=== PATIENT | male | born 1960 | race Caucasian/White ===

== ENCOUNTER → 2017-03-11 | Outpatient (REF) | payer MEDICARE, MEDICAID ==
[2017-03-11 12:35] LABS: ALBUMIN 3.9 GM/DL (3.2-5.2); ALBUMIN/GLOBULIN RATIO 1.11 (1.00-1.93); ALKALINE PHOSPHATASE 54 U/L (45-117); ALT/SGPT 24 U/L (12-78); ANION GAP 6 MEQ/L (8-16); AST/SGOT 24 U/L (15-37); BILIRUBIN,TOTAL 0.8 MG/DL (0.2-1.0); BLOOD UREA NITROGEN 8 MG/DL (7-18); CALCIUM LEVEL 8.4 MG/DL (8.5-10.1); CARBON DIOXIDE LEVEL 32 MEQ/L (21-32); CHLORIDE LEVEL 103 MEQ/L (98-107); CHOLESTEROL LEVEL 182 MG/DL (<200); CREATININE FOR GFR 1.08 MG/DL (0.70-1.30); FREE T4 1.15 NG/DL (0.76-1.46); GLOMERULAR FILTRATION RATE > 60.0 (>56); GLUCOSE, FASTING 84 MG/DL (70-105); POTASSIUM SERUM 3.7 MEQ/L (3.5-5.1); SODIUM LEVEL 141 MEQ/L (136-145); TOTAL PROTEIN 7.4 GM/DL (6.4-8.2); TRIGLYCERIDES LEVEL 58 MG/DL (<150)
== END ==
LOC: M SFHCCLAY 07:38
PROVIDERS: ATTEND Family Medicine
DX: E78.2 Mixed hyperlipidemia (principal); I10 Essential (primary) hypertension

== ENCOUNTER → 2017-09-15 | Outpatient (REF) | payer MEDICARE, MEDICAID ==
[2017-09-15 12:23] LABS: ALBUMIN 3.9 GM/DL (3.2-5.2); ALBUMIN/GLOBULIN RATIO 1.08 (1.00-1.93); ALKALINE PHOSPHATASE 56 U/L (45-117); ALT/SGPT 22 U/L (12-78); ANION GAP 6 MEQ/L (8-16); AST/SGOT 19 U/L (7-37); BILIRUBIN,TOTAL 0.8 MG/DL (0.2-1.0); BLOOD UREA NITROGEN 5 MG/DL (7-18); CALCIUM LEVEL 8.6 MG/DL (8.5-10.1); CARBON DIOXIDE LEVEL 31 MEQ/L (21-32); CHLORIDE LEVEL 105 MEQ/L (98-107); CHOLESTEROL LEVEL 158 MG/DL (<200); FREE T4 1.17 NG/DL (0.76-1.46); GLOMERULAR FILTRATION RATE > 60.0 (>56); GLUCOSE, FASTING 106 MG/DL (70-105); POTASSIUM SERUM 3.9 MEQ/L (3.5-5.1); SODIUM LEVEL 142 MEQ/L (136-145); TOTAL PROTEIN 7.5 GM/DL (6.4-8.2); TRIGLYCERIDES LEVEL 110 MG/DL (<150)
== END ==
LOC: M SFHCCLAY 08:11
PROVIDERS: ATTEND Family Medicine
DX: E78.2 Mixed hyperlipidemia (principal); E07.9 Disorder of thyroid, unspecified; Z12.5 Encounter for screening for malignant neoplasm of prostate
CPT/HCPCS: 80053; 80061; 84439; 84443; G0103

== ENCOUNTER → 2017-12-14 | Outpatient (REF) | payer MEDICARE, MEDICAID | LOC: M SMT 17:01 | DX: R97.20 Elevated prostate specific antigen [PSA] (principal); Z79.82 Long term (current) use of aspirin; Z79.899 Other long term (current) drug therapy | CPT/HCPCS: 87086 ==

== ENCOUNTER → 2017-12-18 | Outpatient (REF) | payer MEDICARE, MEDICAID ==
[2017-12-18 16:53] LABS: ALBUMIN 4.2 GM/DL (3.2-5.2); ALBUMIN/GLOBULIN RATIO 1.17 (1.00-1.93); ALKALINE PHOSPHATASE 56 U/L (45-117); ALT/SGPT 19 U/L (12-78); ANION GAP 4 MEQ/L (8-16); AST/SGOT 20 U/L (7-37); BILIRUBIN,TOTAL 1.2 MG/DL (0.2-1.0); BLOOD UREA NITROGEN 12 MG/DL (7-18); CARBON DIOXIDE LEVEL 33 MEQ/L (21-32); CHLORIDE LEVEL 103 MEQ/L (98-107); CHOLESTEROL LEVEL 190 MG/DL (<200); CHOLESTEROL RISK RATIO 2.794 (<5); CREATININE FOR GFR 1.05 MG/DL (0.70-1.30); GLOMERULAR FILTRATION RATE > 60.0 (>56); GLUCOSE, FASTING 81 MG/DL (70-100); HDL CHOLESTEROL 68 MG/DL (>40); NON-HDL-C 122 MG/DL; POTASSIUM SERUM 4.3 MEQ/L (3.5-5.1); PROSTATIC SPECIFIC AG MONITOR 0.82 NG/ML (< 4.0); SODIUM LEVEL 140 MEQ/L (136-145); TOTAL PROTEIN 7.8 GM/DL (6.4-8.2); TRIGLYCERIDES LEVEL 70 MG/DL (<150)
[2017-12-22 00:06] LABS: PSA TOTAL 0.8 ng/mL (0.0-4.0)
== END ==
LOC: M LABSMT 09:09
DX: R97.20 Elevated prostate specific antigen [PSA] (principal); E78.2 Mixed hyperlipidemia
CPT/HCPCS: 80053

== ENCOUNTER → 2018-12-21 | Outpatient (REF) | payer MEDICARE, MEDICAID ==
[2018-12-21 11:40] LABS: ALT/SGPT 25 U/L (12-78); BILIRUBIN,TOTAL 1.1 MG/DL (0.2-1.0); BLOOD UREA NITROGEN 13 MG/DL (7-18); CALCIUM LEVEL 8.7 MG/DL (8.5-10.1); CARBON DIOXIDE LEVEL 32 MEQ/L (21-32); CHLORIDE LEVEL 102 MEQ/L (98-107); CHOLESTEROL LEVEL 188 MG/DL (<200); CHOLESTEROL RISK RATIO 3.081 (<5); CREATININE FOR GFR 1.12 MG/DL (0.70-1.30); GLOMERULAR FILTRATION RATE > 60.0 (>56); GLUCOSE, FASTING 85 MG/DL (70-100); HDL CHOLESTEROL 61 MG/DL (>40); LDL CHOLESTEROL 114 MG/DL (<100); NON-HDL-C 127 MG/DL; POTASSIUM SERUM 3.7 MEQ/L (3.5-5.1); SODIUM LEVEL 139 MEQ/L (136-145); TOTAL PROTEIN 7.6 GM/DL (6.4-8.2); TRIGLYCERIDES LEVEL 66 MG/DL (<150)
== END ==
LOC: M SFHCCLAY 11:11
PROVIDERS: ATTEND Family Medicine
DX: R97.20 Elevated prostate specific antigen [PSA] (principal); E78.2 Mixed hyperlipidemia
CPT/HCPCS: 80053; 80061; G0463

== ENCOUNTER → 2019-07-26 | Outpatient (REF) | payer MEDICARE, MEDICAID ==
[2019-07-26 12:24] LABS: ALBUMIN 3.8 GM/DL (3.2-5.2); BILIRUBIN,TOTAL 0.8 MG/DL (0.2-1.0); CALCIUM LEVEL 9.3 MG/DL (8.8-10.2); CHOLESTEROL RISK RATIO 2.862 (<5); CREATININE FOR GFR 1.44 MG/DL (0.70-1.30); GLOMERULAR FILTRATION RATE 53.3 (>49); POTASSIUM SERUM 3.6 MEQ/L (3.5-5.1); TOTAL PROTEIN 7.6 GM/DL (6.4-8.2)
== END ==
LOC: M SFHCCLAY 08:03
PROVIDERS: ATTEND Family Medicine
DX: R97.20 Elevated prostate specific antigen [PSA] (principal); E78.2 Mixed hyperlipidemia; Z23 Encounter for immunization
CPT/HCPCS: 80053; 80061; 90682; G0008; G0463

== ENCOUNTER → 2019-09-07 | Outpatient (REF) | payer MEDICARE, MEDICAID ==
[2019-09-07 12:03] LABS: HEMATOCRIT 36.4 % (42.0-52.0); HEMOGLOBIN 12.5 g/dl (13.5-17.5); MEAN CORPUSCULAR HEMOGLOBIN 33.6 pg (27.0-33.0); MEAN CORPUSCULAR HGB CONC 34.3 g/dl (32.0-36.5); MEAN CORPUSCULAR VOLUME 97.8 fl (80.0-96.0); PLATELET COUNT, AUTOMATED 318 10^3/uL (150-450); RED BLOOD COUNT 3.72 10^6/uL (4.30-6.10)
[2019-09-07 12:11] LABS: CALCIUM LEVEL 8.7 MG/DL (8.8-10.2); CREATININE FOR GFR 1.59 MG/DL (0.70-1.30); GLOMERULAR FILTRATION RATE 47.5 (>49); POTASSIUM SERUM 3.9 MEQ/L (3.5-5.1)
== END ==
LOC: M SFHCCLAY 07:26
PROVIDERS: ATTEND Family Medicine
DX: M79.89 Other specified soft tissue disorders (principal)
CPT/HCPCS: 80048; 85027; 85379; G0463

== ENCOUNTER → 2020-01-31 | Outpatient (REF) | payer MEDICARE, MEDICAID ==
[2020-01-31 16:35] LABS: HEMATOCRIT 38.3 % (42.0-52.0); HEMOGLOBIN 13.6 g/dl (13.5-17.5); MEAN CORPUSCULAR HEMOGLOBIN 32.5 pg (27.0-33.0); MEAN CORPUSCULAR HGB CONC 35.5 g/dl (32.0-36.5); MEAN CORPUSCULAR VOLUME 91.6 fl (80.0-96.0); PLATELET COUNT, AUTOMATED 289 10^3/uL (150-450); RED BLOOD COUNT 4.18 10^6/uL (4.30-6.10); WHITE BLOOD COUNT 3.9 10^3/uL (4.0-10.0)
[2020-01-31 16:43] LABS: BLOOD UREA NITROGEN 17 MG/DL (7-18); CALCIUM LEVEL 9.7 MG/DL (8.8-10.2); CARBON DIOXIDE LEVEL 32 MEQ/L (21-32); CHLORIDE LEVEL 86 MEQ/L (98-107); CREATININE FOR GFR 1.27 MG/DL (0.70-1.30); GLOMERULAR FILTRATION RATE > 60.0 (>49); GLUCOSE, FASTING 88 MG/DL (70-100); IRON (FE) 75 UG/DL (65-175); PERCENT SATURATION 21.5 % (19.7-50.0); POTASSIUM SERUM 3.7 MEQ/L (3.5-5.1); SODIUM LEVEL 124 MEQ/L (136-145); TOTAL IRON BINDING CAPACITY 349 UG/DL (250-450)
[2020-01-31 17:12] LABS: FOLATE 7.8 NG/ML (>5.4); VITAMIN B12 LEVEL 217 PG/ML (247-911)
== END ==
LOC: M SFHCCLAY 09:38
PROVIDERS: ATTEND Family Medicine
DX: I12.9 Hypertensive chronic kidney disease with stage 1 through stage 4 chronic kidney disease, or unspecified chronic kidney disease (principal); E78.2 Mixed hyperlipidemia; N18.3 Chronic kidney disease, stage 3 (moderate); D64.9 Anemia, unspecified; Z79.899 Other long term (current) drug therapy
CPT/HCPCS: 80048; 82607; 82746; 83036; 83550; 85027; G0463

== ENCOUNTER → 2020-02-06 | Outpatient (CLI) | payer MEDICARE, MEDICAID ==
--- NOTE | 2020-02-06 12:31 | REP ---
ULTRASOUND URINARY BLADDER: Real-time sonographic evaluation of urinary bladder performed. Bladder measures 12.8 x 9.1 x 8.8 cm for a total volume of 669 mL. No wall thickening, mass, or calculus is seen. Right ureteral jet is visualized with Doppler color evaluation. Left ureteral jet is not seen. Postvoid residual is 318 mL, which is 48% of the original volume. Prostate measures 3.1 x 2.7 x 3.6 cm for a total volume of 16 mL. Electronically Signed by John Winslow MD 02/07/2020 10:02 A
== END ==
LOC: M RAD 10:21
PROVIDERS: ATTEND Family Medicine
DX: N18.3 Chronic kidney disease, stage 3 (moderate) (principal); N39.44 Nocturnal enuresis
CPT/HCPCS: 76857; 96372; J3420

== ENCOUNTER → 2020-02-16 | Outpatient (REF) | payer MEDICARE, MEDICAID ==
[2020-02-16 11:36] LABS: C REACTIVE PROTEIN QUANTITATIV < 0.30 MG/DL (0.00-0.30); TOTAL PROTEIN 7.6 GM/DL (6.4-8.2)
[2020-02-21 09:44] LABS: ALBUMIN 4.26 GM/DL (3.29-5.55); ALPHA-2-GLOBULINS 0.59 GM/DL (0.42-0.99); ALPHA-2-GLOBULINS % 7.8 % (7.1-11.8); BETA-1-GLOBULINS 0.49 GM/DL (0.28-0.60); BETA-1-GLOBULINS % 6.5 % (4.7-7.2); BETA-2-GLOBULINS 0.44 GM/DL (0.19-0.55); BETA-2-GLOBULINS % 5.8 % (3.2-6.5); GAMMA GLOBULIN % 19.9 % (11.1-18.8); GAMMA GLOBULINS 1.51 GM/DL (0.65-1.58)
== END ==
LOC: M SFHCCLAY 08:03
PROVIDERS: ATTEND Family Medicine
DX: N18.3 Chronic kidney disease, stage 3 (moderate) (principal); D64.9 Anemia, unspecified; E87.1 Hypo-osmolality and hyponatremia

== ENCOUNTER → 2020-02-17 | Outpatient (CLI) | payer MEDICARE, MEDICAID ==
--- NOTE | 2020-02-17 15:51 | REP ---
RENAL ULTRASOUND: Real-time sonographic evaluation of the kidneys is performed. The kidneys are normal in size and echotexture, right kidney measuring 10.4 x 5.6 x 4.6 cm and left kidney 11.1 x 5.1 x 5.4 cm. There is very mild left hydronephrosis. There is no right hydronephrosis. Possible calculus is seen in the mid left kidney 6 mm in diameter as well as in the lower pole 6 mm in diameter. Ureteral jets are seen in the urinary bladder bilaterally with Doppler color evaluation. IMPRESSION: Very mild left hydronephrosis. Two possible intrarenal calculi mid and lower pole left kidney measuring 6 mm in diameter. Bilateral ureteral jets visualized in the urinary bladder. Electronically Signed by John Winslow MD 02/17/2020 04:04 P
== END ==
LOC: M RAD 13:07
PROVIDERS: ATTEND Family Medicine
DX: N18.3 Chronic kidney disease, stage 3 (moderate) (principal); N20.0 Calculus of kidney; N13.30 Unspecified hydronephrosis

== ENCOUNTER → 2020-02-20 | Outpatient (REF) | payer MEDICARE, MEDICAID ==
[~2020-02-20] MED LIST: ARIP1TAB4 PO; ASPI81TA26 PO; ATEN50TA2; ATIV1TAB10 PO; CARV6.25 PO; CIPR-249 PO; CYAN100049 PO; HYDR-3363; HYDR-3490 PO; LORA-674 PO; TAMS1CAP17 PO
[2020-02-20 18:04] LABS: APPEARANCE, URINE CLEAR (CLEAR); BACTERIA, URINE AUTO NEGATIVE (NEGATIVE); BILIRUBIN, URINE AUTO NEGATIVE (NEGATIVE); BLOOD, URINE BLOOD 1+ (NEGATIVE); COLOR, URINE YELLOW (YELLOW); GLUCOSE, URINE (UA) AUTO NEGATIVE (NEGATIVE); KETONE, URINE AUTO NEGATIVE (NEGATIVE); LEUKOCYTE ESTERASE, URINE AUTO NEGATIVE (NEGATIVE); NITRITE, URINE AUTO NEGATIVE (NEGATIVE); PROTEIN, URINE AUTO NEGATIVE (NEGATIVE); RBC, URINE AUTO 2 /HPF (0-3); SPECIFIC GRAVITY URINE AUTO 1.009 (1.002-1.035); SQUAMOUS EPITHELIAL CELL UR AU 0 /HPF (0-6); UROBILINOGEN, URINE AUTO 0.2 mg/dL (0.0-2.0); WBC, URINE AUTO 0 /HPF (0-3)
== END ==
LOC: M SMT 17:21
PROVIDERS: ATTEND Nurse Practitioner Family
DX: N39.44 Nocturnal enuresis (principal)
CPT/HCPCS: 51798; 81001; 87086; G0463

== ENCOUNTER → 2020-03-02 | Outpatient (REF) | payer MEDICARE, MEDICAID ==
[2020-03-02 12:17] LABS: BLOOD UREA NITROGEN 9 MG/DL (7-18); CALCIUM LEVEL 8.8 MG/DL (8.8-10.2); CARBON DIOXIDE LEVEL 31 MEQ/L (21-32); CHLORIDE LEVEL 101 MEQ/L (98-107); CREATININE FOR GFR 1.22 MG/DL (0.70-1.30); GLOMERULAR FILTRATION RATE > 60.0 (>49); GLUCOSE, FASTING 85 MG/DL (70-100); POTASSIUM SERUM 3.6 MEQ/L (3.5-5.1); SODIUM LEVEL 138 MEQ/L (136-145)
== END ==
LOC: M SFHCCLAY 08:09
PROVIDERS: ATTEND Nurse Practitioner Family
DX: N18.3 Chronic kidney disease, stage 3 (moderate) (principal)

== ENCOUNTER → 2020-03-09 | Outpatient (CLI) | payer MEDICARE, MEDICAID ==
[~2020-03-09] MED LIST changes: -ATIV1TAB10 PO; -CIPR-249 PO; -HYDR-3490 PO; +HYDR25TAB PO
== END ==
LOC: M LABSMTC 13:59
PROVIDERS: ATTEND Family Medicine
DX: Z11.59 Encounter for screening for other viral diseases (principal); Z20.828 Contact with and (suspected) exposure to other viral communicable diseases
CPT/HCPCS: 86580; C9803; U0003

== ENCOUNTER 2020-03-15 13:32 | Emergency (ER) | payer MEDICARE, MEDICAID ==
[~2020-03-15] VITALS: Ht 180.3 cm; Wt 100.0 kg
[2020-03-15 13:50] VITALS: BP 162/82
[2020-03-15] MEDS ORDERED: CARV6.25 PO (14:29)
[2020-03-15] MEDS ORDERED: CYAN100049 PO (14:29)
[2020-03-15] MEDS ORDERED: ATEN50TA2 (14:29)
[2020-03-15] MEDS ORDERED: HYDR-3490 PO (14:29)
[2020-03-15] MEDS ORDERED: TAMS1CAP17 PO (14:29)
[2020-03-15] MEDS ORDERED: HYDR-3363 (14:29)
[2020-03-15] MEDS ORDERED: ASPI81TA26 PO (14:29)
[2020-03-15] MEDS ORDERED: ARIP1TAB4 PO (14:29)
[2020-03-15] MEDS ORDERED: LORA-674 PO (14:29)
[2020-03-15 14:56] LABS: HEMATOCRIT 35.3 % (42.0-52.0); HEMOGLOBIN 12.2 g/dl (13.5-17.5); MEAN CORPUSCULAR HEMOGLOBIN 32.8 pg (27.0-33.0); MEAN CORPUSCULAR HGB CONC 34.6 g/dl (32.0-36.5); MEAN CORPUSCULAR VOLUME 94.9 fl (80.0-96.0); PLATELET COUNT, AUTOMATED 303 10^3/uL (150-450); RED BLOOD COUNT 3.72 10^6/uL (4.30-6.10); WHITE BLOOD COUNT 4.8 10^3/uL (4.0-10.0)
[2020-03-15 15:34] LABS: AMPHETAMINES LEVEL URINE NEGATIVE (NEGATIVE); BARBITURATES URINE NEGATIVE (NEGATIVE); BENZODIAZEPINES URINE NEGATIVE (NEGATIVE); CANNABINOIDS URINE NEGATIVE (NEGATIVE); COCAINE METABOLITE URINE NEGATIVE (NEGATIVE); METHADONE URINE NEGATIVE (NEGATIVE); OPIATES URINE NEGATIVE (NEGATIVE); PHENCYCLIDINE URINE NEGATIVE (NEGATIVE)
[2020-03-15 15:46] LABS: ACETAMINOPHEN LEVEL < 2.0 UG/ML (10.0-30.0); ALBUMIN 3.9 GM/DL (3.2-5.2); ALT/SGPT 27 U/L (12-78); BILIRUBIN,DIRECT 0.2 MG/DL (0.0-0.2); BILIRUBIN,TOTAL 0.9 MG/DL (0.2-1.0); BLOOD UREA NITROGEN 20 MG/DL (7-18); CALCIUM LEVEL 8.4 MG/DL (8.8-10.2); CARBON DIOXIDE LEVEL 28 MEQ/L (21-32); CHLORIDE LEVEL 105 MEQ/L (98-107); CREATININE FOR GFR 1.35 MG/DL (0.70-1.30); ETHYL ALCOHOL (ETHANOL) < 0.003 % (0.000-0.010); GLOMERULAR FILTRATION RATE 57.4 (>49); GLUCOSE, FASTING 125 MG/DL (70-100); POTASSIUM SERUM 3.7 MEQ/L (3.5-5.1); SALICYLATE LEVEL < 1.7 MG/DL (5.0-30.0); SODIUM LEVEL 139 MEQ/L (136-145); TOTAL PROTEIN 7.5 GM/DL (6.4-8.2)
== END 2020-03-15 20:50 | disposition home or self-care (01) ==
LOC: M ED 13:32
DX: F20.9 Schizophrenia, unspecified (principal); E78.5 Hyperlipidemia, unspecified; J30.9 Allergic rhinitis, unspecified; I10 Essential (primary) hypertension; Z79.899 Other long term (current) drug therapy; Z79.82 Long term (current) use of aspirin; Z88.0 Allergy status to penicillin
CPT/HCPCS: 36415; 80048; 80076; 80307; 84443; 85027; 99284; G0480

== ENCOUNTER 2020-07-06 08:05 | Emergency (ER) | payer MEDICARE, MEDICAID ==
[2020-07-06 08:28] VITALS: BP 163/87
--- NOTE | 2020-07-06 09:09 | REPVR ---
PROCEDURE INFORMATION: Exam: XR Right Tibia and Fibula Exam date and time: 07/06/2020 8:43 AM Age: 60 years old Clinical indication: Edema; Location not specified; Additional info: Swelling TECHNIQUE: Imaging protocol: XR Right tibia and fibula. Views: 2 views. COMPARISON: No relevant prior studies available. FINDINGS: Bones/joints: Bone mineralization is normal. Mild degenerative change involving the knee. Preservation of the ankle mortise. No acute fracture or dislocation. Soft tissues: Generalized soft tissue edema. Thickening of the distal Achilles tendon with associated calcifications and posterior calcaneal spurring, consistent with Achilles tendinopathy. IMPRESSION: 1. Generalized soft tissue edema. 2. Achilles tendinopathy. 3. Mild degenerative change involving the right knee. 4. No acute bony abnormality is identified. Electronically signed by: Douglas Tristan On 07/06/2020 09:09:26 AM
--- NOTE | 2020-07-06 09:14 | REPVR ---
PROCEDURE INFORMATION: Exam: XR Right Ankle Exam date and time: 07/06/2020 8:43 AM Age: 60 years old Clinical indication: Edema; Location not specified; Additional info: Swelling TECHNIQUE: Imaging protocol: XR Right ankle. Views: 3 or more views. COMPARISON: No relevant prior studies available. FINDINGS: Bones/joints: Bone mineralization is normal. Bones are intact with preservation of the ankle mortise. No acute fracture or dislocation. Moderate posterior and small plantar calcaneal spur formation. Soft tissues: Generalized soft tissue edema. Thickening of the distal Achilles tendon with associated calcifications and posterior calcaneal spurring, consistent with Achilles tendinopathy. IMPRESSION: 1. Generalized soft tissue edema. 2. Achilles tendinopathy. 3. No acute bony abnormality is identified. Electronically signed by: Douglas Tristan On 07/06/2020 09:14:08 AM
--- NOTE | 2020-07-06 09:19 | REPVR ---
PROCEDURE INFORMATION: Exam: US Duplex Right Lower Extremity Veins, Limited Exam date and time: 07/06/2020 9:09 AM Age: 60 years old Clinical indication: Swelling (edema) of limb; Lower extremity, right; Additional info: Selling right leg - bedside please - u PT TECHNIQUE: Imaging protocol: Real-time Duplex ultrasound of the Right Lower Extremity with 2-D ackerman scale, color Doppler flow and spectral waveform analysis with image documentation. Limited exam was focused on the right lower extremity veins. COMPARISON: No relevant prior studies available. FINDINGS: Right deep veins: Unremarkable. The common femoral, femoral, proximal profunda femoral and popliteal veins are patent without thrombus. Normal Doppler waveforms. Normal compressibility and/or augmentation response. Right superficial veins: Unremarkable. Saphenofemoral junction is patent without thrombus. Soft tissues: Unremarkable. IMPRESSION: No evidence of deep vein thrombosis. Electronically signed by: Douglas Tristan On 07/06/2020 09:18:45 AM
[2020-07-06 09:35] LABS: AMPHETAMINES LEVEL URINE NEGATIVE (NEGATIVE); BARBITURATES URINE NEGATIVE (NEGATIVE); BENZODIAZEPINES URINE NEGATIVE (NEGATIVE); CANNABINOIDS URINE NEGATIVE (NEGATIVE); COCAINE METABOLITE URINE NEGATIVE (NEGATIVE); METHADONE URINE NEGATIVE (NEGATIVE); OPIATES URINE NEGATIVE (NEGATIVE); PHENCYCLIDINE URINE NEGATIVE (NEGATIVE)
[2020-07-06 09:37] LABS: HEMATOCRIT 35.8 % (42.0-52.0); HEMOGLOBIN 12.7 g/dl (13.5-17.5); MEAN CORPUSCULAR HEMOGLOBIN 33.6 pg (27.0-33.0); MEAN CORPUSCULAR HGB CONC 35.5 g/dl (32.0-36.5); MEAN CORPUSCULAR VOLUME 94.7 fl (80.0-96.0); PLATELET COUNT, AUTOMATED 302 10^3/uL (150-450); RED BLOOD COUNT 3.78 10^6/uL (4.30-6.10); WHITE BLOOD COUNT 3.7 10^3/uL (4.0-10.0)
[2020-07-06 10:14] LABS: ACETAMINOPHEN LEVEL < 2.0 UG/ML (10.0-30.0); ALBUMIN 3.8 GM/DL (3.2-5.2); ALT/SGPT 24 U/L (12-78); BILIRUBIN,DIRECT 0.2 MG/DL (0.0-0.2); BILIRUBIN,TOTAL 0.6 MG/DL (0.2-1.0); BLOOD UREA NITROGEN 18 MG/DL (7-18); CALCIUM LEVEL 9.2 MG/DL (8.8-10.2); CARBON DIOXIDE LEVEL 30 MEQ/L (21-32); CHLORIDE LEVEL 92 MEQ/L (98-107); CREATININE FOR GFR 1.42 MG/DL (0.70-1.30); ETHYL ALCOHOL (ETHANOL) < 0.003 % (0.000-0.010); GLUCOSE, FASTING 74 MG/DL (70-100); POTASSIUM SERUM 3.8 MEQ/L (3.5-5.1); SALICYLATE LEVEL < 1.7 MG/DL (5.0-30.0); SODIUM LEVEL 128 MEQ/L (136-145); TOTAL PROTEIN 7.5 GM/DL (6.4-8.2)
[2020-07-06] MEDS ORDERED: ATIV1TAB10 PO (11:25)
[2020-07-06] MEDS ORDERED: LORazepam 0.5 MG TAB PO STA (11:27)
--- NOTE | 2020-07-13 09:34 | ER ---
DATE OF CONSULTATION: 07/06/2020 REASON FOR CONSULTATION: Right lower leg raised lesion with right lower extremity swelling. HISTORY OF PRESENT ILLNESS: The patient is a 60-year-old man who is a resident of the [facility]. He was brought to the emergency department because of some increase in aggressive behavior. He was brought to the [facility] for evaluation. While being evaluated he was found to have some edema of the right lower leg relative to the left and was found to have a raised subcutaneous nodule or mass on the anterior aspect of the right lower leg. It was unclear if this represented an infection but it was reported by his caregivers that he had been on antibiotics for 2 weeks and that it was 80% better than it had been. I was asked to evaluate this raised area as to the need for drainage or further treatment. MEDICAL HISTORY AND SURGICAL HISTORY: As noted in the medical record. ALLERGIES: PATIENT HAS REPORTED ALLERGY TO [facility]EN[facility]. MEDICATIONS: As listed include: * Carvedilol. * Tamsulosin. * Aripiprazole. * Cyanocobalamin. * Hydrochlorothiazide. * Aspirin. * Loratadine. PHYSICAL EXAMINATION: Reveals middle aged or slightly older man lying quietly on a stretcher in the emergency department. He is responsive and appropriate. His examination is limited to his lower extremities. On the anterior aspect of the right lower leg slightly below the level of the tibial tuberosity there is a raised area approximately 4 cm across. This is approximately on the anterior surface of the tibia. This is fairly firm to touch but does not appear significantly tender. There is a small healing abrasion on the anterior central aspect of this. There is no fluctuance. He has some mild edema of the right lower leg particularly distally in the area above the ankle. On the medial aspect of the plantar surface of the foot there appears to be a small bruise in this area. There is some mild erythema, very faint, in roughly the distal half of the lower leg on the right. He has palpable pedal pulses bilaterally. There is no significant edema on the left. The patient had a duplex scan in the emergency department which showed no evidence of deep venous thrombosis. He also had an x-ray of the right ankle which revealed some edema but no evidence of acute bony abnormality. He also had an x-ray of the right tibia and fibula which confirmed some soft tissue edema and some mild degenerative changes of the knee but no acute bony abnormalities. IMPRESSION: The patient has a small raised subcutaneous mass-like area on the right tibia slightly below the level of the knee. He has some edema in the right lower leg which is not present on the left but an ultrasound shows no evidence of DVT. The appearance of this raised area of the lower leg I think is consistent with hematoma. This is in the typical position to bang ones medina on something. There is a healing abrasion over the center of this region. It is reported by the [facility] staff that the area looks much improved. Whether there was some infection in this area previously I cannot say but currently this does not appear infected. The appearance and feel of this I think are consistent with hematoma. This could readily account for the lower extremity edema as well. RECOMMENDATIONS: I advised Dr. Winslow that I did not feel there was any need for drainage of this area. I would expect that this will continue to resolve without further treatment and likely once the hematoma and any other bleeding that may have taken place into the soft tissues of the lower leg has resolved that the edema will resolve as well. He can follow up with his primary provider and if it is felt to be appropriate he can be seen in my office in a few weeks to reassess this area. ABDULLAHI
== END 2020-07-06 12:20 | disposition home or self-care (01) ==
LOC: M ED 08:05
DX: E87.1 Hypo-osmolality and hyponatremia (principal); R60.0 Localized edema; I10 Essential (primary) hypertension; F20.9 Schizophrenia, unspecified; E78.9 Disorder of lipoprotein metabolism, unspecified; Z79.899 Other long term (current) drug therapy; Z79.82 Long term (current) use of aspirin; Z88.0 Allergy status to penicillin
CPT/HCPCS: 36415; 73590; 73610; 80048; 80076; 80307; 84443; 85027; 93971; 99284; G0480

== ENCOUNTER → 2020-09-04 | Outpatient (CLI) | payer MEDICARE, MEDICAID ==
[~2020-09-04] MED LIST changes: +ATIV1TAB10 PO
--- NOTE | 2020-09-04 12:20 | REP ---
INDICATION: URINARY INCONTINENCE COMPARISON: 02/06/2020 TECHNIQUE: Real time B-mode ultrasound examination using curved array transducer. FINDINGS: Bladder demonstrates chronic wall trabeculations without mass lesion or further abnormality. Bilateral ureteral jets are identified. Prevoid bladder measures 16.0 x 13.1 x 11.4 cm (1560 cc) Postvoid bladder measures 14.1 x 11.5 x 7.6 cm (105 cc) Postvoid residual: 51% IMPRESSION: 1. Bladder wall trabeculations consistent with chronic changes. No bladder mass. 2. Abnormal increased postvoid residual volume <Electronically signed by Douglas Keenan > 09/04/20 2144
== END ==
LOC: M RAD 11:22
PROVIDERS: ATTEND Family Medicine
DX: R35.0 Frequency of micturition (principal); R39.81 Functional urinary incontinence

== ENCOUNTER 2020-11-20 18:54 | Emergency (ER) | payer MEDICARE, MEDICAID ==
[~2020-11-20] VITALS: Ht 167.6 cm; Wt 86.4 kg
[~2020-11-20 18:54] MED LIST changes: +HYDR-3490 PO; -HYDR25TAB PO
--- OUTSIDE RECORDS SUMMARY | 2020-11-20 21:05 | CCD ---
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 Active 56809420 Problem Hypercholesterolemia E78.00 Active 61846409 Problem Elevated PSA R97.20 Active 527210708 Problem Screening declined by patient Z53.20 Active 31 798943841693 Problem Hematoma of skin T14.8XXA Active 332928649 Problem Mixed hyperlipidemia E78.2 Active 260777278 Problem Functional urinary incontinence R39.81 Active 540796274 Problem Essential (primary) hypertension I10 Active 85019417 Problem Urinary incontinence, nocturnal enuresis N39.44 Active 8347246 Problem Stage 3 chronic kidney disease N18.3 Active 4 32444470 Problem CKD (chronic kidney disease) stage 3, GFR 30-59 ml/min N18.3 Active 650488872 Problem Urinary retention R33.9 Active 445060097 ALLERGIES Allergen (clinical drug ingredient) Drug/Non Drug Allergy do cumented on EMR Reaction Allergy Type Onset Date Status Penicillin G Benzathine UNKNOWN Drug Allergy Active ENCOUNTERS from 1959 to 2020-09-01 Encounter Location Date Provider Diagnosis [facility] [address] [place] [address] Aug, Vlad Frias Frequency of urination R35.0 ; Functional urinary incontinence R39.81 ; Urinary retention R33.9 and Essential (primary) hypertension I10 IMMUNIZATIONS Vaccine Route Administration Date Status Influenza (18 yrs & older) Flublok IM Intramuscular Jul 26, 2019 Administered Influenza (18 yrs & older) Flublok Unknown Aug 14, 2018 Administered Vitamin B-12 1000mcg/1mL (Cyanocobalamin) IM Intramuscular February 06, 2020 Administered TDAP Unknown April 11, 2009 Administered Influenza (6mo & up) Fluzone IM Intramuscular Sep 16, 2017 Ad ministered Influenza (6mo & up) Fluzone IM Intramuscular Sep 10, 2016 Ad ministered Influenza (6mo & up) Fluzone IM Intramuscular Jul 19, 2015 Ad ministered Influenza (6mo & up) Fluzone IM Jun 27, 2014 Adm inistered Influenza (6mo & up) Fluzone IM Jun 30, 2013 Adm inistered SOCIAL HISTORY Tobacco Use: Social History Observation Description Date Details (start date - stop date) Never Smoker Sex Assigned At : Social History Observation Description Sex Assigned At Unknown Education: Question Answer Notes Level of Education: dropped out of [employer] Audit Question Answer Notes Total Score: 0 Interpretation: Alcohol Education Language: Question Answer Notes Languages spoken: Ukrainian Jewish: Question Answer Notes Jewish 08 Tenriism Sexual Hx: Question Answer Notes Had sex in the last 12 months (vaginal, oral, or anal)? No Have you ever had an STD? No Drug and Alcohol Question Answer Notes Total Score: 0 Interpretation: No problems reported Alcohol Screening: Question Answer Notes Did you have a drink containing alcohol in the past year? No Points 0 Interpretation Negative BMI Care Goal Follow-Up Question Answer Notes Above Normal BMI Follow-Up Dietary management educatio n, guidance, and counseling Tobacco Use: Question Answer Notes Are you a: never smoker never smoker Additional Findings: Tobacco Non-User Current non-smoker REASON FOR REFERRAL No Information VITAL SIGNS Weight 205 lbs Aug, Height 5'11" in Aug, BMI 28.59 kg/m2 Aug, Heart Rate 76 /min Aug, Respiratory Rate 18 /min Aug, Temperature 98 degrees Fahrenheit Aug, Oximetry 100RA Aug, Blood pressure systolic 150 mm Hg Aug, Blood pressure diastolic 82 mm Hg Aug, MEDICATIONS Medication SIG (Take, Route, Frequency, Duration) Notes Start Da te End Date Status SEROquel 25 mg 1 tab Orally every AM Active Depend Pant Large - as directed topically, R39.8 1, R35.0, F20.89 tid for 30 Days Aug, Active Aspir-81 81 MG 1 tablet Orally Once a day Active Ativan 1 MG 1 tab Orally every 4 hours as needed for aggression Active Hydrochlorothiazide 25 MG 1 tablet in the morning Orally Once a day Jul, Active Vitamin B-12 1000 MCG 1 tablet Orally Once a day 24 Jan, 2 020 Active HydrOXYzine HCl 25 mg 1 tab Orally bid prn itching Active Vitamin B12 1000 MCG 1 tablet Orally Once a day Not-Taking Hydrocortisone 1 % 1 application Externally bid as needed to irr itated skin Aug, Active Tamsulosin HCl 0.4 MG 1 capsule Orally Once a day February, Active SEROquel 100 MG 1 tablet at bedtime Orally Once a day Active Carvedilol 6.25 MG 1 tablet with food Orally Twice a day 2 Jan, Active Loratadine 10 mg 1 tablet Orally Once a day Active PROCEDURES No Information RESULTS Component Value Reference Range Urinalysis, no micro Reviewed date:08/28/2020 16:04:39 Interpretation: Performing Lab:[facility], [place] [address] Spec gravity 1.010 1.002 - 1.035 pH 5 5.0 - 9.0 Leukocyte neg Negative - Nitrate neg Negative - Protein neg Negative - mg/dl Glucose neg Negative - mg/dl Ketones neg Negative - mg/dl Urobili norm Normal - mg/dl Bilirubin neg Negative - Blood trace Negative - Internal QC Acceptable (Y/N) yes REASON FOR VISIT urinary frequency/ incontinence MEDICAL (GENERAL) HISTORY Type Description Date Medical History Schizophrenia Medical History Hypertension Medical History Elevated lipids Medical History allergic rhinitis Surgical History No Surgical history information Goals Section No Information Health Concerns No Information MEDICAL EQUIPMENT No Information MENTAL STATUS No Information FUNCTIONAL STATUS No Information ASSESSMENTS Encounter Date Diagnosis Assessment Notes Treatment Notes Treatm ent Clinical Notes Aug, Frequency of urination (ICD-10 - R35.0) Aug, Functional urinary incontinence (ICD-10 - R39.81 ) Aug, Urinary retention (ICD-10 - R33.9) Will likely request follow-up urology clinic visit, depending on result of ultrasound Aug, Essential (primary) hypertension (ICD-10 - I10) PLAN OF TREATMENT Medication Medication Name Sig Start Date Stop Date Hydrochlorothiazide 25 MG 1 tablet in the morning Orally Onc e a day 15 Jul, 2019 Carvedilol 6.25 MG 1 tablet with food Orally Twice a day Jan, Ativan 1 MG 1 tab Orally every 4 hours as needed for aggress ion SEROquel 100 MG 1 tablet at bedtime Orally Once a day Aspir-81 81 MG 1 tablet Orally Once a day Vitamin B-12 1000 MCG 1 tablet Orally Once a day Jan, HydrOXYzine HCl 25 mg 1 tab Orally bid prn itching Loratadine 10 mg 1 tablet Orally Once a day Depend Pant Large - as directed topically, R39.8 1, R35.0, F20.89 tid for 30 Days Aug, SEROquel 25 mg 1 tab Orally every AM Tamsulosin HCl 0.4 MG 1 capsule Orally Once a day February, Treatment Notes Assessment Notes Clinical Notes Urinary retention Will likely request follow-u p urology clinic visit, depending on result of ultrasound Future Test Test Name Order Date BLADDER U/S [id number] Next Appt Details 6 Months Reason: Provider Name:Vlad Frias, 2021-01-15 01 :00:00 PM, [address] [place], [address], Insurance Providers Payer Name Payer Address Payer Phone Insured Name Patient Relati onship to Insured Coverage Start Date Coverage End Date MEDICARE Part A and B [address] [facility] [id number] MARGARET LOZA MEDICAID [id number] [address] [facility] [address] MARGARET LOZA self
--- OUTSIDE RECORDS SUMMARY | 2020-11-20 21:05 | CCD ---
Author Author [facility] Organization [facility] Address Unknown Phone Unavailable Care Team Providers Care Cyber Security Analyst Name Role Phone Kaitlin Andrade Unavailable PROBLEMS Type Condition ICD9-CM Code [id number] Code Onset Dates Condition S tatus SNOMED Code Notes Problem Other specified types of schizophrenia, chronic condition F20.89 Active 20042800 Problem Essential (primary) hypertension I10 Active 06751437 Problem Allergic rhinitis due to pollen J30.1 Active 35304419 Problem Elevated PSA R97.20 Active 868953497 Problem Screening declined by patient Z53.20 Active 31 091523448069 Problem Urinary incontinence, nocturnal enuresis N39.44 Active 0678872 Problem Functional urinary incontinence R39.81 Active 034698313 Problem Hypercholesterolemia E78.00 Active 99464019 Problem BPH loc w urin obs/LUTS N40.1 Active 63026053 7 Problem Mixed hyperlipidemia E78.2 Active 289773299 Problem Stage 3 chronic kidney disease N18.3 Active 4 39478322 Problem CKD (chronic kidney disease) stage 3, GFR 30-59 ml/min N18.3 Active 366336563 Problem Urinary retention R33.9 Active 318616576 Problem Hematoma of skin T14.8XXA Active 910547397 ALLERGIES Allergen (clinical drug ingredient) Drug/Non Drug Allergy do cumented on EMR Reaction Allergy Type Onset Date Status Penicillin G Benzathine UNKNOWN Drug Allergy Active ENCOUNTERS from 1959 to 2020-11-07 Encounter Location Date Provider Diagnosis [facility] [address] [address] Oct Andrade Madrigal BPH loc w urin obs/LUTS N40.1 and Other retention of urine R33.8 IMMUNIZATIONS Vaccine Route Administration Date Status Influenza (18 yrs & older) Flublok Unknown Aug 14, 2018 Administered Vitamin B-12 1000mcg/1mL (Cyanocobalamin) IM Intramuscular February 06, 2020 Administered TDAP 0.5mL (Boostrix) IM Intramuscular Sep 12, 2020 Administe red TDAP Unknown April 11, 2009 Administered Influenza (6mo & up) Fluzone IM Intramuscular Sep 16, 2017 Ad ministered Influenza (6mo & up) Fluzone IM Intramuscular Sep 10, 2016 Ad ministered Influenza (18 yrs & older) Flublok IM Intramuscular Jul 26, 2019 Administered Influenza (6mo & up) Fluzone IM [...] Notes Level of Education: dropped out of [employer] Audit Question Answer Notes Total Score: 0 Interpretation: Alcohol Education Language: Question Answer Notes Languages spoken: Lithuanian Baptism: Question Answer Notes Baptism 08 Quaker Sexual Hx: Question Answer Notes Had sex [...] FOR REFERRAL No Information VITAL SIGNS Weight 194 lbs Oct, Height 5'11" in Oct, BMI 27.05 kg/m2 Oct, Heart Rate 77 /min Oct, Respiratory Rate 18 /min Oct, Oximetry 98 Oct, Blood pressure systolic 128 mm Hg Oct, Blood pressure diastolic 68 mm Hg Oct, MEDICATIONS Medication SIG (Take, Route, Frequency, Duration) Notes Start Da te End Date Status SEROquel 25 mg 1 tab Orally every AM Not-Taking Hydrocortisone 1 % 1 application Externally bid as needed to irr itated skin Aug, Active Vitamin B-12 1000 MCG 1 tablet Orally Once a day 24 Jan, 2 020 Active Hydrochlorothiazide 25 MG 1 tablet in the morning Orally Onc e a day for 30 Days Jul, Active Abilify 2 MG 1 tablet Orally Once a day for 30 day(s) Active Tamsulosin HCl 0.4 MG 1 capsule Orally Once a day for 30 Days February, Active Hydrochlorothiazide 25 MG 1 tablet in the morning Oral ly Once a day for 30 day(s) Active Loratadine 10 mg 1 tablet Orally Once a day for 30 Days Active Bactrim DS 800-160 MG 1 tablet 1 elaina prior to your cystoscopy Orally Once for 1 days Sep, Active Vitamin B12 1000 MCG 1 tablet Orally Once a day Not-Taking Ativan 1 MG 1 tab Orally every 4 hours as needed for aggression Not-Taking Carvedilol 6.25 MG 1 tablet with food Orally Twice a day for 90 days Jan, Active Depend Pant Large - as directed topically, R39.8 1, R35.0, F20.89 tid for 30 Days Aug, Active HydrOXYzine HCl 25 MG 1 tab Orally bid for 30 Days Active Finasteride 5 MG 1 tablet Orally Once a day for 30 day(s) Oct, Active SEROquel 100 MG 1 tablet at bedtime Orally Once a day Not-Taking Aspir-81 81 MG 1 tablet Orally Once a day Active PROCEDURES No Information RESULTS No Results REASON FOR VISIT urinary retention MEDICAL (GENERAL) HISTORY Type Description Date Medical History Schizophrenia Medical History Hypertension Medical History Elevated lipids Medical History allergic rhinitis Surgical History cystoscopy 10/17/2020 Goals Section No Information Health Concerns No Information MEDICAL EQUIPMENT No Information MENTAL STATUS No Information FUNCTIONAL STATUS No Information ASSESSMENTS Encounter Date Diagnosis Assessment Notes Treatment Notes Treatm ent Clinical Notes Oct, BPH loc w urin obs/LUTS (ICD-10 - N40.1) He has evidence of BPH by cystoscopy but I do not believe he is a great surgical candidate at present. I will add Finasteride 5 mg to his regimen and have him follow up in 6 weeks for PVR check. Oct, Other retention of urine (ICD-10 - R33.8) PLAN OF TREATMENT Medication Medication Name Sig Start Date Stop Date Hydrochlorothiazide 25 MG 1 tablet in the morning Orally Onc e a day for 30 Days Jul, Finasteride 5 MG 1 tablet Orally Once a day for 30 day(s) Oct Treatment Notes Assessment Notes Clinical Notes BPH loc w urin obs/LUTS He has evidence of BPH by cystoscopy but I do not believe he is a great surgical candidate at present. I will add Finasteride 5 mg to his regimen and have him follow up in 6 weeks for PVR check. Future Test Test Name Order Date uro CYSTOSCOPY [id number] Medication: Lidocaine HCl 2% Jelly 5mL Intravesically [id number] Next Appt Details 6 Weeks Reason:PVR and symptom check Provider Name:Charlie Johnson, 2020-11-28 10:15:00 AM, [address], [place], [address], Provider Name:Vlad Frias, 2021-01-15 01 :00:00 PM, [address] [place], [address], Follow Up:6 WeeksPVR and symptom check Insurance Providers Payer Name Payer Address Payer Phone Insured Name Patient Relati onship to Insured Coverage Start Date Coverage End Date MEDICAID [employer] [address] [facility] [id number] MARGARET LOZA self MEDICARE Part A and B [address] [facility] [id number] MARGARET LOZA self
--- OUTSIDE RECORDS SUMMARY | 2020-11-20 21:05 | CCD ---
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 Active 37207061 Problem Essential (primary) hypertension I10 Active 56260191 Problem Allergic rhinitis due to pollen J30.1 Active 40196563 Problem Elevated PSA R97.20 Active 219598958 Problem Screening declined by patient Z53.20 Active 31 155160332292 Problem Urinary incontinence, nocturnal enuresis N39.44 Active 6770552 Problem Functional urinary incontinence R39.81 Active 517574372 Problem Hypercholesterolemia E78.00 Active 56942976 Problem BPH loc w urin obs/LUTS N40.1 Active 52943948 7 Problem Mixed hyperlipidemia E78.2 Active 699195114 Problem Stage 3 chronic kidney disease N18.3 Active 4 06667824 Problem CKD (chronic kidney disease) stage 3, GFR 30-59 ml/min N18.3 Active 607542182 Problem Urinary retention R33.9 Active 893177876 Problem Hematoma of skin T14.8XXA Active 075963425 ALLERGIES Allergen (clinical drug ingredient) Drug/Non Drug Allergy do cumented on EMR Reaction Allergy Type Onset Date Status Penicillin G Benzathine UNKNOWN Drug Allergy Active ENCOUNTERS from 1959 to 2020-09-26 Encounter Location Date Provider Diagnosis [facility] [address] [place] [address] Sep, Vlad Frias Essential (primary) hypertension I10 IMMUNIZATIONS Vaccine Route [...] Notes Level of Education: dropped out of [employer] Audit Question Answer Notes Total Score: 0 Interpretation: Alcohol Education Language: Question Answer Notes Languages spoken: Cymraes Amish: Question Answer Notes Amish 08 Faith Sexual Hx: Question Answer Notes Had sex [...] REASON FOR REFERRAL No Information VITAL SIGNS No information MEDICATIONS Medication SIG (Take, Route, Frequency, Duration) Notes Start Da te End Date Status SEROquel 100 MG 1 tablet at bedtime Orally Once a day Not-Taking Bactrim DS 800-160 MG 1 tablet 1 elaina prior to your cystoscopy Orally Once for 1 days Sep, Active Depend Pant Large - as directed topically, R39.8 1, R35.0, F20.89 tid for 30 Days Aug, Active SEROquel 25 mg 1 tab Orally every AM Not-Taking Aspir-81 81 MG 1 tablet Orally Once a day Active Loratadine 10 mg 1 tablet Orally Once a day for 30 Days Active Abilify 2 MG 1 tablet Orally Once a day for 30 day(s) Active Carvedilol 6.25 MG 1 tablet with food Orally Twice a day for 90 days Jan, Active Hydrocortisone 1 % 1 application Externally bid as needed to irr itated skin Aug, Active Vitamin B12 1000 MCG 1 tablet Orally Once a day Not-Taking Ativan 1 MG 1 tab Orally every 4 hours as needed for aggression Not-Taking HydrOXYzine HCl 25 MG 1 tab Orally bid prn itching for 30 Days Active Tamsulosin HCl 0.4 MG 1 capsule Orally Once a day for 30 Days February, Active Hydrochlorothiazide 25 MG 1 tablet in the morning Orally Once a day Jul, Active Hydrochlorothiazide 25 MG 1 tablet in the morning Oral ly Once a day for 30 day(s) Active Vitamin B-12 1000 MCG 1 tablet Orally Once a day Jan, 2 020 Active PROCEDURES No Information RESULTS No Results REASON FOR VISIT Refill - Carvedilol MEDICAL (GENERAL) HISTORY Type Description Date Medical History Schizophrenia Medical History Hypertension Medical History Elevated lipids Medical History allergic rhinitis Surgical History No know Surgical history Goals Section No Information Health Concerns No Information MEDICAL EQUIPMENT No Information MENTAL STATUS No Information FUNCTIONAL STATUS No Information ASSESSMENTS Encounter Date Diagnosis Assessment Notes Treatment Notes Treatm ent Clinical Notes Sep, Essential (primary) hypertension (ICD-10 - I10) PLAN OF TREATMENT Medication Medication Name Sig Start Date Stop Date Bactrim DS 800-160 MG 1 tablet 1 elaina prior to your cystoscopy Orally Once for 1 days Sep, Carvedilol 6.25 MG 1 tablet with food Orally Twice a day fo r 90 days Jan, Next Appt Details Provider Name:Andrade Madrigal, 2020-10 10:00:00 AM, [address], [place], [address], Provider Name:Vlad Frias, 2021-01-15 01 :00:00 PM, [address], [place], [address], Insurance Providers Payer Name Payer Address Payer Phone Insured Name Patient Relati onship to Insured Coverage Start Date Coverage End Date MEDICAID [place] [address] [facility] [id number] MARGARET LOZA MEDICARE Part A and B [address] [facility] [address] [phone] MARGARET LOZA self
--- OUTSIDE RECORDS SUMMARY | 2020-11-20 21:05 | CCD ---
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 Active 59792727 Problem Essential (primary) hypertension I10 Active 03964366 Problem Allergic rhinitis due to pollen J30.1 Active 91102265 Problem Elevated PSA R97.20 Active 821697494 Problem Screening declined by patient Z53.20 Active 31 841259380263 Problem Urinary incontinence, nocturnal enuresis N39.44 Active 2277728 Problem Functional urinary incontinence R39.81 Active 823175848 Problem Hypercholesterolemia E78.00 Active 13415692 Problem BPH loc w urin obs/LUTS N40.1 Active 47335392 7 Problem Mixed hyperlipidemia E78.2 Active 682241703 Problem Stage 3 chronic kidney disease N18.3 Active 4 38829979 Problem CKD (chronic kidney disease) stage 3, GFR 30-59 ml/min N18.3 Active 447336643 Problem Urinary retention R33.9 Active 580219109 Problem Hematoma of skin T14.8XXA Active 219742547 ALLERGIES Allergen (clinical drug ingredient) Drug/Non Drug Allergy do cumented on EMR Reaction Allergy Type Onset Date Status Penicillin G Benzathine UNKNOWN Drug Allergy Active ENCOUNTERS from 1959 to 2020-11-04 Encounter Location Date Provider Diagnosis [facility] [address] [place] [address] Oct, Vlad Frias Essential (primary) hypertension I10 IMMUNIZATIONS [...] Notes Level of Education: dropped out of [employer] Audit Question Answer Notes Total Score: 0 Interpretation: Alcohol Education Language: Question Answer Notes Languages spoken: Eritrean Quaker: Question Answer Notes Quaker 08 Yarsani Sexual Hx: Question Answer Notes Had sex [...] Information RESULTS No Results REASON FOR VISIT renewal MEDICAL (GENERAL) HISTORY Type Description Date Medical History Schizophrenia Medical History Hypertension Medical History Elevated lipids Medical History allergic rhinitis Surgical History cystoscopy 10/17/2020 Goals Section No Information Health Concerns No Information MEDICAL EQUIPMENT No Information MENTAL STATUS No Information FUNCTIONAL STATUS No Information ASSESSMENTS Encounter Date Diagnosis Assessment Notes Treatment Notes Treatm ent Clinical Notes Oct, Essential (primary) hypertension (ICD-10 - I10) PLAN OF TREATMENT Medication Medication Name Sig Start Date Stop Date Hydrochlorothiazide 25 MG 1 tablet in the morning Orally Onc e a day for 30 Days Jul, Finasteride 5 MG 1 tablet Orally Once a day for 30 day(s) Oct Next Appt Details Provider Name:Charlie Johnson, 2020-11-28 10:15:00 AM, [address], [place], [address], Provider Name:Vlad Frias, 2021-01-15 01 :00:00 PM, [address], [address], Insurance Providers Payer Name Payer Address Payer Phone Insured Name Patient Relati onship to Insured Coverage Start Date Coverage End Date MEDICARE Part A and B [address] [facility] [address] MARGARET LOZA MEDICAID [employer] [address] [facility] [address] MARGARET LOZA self
--- OUTSIDE RECORDS SUMMARY | 2020-11-20 21:05 | CCD ---
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 Active 29263925 Problem Urinary retention R33.9 Active 933971054 Problem Essential (primary) hypertension I10 Active 41703602 Problem Hematoma of skin T14.8XXA Active 742911129 Problem Allergic rhinitis due to pollen J30.1 Active 72249993 Problem Screening declined by patient Z53.20 Active 31 480338359385 Problem Urinary incontinence, nocturnal enuresis N39.44 Active 7029858 Problem Stage 3 chronic kidney disease N18.3 Active 4 15731231 Problem CKD (chronic kidney disease) stage 3, GFR 30-59 ml/min N18.3 Active 914351524 ALLERGIES Allergen (clinical drug ingredient) Drug/Non Drug Allergy do cumented on EMR Reaction Allergy Type Onset Date Status Penicillin G Benzathine UNKNOWN Drug Allergy Active ENCOUNTERS from 1959 to 2020-08-23 Encounter Location Date Provider Diagnosis [facility] [address] [place] [address] Aug, Vlad Frias Irritant contact dermatitis due to other agents L24.89 IMMUNIZATIONS Vaccine Route Administration Date Status Influenza [...] Notes Level of Education: dropped out of [employer] Audit Question Answer Notes Total Score: 0 Interpretation: Alcohol Education Language: Question Answer Notes Languages spoken: Ukrainian Synagogue: Question Answer Notes Synagogue 08 Amish Sexual Hx: Question Answer Notes Had sex [...] FOR REFERRAL No Information VITAL SIGNS Weight 203 lbs Aug, Height 5'11" in Aug, BMI 28.31 kg/m2 Aug, Heart Rate 86 /min Aug, Respiratory Rate 18 /min Aug, Temperature 98 degrees Fahrenheit Aug, Oximetry 98RA Aug, Blood pressure systolic 145 mm Hg Aug, Blood pressure diastolic 89 mm Hg Aug, MEDICATIONS Medication SIG (Take, Route, Frequency, Duration) Start Date En d Date Status SEROquel 25 mg 1 tab Orally every AM Act yvon Loratadine 10 mg 1 tablet Orally Once a day Active Tamsulosin HCl 0.4 MG 1 capsule Orally Once a day February, Active Vitamin B12 1000 MCG 1 tablet Orally Once a day Not-Taking Hydrocortisone 1 % 1 application Externally bid as needed t o irritated skin Aug, Active Aspir-81 81 MG 1 tablet Orally Once a day Active SEROquel 100 MG 1 tablet at bedtime Orally Once a day Active HydrOXYzine HCl 25 mg 1 tab Orally bid prn itching Active Ativan 1 MG 1 tab Orally every 4 hours as needed for aggression Active Carvedilol 6.25 MG 1 tablet with food Orally Twice a day Jan, Active Hydrochlorothiazide 25 MG 1 tablet in the morning Orally Onc e a day Jul, Active Vitamin B-12 1000 MCG 1 tablet Orally Once a day Jan, Active PROCEDURES No Information RESULTS No Results REASON FOR VISIT rash on ankle MEDICAL (GENERAL) HISTORY Type Description Date Medical History Schizophrenia Medical History Hypertension Medical History Elevated lipids Medical History allergic rhinitis Surgical History No Surgical history information Goals Section No Information Health Concerns No Information MEDICAL EQUIPMENT No Information MENTAL STATUS No Information FUNCTIONAL STATUS No Information ASSESSMENTS Encounter Date Diagnosis Notes Aug, Irritant contact dermatitis due to other agents (ICD-10 - L24.89) PLAN OF TREATMENT Medication Medication Name Sig Start Date Stop Date Hydrocortisone 1 % 1 application Externally bid as needed t o irritated skin Aug, Treatment Notes Assessment Notes Clinical Notes Irritant contact dermatitis due to other agents apply to red areas on legs/ankles as needed for itching or irritation Next Appt Details prn Reason: Provider Name:Vlad Frias, 2021-01-15 01 :00:00 PM, [address] [place], [address], Insurance Providers Payer Name Payer Address Payer Phone Insured Name Patient Relati onship to Insured Coverage Start Date Coverage End Date MEDICARE Part A and B [address] [facility] [phone] [place],MARGARET A self MEDICAID [employer] [address] [facility] [address] [place]ES[place],MARGARET A self
--- OUTSIDE RECORDS SUMMARY | 2020-11-20 21:05 | CCD ---
Author Author [facility] Organization [facility] Address Unknown Phone Unavailable Care Team Providers Care Medical Administrative Assistant Name Role Phone Vlad Frias Unavailable PROBLEMS Type Condition ICD9-CM Code QUM37-BT Code Onset Dates Condition S tatus SNOMED Code Notes Problem Other specified types of schizophrenia, chronic condition F20.89 Active 35795157 Problem Essential (primary) hypertension I10 Active 84068715 Problem Allergic rhinitis due to pollen J30.1 Active 55225188 Problem Elevated PSA R97.20 Active 521140584 Problem Screening declined by patient Z53.20 Active 31 604541905334 Problem Urinary incontinence, nocturnal enuresis N39.44 Active 0481699 Problem Functional urinary incontinence R39.81 Active 082276962 Problem Hypercholesterolemia E78.00 Active 19970597 Problem BPH loc w urin obs/LUTS N40.1 Active 09963475 7 Problem Mixed hyperlipidemia E78.2 Active 578263979 Problem Stage 3 chronic kidney disease N18.3 Active 4 51047870 Problem CKD (chronic kidney disease) stage 3, GFR 30-59 ml/min N18.3 Active 136013182 Problem Urinary retention R33.9 Active 673191570 Problem Hematoma of skin T14.8XXA Active 345031736 ALLERGIES Allergen (clinical drug ingredient) Drug/Non Drug Allergy do cumented on EMR Reaction Allergy Type Onset Date Status Penicillin G Benzathine UNKNOWN Drug Allergy Active ENCOUNTERS from 1959 to 2020-09-04 Encounter Location Date Provider Diagnosis [facility] [address] [place] [address] Aug, Vlad Frias Functional urinary incontinence R39.81 and BPH loc w urin obs/LUTS N40.1 IMMUNIZATIONS Vaccine Route Administration Date Status Influenza [...] Notes Level of Education: dropped out of [facility] [facility] Audit Question Answer Notes Total Score: 0 Interpretation: Alcohol Education Language: Question Answer Notes Languages spoken: Serbian Roman Catholic: Question Answer Notes Roman Catholic 08 Rastafarian Sexual Hx: Question Answer Notes Had sex [...] with food Orally Twice a day 2 1 Jan, 2020 Active Loratadine 10 mg 1 tablet Orally Once a day Active PROCEDURES No Information RESULTS No Results REASON FOR VISIT No Information MEDICAL (GENERAL) HISTORY Type Description Date Medical History Schizophrenia Medical History Hypertension Medical History Elevated lipids Medical History allergic rhinitis Surgical History No Surgical history information Goals Section No Information Health Concerns No Information MEDICAL EQUIPMENT No Information MENTAL STATUS No Information FUNCTIONAL STATUS No Information ASSESSMENTS Encounter Date Diagnosis Assessment Notes Treatment Notes Treatm ent Clinical Notes Aug, Functional urinary incontinence (ICD-10 - R39.81 ) Aug, BPH loc w urin obs/LUTS (ICD-10 - N40.1) PLAN OF TREATMENT Medication Medication Name Sig Start Date Stop Date Hydrochlorothiazide 25 MG 1 tablet in the morning Orally Onc e a day Jul, Carvedilol 6.25 MG 1 tablet with food [...] 1 capsule Orally Once a day February, Next Appt Details Provider Name:Vlad Frias, 2021-01-15 01 :00:00 PM, [address] , [place], [address], Insurance Providers Payer Name Payer Address Payer Phone Insured Name Patient Relati onship to Insured Coverage Start Date Coverage End Date MEDICAID [employer] [address] [facility] [address] MARGARET LOZA MEDICARE Part A and B [address] [facility] [address] [phone] MARGARET LOZA self
--- OUTSIDE RECORDS SUMMARY | 2020-11-20 21:05 | CCD ---
Author Author [facility] Organization [facility] Address Unknown Phone Unavailable Care Team Providers Care Shipping And Receiving Name Role Phone Vlad Frias Unavailable PROBLEMS Type Condition ICD9-CM Code CEK01-AG Code Onset Dates Condition S tatus SNOMED Code Notes Problem Other specified types of schizophrenia, chronic condition F20.89 Active 19261052 Problem Essential (primary) hypertension I10 Active 17781474 Problem Allergic rhinitis due to pollen J30.1 Active 00087534 Problem Elevated PSA R97.20 Active 288238098 Problem Screening declined by patient Z53.20 Active 31 108532673841 Problem Urinary incontinence, nocturnal enuresis N39.44 Active 6667775 Problem Functional urinary incontinence R39.81 Active 134601688 Problem Hypercholesterolemia E78.00 Active 94625101 Problem BPH loc w urin obs/LUTS N40.1 Active 62932648 7 Problem Mixed hyperlipidemia E78.2 Active 318312183 Problem Stage 3 chronic kidney disease N18.3 Active 4 36109487 Problem CKD (chronic kidney disease) stage 3, GFR 30-59 ml/min N18.3 Active 393776231 Problem Urinary retention R33.9 Active 000833256 Problem Hematoma of skin T14.8XXA Active 195656421 ALLERGIES Allergen (clinical drug ingredient) Drug/Non Drug Allergy do cumented on EMR Reaction Allergy Type Onset Date Status Penicillin G Benzathine UNKNOWN Drug Allergy Active ENCOUNTERS from 1959 to 2020-09-14 Encounter Location Date Provider Diagnosis [facility] [address] [place] [address] Sep, Vlad Frias Urinary retention R33.9 IMMUNIZATIONS Vaccine Route Administration Date Status Influenza [...] Notes Level of Education: dropped out of [employer] Audit Question Answer Notes Total Score: 0 Interpretation: Alcohol Education Language: Question Answer Notes Languages spoken: Thai Restoration: Question Answer Notes Restoration 08 Religion Sexual Hx: Question Answer Notes Had sex [...] Notes Start Da te End Date Status Vitamin B-12 1000 MCG 1 tablet Orally Once a day 24 Jan, 2 020 Active Depend Pant Large - as directed topically, R39.8 1, R35.0, F20.89 tid for 30 Days Aug, Active Aspir-81 81 MG 1 tablet Orally Once a day Active Ativan 1 MG 1 tab Orally every 4 hours as needed for aggression Active Hydrochlorothiazide 25 MG 1 tablet in the morning Orally Once a day Jul, Active SEROquel 100 MG 1 tablet at bedtime Orally Once a day Active Tamsulosin HCl 0.4 MG 1 capsule Orally Once a day for 30 Days February, Active Vitamin B12 1000 MCG 1 tablet Orally Once a day Not-Taking Hydrocortisone 1 % 1 application Externally bid as needed to irr itated skin Aug, Active Loratadine 10 mg 1 tablet Orally Once a day for 30 Days Active HydrOXYzine HCl 25 MG 1 tab Orally bid prn itching for 30 Days Active Carvedilol 6.25 MG 1 tablet with food Orally Twice a day 2 1 Jan, 2020 Active SEROquel 25 mg 1 tab Orally every AM Active PROCEDURES No Information RESULTS No Results REASON FOR VISIT refill MEDICAL (GENERAL) HISTORY Type Description Date Medical History Schizophrenia Medical History Hypertension Medical History Elevated lipids Medical History allergic rhinitis Surgical History No Surgical history information Goals Section No Information Health Concerns No Information MEDICAL EQUIPMENT No Information MENTAL STATUS No Information FUNCTIONAL STATUS No Information ASSESSMENTS Encounter Date Diagnosis Assessment Notes Treatment Notes Treatm ent Clinical Notes Sep, Urinary retention (ICD-10 - R33.9) PLAN OF TREATMENT Medication Medication Name Sig Start Date Stop Date Hydrochlorothiazide 25 MG 1 tablet in the morning Orally Onc e a day Jul, Carvedilol 6.25 MG 1 tablet with food Orally Twice a day Jan, Ativan 1 MG 1 tab Orally every 4 hours as needed for aggress ion HydrOXYzine HCl 25 MG 1 tab Orally bid prn itching for 30 Days Aspir-81 81 MG 1 tablet Orally Once a day SEROquel 100 MG 1 tablet at bedtime Orally Once a day Tamsulosin HCl 0.4 MG 1 capsule Orally Once a day for 30 Days February, SEROquel 25 mg 1 tab Orally every AM Depend Pant Large - as directed topically, R39.8 1, R35.0, F20.89 tid for 30 Days Aug, Vitamin B-12 1000 MCG 1 tablet Orally Once a day Jan, Loratadine 10 mg 1 tablet Orally Once a day for 30 Days Next Appt Details Provider Name:Charlie Johnson, 2020-09-17 02:00:00 PM, [address], [place], [address], Provider Name:Vlad Frias, 2021-01-15 01 :00:00 PM, [address], [place], [address], Insurance Providers Payer Name Payer Address Payer Phone Insured Name Patient Relati onship to Insured Coverage Start Date Coverage End Date MEDICARE Part A and B [address] [facility] [phone] MARGARET LOZA MEDICAID [employer] [address] [facility] [address] MARGARET LOZA self
--- OUTSIDE RECORDS SUMMARY | 2020-11-20 21:05 | CCD ---
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 Active 52659355 Problem Essential (primary) hypertension I10 Active 50505874 Problem Allergic rhinitis due to pollen J30.1 Active 55008741 Problem Elevated PSA R97.20 Active 590354206 Problem Screening declined by patient Z53.20 Active 31 514176557949 Problem Urinary incontinence, nocturnal enuresis N39.44 Active 7948563 Problem Functional urinary incontinence R39.81 Active 230761046 Problem Hypercholesterolemia E78.00 Active 52663031 Problem BPH loc w urin obs/LUTS N40.1 Active 60941085 7 Problem Mixed hyperlipidemia E78.2 Active 153821740 Problem Stage 3 chronic kidney disease N18.3 Active 4 91065584 Problem CKD (chronic kidney disease) stage 3, GFR 30-59 ml/min N18.3 Active 284455547 Problem Urinary retention R33.9 Active 165592953 Problem Hematoma of skin T14.8XXA Active 619150585 ALLERGIES Allergen (clinical drug ingredient) Drug/Non Drug Allergy do cumented on EMR Reaction Allergy Type Onset Date Status Penicillin G Benzathine UNKNOWN Drug Allergy Active ENCOUNTERS from 1959 to 2020-09-19 Encounter Location Date Provider Diagnosis [facility] [address] [place] [address] Sep Charlie Johnson Urinary incontinence, nocturnal enuresis N39.44 and Urinary retention R33.9 IMMUNIZATIONS Vaccine Route Administration [...] Education Language: Question Answer Notes Languages spoken: Persian Jew: Question Answer Notes Jew 08 Religious Sexual Hx: Question Answer Notes Had sex [...] FOR REFERRAL No Information VITAL SIGNS Weight 199 lbs Sep, Height 5'11" in Sep, BMI 27.75 kg/m2 Sep, Heart Rate 63 /min Sep, Respiratory Rate 18 /min Sep, Temperature 98.0 degrees Fahrenheit Sep, Oximetry 100% Sep, Blood pressure systolic 134 mm Hg Sep, Blood pressure diastolic 76 mm Hg Sep, MEDICATIONS Medication SIG (Take, Route, Frequency, Duration) Notes Start Da te End Date Status SEROquel 100 MG 1 tablet at bedtime Orally Once a day Not-Taking Bactrim DS 800-160 MG 1 tablet 1 elaina prior to your cystoscopy Orally Once for 1 days Sep, Active HydrOXYzine HCl 25 MG 1 tab Orally bid prn itching for 30 Days Active SEROquel 25 mg 1 tab Orally every AM Not-Taking Aspir-81 81 MG 1 tablet Orally Once a day Active Loratadine 10 mg 1 tablet Orally Once a day for 30 Days Active Abilify 2 MG 1 tablet Orally Once a day for 30 day(s) Active Hydrocortisone 1 % 1 application Externally bid as needed to irr itated skin Aug, Active Depend Pant Large - as directed topically, R39.8 1, R35.0, F20.89 tid for 30 Days Aug, Active Vitamin B12 1000 MCG 1 tablet Orally Once a day Not-Taking Ativan 1 MG 1 tab Orally every 4 hours as needed for aggression Not-Taking Hydrochlorothiazide 25 MG 1 tablet in the morning Oral ly Once a day for 30 day(s) Active Tamsulosin HCl 0.4 MG 1 capsule Orally Once a day for 30 Days February, Active Hydrochlorothiazide 25 MG 1 tablet in the morning Orally Once a day Jul, Active Carvedilol 6.25 MG 1 tablet with food Orally Twice a day 2 Jan, Active Vitamin B-12 1000 MCG 1 tablet Orally Once a day Jan, 2 020 Active PROCEDURES from 1959 to 2020-09-19 Procedure Date Ordered Result Body Site uro PVR (Post Voiding Residual) Bladder Scan 2020-09-17 N/A RESULTS No Results REASON FOR VISIT patient with incontinence and incomplete bladder emptying on u/s with trabeculat ions on u/s. is he a candidate for additional treatment MEDICAL (GENERAL) HISTORY Type Description Date Medical History Schizophrenia Medical History Hypertension Medical History Elevated lipids Medical History allergic rhinitis Surgical History No know Surgical history Goals Section No Information Health Concerns No Information MEDICAL EQUIPMENT No Information MENTAL STATUS No Information FUNCTIONAL STATUS No Information ASSESSMENTS Encounter Date Diagnosis Assessment Notes Treatment Notes Treatm ent Clinical Notes Sep, Urinary incontinence, nocturnal enuresis (ICD-10 - N39.44) PVR today was 553 cc, then he was able to urinate another 150 cc. Sep, Urinary retention (ICD-10 - R33.9) Discussed with pt he is in retention depsite being on Flomax. He refuses to have a catheter placed despite risks of UTI's, sepsis, and kidney damange. The [employer] worker does not think he would be able to do [facility] with mental/anger issues. Pt is agreeable to having a cystoscopy done to better evaluate. Consent needs to be signed by [facility], risks/benefits reviewed at appointment, if they have any questions they can call our office. Abx x 1 dose sent to pharmacy, which he should take 1 hour prior to his cystoscopy. PLAN OF TREATMENT Medication Medication Name Sig Start Date Stop Date Bactrim DS 800-160 MG 1 tablet 1 elaina prior to your cystoscopy Orally Once for 1 days Sep, Treatment Notes Assessment Notes Clinical Notes Urinary incontinence, nocturnal enuresis PVR today was 553 cc, then he was able to urinate another 150 cc. Urinary retention Discussed with pt he is in retention depsite being on Flomax.He refuses to have a catheter placed despite risks of UTI's, sepsis, and kidney damange. The [employer] worker does not think he would be able to do [facility]IC with mental/anger issues.Pt is agreeable to having a cystoscopy done to better evaluate. Consent needs to be signed by [facility], risks/benefits reviewed at appointment, if they have any questions they can call our office. Abx x 1 dose sent to pharmacy, which he should take 1 hour prior to his cystoscopy. Next Appt Details cystoscopy Reason:urinary retention Provider Name:Deborah Jones, 01:00:00 PM, [address], [place], [address], Provider Name:Vlad Frias, 2021-01-15 01 :00:00 PM, [address], [place], [address], Follow Up:cystoscopyurinary retention Insurance Providers Payer Name Payer Address Payer Phone Insured Name Patient Relati onship to Insured Coverage Start Date Coverage End Date MEDICARE Part A and B [address] [facility] [id number] [place],MARGARET A self MEDICAID [employer] [address] [facility] [address] [place],MARGARET A self
--- OUTSIDE RECORDS SUMMARY | 2020-11-20 21:05 | CCD ---
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 Name Role Phone Frias, Vlad Unavailable PROBLEMS Type Condition ICD9-CM Code [id number] Code Onset Dates Condition S tatus SNOMED Code Notes Problem Other specified types of schizophrenia, chronic condition F20.89 Active 58003385 Problem Essential (primary) hypertension I10 Active 26225673 Problem Allergic rhinitis due to pollen J30.1 Active 31471649 Problem Elevated PSA R97.20 Active 279711030 Problem Screening declined by patient Z53.20 Active 31 163471722501 Problem Urinary incontinence, nocturnal enuresis N39.44 Active 0963251 Problem Functional urinary incontinence R39.81 Active 990710637 Problem Hypercholesterolemia E78.00 Active 64430759 Problem BPH loc w urin obs/LUTS N40.1 Active 24150442 7 Problem Mixed hyperlipidemia E78.2 Active 340090983 Problem Stage 3 chronic kidney disease N18.3 Active 4 96334364 Problem CKD (chronic kidney disease) stage 3, GFR 30-59 ml/min N18.3 Active 440676307 Problem Urinary retention R33.9 Active 668251622 Problem Hematoma of skin T14.8XXA Active 456367041 ALLERGIES Allergen (clinical drug ingredient) Drug/Non Drug Allergy do cumented on EMR Reaction Allergy Type Onset Date Status Penicillin G Benzathine UNKNOWN Drug Allergy Active ENCOUNTERS from 1959 to 2020-10-16 Encounter Location Date Provider Diagnosis [facility] [address] [place] [address] Oct, Vlad Frias IMMUNIZATIONS Vaccine Route Administration Date Status Influenza [...] Notes Level of Education: dropped out of [employer] Audit Question Answer Notes Total Score: 0 Interpretation: Alcohol Education Language: Question Answer Notes Languages spoken: Singaporean Hoahaoism: Question Answer Notes Hoahaoism 08 Catholic Sexual Hx: Question Answer Notes Had sex [...] at bedtime Orally Once a day Not-Taking HydrOXYzine HCl 25 MG 1 tab Orally bid for 30 Days Active Hydrocortisone 1 % 1 application Externally bid as needed to irr itated skin Aug, Active SEROquel 25 mg 1 tab Orally every AM Not-Taking Aspir-81 81 MG 1 tablet Orally Once a day Active Loratadine 10 mg 1 tablet Orally Once a day for 30 Days Active Abilify 2 MG 1 tablet Orally Once a day for 30 day(s) Active Tamsulosin HCl 0.4 MG 1 capsule Orally Once a day for 30 Days February, Active Carvedilol 6.25 MG 1 tablet with food Orally Twice a day for 90 days Jan, Active Vitamin B12 1000 MCG 1 tablet Orally Once a day Not-Taking Vitamin B-12 1000 MCG 1 tablet Orally Once a day 24 Jan, 2 020 Active Depend Pant Large - as directed topically, R39.8 1, R35.0, F20.89 tid for 30 Days Aug, Active Ativan 1 MG 1 tab Orally every 4 hours as needed for aggression Not-Taking Hydrochlorothiazide 25 MG 1 tablet in the morning Orally Once a day Jul, Active Hydrochlorothiazide 25 MG 1 tablet in the morning Oral ly Once a day for 30 day(s) Active Bactrim DS 800-160 MG 1 tablet 1 elaina prior to your cystoscopy Orally Once for 1 days Sep, Active PROCEDURES No Information RESULTS No Results REASON FOR VISIT CHANGE RX MEDICAL (GENERAL) HISTORY Type Description Date Medical History Schizophrenia Medical History Hypertension Medical History Elevated lipids Medical History allergic rhinitis Surgical History No know Surgical history Goals Section No Information Health Concerns No Information MEDICAL EQUIPMENT No Information MENTAL STATUS No Information FUNCTIONAL STATUS No Information ASSESSMENTS No Information PLAN OF TREATMENT Medication Medication Name Sig Start Date Stop Date Bactrim DS 800-160 MG 1 tablet 1 elaina prior to your cystoscopy Orally Once for 1 days Sep, Carvedilol 6.25 MG 1 tablet with food Orally Twice a day fo r 90 days Jan, HydrOXYzine HCl 25 MG 1 tab Orally bid for 30 Days Next Appt Details Provider Name:Andrade Madrigal, 2020-10 10:00:00 AM, [address], [place], [address], Provider Name:Vlad Frias, 2021-01-15 01 :00:00 PM, [address] [place], [address], Insurance Providers Payer Name Payer Address Payer Phone Insured Name Patient Relati onship to Insured Coverage Start Date Coverage End Date MEDICARE Part A and B [address] [facility] [phone] MARGARET LOZA self MEDICAID [employer] [address] [facility] [id number] MARGARET LOZA self
--- OUTSIDE RECORDS SUMMARY | 2020-11-20 21:05 | CCD ---
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 Name Role Phone Vlad Frias Unavailable PROBLEMS Type Condition ICD9-CM Code AWI12-OE Code Onset Dates Condition S tatus SNOMED Code Notes Problem Allergic rhinitis due to pollen J30.1 Active 25522640 Problem Other specified types of schizophrenia, chronic condition F20.89 Active 86033803 Problem Hypercholesterolemia E78.00 Active 71717324 Problem Elevated PSA R97.20 Active 561156528 Problem Screening declined by patient Z53.20 Active 31 766049904459 Problem Hematoma of skin T14.8XXA Active 231828508 Problem Mixed hyperlipidemia E78.2 Active 999122411 Problem Functional urinary incontinence R39.81 Active 070358828 Problem Essential (primary) hypertension I10 Active 17038226 Problem Urinary incontinence, nocturnal enuresis N39.44 Active 6866380 Problem Stage 3 chronic kidney disease N18.3 Active 4 46233699 Problem CKD (chronic kidney disease) stage 3, GFR 30-59 ml/min N18.3 Active 615378709 Problem Urinary retention R33.9 Active 194689468 ALLERGIES Allergen (clinical drug ingredient) Drug/Non Drug Allergy do cumented on EMR Reaction Allergy Type Onset Date Status Penicillin G Benzathine UNKNOWN Drug Allergy Active ENCOUNTERS from 1960 to 2020-08-28 Encounter Location Date Provider Diagnosis [facility] [address] [place] [address] Aug, Vlad Frias IMMUNIZATIONS Vaccine Route Administration Date [...] Notes Level of Education: dropped out of [employer] Audit Question Answer Notes Total Score: 0 Interpretation: Alcohol Education Language: Question Answer Notes Languages spoken: Greek Mandaeism: Question Answer Notes Mandaeism 08 Anglican Sexual Hx: Question Answer Notes Had sex [...] 1 tablet Orally Once a day 24 Apr, 2 020 Active HydrOXYzine HCl 25 mg 1 tab Orally bid prn itching Active Vitamin B12 1000 MCG 1 tablet Orally Once a day Not-Taking Hydrocortisone 1 % 1 application Externally bid as needed to irr itated skin 05 Aug, 2020 Active Tamsulosin HCl 0.4 MG 1 capsule Orally Once a day February, Active SEROquel 100 MG 1 tablet at bedtime Orally Once a day Active Carvedilol 6.25 MG 1 tablet with food Orally Twice a day 2 Jan, Active Loratadine 10 mg 1 tablet Orally Once a day Active PROCEDURES No Information RESULTS No Results REASON FOR VISIT urinary frequency/ incontinence/ confusion MEDICAL (GENERAL) HISTORY Type Description Date Medical [...] Frias, 2021-01-15 01 :00:00 PM, [address] , [place], [address], Insurance Providers Payer Name Payer Address Payer Phone Insured Name Patient Relati onship to Insured Coverage Start Date Coverage End Date MEDICAID [employer] [address] [facility] [id number] [place],MARGARET A self MEDICARE Part A and B [address] [facility] [id number] [place],MARGARET A self
--- OUTSIDE RECORDS SUMMARY | 2020-11-20 21:15 | CCD ---
Author Author [facility] Organization [facility] Address Unknown Phone Unavailable Care Team Providers Care Associate Artistic Director Name Role Phone [facility] Unavailable Unavailable Lakesha Frias MD Unavailable Unavailable Lakesha Frias MD Unavailable Unavailable Lakesha Frias MD Unavailable Unavailable Lakesha Frias MD Unavailable Unavailable Lakesha Frias MD Unavailable Unavailable Lakesha Frias MD Unavailable Unavailable Lakesha Frias MD Unavailable Unavailable Lakesha Frias MD Unavailable Unavailable Lakesha Frias MD Unavailable Unavailable Lakesha Frias MD Unavailable Unavailable Lakesha Frias MD Unavailable Unavailable Lakesha Frias MD Unavailable Unavailable Lakesha Frias MD Unavailable Unavailable Lakesha Frias MD Unavailable Unavailable Lakesha Frias MD Unavailable Unavailable Lakesha Frias MD Unavailable Unavailable Lakesha Frias MD Unavailable Unavailable Lakesha Frias MD Unavailable Unavailable Lakesha Frias MD Unavailable Unavailable Lakesha Frias MD Unavailable Unavailable Lakesha Frias MD Unavailable Unavailable Lakesha Frias MD Unavailable Unavailable Lakesha Frias MD Unavailable Unavailable Lakesha Frias MD Unavailable Unavailable Lakesha Frias MD Unavailable Unavailable Lakesha Frias MD Unavailable Unavailable Lakesha Frias MD Unavailable Unavailable Lakesha Frias MD Unavailable Unavailable Lakesha Frias MD Unavailable Unavailable Lakesha Frias MD Unavailable Unavailable Lakesha Frias MD Unavailable Unavailable Lakesha Frias MD Unavailable Unavailable Lakesha Frias MD Unavailable Unavailable Lakesha Frias MD Unavailable Unavailable Lakesha Frias MD Unavailable Unavailable Lakesha Frias MD Unavailable Unavailable Lakesha Frias MD Unavailable Unavailable Lakesha Frias MD Unavailable Unavailable Lakesha Frias MD Unavailable Unavailable Lakesha Frias MD Unavailable Unavailable Lakesha Frias MD Unavailable Unavailable Lakesha Frias MD Unavailable Unavailable Lakesha Frias MD Unavailable Unavailable Lakesha Frias MD Unavailable Unavailable Lakesha Frias MD Unavailable Unavailable Lakesha Frias MD Unavailable Unavailable Lakesha Frias MD Unavailable Unavailable Lakesha Frias MD Unavailable Unavailable Lakesha Frias MD Unavailable Unavailable Lakesha Frias MD Unavailable Unavailable Lakesha Frias MD Unavailable Unavailable Lakesha Frias MD Unavailable Unavailable Lakesha Frias MD Unavailable Unavailable Lakesha Frias MD Unavailable Unavailable Lakesha Frias MD Unavailable Unavailable Lakesha Frias MD Unavailable Unavailable Lakesha Frias MD Unavailable Unavailable Lakesha Frias MD Unavailable Unavailable Lakesha Frias MD Unavailable Unavailable Lakesha Frias MD Unavailable Unavailable Lakesha Frias MD Unavailable Unavailable Lakesha Frias MD Unavailable Unavailable Lakesha Frias MD Unavailable Unavailable Lakesha Frias MD Unavailable Unavailable Lakesha Frias MD Unavailable Unavailable Lakesha Frias MD Unavailable Unavailable Lakesha Frias MD Unavailable Unavailable Lakesha Frias MD Unavailable Unavailable Lakesha Frias MD Unavailable Unavailable Lakesha Frias MD Unavailable Unavailable Lakesha Frias MD Unavailable Unavailable Lakesha Frias MD Unavailable Unavailable VANE, YOSELIN PA Unavailable Unavailable VANE, YOSELIN PA Unavailable Unavailable VANE, YOSELIN PA Unavailable Unavailable VANE, YOSELIN PA Unavailable Unavailable VANE, YOSELIN PA Unavailable Unavailable VANE, YOSELIN PA Unavailable Unavailable VANE, YOSELIN PA Unavailable Unavailable VANE, YOSELIN PA Unavailable Unavailable VANE, YOSELIN PA Unavailable Unavailable VANE, YOSELIN PA Unavailable Unavailable VANE, YOSELIN PA Unavailable Unavailable VANE, YOSELIN PA Unavailable Unavailable VANE, YOSELIN PA Unavailable Unavailable VANE, YOSELIN PA Unavailable Unavailable VANE, YOSELIN PA Unavailable Unavailable VANE, YOSELIN PA Unavailable Unavailable VANE, YOSELIN PA Unavailable Unavailable VANE, YOSELIN PA Unavailable Unavailable VANE, YOSELIN PA Unavailable Unavailable VANE, YOSELIN PA Unavailable Unavailable VANE, YOSELIN PA Unavailable Unavailable VANE, YOSELIN PA Unavailable Unavailable VANE, YOSELIN PA Unavailable Unavailable VANE, YOSELIN PA Unavailable Unavailable VANE, YOSELIN PA Unavailable Unavailable VANE, YOSELIN PA Unavailable Unavailable VANE, YOSELIN PA Unavailable Unavailable VANE, YOSELIN PA Unavailable Unavailable VANE, YOSELIN PA Unavailable Unavailable VANE, YOSELIN PA Unavailable Unavailable VANE, YOSELIN PA Unavailable Unavailable VANE, YOSELIN PA Unavailable Unavailable VANE, YOSELIN PA Unavailable Unavailable VANE, YOSELIN PA Unavailable Unavailable VANE, YOSELIN PA Unavailable Unavailable VANE, YOSELIN PA Unavailable Unavailable VANE, YOSELIN PA Unavailable Unavailable VANE, YOSELIN PA Unavailable Unavailable ADRIANO, IGNACIA MALCOLM PA Unavailable Unavailable ADRIANO, IGNACIA MALCOLM PA Unavailable Unavailable ADRIANO, IGNACIA MALCOLM PA Unavailable Unavailable ADRIANO, IGNACIA MALCOLM PA Unavailable Unavailable ADRIANO, IGNACIA MALCOLM PA Unavailable Unavailable ADRIANO, IGNACIA MALCOLM PA Unavailable Unavailable ADRIANO, IGNACIA MALCOLM PA Unavailable Unavailable ADRIANO, IGNACIA MALCOLM PA Unavailable Unavailable ADRIANO, IGNACIA MALCOLM PA Unavailable Unavailable ADRIANO, IGNACIA MALCOLM PA Unavailable Unavailable ADRIANO, IGNACIA MALCOLM PA Unavailable Unavailable ADRIANO, IGNACIA MALCOLM PA Unavailable Unavailable ADRIANO, IGNACIA MALCOLM PA Unavailable Unavailable ADRIANO, IGNACIA MALCOLM PA Unavailable Unavailable ADRIANO, IGNACIA MALCOLM PA Unavailable Unavailable ADRIANO, IGNACIA MALCOLM PA Unavailable Unavailable ADRIANO, IGNACIA MALCOLM PA Unavailable Unavailable ADRIANO, IGNACIA MALCOLM PA Unavailable Unavailable ADRIANO, IGNACIA MALCOLM PA Unavailable Unavailable ADRIANO, IGNACIA MALCOLM PA Unavailable Unavailable ADRIANO, IGNACIA MALCOLM PA Unavailable Unavailable Amezcua, Alayna Nicole PA Unavailable Unavailable Amezcua, Alayna Nicole PA Unavailable Unavailable AmezcuaAlayna PA Unavailable Unavailable AmezcuaAlayna PA Unavailable Unavailable AmezcuaAlayna PA Unavailable Unavailable AmezcuaAlayna PA Unavailable Unavailable Amezcua, Alayna Rivera PA Unavailable Unavailable Amezcua, Alayna Rivera PA Unavailable Unavailable Amezcua, Alayna Nicole PA Unavailable Unavailable Amezcua, Alayna Gutierrezn PA Unavailable Unavailable Re-disclosure Warning The records that you are about to access may contain information from federally-assisted alcohol or drug abuse programs. If such information is present, then the following federally mandated warning applies: This information has been disclosed to you from records protected by federal confidentiality rules (42 CFR part 2). The federal rules prohibit you from making any further disclosure of this information unless further disclosure is expressly permitted by the written consent of the person to whom it pertains or as otherwise permitted by 42 CFR part 2. A general authorization for the release of medical or other information is NOT sufficient for this purpose. The Federal rules restrict any use of the information to criminally investigate or prosecute any alcohol or drug abuse patient.The records that you are about to access may contain highly sensitive health information, the redisclosure of which is protected by Article 27-F of the [facility] Public Health law. If you continue you may have access to information: Regarding HIV / AIDS; Provided by facilities licensed or operated by the [facility] Office of Mental Health; or Provided by the [facility] Office for People With Developmental Disabilities. If such information is present, then the following [facility] mandated warning applies: This information has been disclosed to you from confidential records which are protected by state law. State law prohibits you from making any further disclosure of this information without the specific written consent of the person to whom it pertains, or as otherwise permitted by law. Any unauthorized further disclosure in violation of state law may result in a fine or long-term sentence or both. A general authorization for the release of medical or other information is NOT sufficient authorization for further disc losure. Allergies and Adverse Reactions Type Description Substance Reaction Status Data Source(s ) Food allergy SEASONAL SEASONAL [facility] Food allergy PENICILLIN PENICILLIN [facility] Penicillin G Benzathine Penicillin G Benzathine Penicillin G [place] zathine UNKNOWN Active eCW1 ([facility]) Penicillin G Benzathine Penicillin G Benzathine Penicillin G [place] zathine UNKNOWN Active eCW1 ([facility]) Encounters Encounter Providers Location Date Indications Data Source(s ) [place] [address] [facility] [address] 11/02/2020 12:00:00 AM EST eCW1 ([facility]) (Cysto1) Urology [address] [place] [address] 10/17/2020 12:00:00 AM EST eCW1 ([facility]) [place] [address] [facility] [address] 10/15/2020 12:00:00 AM EST eCW1 ([facility]) Unknown [address] [facility] [place] [address] 09/26/2020 12:00:00 AM EST eCW1 ([facility]) Outpatient [address] [facility] [place] [address] 09/17/2020 12:00:00 AM EST eCW1 ([facility]) Unknown [address] [facility] [address] 09/12/2020 12:00:00 AM EST eCW1 ([facility]) Unknown [address] [facility] [place] [address] 09/04/2020 12:00:00 AM EST eCW1 ([facility]) Outpatient [address] [facility] Y [address] 08/28/2020 12:00:00 AM EST eCW1 ([facility]) Unknown [address] [facility] [place] [address] 08/28/2020 12:00:00 AM EST eCW1 ([facility]) Outpatient [address] [facility] [place] [address] 08/16/2020 12:00:00 AM EST eCW1 ([facility]) Unknown [address] [facility] [place] [address] 08/13/2020 12:00:00 AM EST eCW1 ([facility]) Outpatient [address] [facility] [place] [address] 07/17/2020 12:00:00 AM EDT eCW1 ([facility]) Outpatient Attender: Nicole wang 06/29/2020 10:45:00 AM EDT [facility] ([facility]) Outpatient Attender: YOSELIN pearl 06/14/2020 04:50:00 PM EDT MEDENT ([facility]) Outpatient Attender: KARELY [facility] 05/22/2020 06:29:07 AM EDT [facility] Outpatient Attender: [facility] 05/21/2020 03:54:01 PM EDT [facility] Outpatient Attender: [facility] 05/21/2020 12:51:00 PM EDT [facility] Outpatient Attender: [facility] 05/21/2020 12:50:00 PM EDT [facility] Outpatient Attender: KARELY [facility] 05/21/2020 12:44:01 PM EDT [facility] Outpatient Attender: KARELY [facility] 05/21/2020 12:03:00 PM EDT [facility] Unknown [address] [facility] [address] 03/29/2020 12:00:00 AM EDT eCW1 ([facility]) [place] [address] [facility] [place] [address] 03/19/2020 12:00:00 AM EDT eCW1 ([facility]) Unknown [address] [facility] [place] [address] 03/16/2020 12:00:00 AM EDT eCW1 ([facility]) [place] [address] [facility] [address] 03/15/2020 12:00:00 AM EDT eCW1 ([facility]) [facility] [address] [facility] [place] [address] 03/09/2020 12:00:00 AM EDT eCW1 ([facility]) Unknown [address] [facility] [place] [address] 03/08/2020 12:00:00 AM EDT eCW1 ([facility]) [facility] [address] [facility] [address] 03/08/2020 12:00:00 AM EDT eCW1 ([facility]) [facility] Urology [address] [facility] [address] 03/06/2020 12:00:00 AM EDT eCW1 ([facility]) [facility] [address] [facility] [address] 03/06/2020 12:00:00 AM EDT eCW1 ([facility]) [facility] Urology [address] [facility] [address] 03/06/2020 12:00:00 AM EDT eCW1 ([facility]) [facility] [address] [facility] [address] 03/01/2020 12:00:00 AM EDT eCW1 ([facility]) [facility] Urology [address] [facility] [address] 02/20/2020 12:00:00 AM EDT eCW1 ([facility]) [address] [address] 02/07/2020 12:00:00 AM EDT eCW1 ([facility]) [facility] [address] [place] [address], [place] [address] 02/06/2020 12:00:00 AM EDT eCW1 ([facility]) [facility] [address] [place] [address], [place] [address] 02/03/2020 12:00:00 AM EDT eCW1 ([facility]) [facility] [address] [place] [address], [place] [address] 02/02/2020 12:00:00 AM EDT eCW1 ([facility]) [address] [address] 01/31/2020 12:00:00 AM EDT eCW1 ([facility]) [address] [address] 01/25/2020 12:00:00 AM EDT eCW1 ([facility]) [facility] Kamlesh Adriana [facility] [address] 12/20/2019 12:00:00 AM EDT eCW1 ([facility]) Outpatient Attender: Vlad Frias MDReferrer: Vlad Frias MD [facility] 09/14/2019 09:43:00 AM EST - 09/14/2019 09:43:[address] [facility] Outpatient Attender: Vlad Frias MD 09/07/2019 01:00:00 PM [facility] Emergency Attender: MALCOLM DEJESUS [facility]-ER 08/31/2019 11:58:00 AM EST - 08/31/2019 01:20:[address] [facility] Patient discharged. Immunizations Vaccine Date Status Description Data Source(s) Tdap 09/12/2020 07:42:00 AM EST completed e CW1 ([facility]) Tdap 09/12/2020 07:42:00 AM EST completed e CW1 ([facility]) Tdap 09/12/2020 07:42:00 AM EST completed e CW1 ([facility]) Tdap 09/12/2020 07:42:00 AM EST completed e CW1 ([facility]) Tdap 09/12/2020 07:42:00 AM EST completed e CW1 ([facility]) Tdap 09/12/2020 07:42:00 AM EST completed e CW1 ([facility]) Vitamin B-12 1000mcg/1mL (Cyanocobalamin) 02/06/2020 01:00:00 PM EDT completed eCW1 ([facility]) Vitamin B-12 1000mcg/1mL (Cyanocobalamin) 02/06/2020 01:00:00 PM EDT completed eCW1 ([facility]) Vitamin B-12 1000mcg/1mL (Cyanocobalamin) 02/06/2020 01:00:00 PM EDT completed eCW1 ([facility]) Vitamin B-12 1000mcg/1mL (Cyanocobalamin) 02/06/2020 01:00:00 PM EDT completed eCW1 ([facility]) Vitamin B-12 1000mcg/1mL (Cyanocobalamin) 02/06/2020 01:00:00 PM EDT completed eCW1 ([facility]) Vitamin B-12 1000mcg/1mL (Cyanocobalamin) 02/06/2020 01:00:00 PM EDT completed eCW1 ([facility]) Vitamin B-12 1000mcg/1mL (Cyanocobalamin) 02/06/2020 01:00:00 PM EDT completed eCW1 ([facility]) Vitamin B-12 1000mcg/1mL (Cyanocobalamin) 02/06/2020 01:00:00 PM EDT completed eCW1 ([facility]) Vitamin B-12 1000mcg/1mL (Cyanocobalamin) 02/06/2020 01:00:00 PM EDT completed eCW1 ([facility]) Vitamin B-12 1000mcg/1mL (Cyanocobalamin) 02/06/2020 01:00:00 PM EDT completed eCW1 ([facility]) Vitamin B-12 1000mcg/1mL (Cyanocobalamin) 02/06/2020 01:00:00 PM EDT completed eCW1 ([facility]) Vitamin B-12 1000mcg/1mL (Cyanocobalamin) 02/06/2020 01:00:00 PM EDT completed eCW1 ([facility]) Vitamin B-12 1000mcg/1mL (Cyanocobalamin) 02/06/2020 01:00:00 PM EDT completed eCW1 ([facility]) Vitamin B-12 1000mcg/1mL (Cyanocobalamin) 02/06/2020 01:00:00 PM EDT completed eCW1 ([facility]) Vitamin B-12 1000mcg/1mL (Cyanocobalamin) 02/06/2020 01:00:00 PM EDT completed eCW1 ([facility]) Vitamin B-12 1000mcg/1mL (Cyanocobalamin) 02/06/2020 01:00:00 PM EDT completed eCW1 ([facility]) Vitamin B-12 1000mcg/1mL (Cyanocobalamin) 02/06/2020 01:00:00 PM EDT completed eCW1 ([facility]) Vitamin B-12 1000mcg/1mL (Cyanocobalamin) 02/06/2020 01:00:00 PM EDT completed eCW1 ([facility]) Medications Medication Brand Name Start Date Product Form Dose Route Admi nistrative Instructions Pharmacy Instructions Status Indications Reaction Description Data Source(s) Finasteride 5 MG Oral Tablet Finasteride 5 MG 10/17/2020 12:00:00 A M EST 1.0 {tablet} active Finasteride 5 MG eCW1 ( [facility]) Finasteride 5 MG Oral Tablet Finasteride 5 MG 10/17/2020 12:00:00 A M EST 1.0 {tablet} active Finasteride 5 MG eCW1 ( [facility]) Sulfamethoxazole 800 MG / Trimethoprim 1 60 MG Oral Tablet [Bactrim] Bactrim DS 800-160 MG Bactrim DS 800-160 MG 09/17/2020 12:00:00 AM EST active Bactrim DS 800-160 MG eCW1 ([facility]) Sulfamethoxazole 800 MG / Trimethoprim 1 60 MG Oral Tablet [Bactrim] Bactrim DS 800-160 MG Bactrim DS 800-160 MG 09/17/2020 12:00:00 AM EST active Bactrim DS 800-160 MG eCW1 ([facility]) Sulfamethoxazole 800 MG / Trimethoprim 1 60 MG Oral Tablet [Bactrim] Bactrim DS 800-160 MG Bactrim DS 800-160 MG 09/17/2020 12:00:00 AM EST active Bactrim DS 800-160 MG eCW1 ([facility]) Sulfamethoxazole 800 MG / Trimethoprim 1 60 MG Oral Tablet [Bactrim] Bactrim DS 800-160 MG Bactrim DS 800-160 MG 09/17/2020 12:00:00 AM EST active Bactrim DS 800-160 MG eCW1 ([facility]) Sulfamethoxazole 800 MG / Trimethoprim 1 60 MG Oral Tablet [Bactrim] Bactrim DS 800-160 MG Bactrim DS 800-160 MG 09/17/2020 12:00:00 AM EST active Bactrim DS 800-160 MG eCW1 ([facility]) Depend Pant Large - Depend Pant Large - 08/28/2020 12:00:00 AM EST active Depend Pant Large - eCW1 ([facility]) Depend Pant Large - Depend Pant Large - 08/28/2020 12:00:00 AM EST active Depend Pant Large - eCW1 ([facility]) Depend Pant Large - Depend Pant Large - 08/28/2020 12:00:00 AM EST active Depend Pant Large - eCW1 ([facility]) Depend Pant Large - Depend Pant Large - 08/28/2020 12:00:00 AM EST active Depend Pant Large - eCW1 ([facility]) Depend Pant Large - Depend Pant Large - 08/28/2020 12:00:00 AM EST active Depend Pant Large - eCW1 ([facility]) Depend Pant Large - Depend Pant Large - 08/28/2020 12:00:00 AM EST active Depend Pant Large - eCW1 ([facility]) Depend Pant Large - Depend Pant Large - 08/28/2020 12:00:00 AM EST active Depend Pant Large - eCW1 ([facility]) Depend Pant Large - Depend Pant Large - 08/28/2020 12:00:00 AM EST active Depend Pant Large - eCW1 ([facility]) Depend Pant Large - Depend Pant Large - 08/28/2020 12:00:00 AM EST active Depend Pant Large - eCW1 ([facility]) Hydrocortisone 10 MG/ML Topical Cream Hydrocortisone 1 % Hyd rocortisone 1 % 08/16/2020 12:00:00 AM EST 1.0 {application} act yvon Hydrocortisone 1 % eCW1 ([facility]) Hydrocortisone 10 MG/ML Topical Cream Hydrocortisone 1 % Hyd rocortisone 1 % 08/16/2020 12:00:00 AM EST 1.0 {application} act yvon Hydrocortisone 1 % eCW1 ([facility]) Hydrocortisone 10 MG/ML Topical Cream Hydrocortisone 1 % Hyd rocortisone 1 % 08/16/2020 12:00:00 AM EST 1.0 {application} act yvon Hydrocortisone 1 % eCW1 ([facility]) Hydrocortisone 10 MG/ML Topical Cream Hydrocortisone 1 % Hyd rocortisone 1 % 08/16/2020 12:00:00 AM EST 1.0 {application} act yvon Hydrocortisone 1 % eCW1 ([facility]) Hydrocortisone 10 MG/ML Topical Cream Hydrocortisone 1 % Hyd rocortisone 1 % 08/16/2020 12:00:00 AM EST 1.0 {application} act yvon Hydrocortisone 1 % eCW1 ([facility]) Hydrocortisone 10 MG/ML Topical Cream Hydrocortisone 1 % Hyd rocortisone 1 % 08/16/2020 12:00:00 AM EST 1.0 {application} act yvon Hydrocortisone 1 % eCW1 ([facility]) Hydrocortisone 10 MG/ML Topical Cream Hydrocortisone 1 % Hyd rocortisone 1 % 08/16/2020 12:00:00 AM EST 1.0 {application} act yvon Hydrocortisone 1 % eCW1 ([facility]) Hydrocortisone 10 MG/ML Topical Cream Hydrocortisone 1 % Hyd rocortisone 1 % 08/16/2020 12:00:00 AM EST 1.0 {application} act yvon Hydrocortisone 1 % eCW1 ([facility]) Hydrocortisone 10 MG/ML Topical Cream Hydrocortisone 1 % Hyd rocortisone 1 % 08/16/2020 12:00:00 AM EST 1.0 {application} act yvon Hydrocortisone 1 % eCW1 ([facility]) Hydrocortisone 10 MG/ML Topical Cream Hydrocortisone 1 % Hyd rocortisone 1 % 08/16/2020 12:00:00 AM EST 1.0 {application} act yvon Hydrocortisone 1 % eCW1 ([facility]) Sulfamethoxazole 800 MG / Trimethoprim 160 MG Oral Tab let Sulfamethoxazole/Trimethoprim DS 06/29/2020 12:00:00 AM EDT ORAL active MEDENT ([facility]) Doxycycline Monohydrate 100 MG Oral Capsule Doxycycline [place] hydrate 06/14/2020 12:00:00 AM EDT ORAL completed MEDENT ([facility]) Hydroxyzine Hydrochloride 25 MG Oral Tablet HydrOXYzin e HCl 25 MG HydrOXYzine HCl 25 MG 03/01/2020 12:00:00 AM EDT 1.0 {tablet_as_needed} active HydrOXYzine HCl 25 MG eCW1 ([facility]) 25 mg 03/01/2020 12:00:00 AM EDT tablet 60 TAKE ONE TABLET BY MOUTH TWICE A DAY NEEDED TAKE ONE TABLET BY MOUTH TWICE A DAY NEEDED SOLD: 03/02/2020 [facility] Hydroxyzine Hydrochloride 25 MG Oral Tablet HydrOXYzin e HCl 25 MG HydrOXYzine HCl 25 MG 03/01/2020 12:00:00 AM EDT 1.0 {tablet_as_needed} active HydrOXYzine HCl 25 MG eCW1 ([facility]) Hydroxyzine Hydrochloride 25 MG Oral Tablet HydrOXYzin e HCl 25 MG HydrOXYzine HCl 25 MG 03/01/2020 12:00:00 AM EDT active 1 tablet as needed eCW1 ([facility]) Tamsulosin hydrochloride 0.4 MG Oral Capsule Tamsulosi n HCl 0.4 MG Tamsulosin HCl 0.4 MG 02/20/2020 12:00:00 AM EDT 1.0 {capsule} active Tamsulosin HCl 0.4 MG eCW1 ([facility]) Tamsulosin hydrochloride 0.4 MG Oral Capsule Tamsulosi n HCl 0.4 MG Tamsulosin HCl 0.4 MG 02/20/2020 12:00:00 AM EDT 1.0 {capsule} active Tamsulosin HCl 0.4 MG eCW1 ([facility]) Tamsulosin hydrochloride 0.4 MG Oral Capsule Tamsulosi n HCl 0.4 MG Tamsulosin HCl 0.4 MG 02/20/2020 12:00:00 AM EDT 1.0 {capsule} active Tamsulosin HCl 0.4 MG eCW1 ([facility]) Tamsulosin hydrochloride 0.4 MG Oral Capsule Tamsulosi n HCl 0.4 MG Tamsulosin HCl 0.4 MG 02/20/2020 12:00:00 AM EDT 1.0 {capsule} active Tamsulosin HCl 0.4 MG eCW1 ([facility]) Tamsulosin hydrochloride 0.4 MG Oral Capsule Tamsulosi n HCl 0.4 MG Tamsulosin HCl 0.4 MG 02/20/2020 12:00:00 AM EDT 1.0 {capsule} active Tamsulosin HCl 0.4 MG eCW1 ([facility]) Tamsulosin hydrochloride 0.4 MG Oral Capsule Tamsulosi n HCl 0.4 MG Tamsulosin HCl 0.4 MG 02/20/2020 12:00:00 AM EDT 1.0 {capsule} active Tamsulosin HCl 0.4 MG eCW1 ([facility]) Tamsulosin hydrochloride 0.4 MG Oral Capsule Tamsulosi n HCl 0.4 MG Tamsulosin HCl 0.4 MG 02/20/2020 12:00:00 AM EDT 1.0 {capsule} active Tamsulosin HCl 0.4 MG eCW1 ([facility]) Tamsulosin hydrochloride 0.4 MG Oral Capsule Tamsulosi n HCl 0.4 MG Tamsulosin HCl 0.4 MG 02/20/2020 12:00:00 AM EDT 1.0 {capsule} active Tamsulosin HCl 0.4 MG eCW1 ([facility]) Tamsulosin hydrochloride 0.4 MG Oral Capsule Tamsulosi n HCl 0.4 MG Tamsulosin HCl 0.4 MG 02/20/2020 12:00:00 AM EDT 1.0 {capsule} active Tamsulosin HCl 0.4 MG eCW1 ([facility]) Tamsulosin hydrochloride 0.4 MG Oral Capsule Tamsulosi n HCl 0.4 MG Tamsulosin HCl 0.4 MG 02/20/2020 12:00:00 AM EDT 1.0 {capsule} active Tamsulosin HCl 0.4 MG eCW1 ([facility]) 0.4 mg 02/20/2020 12:00:00 AM EDT capsule 30 TAKE ONE CAPSULE BY MOUTH EVERY DAY TAKE ONE CAPSULE BY MOUTH EVERY DAY SOLD: 02/20/2020 [facility] Tamsulosin hydrochloride 0.4 MG Oral Capsule Tamsulosi n HCl 0.4 MG Tamsulosin HCl 0.4 MG 02/20/2020 12:00:00 AM EDT 1.0 {capsule} active Tamsulosin HCl 0.4 MG eCW1 ([facility]) Tamsulosin hydrochloride 0.4 MG Oral Capsule Tamsulosi n HCl 0.4 MG Tamsulosin HCl 0.4 MG 02/20/2020 12:00:00 AM EDT 1.0 {capsule} active Tamsulosin HCl 0.4 MG eCW1 ([facility]) Tamsulosin hydrochloride 0.4 MG Oral Capsule Tamsulosi n HCl 0.4 MG Tamsulosin HCl 0.4 MG 02/20/2020 12:00:00 AM EDT active 1 capsule eCW1 ([facility]) Tamsulosin hydrochloride 0.4 MG Oral Capsule Tamsulosi n HCl 0.4 MG Tamsulosin HCl 0.4 MG 02/20/2020 12:00:00 AM EDT 1.0 {capsule} active Tamsulosin HCl 0.4 MG eCW1 ([facility]) Tamsulosin hydrochloride 0.4 MG Oral Capsule Tamsulosi n HCl 0.4 MG Tamsulosin HCl 0.4 MG 02/20/2020 12:00:00 AM EDT 1.0 {capsule} active Tamsulosin HCl 0.4 MG eCW1 ([facility]) Tamsulosin hydrochloride 0.4 MG Oral Capsule Tamsulosi n HCl 0.4 MG Tamsulosin HCl 0.4 MG 02/20/2020 12:00:00 AM EDT 1.0 {capsule} active Tamsulosin HCl 0.4 MG eCW1 ([facility]) Tamsulosin hydrochloride 0.4 MG Oral Capsule Tamsulosi n HCl 0.4 MG Tamsulosin HCl 0.4 MG 02/20/2020 12:00:00 AM EDT 1.0 {capsule} active Tamsulosin HCl 0.4 MG eCW1 ([facility]) Tamsulosin hydrochloride 0.4 MG Oral Capsule Tamsulosi n HCl 0.4 MG Tamsulosin HCl 0.4 MG 02/20/2020 12:00:00 AM EDT 1.0 {capsule} active Tamsulosin HCl 0.4 MG eCW1 ([facility]) Vitamin B 12 1 MG Oral Tablet Vitamin B-12 1000 MCG Vitamin B-12 1000 MCG 02/03/2020 12:00:00 AM EDT 1.0 {tablet} active Vitamin B-12 1000 MCG eCW1 ([facility]) Vitamin B 12 1 MG Oral Tablet Vitamin B-12 1000 MCG Vitamin B-12 1000 MCG 02/03/2020 12:00:00 AM EDT 1.0 {tablet} active Vitamin B-12 1000 MCG eCW1 ([facility]) Vitamin B 12 1 MG Oral Tablet Vitamin B-12 1000 MCG Vitamin B-12 1000 MCG 02/03/2020 12:00:00 AM EDT 1.0 {tablet} active Vitamin B-12 1000 MCG eCW1 ([facility]) Vitamin B 12 1 MG Oral Tablet Vitamin B-12 1000 MCG Vitamin B-12 1000 MCG 02/03/2020 12:00:00 AM EDT active 1 tablet eCW1 ([facility]) Vitamin B 12 1 MG Oral Tablet Vitamin B-12 1000 MCG Vitamin B-12 1000 MCG 02/03/2020 12:00:00 AM EDT 1.0 {tablet} active Vitamin B-12 1000 MCG eCW1 ([facility]) 1,000 mcg 02/03/2020 12:00:00 AM EDT tablet 30 TAKE ONE TABLET BY MOUTH EVERY DAY TAKE ONE TABLET BY MOUTH EVERY DAY SOLD: 02/03/2020 [facility] Vitamin B 12 1 MG Oral Tablet Vitamin B-12 1000 MCG Vitamin B-12 1000 MCG 02/03/2020 12:00:00 AM EDT 1.0 {tablet} active Vitamin B-12 1000 MCG eCW1 ([facility]) Vitamin B 12 1 MG Oral Tablet Vitamin B-12 1000 MCG Vitamin B-12 1000 MCG 02/03/2020 12:00:00 AM EDT 1.0 {tablet} active Vitamin B-12 1000 MCG eCW1 ([facility]) Vitamin B 12 1 MG Oral Tablet Vitamin B-12 1000 MCG Vitamin B-12 1000 MCG 02/03/2020 12:00:00 AM EDT 1.0 {tablet} active Vitamin B-12 1000 MCG eCW1 ([facility]) Vitamin B 12 1 MG Oral Tablet Vitamin B-12 1000 MCG Vitamin B-12 1000 MCG 02/03/2020 12:00:00 AM EDT 1.0 {tablet} active Vitamin B-12 1000 MCG eCW1 ([facility]) Vitamin B 12 1 MG Oral Tablet Vitamin B-12 1000 MCG Vitamin B-12 1000 MCG 02/03/2020 12:00:00 AM EDT 1.0 {tablet} active Vitamin B-12 1000 MCG eCW1 ([facility]) Vitamin B 12 1 MG Oral Tablet Vitamin B-12 1000 MCG Vitamin B-12 1000 MCG 02/03/2020 12:00:00 AM EDT 1.0 {tablet} active Vitamin B-12 1000 MCG eCW1 ([facility]) Vitamin B 12 1 MG Oral Tablet Vitamin B-12 1000 MCG Vitamin B-12 1000 MCG 02/03/2020 12:00:00 AM EDT 1.0 {tablet} active Vitamin B-12 1000 MCG eCW1 ([facility]) 1,000 mcg 02/03/2020 12:00:00 AM EDT tablet 30 TAKE ONE TABLET BY MOUTH EVERY DAY TAKE ONE TABLET BY MOUTH EVERY DAY SOLD: 03/02/2020 [facility] Vitamin B 12 1 MG Oral Tablet Vitamin B-12 1000 MCG Vitamin B-12 1000 MCG 02/03/2020 12:00:00 AM EDT 1.0 {tablet} active Vitamin B-12 1000 MCG eCW1 ([facility]) Vitamin B 12 1 MG Oral Tablet Vitamin B-12 1000 MCG Vitamin B-12 1000 MCG 02/03/2020 12:00:00 AM EDT 1.0 {tablet} active Vitamin B-12 1000 MCG eCW1 ([facility]) Vitamin B 12 1 MG Oral Tablet Vitamin B-12 1000 MCG Vitamin B-12 1000 MCG 02/03/2020 12:00:00 AM EDT 1.0 {tablet} active Vitamin B-12 1000 MCG eCW1 ([facility]) Vitamin B 12 1 MG Oral Tablet Vitamin B-12 1000 MCG Vitamin B-12 1000 MCG 02/03/2020 12:00:00 AM EDT 1.0 {tablet} active Vitamin B-12 1000 MCG eCW1 ([facility]) Vitamin B 12 1 MG Oral Tablet Vitamin B-12 1000 MCG Vitamin B-12 1000 MCG 02/03/2020 12:00:00 AM EDT 1.0 {tablet} active Vitamin B-12 1000 MCG eCW1 ([facility]) Vitamin B 12 1 MG Oral Tablet Vitamin B-12 1000 MCG Vitamin B-12 1000 MCG 02/03/2020 12:00:00 AM EDT 1.0 {tablet} active Vitamin B-12 1000 MCG eCW1 ([facility]) Vitamin B12 1000 MCG Vitamin B12 1000 MCG 02/02/2020 12:00:00 AM EDT active 1 tablet eCW1 ([facility]) carvedilol 6.25 MG Oral Tablet Carvedilol 6.25 MG Carvedilol 6.25 MG 01/31/2020 12:00:00 AM EDT 1.0 {tablet_with_food} active Carvedilol 6.25 MG eCW1 ([facility]) carvedilol 6.25 MG Oral Tablet Carvedilol 6.25 MG Carvedilol 6.25 MG 01/31/2020 12:00:00 AM EDT 1.0 {tablet_with_food} active Carvedilol 6.25 MG eCW1 ([facility]) carvedilol 6.25 MG Oral Tablet Carvedilol 6.25 MG Carvedilol 6.25 MG 01/31/2020 12:00:00 AM EDT 1.0 {tablet_with_food} active Carvedilol 6.25 MG eCW1 ([facility]) carvedilol 6.25 MG Oral Tablet CARVEDILOL 01/31/2020 12:00:00 AM EDT tablet 60 TAKE ONE TABLET BY MOUTH TWICE A DAY WITH FOOD TAKE ON E TABLET BY MOUTH TWICE A DAY WITH FOOD SOLD: 01/31/2020 [facility] carvedilol 6.25 MG Oral Tablet Carvedilol 6.25 MG Carvedilol 6.25 MG 01/31/2020 12:00:00 AM EDT active 1 tablet with food eCW1 ([facility]) carvedilol 6.25 MG Oral Tablet Carvedilol 6.25 MG Carvedilol 6.25 MG 01/31/2020 12:00:00 AM EDT 1.0 {tablet_with_food} active Carvedilol 6.25 MG eCW1 ([facility]) carvedilol 6.25 MG Oral Tablet Carvedilol 6.25 MG Carvedilol 6.25 MG 01/31/2020 12:00:00 AM EDT 1.0 {tablet_with_food} active Carvedilol 6.25 MG eCW1 ([facility]) carvedilol 6.25 MG Oral Tablet Carvedilol 6.25 MG Carvedilol 6.25 MG 01/31/2020 12:00:00 AM EDT 1.0 {tablet_with_food} active Carvedilol 6.25 MG eCW1 ([facility]) carvedilol 6.25 MG Oral Tablet Carvedilol 6.25 MG Carvedilol 6.25 MG 01/31/2020 12:00:00 AM EDT 1.0 {tablet_with_food} active Carvedilol 6.25 MG eCW1 ([facility]) carvedilol 6.25 MG Oral Tablet Carvedilol 6.25 MG Carvedilol 6.25 MG 01/31/2020 12:00:00 AM EDT 1.0 {tablet_with_food} active Carvedilol 6.25 MG eCW1 ([facility]) carvedilol 6.25 MG Oral Tablet Carvedilol 6.25 MG Carvedilol 6.25 MG 01/31/2020 12:00:00 AM EDT 1.0 {tablet_with_food} active Carvedilol 6.25 MG eCW1 ([facility]) carvedilol 6.25 MG Oral Tablet Carvedilol 6.25 MG Carvedilol 6.25 MG 01/31/2020 12:00:00 AM EDT 1.0 {tablet_with_food} active Carvedilol 6.25 MG eCW1 ([facility]) carvedilol 6.25 MG Oral Tablet Carvedilol 6.25 MG Carvedilol 6.25 MG 01/31/2020 12:00:00 AM EDT 1.0 {tablet_with_food} active Carvedilol 6.25 MG eCW1 ([facility]) carvedilol 6.25 MG Oral Tablet Carvedilol 6.25 MG Carvedilol 6.25 MG 01/31/2020 12:00:00 AM EDT 1.0 {tablet_with_food} active Carvedilol 6.25 MG eCW1 ([facility]) carvedilol 6.25 MG Oral Tablet Carvedilol 6.25 MG Carvedilol 6.25 MG 01/31/2020 12:00:00 AM EDT 1.0 {tablet_with_food} active Carvedilol 6.25 MG eCW1 ([facility]) carvedilol 6.25 MG Oral Tablet Carvedilol 6.25 MG Carvedilol 6.25 MG 01/31/2020 12:00:00 AM EDT active 1 tablet with food eCW1 ([facility]) carvedilol 6.25 MG Oral Tablet Carvedilol 6.25 MG Carvedilol 6.25 MG 01/31/2020 12:00:00 AM EDT 1.0 {tablet_with_food} active Carvedilol 6.25 MG eCW1 ([facility]) carvedilol 6.25 MG Oral Tablet Carvedilol 6.25 MG Carvedilol 6.25 MG 01/31/2020 12:00:00 AM EDT 1.0 {tablet_with_food} active Carvedilol 6.25 MG eCW1 ([facility]) carvedilol 6.25 MG Oral Tablet Carvedilol 6.25 MG Carvedilol 6.25 MG 01/31/2020 12:00:00 AM EDT 1.0 {tablet_with_food} active Carvedilol 6.25 MG eCW1 ([facility]) carvedilol 6.25 MG Oral Tablet Carvedilol 6.25 MG Carvedilol 6.25 MG 01/31/2020 12:00:00 AM EDT 1.0 {tablet_with_food} active Carvedilol 6.25 MG eCW1 ([facility]) carvedilol 6.25 MG Oral Tablet CARVEDILOL 01/31/2020 12:00:00 AM EDT tablet 60 TAKE ONE TABLET BY MOUTH TWICE A DAY WITH FOOD TAKE ON E TABLET BY MOUTH TWICE A DAY WITH FOOD SOLD: 03/11/2020 [facility] 10 mg 12/21/2019 12:00:00 AM EDT tablet 90 TAKE ONE TABLET BY MOUTH EVERY DAY TAKE ONE TABLET BY MOUTH EVERY DAY SOLD: 12/22/2019 [facility] 2 mg 12/20/2019 12:00:00 AM EDT tablet 30 TAKE ONE TABLET BY MOUTH EVERY DAY TAKE ONE TABLET BY MOUTH EVERY DAY SOLD: 01/14/2020 [facility] 2 mg 12/20/2019 12:00:00 AM EDT tablet 30 TAKE ONE TABLET BY MOUTH EVERY DAY TAKE ONE TABLET BY MOUTH EVERY DAY SOLD: 02/19/2020 [facility] 2 mg 12/20/2019 12:00:00 AM EDT tablet 30 TAKE ONE TABLET BY MOUTH EVERY DAY TAKE ONE TABLET BY MOUTH EVERY DAY SOLD: 12/21/2019 [facility] 2 mg 09/21/2019 12:00:00 AM EST tablet 30 TAKE ONE TABLET BY MOUTH EVERY DAY TAKE ONE TABLET BY MOUTH EVERY DAY SOLD: 10/20/2019 [facility] 2 mg 09/21/2019 12:00:00 AM EST tablet 30 TAKE ONE TABLET BY MOUTH EVERY DAY TAKE ONE TABLET BY MOUTH EVERY DAY SOLD: 11/12/2019 [facility] 2 mg 09/21/2019 12:00:00 AM EST tablet 30 TAKE ONE TABLET BY MOUTH EVERY DAY TAKE ONE TABLET BY MOUTH EVERY DAY SOLD: 09/22/2019 [facility] 50 mg 07/26/2019 12:00:00 AM EDT tablet 90 TAKE ONE TABLET BY MOUTH EVERY DAY TAKE ONE TABLET BY MOUTH EVERY DAY SOLD: 10/20/2019 [facility] 81 mg 07/26/2019 12:00:00 AM EDT tablet,delayed release (DR/EC) 90 TAKE ONE TABLET BY MOUTH EVERY DAY TAKE ONE TABLET BY MOUTH EVERY DAY SOLD: 10/20/2019 [facility] 81 mg 07/26/2019 12:00:00 AM EDT tablet,delayed release (DR/EC) 90 TAKE ONE TABLET BY MOUTH EVERY DAY TAKE ONE TABLET BY MOUTH EVERY DAY SOLD: 01/14/2020 [facility] 25 mg 07/26/2019 12:00:00 AM EDT tablet 90 TAKE ONE TABLET BY MOUTH EVERY DAY IN THE MORNING TAKE ONE TABLET BY MOUTH EVERY DAY IN THE MORNING SOLD : 01/14/2020 [facility] 10 mg 06/17/2019 12:00:00 AM EDT tablet 90 TAKE ONE TABLET BY MOUTH EVERY DAY TAKE ONE TABLET BY MOUTH EVERY DAY SOLD: 09/21/2019 [facility] Insurance Providers Payer name Policy type / Coverage type Policy ID Covered constitution party ID Covered constitution party's relationship to quintanilla Policy [place] Plan Information EDVT [id number] SP [id number] MEDICARE [id number] SP [id number] V22 MEDICAID M [id number] S [id number] MEDICARE C [id number] S [id number] V22 Medicare P UNAVAILABLE S [place] BLE Medicaid S UNAVAILABLE S [place] BLE MEDICAID [id number] SP [id number] [place] MED[employer]ARE DIVISION [id number] S [id number] [place]IC[place] [id number] S [id number] [place] MED[employer]ISION [id number] S [id number] [place] [id number] S [id number] ANSI-Medicaid [id number] ANSI-Medicare Part B [id number] ANSI-Medicaid [id number] ANSI-Medicare Part B [id number] ANSI-Medicaid [id number] ANSI-Medicare Part B [id number] ANSI-Medicaid [id number] ANSI-Medicare Part B [id number] [facility]-Medicare Part B [id number] ANSI-Medicaid [id number] MEDICARE [id number] SP [id number] Problems, Conditions, and Diagnoses Code Display Name Description Problem Type Effective Dates Data Source(s) N40.1 [id number] BPH loc w urin obs/LUTS Problem 09/04/2020 1 2:00:00 AM EST eCW1 ([facility]) R39.81 [id number] Functional urinary incontinence Problem 08/28/2020 12:00:00 AM EST eCW1 ([facility]) T14.8XXA 885343024 Hematoma of skin Problem 07/17/2020 12:00:00 AM EDT eCW1 ([facility]) R33.9 Urinary retention Urinary retention Problem 02/20/2020 12:00:00 AM EDT eCW1 ([facility]) R33.9 Urinary retention Urinary retention Problem 02/20/2020 12:00:00 AM EDT eCW1 ([facility]) N18.3 958050621 CKD (chronic kidney disease) stage 3, GFR 30-59 ml/min Problem 02/07/2020 12:00:00 AM EDT eCW1 ([facility]) N18.3 905026014 CKD (chronic kidney disease) stage 3, GFR 30-59 ml/min Problem 02/07/2020 12:00:00 AM EDT eCW1 ([facility]) N39.44 4413531 Urinary incontinence, nocturnal enuresis Problem 01/31/2020 12:00:00 AM EDT eCW1 ([facility]) N39.44 5714054 Urinary incontinence, nocturnal enuresis Problem 01/31/2020 12:00:00 AM EDT eCW1 ([facility]) Surgeries/Procedures Procedure Description Date Indications Data Source(s) uro PVR (Post Voiding Residual) Bladder Scan 0 12:00:00 AM EST eCW1 ([facility]) Injection: Tuberculin Purified Protein 0.1mL Intradermal (PP D) 03/09/2020 12:00:00 AM EDT eCW1 ([facility]) TB Intradermal Test 03/09/2020 12:00:00 AM EDT eCW1 ([facility]) Office Visit, Est Pt., Level 2 FC 02/20/2020 12:00:00 AM EDT eCW1 ([facility]) Office Visit, Est Pt., Level 3 PC 02/20/2020 12:00:00 AM EDT eCW1 ([facility]) US URINE CAPACITY MEASURE 02/20/2020 12:00:00 AM EDT eCW1 ([facility]) Injection, vitamin b-12 cyanocobalamin, up to 1000 mcg 02/06/2020 12:00:00 AM EDT eCW1 ([facility]) THER/PROPH/DIAG INJ, SC/IM 02/06/2020 12:00:00 AM EDT eCW1 ([facility]) Office Visit, Est Pt., Level 3 FC 01/31/2020 12:00:00 AM EDT eCW1 ([facility]) Results ID Date Data Source Urinalysis, no micro 08/28/2020 12:00:00 AM EST eCW1 ([facility]) Name Value Range Interpretation Code Description Data Daria rce(s) Supporting Document(s) 1.010 1.002 - 1.035 Spec gravity eCW1 ([facility]) 5 5.0 - 9.0 pH eCW1 ([facility]) neg Negative - Nitrate eCW1 ([facility] includes the [facility]) neg Negative - mg/dl Protein eCW1 ([facility]) neg Negative - mg/dl Glucose eCW1 ([facility]) neg Negative - mg/dl Ketones eCW1 ([facility]) neg Negative - Leukocyte eCW1 ([facility] includes the [facility]) yes Internal QC Acceptable (Y/N) e CW1 ([facility]) trace Negative - Blood eCW1 ([facility] includes the [facility]) norm Normal - mg/dl Urobili eCW1 ([facility]) neg Negative - Bilirubin eCW1 ([facility] includes the [facility]) ID Date Data Source [id number] 05/21/2020 12:34:11 PM EDT [facility] Vital SignsTemperature: 96.9FB lood Pressure: 130/78 Patient History [facility] medical [facility] and just know medications/allergies. They will bring it in next time he comesSurgical History:No surgeriesFamily History:Social/Personal History: Smoking Status: former smokerProblem list reviewed during this update.No known problems.Current Medications: * VITAMIN B12 * CARVEDILOL * HYDROCHLOROTHIAZIDE * HYDROXYZINE * TAMSULOSIN * LORATADINE * ABILIFY * ASPIRIN Medication list reviewed during this update.Current Allergies: * PENICILLIN (Critical)* SEASONAL (Mild)Allergy list reviewed during this update.Past Medical History:(reviewed - no changes required) [facility] of medical history and just know medications/allergies. They will bring it in next time he comes Dental Chart: Procedures:Type - CDT Code - Description B - (D0272) Bitewings, 2 radiographic images (Performed by Juany Salas RDH) B - (D1110) Prophylaxis, adult (Performed by Juany Salas RDH) B - (D0150) Comprehensive oral evaluation - new or established patient (Performed by Medhat Gray DDS) B - (D0220) Intraoral, periapical, first radiographic image on Tooth # 24 (Performed by Juany Salas RDH) B - (D0230) Intraoral, periapical, each additional radiographic image on Tooth # 3 (Performed by Juany Salas RDH) B - (D0230) Intraoral, periapical, each additional radiographic image on Tooth # 30 (Performed by Juany Salas RDH) Treatments:Type - CDT Code - Description T - (D2332) Resin, 3 surfaces, anterior on Tooth # 22 on Tooth Surface MLF (Performed by Juany Salas RDH) T - (D2332) Resin, 3 surfaces, anterior on Tooth # 24 on Tooth Surface IMD (Performed by Juany Salas RDH) Existing:Type - CDT Code - Description[E] Decay On #22 Surface MFL, #24 Surface MDI[E] Resin-Based Composite - Direct On #23 Surface DL[E] Missing - [place] and Root On #1 Surface O Region XR, #10 Surface I Region XR, #11 Surface I Region XR, #12 Surface O Region XR, #13 Surface O Region XR, #14 Surface O Region XR, #15 Surface O Region XR, #16 Surface O Region XR, #17 Surface O Region XR, #18 Surface O Region XR, #19 Surface O Region XR, #2 Surface O Region XR, #20 Surface O Region XR, #21 Surface O Region XR, #26 Surface I Region XR, #27 Surface I Region XR, #29 Surface O Region XR, #31 Surface O Region XR, #32 Surface O Region XR, #4 Surface O Region XR, #7 Surface I Region XR, #8 Surface I Region XR, #9 Surface I Region XR Chart Notes:albertina (May 21 2020 3:39PM): Additional PPE requirements due to COVID-19 in the dental setting, N95, surgi giovani mask, hair covering, gown. [facility] with patient. No problems or concerns today. [facility] stated that [facility]. is [facility] and they know his medications and allergies but not medical conditions. They will bring list of medical conditions at his next apt. Pt. has large cavities and recommended a full maxillary/mandibular dentures. Pt. doesn't want dentures because he states his teeth are fine. [facility] member said he can make his own decision but they are going to discuss dentures with pts. sister so they can discuss the option. Discussed that dentures will help him eat and we can do fillings but they will most likely fail. They will call to give us a decisonOral cancer screening-no significant findings. Tempature:96.9Adult prophy- handscaled, greenlandic- mint prophy paste, floss, 2 BW's, 3 PA's OH-Patient brushes twice/day and is not flossing regularlyLT gen marginal biofilm and light marginal/introproximal calculus on LA. Tissues are pink and healthyOHI- Advise to brush 2x a day and fl oss everyday. 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 NV- 6 month recall/fillings/denture impression-whatever pt. Juany Darden RDH by albertina (05/21/2020 3:32 PM): ; sweta (May 21 2020 3:53PM): [facility](-). CC: none. Reviewed Xrays. Exam: caries detected. Retained root tips. OCS: WNL, IO/ EO completed, No significant hard findings upon clinical exam.Additional PPE requirements due to COVID-19 in the dental setting, N95, surgical mask, hair covering, gown and shieldPt was cooperative. OHI given Referral: N/A NV:restorationNOTE: Pt. has been advised to get remaining teeth extracted and go with Complete Denture upper and lower. Pt. does not want this. There however are some teeth that have prounced bone loss and/or root caries and therefore would be difficult/ not worth to restore.Juany Salas RDH by sweta (05/21/2020 3:53 PM): Tooth Notes and Watches: Assessment & Plan Medications:VITAMIN [id number] OSINLORATADINEABILIFYASPIRINMedication Changes:Added: * ASPIRIN* ABILIFY* LORATADINE* TAMSULOSIN* HYDROXYZINE* HYDROCHLOROTHIAZIDE* CARVEDILOL* VITAMIN [id number]:* PENICILLIN (Critical)* SEASONAL (Mild) Name Value Range Interpretation Code Description Data Daria rce(s) Supporting Document(s) ID Date Data Source [id number] 03/09/2020 12:00:00 AM EDT [facility] Name Value Range Interpretation Code Description Data Daria rce(s) Supporting Document(s) SARS CORONAVIRUS 2 RNA [facility] This lab was ordered by [facility] and reported by [facility]. Procedure Social History Code Duration Value Status Description Data Source(s ) Smoking 10/17/2020 12:00:00 AM EST Never Smoker completed Never S moker eCW1 ([facility]) Smoking 10/17/2020 12:00:00 AM EST Never Smoker completed Never S moker eCW1 ([facility]) Smoking 09/17/2020 12:00:00 AM EST Never Smoker completed Never S moker eCW1 ([facility]) Smoking 09/17/2020 12:00:00 AM EST Never Smoker completed Never S moker eCW1 ([facility]) Smoking 09/17/2020 12:00:00 AM EST Never Smoker completed Never S moker eCW1 ([facility]) Smoking 08/28/2020 12:00:00 AM EST Never Smoker completed Never S moker eCW1 ([facility]) Smoking 08/28/2020 12:00:00 AM EST Never Smoker completed Never S moker eCW1 ([facility]) Smoking 08/28/2020 12:00:00 AM EST Never Smoker completed Never S moker eCW1 ([facility]) Smoking 08/28/2020 12:00:00 AM EST Never Smoker completed Never S moker eCW1 ([facility]) Smoking 08/16/2020 12:00:00 AM EST Never Smoker completed Never S moker eCW1 ([facility]) Smoking 07/17/2020 12:00:00 AM EDT Never Smoker completed Never S moker eCW1 ([facility]) Smoking 07/17/2020 12:00:00 AM EDT Never Smoker completed Never S moker eCW1 ([facility]) Smoking 06/29/2020 12:00:00 AM EDT Patient has never smoked co mpleted Patient has never smoked [facility] ([facility]) Smoking 02/20/2020 12:00:00 AM EDT Never Smoker completed Never S moker eCW1 ([facility]) Smoking 02/20/2020 12:00:00 AM EDT Never Smoker completed Never S moker eCW1 ([facility]) Smoking 02/20/2020 12:00:00 AM EDT Never Smoker completed Never S moker eCW1 ([facility]) Smoking 02/20/2020 12:00:00 AM EDT Never Smoker completed Never S moker eCW1 ([facility]) Smoking 02/20/2020 12:00:00 AM EDT Never Smoker completed Never S moker eCW1 ([facility]) Vital Signs ID Date Data Source UNK Name Value Range Interpretation Code Description Data Source(s) Diastolic blood pressure 68 mm[Hg] 68 mm[Hg] eCW1 ([facility]) Systolic blood pressure 128 mm[Hg] 128 mm[Hg] e CW1 ([facility]) Respiratory rate 18 /min 18 /min eCW1 ([facility]) Heart rate 77 /min 77 /min eCW1 ([facility]) Body mass index (BMI) [Ratio] 27.05 kg/m2 27.05 kg/m2 W1 ([facility]) Body height [in_i] eCW1 ([facility] [facility]) Body weight 194 [lb_av] 194 [lb_av] eCW1 (Formerly [facility], [facility]) Diastolic blood pressure 76 mm[Hg] 76 mm[Hg] eCW1 (Formerly [facility]) Systolic blood pressure 134 mm[Hg] 134 mm[Hg] e CW1 (Formerly [facility]) Body temperature 98.0 [degF] 98.0 [degF] eCW1 ( Formerly [facility]) Respiratory rate 18 /min 18 /min eCW1 ([facility]) Heart rate 63 /min 63 /min eCW1 ([facility]) Body mass index (BMI) [Ratio] 27.75 kg/m2 27.75 kg/m2 eCW1 (Formerly [facility]) Body height [in_i] eCW1 ([facility]) Body weight 199 [lb_av] 199 [lb_av] eCW1 (Formerly [facility], [facility]) Diastolic blood pressure 82 mm[Hg] 82 mm[Hg] eCW1 (Formerly [facility]) Systolic blood pressure 150 mm[Hg] 150 mm[Hg] e CW1 (Formerly [facility]) Body temperature 98 [degF] 98 [degF] eCW1 ([facility]) Respiratory rate 18 /min 18 /min eCW1 ([facility]) Heart rate 76 /min 76 /min eCW1 ([facility]) Body mass index (BMI) [Ratio] 28.59 kg/m2 28.59 kg/m2 eCW1 (Formerly [facility]) Body height [in_i] eCW1 ([facility]) Body weight 205 [lb_av] 205 [lb_av] eCW1 (Formerly [facility], [facility]) Diastolic blood pressure 89 mm[Hg] 89 mm[Hg] eCW1 (Formerly [facility]) Systolic blood pressure 145 mm[Hg] 145 mm[Hg] e CW1 (Formerly [facility]) Body temperature 98 [degF] 98 [degF] eCW1 ([facility]) Respiratory rate 18 /min 18 /min eCW1 ([facility]) Heart rate 86 /min 86 /min eCW1 ([facility]) Body mass index (BMI) [Ratio] 28.31 kg/m2 28.31 kg/m2 eCW1 (Formerly [facility]) Body height [in_i] eCW1 ([facility]) Body weight 203 [lb_av] 203 [lb_av] eCW1 (Formerly [facility], [facility]) Diastolic blood pressure 80 mm[Hg] 80 mm[Hg] eCW1 (Formerly [facility]) Systolic blood pressure 137 mm[Hg] 137 mm[Hg] e CW1 (Formerly [facility]) Body temperature 98.7 [degF] 98.7 [degF] eCW1 ( Formerly [facility]) Respiratory rate 18 /min 18 /min eCW1 ([facility]) Heart rate 72 /min 72 /min eCW1 ([facility]) Body mass index (BMI) [Ratio] 28.45 kg/m2 28.45 kg/m2 eCW1 (Formerly [facility]) Body height [in_i] eCW1 ([facility]) Body weight 204 [lb_av] 204 [lb_av] eCW1 (Formerly [facility], [facility]) Body mass index (BMI) [Ratio] 29.7 kg/m2 29.7 k g/m2 MEDENT ([facility], [facility]) Body height 72 [in_i] 72 [in_i] MEDENT ([facility], [facility]) 6'0" Body weight 219.00 [lb_av] 219.00 [lb_av] MEDEN T ([facility], [facility]) Body temperature 97.8 [degF] 97.8 [degF] MEDENT ([facility], [facility]) Oxygen saturation in Arterial blood by Pulse oximetry 96 % 96 % MEDENT ([facility], [facility]) Respiratory rate 18 /min 18 /min MEDENT ( [facility], [facility]) Heart rate 72 /min 72 /min MEDENT ([facility], [facility]) Diastolic blood pressure 92 mm[Hg] 92 mm[Hg] MEDENT ([facility], [facility]) Systolic blood pressure 148 mm[Hg] 148 mm[Hg] M EDENT ([facility], [facility]) Body mass index (BMI) [Ratio] 29.7 kg/m2 29.7 k g/m2 MEDENT ([facility], [facility]) Body height 72 [in_i] 72 [in_i] MEDENT ([facility], [facility]) 6'0" Body weight 219.00 [lb_av] 219.00 [lb_av] MEDEN T ([facility], [facility]) Body temperature 97.6 [degF] 97.6 [degF] MEDENT ([facility], [facility]) Oxygen saturation in Arterial blood by Pulse oximetry 99 % 99 % MEDENT ([facility], [facility]) Heart rate 82 /min 82 /min MEDENT ([facility], [facility]) Diastolic blood pressure 80 mm[Hg] 80 mm[Hg] MEDENT ([facility], [facility]) Systolic blood pressure 136 mm[Hg] 136 mm[Hg] M EDENT ([facility], [facility]) Diastolic blood pressure 82 mm[Hg] 82 mm[Hg] eCW1 (Formerly [facility]) Systolic blood pressure 136 mm[Hg] 136 mm[Hg] e CW1 (Formerly [facility]) Body temperature 97.8 [degF] 97.8 [degF] eCW1 ( Former[facility]) Respiratory rate 18 /min 18 /min eCW1 ([facility]) Heart rate 92 /min 92 /min eCW1 ([facility]) Body mass index (BMI) [Ratio] 30.62 kg/m2 30.62 kg/m2 W1 (Formerly [facility]) Body height [in_us] eCW1 ([facility]) Body weight Measured 219.6 [lb_av] 219.6 [lb_av ] eCW1 (Formerly [facility]) Diastolic blood pressure 80 mm[Hg] 80 mm[Hg] eCW1 (Formerly [facility]) Systolic blood pressure 144 mm[Hg] 144 mm[Hg] e CW1 (Formerly [facility]) Body temperature 97.8 [degF] 97.8 [degF] eCW1 ( [facility]) Respiratory rate 18 /min 18 /min eCW1 ([facility]) Heart rate 74 /min 74 /min eCW1 ([facility]) Body mass index (BMI) [Ratio] 32.35 kg/m2 32.35 kg/m2 eCW1 (Formerly [facility]) Body height [in_us] eCW1 ([facility]) Body weight Measured 232 [lb_av] 232 [lb_av] eC W1 (Formerly [facility]) Patient Treatment Plan of Care Planned Activity Planned Date Details Description Data Source (s) Finasteride 5 MG Oral Tablet 10/17/2020 12:00:00 AM EST eCW1 (Formerly [facility]) Finasteride 5 MG Oral Tablet 10/17/2020 12:00:00 AM EST eCW1 (Formerly [facility]) Sulfamethoxazole 800 MG / Trimethoprim 160 MG Oral Tab let [Bactrim] 09/17/2020 12:00:00 AM EST eCW1 ([facility]) Sulfamethoxazole 800 MG / Trimethoprim 160 MG Oral Tab let [Bactrim] 09/17/2020 12:00:00 AM EST eCW1 ([facility]) Sulfamethoxazole 800 MG / Trimethoprim 160 MG Oral Tab let [Bactrim] 09/17/2020 12:00:00 AM EST eCW1 ([facility]) Depend [facility] - 08/28/2020 12:00:00 AM EST eCW1 (Formerly [facility]) Depend [facility] - 08/28/2020 12:00:00 AM EST eCW1 (Formerly [facility]) Depend [facility] - 08/28/2020 12:00:00 AM EST eCW1 (Formerly [facility]) Depend [facility] - 08/28/2020 12:00:00 AM EST eCW1 (Formerly [facility]) Hydrocortisone 10 MG/ML Topical Cream 08/16/2020 12:00:00 AM EST eCW1 (Formerly [facility]) Hydroxyzine Hydrochloride 25 MG Oral Tablet 03/01/2020 12:00:00 AM EDT eCW1 (Formerly [facility]) Hydroxyzine Hydrochloride 25 MG Oral Tablet 03/01/2020 12:00:00 AM EDT eCW1 (Formerly [facility]) Hydroxyzine Hydrochloride 25 MG Oral Tablet 03/01/2020 12:00:00 AM EDT eCW1 (Formerly [facility]) Tamsulosin hydrochloride 0.4 MG Oral Capsule 02/20/2020 12:00:00 AM EDT eCW1 (Formerly [facility]) Tamsulosin hydrochloride 0.4 MG Oral Capsule 02/20/2020 12:00:00 AM EDT eCW1 (Formerly [facility]) Tamsulosin hydrochloride 0.4 MG Oral Capsule 02/20/2020 12:00:00 AM EDT eCW1 (Formerly [facility]) Tamsulosin hydrochloride 0.4 MG Oral Capsule 02/20/2020 12:00:00 AM EDT eCW1 (Formerly [facility]) Tamsulosin hydrochloride 0.4 MG Oral Capsule 02/20/2020 12:00:00 AM EDT eCW1 (Formerly [facility]) Tamsulosin hydrochloride 0.4 MG Oral Capsule 02/20/2020 12:00:00 AM EDT eCW1 (Formerly [facility]) Tamsulosin hydrochloride 0.4 MG Oral Capsule 02/20/2020 12:00:00 AM EDT eCW1 (Formerly [facility]) Tamsulosin hydrochloride 0.4 MG Oral Capsule 02/20/2020 12:00:00 AM EDT eCW1 (Formerly [facility]) Tamsulosin hydrochloride 0.4 MG Oral Capsule 02/20/2020 12:00:00 AM EDT eCW1 (Formerly [facility]) Tamsulosin hydrochloride 0.4 MG Oral Capsule 02/20/2020 12:00:00 AM EDT eCW1 (Formerly [facility]) Tamsulosin hydrochloride 0.4 MG Oral Capsule 02/20/2020 12:00:00 AM EDT eCW1 (Formerly [facility]) Tamsulosin hydrochloride 0.4 MG Oral Capsule 02/20/2020 12:00:00 AM EDT eCW1 (Formerly [facility]) Vitamin B 12 1 MG Oral Tablet 02/03/2020 12:00:00 AM EDT eCW1 (Formerly [facility]) Vitamin B 12 1 MG Oral Tablet 02/03/2020 12:00:00 AM EDT eCW1 (Former[facility]) Vitamin B 12 1 MG Oral Tablet 02/03/2020 12:00:00 AM EDT eCW1 (Former[facility]) Vitamin B 12 1 MG Oral Tablet 02/03/2020 12:00:00 AM EDT eCW1 (Former[facility]) Vitamin B 12 1 MG Oral Tablet 02/03/2020 12:00:00 AM EDT eCW1 ([facility]) Vitamin B 12 1 MG Oral Tablet 02/03/2020 12:00:00 AM EDT eCW1 ([facility]) Vitamin B 12 1 MG Oral Tablet 02/03/2020 12:00:00 AM EDT eCW1 ([facility]) Vitamin B 12 1 MG Oral Tablet 02/03/2020 12:00:00 AM EDT eCW1 ([facility]) Vitamin B 12 1 MG Oral Tablet 02/03/2020 12:00:00 AM EDT eCW1 ([facility]) Vitamin B12 1000 MCG 02/02/2020 12:00:00 AM EDT eCW1 (Formerly [facility]) carvedilol 6.25 MG Oral Tablet 01/31/2020 12:00:00 AM EDT eCW1 (Formerly [facility]) carvedilol 6.25 MG Oral Tablet 01/31/2020 12:00:00 AM EDT eCW1 (Former[facility]) carvedilol 6.25 MG Oral Tablet 01/31/2020 12:00:00 AM EDT eCW1 ([facility]) carvedilol 6.25 MG Oral Tablet 01/31/2020 12:00:00 AM EDT eCW1 ([facility]) carvedilol 6.25 MG Oral Tablet 01/31/2020 12:00:00 AM EDT eCW1 ([facility]) carvedilol 6.25 MG Oral Tablet 01/31/2020 12:00:00 AM EDT eCW1 ([facility]) carvedilol 6.25 MG Oral Tablet 01/31/2020 12:00:00 AM EDT eCW1 ([facility]) carvedilol 6.25 MG Oral Tablet 01/31/2020 12:00:00 AM EDT eCW1 ([facility]) carvedilol 6.25 MG Oral Tablet 01/31/2020 12:00:00 AM EDT eCW1 ([facility]) carvedilol 6.25 MG Oral Tablet 01/31/2020 12:00:00 AM EDT eCW1 ([facility]) carvedilol 6.25 MG Oral Tablet 01/31/2020 12:00:00 AM EDT eCW1 ([facility]) carvedilol 6.25 MG Oral Tablet 01/31/2020 12:00:00 AM EDT eCW1 (Formerly [facility])
[2020-11-20 21:51] LABS: HEMATOCRIT 35.1 % (42.0-52.0); MEAN CORPUSCULAR HGB CONC 34.2 g/dl (32.0-36.5); MEAN CORPUSCULAR VOLUME 93.6 fl (80.0-96.0); PLATELET COUNT, AUTOMATED 332 10^3/uL (150-450); RED BLOOD COUNT 3.75 10^6/uL (4.30-6.10); WHITE BLOOD COUNT 4.5 10^3/uL (4.0-10.0)
[2020-11-20 22:17] LABS: AMPHETAMINES LEVEL URINE NEGATIVE (NEGATIVE); BARBITURATES URINE NEGATIVE (NEGATIVE); BENZODIAZEPINES URINE NEGATIVE (NEGATIVE); CANNABINOIDS URINE NEGATIVE (NEGATIVE); COCAINE METABOLITE URINE NEGATIVE (NEGATIVE); METHADONE URINE NEGATIVE (NEGATIVE); OPIATES URINE NEGATIVE (NEGATIVE); PHENCYCLIDINE URINE NEGATIVE (NEGATIVE)
[2020-11-20 22:27] LABS: ALBUMIN 3.7 GM/DL (3.2-5.2); ALT/SGPT 30 U/L (12-78); BILIRUBIN,DIRECT 0.2 MG/DL (0.0-0.2); BILIRUBIN,TOTAL 0.4 MG/DL (0.2-1.0); BLOOD UREA NITROGEN 26 MG/DL (7-18); CALCIUM LEVEL 8.6 MG/DL (8.8-10.2); CARBON DIOXIDE LEVEL 30 MEQ/L (21-32); CHLORIDE LEVEL 96 MEQ/L (98-107); CREATININE FOR GFR 1.58 MG/DL (0.70-1.30); GLOMERULAR FILTRATION RATE 47.7 (>49); GLUCOSE, FASTING 94 MG/DL (70-100); POTASSIUM SERUM 3.8 MEQ/L (3.5-5.1); SALICYLATE LEVEL < 1.7 MG/DL (5.0-30.0); SODIUM LEVEL 135 MEQ/L (136-145); TOTAL PROTEIN 7.7 GM/DL (6.4-8.2)
[2020-11-20 22:28] LABS: ACETAMINOPHEN LEVEL < 2.0 UG/ML (10.0-30.0); ETHYL ALCOHOL (ETHANOL) < 0.003 % (0.000-0.010)
[2020-11-20] MEDS ORDERED: CIPROFLOXACIN 500MG TABLET PO ONE (22:45)
[2020-11-20] MEDS ORDERED: CIPR-249 PO (23:04)
[2020-11-20 23:25] VITALS: BP 160/94
== END 2020-11-20 23:36 | disposition home or self-care (01) ==
LOC: M ED 18:54
DX: Z04.6 Encounter for general psychiatric examination, requested by authority (principal); N39.0 Urinary tract infection, site not specified; I10 Essential (primary) hypertension; F20.9 Schizophrenia, unspecified; E78.9 Disorder of lipoprotein metabolism, unspecified; Z79.899 Other long term (current) drug therapy; Z79.82 Long term (current) use of aspirin; Z88.0 Allergy status to penicillin

== ENCOUNTER 2021-02-06 02:22 | Emergency (ER) | payer MEDICARE, MEDICAID ==
[~2021-02-06] VITALS: Ht 185.4 cm; Wt 86.1 kg
[~2021-02-06 02:22] MED LIST changes: +CIPR-249 PO
[2021-02-06 05:12] VITALS: BP 141/72
== END 2021-02-06 05:24 | disposition home or self-care (01) ==
LOC: M ED 02:22
DX: T83.028A Displacement of other urinary catheter, initial encounter (principal); X58.XXXA Exposure to other specified factors, initial encounter; Y92.89 Other specified places as the place of occurrence of the external cause; I10 Essential (primary) hypertension; F20.9 Schizophrenia, unspecified; Z79.899 Other long term (current) drug therapy; Z79.82 Long term (current) use of aspirin; Z88.0 Allergy status to penicillin

== ENCOUNTER → 2021-02-08 | Outpatient (CLI) | payer MEDICARE, MEDICAID ==
[2021-02-08 16:30] LABS: APPEARANCE, URINE CLEAR (CLEAR); BACTERIA, URINE AUTO 2+ (NEGATIVE); BILIRUBIN, URINE AUTO NEGATIVE (NEGATIVE); BLOOD, URINE BLOOD 1+ (NEGATIVE); COLOR, URINE STRAW (YELLOW); GLUCOSE, URINE (UA) AUTO NEGATIVE (NEGATIVE); KETONE, URINE AUTO NEGATIVE (NEGATIVE); LEUKOCYTE ESTERASE, URINE AUTO 3+ (NEGATIVE); NITRITE, URINE AUTO NEGATIVE (NEGATIVE); PROTEIN, URINE AUTO NEGATIVE (NEGATIVE); RBC, URINE AUTO 5 /HPF (0-3); SPECIFIC GRAVITY URINE AUTO 1.006 (1.002-1.035); SQUAMOUS EPITHELIAL CELL UR AU 0 /HPF (0-6); UROBILINOGEN, URINE AUTO 0.2 mg/dL (0.0-2.0); WBC, URINE AUTO 55 /HPF (0-3)
== END ==
LOC: M LAB 16:01
PROVIDERS: ATTEND Nurse Practitioner Family
DX: R30.0 Dysuria (principal)

== ENCOUNTER 2021-03-15 14:50 | Emergency (ER) | payer MEDICARE, MEDICAID ==
[~2021-03-15] VITALS: Ht 180.3 cm; Wt 83.1 kg
[2021-03-15] MEDS ORDERED: SERO1TAB2 PO (15:04)
[2021-03-15] MEDS ORDERED: SERO1TAB PO (15:04)
[2021-03-15 17:18] LABS: BASO % 0.2 % (0.0-1.0); EOS # 0.1 10^3/uL (0.0-0.5); EOS % 0.6 % (0.0-3.0); HEMATOCRIT 36.9 % (42.0-52.0); HEMOGLOBIN 12.4 g/dl (13.5-17.5); LYMPH # 1.4 10^3/uL (1.5-5.0); LYMPH % 15.5 % (24.0-44.0); MEAN CORPUSCULAR HEMOGLOBIN 32.5 pg (27.0-33.0); MEAN CORPUSCULAR HGB CONC 33.6 g/dl (32.0-36.5); MEAN CORPUSCULAR VOLUME 96.9 fl (80.0-96.0); MONO # 0.9 10^3/uL (0.0-0.8); MONO % 9.9 % (2.0-8.0); NEUTROPHILS # 6.4 10^3/uL (1.5-8.5); NEUTROPHILS % 73.2 % (36.0-66.0); PLATELET COUNT, AUTOMATED 372 10^3/uL (150-450); RED BLOOD COUNT 3.81 10^6/uL (4.30-6.10); WHITE BLOOD COUNT 8.8 10^3/uL (4.0-10.0)
[2021-03-15 17:44] LABS: ALBUMIN 3.6 GM/DL (3.2-5.2); BILIRUBIN,DIRECT 0.2 MG/DL (0.0-0.2); BILIRUBIN,TOTAL 0.6 MG/DL (0.2-1.0); TOTAL PROTEIN 7.9 GM/DL (6.4-8.2)
[2021-03-15] MEDS ORDERED: BACTRIM 160MG/800MG DS TAB PO ONE (18:05)
--- NOTE | 2021-03-15 18:19 | REP ---
INDICATION: constipation COMPARISON: None. TECHNIQUE: Supine view of the abdomen and pelvis. FINDINGS: Bowel gas pattern is nonspecific although significant amount of gas is identified within the colon raising the possibility of ileus. No obvious free air. No significant foreign body. Skeletal structures age-appropriate.. IMPRESSION: Possible ileus pattern. <Electronically signed by Douglas Keenan > 03/15/21 [id number]
[2021-03-15] MEDS ORDERED: LORazepam 2 MG/ML VIAL IV STA (18:37)
[2021-03-15] MEDS ORDERED: NS 1,000 ML IV ONE (18:40)
[2021-03-15] MEDS ORDERED: ISOVUE-370 76% 100ML VIAL As Ordered ONE (18:41)
[2021-03-15] MEDS ORDERED: LORazepam 2 MG TAB PO ONE (18:55)
[2021-03-15] MEDS ORDERED: LORazepam 2 MG TAB PO STA (19:50)
--- NOTE | 2021-03-15 21:02 | REPVR ---
PROCEDURE INFORMATION: Exam: CT Abdomen And Pelvis Without Contrast Exam date and time: 03/15/2021 7:59 PM Age: 60 years old Clinical indication: Other: Possible ileus TECHNIQUE: Imaging protocol: Computed tomography of the abdomen and pelvis without contrast. Radiation optimization: All CT scans at this facility use at least one of these dose optimization techniques: automated exposure control; mA and/or kV adjustment per patient size (includes targeted exams where dose is matched to clinical indication); or iterative reconstruction. COMPARISON: CR Abdomen,Flat Plate KUB 03/15/2021 5:18 PM FINDINGS: Liver: Normal. No mass. Gallbladder and bile ducts: There are large calculi in the gallbladder measuring up to 2.6 cm. No gallbladder wall thickening or pericholecystic fluid. No biliary duct dilation. Pancreas: Normal. No ductal dilation. Spleen: Normal. No splenomegaly. Adrenal glands: Normal. No mass. Kidneys and ureters: Normal. No hydronephrosis. Stomach and bowel: Unremarkable. No obstruction or inflammatory changes. No mucosal thickening. Appendix: No evidence of appendicitis. Intraperitoneal space: Unremarkable. No free air. No significant fluid collection. Vasculature: Unremarkable. No abdominal aortic aneurysm. Lymph nodes: Unremarkable. No enlarged lymph nodes. Urinary bladder: A Ramos catheter is present. Urinary bladder is mildly distended but otherwise unremarkable. Reproductive: The balloon of the catheter is inflated in the posterior penile urethra with the tip of the catheter extending to the prostatic urethra. Bones/joints: There are degenerative changes in the spine and pelvis. Bilateral pars defects and minor grade 1 anterolisthesis at L5-S1. Soft tissues: Unremarkable. IMPRESSION: 1. The Ramos catheter balloon is inflated in the posterior penile urethra. Urinary bladder is mildly distended. 2. Cholelithiasis. No secondary signs of acute cholecystitis or biliary duct dilation. 3. Bilateral L5-S1 pars defects with mild degenerative spondylosis. 4. No bowel obstruction. Electronically signed by: Aaron Jett On 03/15/2021 21:02:26 PM
[2021-03-15] MEDS ORDERED: MIRA3350 PO (21:24)
[2021-03-15] MEDS ORDERED: BACT800T5 PO (21:24)
[2021-03-15 21:50] VITALS: BP 149/79
--- NOTE | 2021-03-16 05:07 | ED PDOC ---
Post-Departure Follow-Up Additional note: Patient had a stevens without a bag. When consulted about patient's urine results and UTI, Dr. Alexandra wanted the patient placed on Bactrim DS and the stevens changed. [facility] did not have the type of setvens the patient currently had. The patient was adamant that he did not want a bag. He was screaming and started to get aggressive. Called Dr. Reyes back and asked if the stevens could be changed at [facility] with the type they use and he said that wo uld be ok. Spoke to the Aide with patient that this would need to be done at [facility]. Patient instructed to follow up with Dr. Alexandra in [address] Frias. Patient refused IV for CT abdomen/pelvis with contrast. Consulted Dr. Holman and told to get noncontrast CT if patient noncompliant with IV. That is what was done. ANI Hall PA-C, PA-C Mar 16, 2021 05:07
== END 2021-03-15 21:54 | disposition home or self-care (01) ==
LOC: M ED 14:50
DX: N39.0 Urinary tract infection, site not specified (principal); K59.00 Constipation, unspecified; I12.9 Hypertensive chronic kidney disease with stage 1 through stage 4 chronic kidney disease, or unspecified chronic kidney disease; N18.30 Chronic kidney disease, stage 3 unspecified; E78.5 Hyperlipidemia, unspecified; F20.9 Schizophrenia, unspecified; N40.0 Benign prostatic hyperplasia without lower urinary tract symptoms; Z79.899 Other long term (current) drug therapy; Z79.82 Long term (current) use of aspirin; Z88.0 Allergy status to penicillin

== ENCOUNTER 2021-03-25 09:13 | Inpatient (IN) | payer MEDICARE, MEDICAID ==
[~2021-03-25] VITALS: Ht 190.5 cm; Wt 88.5 kg
[~2021-03-25 09:13] MED LIST changes: +BACT800T5 PO; +MIRA3350 PO; +SERO1TAB PO; +SERO1TAB2 PO
[2021-03-25 10:01] LABS: BASO % 0.4 % (0.0-1.0); EOS % 0.9 % (0.0-3.0); HEMATOCRIT 27.1 % (42.0-52.0); HEMOGLOBIN 9.8 g/dl (13.5-17.5); LYMPH # 0.6 10^3/uL (1.5-5.0); LYMPH % 13.2 % (24.0-44.0); MEAN CORPUSCULAR HGB CONC 36.2 g/dl (32.0-36.5); MEAN CORPUSCULAR VOLUME 91.2 fl (80.0-96.0); MONO # 0.6 10^3/uL (0.0-0.8); NEUTROPHILS # 3.2 10^3/uL (1.5-8.5); NEUTROPHILS % 70.8 % (36.0-66.0); PLATELET COUNT, AUTOMATED 456 10^3/uL (150-450); RED BLOOD COUNT 2.97 10^6/uL (4.30-6.10); WHITE BLOOD COUNT 4.6 10^3/uL (4.0-10.0)
[2021-03-25 10:26] LABS: ERYTHROCYTE SEDIMENTATION RATE 56 mm/hr (0-20)
--- NOTE | 2021-03-25 10:27 | REP ---
INDICATION: R/O DVT COMPARISON: None. TECHNIQUE: Real time compression and duplex Doppler interrogation of the bilateral lower extremity deep venous system is performed. Compression ultrasound is performed of the bilateral peroneal and posterior tibial veins. FINDINGS: Bilaterally, the common femoral, superficial femoral and popliteal veins are fully compressible with transducer pressure and demonstrate normal spontaneous and phasic flow, without evidence of deep venous thrombosis. No thrombus is seen in the bilateral visualized portions of the peroneal and posterior tibial veins. Evaluation of the calf veins is limited due to significant soft tissue edema. Incidental note is made of bilateral inguinal adenopathy. Two right inguinal lymph nodes are identified measuring 3.4 x 1.5 x 1.7 cm and 3.8 x 1.4 x 1.9 cm. A left inguinal lymph node measures 2.7 x 1.2 x 1.6 cm. IMPRESSION: No evidence of deep venous thrombosis of the bilateral lower extremity femoral popliteal venous system. Bilateral inguinal adenopathy. <Electronically signed by John Winslow > 03/25/21 [id number]
[2021-03-25 10:56] LABS: ALBUMIN 3.3 GM/DL (3.2-5.2); ALT/SGPT 33 U/L (12-78); BILIRUBIN,DIRECT 0.2 MG/DL (0.0-0.2); BILIRUBIN,TOTAL 0.5 MG/DL (0.2-1.0); BLOOD UREA NITROGEN 60 MG/DL (7-18); CALCIUM LEVEL 7.9 MG/DL (8.8-10.2); CARBON DIOXIDE LEVEL 25 MEQ/L (21-32); CHLORIDE LEVEL 88 MEQ/L (98-107); CK-MB VALUE MASS 6.9 NG/ML (<3.6); CPK CREATINE PHOSPHOKINASE 214 U/L (39-308); CREATININE FOR GFR 4.61 MG/DL (0.70-1.30); GLOMERULAR FILTRATION RATE 13.9 (>49); GLUCOSE, FASTING 100 MG/DL (70-100); LIPASE 146 U/L (73-393); MB/CK RELATIVE INDEX 3.22 (< OR =4); NT-PRO BNP 164 PG/ML (<125); POTASSIUM SERUM 3.6 MEQ/L (3.5-5.1); SODIUM LEVEL 123 MEQ/L (136-145); TOTAL PROTEIN 7.3 GM/DL (6.4-8.2); TROPONIN I < 0.02 NG/ML (< 0.10)
[2021-03-25] MEDS ORDERED: NS 2,000 ML IV ONE (12:05)
[2021-03-25] MEDS ORDERED: FURO20TA2 PO (13:22)
[2021-03-25] MEDS ORDERED: CYAN100050 PO (13:22)
[2021-03-25] MEDS ORDERED: ATIV1TAB7 PO (13:22)
[2021-03-25] MEDS ORDERED: BACT800T5 PO (13:22)
[2021-03-25] MEDS ORDERED: POLY510P14 PO (13:23)
[2021-03-25 13:31] LABS: FERRITIN 421 NG/ML (26-388); IRON (FE) 47 UG/DL (65-175); PERCENT SATURATION 18.4 % (19.7-50.0); TOTAL IRON BINDING CAPACITY 256 UG/DL (250-450)
--- NOTE | 2021-03-25 13:35 | HPE ---
HISTORY AND PHYSICAL DATE OF ADMISSION: 03/25/2021 CHIEF COMPLAINT: Dysuria, lower extremity edema. HISTORY OF PRESENT ILLNESS: This is a 61-year-old [facility] resident with a history of schizophrenia, intermittent explosive disorder, mild intellectual disability, hypertension, dyslipidemia, chronic urine retention with chronic indwelling catheter, recurrent urinary tract infections, had issues with his chronic indwelling catheter in early March, recently treated for urinary tract infection with 10 days of Bactrim started on 03/16/2021 to complete on 03/26/2021. Patient has also had increasing lower extremity edema and was placed on Lasix 20 mg daily one week ago, presents to the Emergency Room today with persistent complaints of dysuria, was found to have worsening renal failure, creatinine of 4.5 from a baseline of 1.5. The patient otherwise denies any fevers or chills, shortness of breath, chest pain, pressure, or tightness. He has not noted any decrease in urine output. No nausea or vomiting, epigastric pain or flank pain. He has had no fevers or chills at home. He was also found to be anemic with hemoglobin of 9.8, hematocrit of 27 but denied any bright-red blood per rectum, melena, black or tarry stools, coffee-ground emesis or prior history of GI bleed. Prior hemoglobin was 12.4 from 03/15/2021 and hematocrit of 36.9, currently 27.1. The Hospitalist was called to admit the patient for acute on chronic renal failure, creatinine of 4.6 today from a baseline of 1.58 with chronic kidney disease Stage III and severe hyponatremia with a sodium level of 123. Previous urine culture on 03/15/2021 showed Klebsiella and prior history of enterococcus faecalis in November. PAST MEDICAL HISTORY: 1. Recurrent urinary tract infection with Klebsiella and enterococcus faecalis. 2. Chronic kidney disease Stage III. 3. Chronic indwelling Ramos catheter. 4. Recurrent urinary tract infections. 5. Schizophrenia. 6. Hypertension. 7. Dyslipidemia. 8. Allergic rhinitis. 9. Intermittent explosive disorder. 10.Mild intellectual disability. 11.Chronic lower extremity edema. PAST SURGICAL HISTORY: 1. Cystoscopy October 17, 2020. ALLERGIES: Penicillin. HOME MEDICATIONS: 1. Patient is completing Bactrim one tablet double-strength b.i.d. 2. Lasix 20 mg daily. 3. Coreg one tablet 6.25 mg b.i.d. 4. Hydrochlorothiazide one tablet daily. 5. Loratadine one tablet daily. 6. Miralax 17 grams as needed. 7. Seroquel 100 mg q. p.m., 300 mg q. p.m. SOCIAL HISTORY: Currently lives at [facility]. Patient is on disability. Patient had 100 cigarette lifetime use of tobacco. No current recreational drug use, alcohol or active tobacco abuse. FAMILY HISTORY: Father and mother , one brother and one sister are both healthy and alive. REVIEW OF SYSTEMS: Per HPI, 12 point system otherwise negative. PHYSICAL EXAMINATION: VITAL SIGNS: Temperature 96.8, pulse 75, respiratory rate 16, blood pressure 126/72, 99% on room air. GENERAL: Patient is cooperative, awake, alert and oriented to person, place and time. He is in no respiratory distress. He has slight pallor. No icterus or jaundice. HEAD/NECK: No JVD or thyromegaly. Moist mucous membranes. LUNGS: Clear to auscultation. No wheezes, rales or rhonchi. Air entry is equal. HEART: S1 and S2, sinus rhythm. No murmurs, rubs or gallops. ABDOMEN: Soft, slightly distended and doughy. No rebound or guarding. Positive bowel sounds. No CVA tenderness. Chronic indwelling Ramos catheter is noted. No suprapubic tenderness. EXTREMITIES: 3+ pitting edema to the sacrum with some erythema of bilateral feet and dorsum. LABORATORY DATA: White count 4.6, hemoglobin 9.8, hematocrit 27, previous hemoglobin of 12.4, hematocrit of 36.9, platelet count of 456,000. Sodium 123, previous sodium on 11/09/2020 was 135, potassium 3.6, chloride 88, bicarbonate 25, BUN 60, creatinine 4.61, glucose of 100. Troponin less than 0.02, C-reactive protein 2.5. BNP 164. T-bili 0.5, direct bilirubin 0.2. AST 24, ALT 33, alkaline phosphatase 68. Two sets of blood cultures pending; 03/15/2021 showed Klebsiella, sensitive to ampicillin, sulbactam, aztreonam, cefazolin, cefepime, ceftazidime, Ceftriaxone, Levaquin, Meropenem, Nitrofurantoin, Zosyn, Tigecycline, Tobramycin and Bactrim. Urinalysis: Cloudy appearance, 2+ protein, 3+ blood, negative nitrate, 3+ leukocyte esterase, too numerous to count, WBC 180, RBC 2+ bacteria. ASSESSMENT AND PLAN: This is a 60-year-old with a history of schizophrenia, intermittent explosive disorder, mild intellectual disability, hypertension, dyslipidemia, allergic rhinitis, chronic urinary retention with chronic indwelling catheter, recurrent urinary tract infection with enterococcus faecalis. The patient will be admitted as an inpatient with the following active issues: 1. Acute on chronic kidney disease, baseline creatinine is Stage III, currently at Stage V renal failure without metabolic acidosis or hyperkalemia or signs of fluid overload. Patient currently has hyponatremia but maintaining his cognitive function at baseline. He will be admitted to Medical/Surgical floor, given IV fluids with BMP monitoring every 6 hours. This is most likely secondary to acute kidney injury due to recent Bactrim and Lasix use. He denies any nonsteroidal or anti-inflammatory use. Check renal ultrasound to rule out obstructive uropathy. He currently has an indwelling catheter. Strict I and O's, daily weights, no fluid restriction for now, encourage oral intake. Avoid nephrotoxins and renally dose all medications. 2. Hyponatremia secondary to dehydration from Lasix and decrease in circulating volume. There are no mental status changes. Will need to monitor basic metabolic panel q. 6 hourly to prevent more than 12 mEq change in his sodium from 9:30 this morning to 9:30 tomorrow morning. Patient is at risk for seizure activity and central pontine myelinolysis, therefore will need to monitor closely for behavioral changes and complaints of headaches, blurred vision, changes in cognition or seizure activity. 3. Urinary tract infection in the setting of chronic indwelling Ramos catheter treated with Bactrim, received nine days of Bactrim with resultant acute kidney injury and chronic kidney disease Stage III. Patient should be treated with intravenous Ceftriaxone for now until the urine culture is negative. Bacid to prevent C. Difficile. Monitor for any diarrhea. Avoid nephrotoxins, renally dose all medications. 4. Bilateral lower extremity edema. Check UA for proteinuria. Patient is at risk of worsening renal failure if patient is given diuretics, he had recently taken Bactrim and Lasix together as the cause for acute kidney injury. He is very far from his baseline of chronic kidney disease Stage III, currently at Stage V. Will need to monitor patient for urine output, metabolic acidosis, hyperkalemia and fluid overload. If patient worsens or develops any of those symptoms, it is best to get the eligibility clerk involved earlier. 5. Dyslipidemia, chronic. 6. Schizophrenia, may resume home medications but defer to pharmacy for any adjustments. 7. Hypertension, controlled. 8. DVT prophylaxis with compression stockings. 9. Disposition: Patient will need at least three days of inpatient stay while we monitor his renal function and await urine culture sensitivity results. MTDD
--- NOTE | 2021-03-25 13:44 | REP ---
INDICATION: RENAL FAILURE. COMPARISON: 02/28/2020 TECHNIQUE: Bilateral renal ultrasound FINDINGS: Multiple ultrasonographic images of the right kidney show the right kidney to measure 10.8 x 5.6 x 5.3 cm. The renal cortical echotexture is slightly increased. There are no masses. There is preservation of corticomedullary differentiation. There is mild hydronephrosis. There are no perinephric fluid collections. Multiple ultrasonographic images of the left kidney show the left kidney to measure 10.8 x 5.1 x 5.7 cm. The renal cortical echotexture is slightly increased. There are no masses. There is preservation of corticomedullary differentiation. There is mild hydronephrosis. There are no perinephric fluid collections. The urinary bladder was seen to be distended. When imaging the right kidney the technologist noted cholelithiasis. IMPRESSION: There is mild bilateral hydronephrosis. The renal cortical echoes are increased bilaterally as described above. There is evidence of urinary bladder distension. Cholelithiasis was seen on scanning the right kidney. Consider complete right upper quadrant ultrasound if clinically relevant. <Electronically signed by Jesus Ayoub > 03/25/21 [id number]
[2021-03-25] MEDS ORDERED: cefTRIAXone SOD 1 GM in D5W MINI-BAG PLUS 50 ML IV SCH (14:00)
[2021-03-25 15:45] VITALS: BP 149/86
[2021-03-25] MEDS: LACTOBACILLUS ACIDOPHILUS CAP (BACID) PO SCH ×2 (18:10→21:25)
[2021-03-25] MEDS: MEROPENEM INJ 500 MG in IV 1 EA IV SCH (18:10)
[2021-03-25 18:29] LABS: CALCIUM LEVEL 8.1 MG/DL (8.8-10.2); CREATININE FOR GFR 4.9 MG/DL (0.70-1.30); GLOMERULAR FILTRATION RATE 12.9 (>49); POTASSIUM SERUM 3.1 MEQ/L (3.5-5.1)
[2021-03-25] MEDS ORDERED: POTASSIUM CHLORIDE 10 MEQ SR TABLET PO ONE (18:55)
[2021-03-25 21:21] VITALS: BP 139/85
[2021-03-25] MEDS: CARVedilol 6.25 MG TAB PO SCH (21:26)
[2021-03-25] MEDS: NS 1,000 ML IV SCH (21:28)
[2021-03-25] MEDS: QUEtiapine FUMARATE 100 MG TAB PO SCH (23:41)
[2021-03-26] MEDS ORDERED: UNRESOLVED CLARIFICATION ENTRY XX SCH (00:01)
[2021-03-26] MEDS: MEROPENEM INJ 500 MG in IV 1 EA IV SCH ×3 (01:56→20:35)
[2021-03-26] MEDS: traMADol 50 MG TAB PO PRN (03:33)
[2021-03-26 05:09] VITALS: BP 138/84
[2021-03-26 08:34] LABS: HEMATOCRIT 28.4 % (42.0-52.0); HEMOGLOBIN 10.1 g/dl (13.5-17.5); MEAN CORPUSCULAR HEMOGLOBIN 33.1 pg (27.0-33.0); MEAN CORPUSCULAR HGB CONC 35.6 g/dl (32.0-36.5); MEAN CORPUSCULAR VOLUME 93.1 fl (80.0-96.0); PLATELET COUNT, AUTOMATED 443 10^3/uL (150-450); RED BLOOD COUNT 3.05 10^6/uL (4.30-6.10); WHITE BLOOD COUNT 5.3 10^3/uL (4.0-10.0)
[2021-03-26 08:59] LABS: CALCIUM LEVEL 8.1 MG/DL (8.8-10.2); CREATININE FOR GFR 5.2 MG/DL (0.70-1.30); GLOMERULAR FILTRATION RATE 12.1 (>49); POTASSIUM SERUM 3.6 MEQ/L (3.5-5.1)
[2021-03-26] MEDS: NS 1,000 ML IV SCH ×2 (09:30→17:52)
[2021-03-26] MEDS: QUEtiapine FUMARATE 100 MG TAB PO SCH ×2 (10:18→20:34)
[2021-03-26] MEDS: LORATADINE 10 MG TAB PO SCH (10:18)
[2021-03-26] MEDS: ASPIRIN 81MG ENTERIC TABLET PO SCH (10:18)
[2021-03-26] MEDS: LACTOBACILLUS ACIDOPHILUS CAP (BACID) PO SCH ×4 (10:18→20:34)
[2021-03-26] MEDS: CARVedilol 6.25 MG TAB PO SCH ×2 (10:19→20:36)
--- NOTE | 2021-03-26 12:19 | REP ---
INDICATION: right hip pain, bruising, recent fall. COMPARISON: None TECHNIQUE: AP pelvis and two views of each hip FINDINGS: AP pelvis shows mild bilateral rather symmetric appearing hip joint space narrowing. There is no acute fracture, dislocation, or subluxation. The femoral heads are symmetric in appearance and without evidence of buttressing. Two views of the right hip show no acute fracture, dislocation, or subluxation. Two views of the left hip show no acute fracture, dislocation, or subluxation. IMPRESSION: Chronic changes as described above. <Electronically signed by Jesus Ayoub > 03/26/21 [id number]
[2021-03-26 14:00] VITALS: BP 133/82
--- NOTE | 2021-03-26 20:44 | IPNPDOC ---
Subjective Date Seen The patient was seen on 03/26/21. Subjective Chief Complaint/HPI Mr. Crow is a 60 year old male resident of [facility] who is here with increasing edema and weight gain and found to have BRITTANI on CKD. This morning, renal function was worsening, and I discussed the case with nephrology. Patient has a ballcock type Ramos which has been having poor output. Imaging demonstrates bilateral hydronephrosis and an enlarged bladder. Bladder scan demonstrated more than 1L. Nephrology recommended I reach out to urology. Urology reports that despite having a different type of Ramos catheter, we can removed and insert a regular Ramos catheter. Patient's catheter was changed and 3.9L of urine was removed. Objective Physical Examination General Exam: Positive: Alert Eye Exam: Negative: Sclera icteric Neck Exam: Positive: Supple Chest Exam: Positive: Clear to auscultation Heart Exam: Positive: Rate Normal, Regular Rhythm Abdomen Exam: Positive: Normal bowel sounds, Soft; Negative: Tenderness Extremity Exam: Positive: Edema (bilaterla pitting) Assessment /Plan Assessment Mr. Crow is a 60 year old male resident of [facility] who is here with increasing edema and weight gain and found to have BRITTANI on CKD. Initially thought to be secondary to Bactrim and Lasix, but patient found to have acute urinary retention with 3.9L of fluid. Discussed case with nephrology. Patient should follow up with urology outpatient. Otherwise, continue treatment of UTI with meropenem. Monitor renal function. Plan/VTE VTE Prophylaxis Ordered?: Yes Plan 1. BRITTANI on CKD stage 3 -Baseline creatinine around 1.5 -Creatinine elevated at 5 -2/2 to post obstructive nephropathy -Changed Ramos, diuresed 3.9L -Monitor creatinine for improvement -Monitor blood pressure -Continue IVF 2. Hyponatremia -Secondary to BRITTANI -Monitor 3. UTI -Urine culture on 03/15/21 demonstrates Klebsiella -Patient has been on Bactrim since 03/16/21 -Due to BRITTANI, Bactrim discontinued and Meropenem started -After 3 days, will discontinue meropenem. Today day 1/3 4. Hypertension -Continue carvedilol -Hold HCTZ due to renal dysfunction 5. DVT ppx -Compression stockings Disposition: Pending improvement in renal function VS, I&O, 24H, Fishbone Vital Signs/I&O Vital Signs Date Time Temp Pulse Resp B/P (MAP) Pulse Ox O2 Delivery O2 Flow Rate FiO2 03/26/21 14:00 97.4 81 18 133/82 (99) 98 Room Air I&O- Last 24 Hours up to 6 AM 03/26/21 06:00 Intake Total 1955 ml Output Total 475 ml Balance 1480 ml Laboratory Data 24H LABS Laboratory Tests 2 03/26/21 08:25: Nucleated Red Blood Cells % (auto) 0.0, Anion Gap 10, Glomerular Filtration Rate 12.1L, Calcium Level 8.1L CBC/BMP Laboratory Tests 03/26/21 08:25 Microbiology Microbiology 03/25/21 Blood Culture - Preliminary, Resulted No growth after 24 hours . All specim... 03/25/21 Blood Culture - Preliminary, Resulted No growth after 24 hours . All specim... LAZ THACKER DO Mar 26, 2021 20:44
[2021-03-26] MEDS ORDERED: NS 0.45% 1,000 ML IV SCH (21:20)
[2021-03-26 22:00] VITALS: BP 109/56
[2021-03-26 22:11] LABS: CALCIUM LEVEL 8.1 MG/DL (8.8-10.2); CREATININE FOR GFR 3.86 MG/DL (0.70-1.30); POTASSIUM SERUM 3.8 MEQ/L (3.5-5.1)
[2021-03-27] MEDS ORDERED: D5W 500 ML IV ONE (00:05)
[2021-03-27 06:00] VITALS: BP 106/55
[2021-03-27 07:03] LABS: HEMATOCRIT 25.9 % (42.0-52.0); MEAN CORPUSCULAR HEMOGLOBIN 32.6 pg (27.0-33.0); MEAN CORPUSCULAR HGB CONC 34.7 g/dl (32.0-36.5); MEAN CORPUSCULAR VOLUME 93.8 fl (80.0-96.0); PLATELET COUNT, AUTOMATED 415 10^3/uL (150-450); RED BLOOD COUNT 2.76 10^6/uL (4.30-6.10); WHITE BLOOD COUNT 4.1 10^3/uL (4.0-10.0)
[2021-03-27 07:40] LABS: CREATININE FOR GFR 2.69 MG/DL (0.70-1.30); GLOMERULAR FILTRATION RATE 25.8 (>49)
[2021-03-27 07:41] LABS: CALCIUM LEVEL 7.9 MG/DL (8.8-10.2)
[2021-03-27] MEDS: CARVedilol 6.25 MG TAB PO SCH ×2 (09:00→21:15)
[2021-03-27] MEDS: ASPIRIN 81MG ENTERIC TABLET PO SCH (09:16)
[2021-03-27] MEDS: QUEtiapine FUMARATE 100 MG TAB PO SCH ×2 (09:16→21:15)
[2021-03-27] MEDS: LORATADINE 10 MG TAB PO SCH (09:17)
[2021-03-27] MEDS: LACTOBACILLUS ACIDOPHILUS CAP (BACID) PO SCH ×4 (09:17→21:15)
[2021-03-27] MEDS: MEROPENEM INJ 500 MG in IV 1 EA IV SCH (09:19)
[2021-03-27] MEDS ORDERED: NS 0.45% 1,000 ML IV SCH (11:05)
--- NOTE | 2021-03-27 11:19 | ECHO ---
ECHOCARDIOGRAM DATE OF PROCEDURE: 03/26/2021 Age: Gender: Height: 191 cm Weight: 92 kg REFERRING PHYSICIAN: Dr. Valadez. INDICATION: Edema. MEASUREMENTS: IVS 1.2 cm LV 4.4 cm LVPW 1.0 cm LA 2.7 cm Aorta 4.0 cm Left atrium volume index 22 ml/m2 Mitral E wave velocity 63 A wave 88 E prime septal 7.4 E prime lateral 9.9 FINDINGS: Study is of acceptable technical quality, but it was performed in sitting patient who was uncooperative with the exam. Left ventricle is normal size with overall preserved LV systolic function, I estimate EF around 60 to 65%. Right ventricle is also normal size and systolic function. Both atria appear grossly normal. Aortic, mitral, and tricuspid valves appear normal. Pulmonic valve was not well seen. No pericardial effusion is noted. Inferior vena cava was not visualized. Aortic root is dilated at 4.0 cm. Aortic arch and abdominal aorta were not well seen. Doppler interrogation reveals trace aortic insufficiency. There is also trace mitral and trace tricuspid insufficiency. Calculated pulmonary artery pressure is within normal limits. Mitral inflow pattern and tissue Doppler imaging of mitral annulus revealed grade 1 diastolic dysfunction. CONCLUSIONS: 1. Study is of acceptable technical quality, underlying sinus rhythm. Patient was not cooperative with the exam, and the exam was obtained in sitting position. 2. Normal LV size with mild LVH and preserved LV systolic function. Grade 1 diastolic dysfunction. 3. No significant valvular disease. 4. Unable to estimate central venous pressure but likely normal pulmonary artery pressure. 5. Mildly dilated aortic root (4.0 cm).
--- NOTE | 2021-03-27 12:41 | CR ---
INPATIENT CONSULTATION DATE: 03/26/2021 REQUESTING PHYSICIAN: Surinder Wilson DO. CONSULTING PHYSICIAN: Patrick Breaux DO. REASON FOR CONSULTATION: Acute kidney injury superimposed on CKD stage 3. HISTORY OF PRESENT ILLNESS: Mr. Arturo Crow is previously unknown to me. He is a 60-year-old male with a past medical history of CKD stage 3A with a baseline creatinine of about 1.5 who is a resident of [facility] with a history of schizophrenia, intermittent explosive disorder, hypertension, dyslipidemia, chronic urinary retention with chronic indwelling catheter and recurrent urinary tract infections. The patient has the full responsibility of emptying out his urine via his catheter himself as it has a stop valve on it and the catheter only empties if the patient opens the stop valve. Apparently patient was treated for 10 days with Bactrim with a start date of March 16 to complete on March 26 and during that time period he also had increasing leg edema. He was started on Lasix 20 mg daily, but he had no improvement in the edema also had poor urine output and presented to the Emergency Room with complaints of trouble with urination. Laboratory studies in the Emergency Room showed his creatinine had increased to 4.5. The patient was started on I.V. fluids. He had a renal ultrasound that showed bilateral hydronephrosis and a distended bladder. His renal function today worsened with his creatinine up to 5.2 and a nephrology evaluation was requested. Concomitantly he also has hyponatremia with serum sodium of 123 on admission and current serum sodium of 126. I saw and examined the patient this morning at the bedside and I asked him to demonstrate how he releases the stop valve on his catheter and how he empties his bladder as I was concerned regarding the marked bladder distention and hydronephrosis on imaging. The patient attempted to show me how he uses his catheter, but he was unable to have any urine output. Bladder scan was subsequently requested and it showed more than 1000 mL of urine and urology advised to change his catheter. A simple Ramos catheter was placed instead and the patient had immediate output of 3.9 liters of urine which is a whopping amount. PAST MEDICAL HISTORY: 1. CKD stage 3A, baseline creatinine 1.5. 2. History of chronic urinary retention with indwelling catheter which is reliant on patient's ability to release the stop valve. 3. History of recurrent urinary tract infections. 4. Schizophrenia. 5. Hypertension. 6. Dyslipidemia. 7. Allergic rhinitis. 8. Intermittent explosive disorder. 9. Intellectual disability. PAST SURGICAL HISTORY: Cystoscopy. ALLERGIES: PENICILLIN. HOME MEDICATIONS: 1. Bactrim 1 tablet twice a day times 10 days. 2. Lasix 20 mg daily recently started. 3. Coreg 1 tablet, 6.25 twice a day. 4. Hydrochlorothiazide 1 tablet daily. 5. Loratadine 1 tablet daily. 6. MiraLax p.r.n. 7. Seroquel 300 mg in the evening. 8. Seroquel 200 mg in the morning. SOCIAL HISTORY: He lives at [facility]. He is disabled. No recreational drugs, alcohol use and no active tobacco use. FAMILY HISTORY: As per chart review his parents are both . He has 2 siblings and he is not aware of their health history. REVIEW OF SYSTEMS: Limited secondary to patient's baseline cognitive ability; however: Constitutional: Denies fever or chills. Eyes: Denies visual changes or tearing. ENT: Denies rhinorrhea, epistaxis. Cardiac: Reports worsening leg swelling. Denies chest pain. Respiratory: Denies shortness of breath or cough. Gastrointestinal: Denies nausea, vomiting or diarrhea. Genitourinary: Reports chronic catheter, reports decreased urine. Musculoskeletal: Reports worsening leg swelling. Denies acute myalgias or arthralgias. Endocrine: Denies history of diabetes or thyroid issues. Neurologic: Has intellectual disability and cognitive impairment. Psychiatric: Schizophrenia, intermittent explosive disorder. Hematologic: Denies anemia or anticoagulant use. The remainder of the review of systems is negative or as per HPI. PHYSICAL EXAMINATION: Vital signs: Temperature 97.4, pulse 81, respiratory rate 18, blood pressure 133/82, saturating 98% on room air. Weight on the bed scale today is 91.5 kg. General: Patient is seen awake, alert, coloring in no distress. HEENT: Makes poor eye contact. Tongue is moist. Neck: Supple. Jugular veins look mildly elevated. Heart: Sounds are regular S1 and S2. There is 2+ leg edema. Abdomen: Soft. His bladder was difficult to assess as patient did not cooperate with that part of the physical exam. His catheter was noted. Lungs: Symmetric air entry. No crackle or rale Extremities: 2+ leg edema. Neurologic: He is oriented to person and to place. He is occasionally belligerent. LABORATORY DATA: Sodium 126, potassium 3.6, bicarbonate 24, BUN 57, creatinine 5.2. Hemoglobin 10.1, white count 5.3. Blood cultures no growth for 24 hours times 2 sets. RADIOLOGY STUDIES: Renal ultrasound done yesterday shows mild bilateral hydronephrosis, urinary bladder distention. Echocardiogram done March 26 shows grade 1 diastolic dysfunction. INPATIENT MEDICATIONS: Reviewed by myself. He is on: 1. Normal saline at 100 mL an hour. 2. Meropenem 500 mg I.V. twice a day. 3. Aspirin 81 mg by mouth daily. 4. Carvedilol 6.25 mg by mouth twice a day. 5. Bacid with meal and at bedtime. 6. Loratadine 10 mg daily. 7. Seroquel 200 mg in the morning. 8. Seroquel 300 mg at bedtime. 9. Tramadol 50 mg by mouth q6h p.r.n. pain. PROBLEMS: 1. Acute kidney injury superimposed on CKD stage 3A: His acute kidney injury is secondary to obstruction and severe urinary retention and bilateral hydronephrosis. He has a special type of catheter wherein the patient himself controls the release of urine via a stop valve mechanism. It is malfunctioning. He has severe retention. A Ramos catheter was placed instead with immediate output of 3.9 liters of urine. He is likely going to have a post-obstructive diuresis now hence although he is hypervolemic on exam I am going to continue him on I.V. fluid, but we will switch over to half normal saline at a lower rate of 50 mL an hour. 2. Decompensated diastolic congestive heart failure: Echocardiogram noted with grade 1 diastolic dysfunction. His decompensation is because of urinary obstruction which had probably been going on for at least several days. Patient is now expected to have a post-obstructive diuresis now that the obstruction has been relieved and I expect that he is going to be polyuric. He is not suitable for normal saline as he may rapidly correct his sodium level given polyuria. I am switching him over to half normal at 50 an hour and I expect that he is going to diurese rapidly with quick correction of his volume status. 3. Hypervolemic hyponatremia: It is again due to urinary retention and renal failure. His obstruction has been relieved. He is expected to become swiftly polyuric. Normal saline is being stopped. I switched him over to half normal saline. Repeat laboratory was ordered for this evening which showed sodium level came up from 126 to 132 once the obstruction was relieved. He was subsequently bolused 500 mL of D5W overnight to slow the rate of sodium correction. He continues on half normal saline at 50 mL an hour and I expect that his sodium is going to auto-correct with his polyuria. 4. Hypertension: Okay to continue carvedilol at the present time, but his hydrochlorothiazide should remain on-hold. Thank you for involving in the care of Mr. Crow. I will be happy to follow him along with you.
[2021-03-27] MEDS: MEROPENEM INJ 1 GM in IV 1 EA IV SCH (15:00)
--- NOTE | 2021-03-27 16:38 | IPNPDOC ---
Subjective Date Seen The patient was seen on 03/27/21. Subjective Chief Complaint/HPI Mr. Crow is a 60 year old male resident of [facility] who is here with increasing edema and weight gain and found to have BRITTANI on CKD secondary to urinary obstruction/retention. This morning, he was feeling better and abdomen was less tense. Denies chest pain or dyspnea. Objective Physical Examination General Exam: Positive: Alert Eye Exam: Negative: Sclera icteric Neck Exam: Positive: Supple Chest Exam: Positive: Clear to auscultation Heart Exam: Positive: Rate Normal, Regular Rhythm Abdomen Exam: Positive: Normal bowel sounds, Soft; Negative: Tenderness Extremity Exam: Positive: Edema (bilaterla pitting) Assessment /Plan Assessment Mr. Corw is a 60 year old male resident of [facility] who is here with increasing edema and weight gain and found to have BRITTANI on CKD. Initially thought to be secondary to Bactrim and Lasix, but patient found to have acute urinary retention with 3.9L of fluid. Discussed case with nephrology. Patient should follow up with urology outpatient. Otherwise, continue treatment of UTI with meropenem. Monitor renal function. Plan/VTE VTE Prophylaxis Ordered?: Yes Plan 1. BRITTANI on CKD stage 3 -Baseline creatinine around 1.5 -Creatinine elevated at 5 -2/2 to post obstructive nephropathy -Changed Ramos, crescencioed 3.9L -Monitor creatinine for improvement -Monitor blood pressure -Continue IVF 2. Hyponatremia -Secondary to BRITTANI and HCTZ -Monitor 3. UTI -Urine culture on 03/15/21 demonstrates Klebsiella -Patient has been on Bactrim since 03/16/21 -Due to BRITTANI, Bactrim discontinued and Meropenem started -After 3 days, will discontinue meropenem. Today day 2/3 4. Hypertension -Continue carvedilol -Hold HCTZ due to renal dysfunction 5. DVT ppx -Compression stockings Disposition: Pending improvement in renal function VS, I&O, 24H, Fishbone Vital Signs/I&O Vital Signs Date Time Temp Pulse Resp B/P (MAP) Pulse Ox O2 Delivery O2 Flow Rate FiO2 03/27/21 09:00 70 106/58 03/27/21 06:00 98.6 18 97 Room Air I&O- Last 24 Hours up to 6 AM 03/27/21 06:00 Intake Total 1740 ml Output Total 75770 ml Balance -8560 ml Laboratory Data 24H LABS Laboratory Tests 2 03/26/21 20:58: Anion Gap 9, Glomerular Filtration Rate 17.0L, Calcium Level 8.1L 03/27/21 06:19: Anion Gap 7L, Glomerular Filtration Rate 25.8L, Calcium Level 7.9L, Nucleated Red Blood Cells % (auto) 0.0 CBC/BMP Laboratory Tests 03/26/21 20:58 03/27/21 06:19 Microbiology Microbiology 03/25/21 Blood Culture - Preliminary, Resulted No Growth after 48 hours. All Specime... 03/25/21 Blood Culture - Preliminary, Resulted No Growth after 48 hours. All Specime... LAZ THACKER DO Mar 27, 2021 16:38
--- NOTE | 2021-03-27 17:47 | IPN ---
NEPHROLOGY PROGRESS NOTE DATE: 03/27/2021 SUBJECTIVE: Mr. Crow is seen and examined this morning at the bedside. Since he had his Ramos catheter placed yesterday he has made more than 8 liters of urine. He is in postobstructive diuresis. He has been on half normal saline. His sodium levels have been correcting appropriately. He offers no complaints. His leg edema is improving and he is reassured that his kidney function is also improving. OBJECTIVE: VITAL SIGNS: Temperature 98.6, pulse 72, respiratory rate 18, blood pressure 106/55, saturating 97% on room air. INTAKE AND OUTPUT: Intake yesterday was 1.5 liters. Urine output was 8.3 liters. Weight in the bed scale today is not recorded. GENERAL APPEARANCE: The patient is seen awake, alert, oriented to person and place, comfortable, in no distress. Poor eye contact. HEENT: Tongue is moist. NECK: Supple. Jugular veins are not elevated. HEART: Regular. S1, S2. There is 1+ leg edema. It has appreciably improved over the past 24 hours. ABDOMEN: Soft. GENITOURINARY: Indwelling Ramos catheter with brisk urine output. LUNGS: Symmetric air entry. No crackles or rales. EXTREMITIES: Negative for cyanosis. There is 1+ leg edema. It is improved from prior. NEUROLOGICAL: He is oriented to person and place. He is in a good mood today. LABORATORY STUDIES: Sodium 132, potassium 4.0, bicarbonate 25, BUN 44, creatinine 2.6, hemoglobin 9.0, platelet count 415. Transferrin saturation 18% with iron of 47. CURRENT INPATIENT MEDICATIONS: He received d5w 500 mL overnight. He has been on half normal saline at 50 mL an hour. He continues on IV Meropenem. His remainder medications are unchanged as compared to yesterday. PROBLEMS: 1. Acute kidney injury superimposed on chronic kidney disease stage 3a in the setting of severe obstruction and urinary retention he had a Ramos catheter placed yesterday. He made more than 8 liters of urine. He is having postobstructive diuresis. In order to slow down the correction of sodium. I did put him on half normal saline yesterday, and he responded well and IV fluids are being stopped this afternoon. His renal function is in recovery as expected. 2. Decompensated diastolic congestive heart failure echocardiogram noted as grade 1 diastolic dysfunction. His decompensation was because of severe urinary retention and obstruction. He is now having a postobstructive diuresis and volume status is rapidly recovering. I actually had to give him half normal saline and d5w overnight to prevent the rapid correction of his sodium level, given polyuria. He has come up nicely now and I am stopping all IV fluids. I expect that he will continue to auto diurese and to correct his volume status. 3. Hypervolemic hyponatremia it was due to urinary retention and renal failure. His obstruction has been relieved. He became quickly polyuric. His sodium levels have been auto-correcting. He actually required half normal saline and d5w overnight to prevent over correction. Now he has come up to a sodium level of 132. I am stopping all fluids this afternoon, and I expect that he is going to auto-correct his sodium level with ongoing polyuria. 4. Hypertension - continue Carvedilol. Continue to hold home Hydrochlorothiazide. 5. Anemia with iron deficiency iron level is less than 50. Transferrin saturation is 18%. I will give a dose of Venofer prior to his hospital discharge once his other issues are resolved.
[2021-03-27 22:00] VITALS: BP 139/59
[2021-03-28] MEDS: MEROPENEM INJ 1 GM in IV 1 EA IV SCH ×3 (02:33→17:47)
[2021-03-28 06:00] VITALS: BP 98/61
[2021-03-28 06:16] LABS: HEMATOCRIT 27.2 % (42.0-52.0); HEMOGLOBIN 9.6 g/dl (13.5-17.5); MEAN CORPUSCULAR HEMOGLOBIN 33.7 pg (27.0-33.0); MEAN CORPUSCULAR HGB CONC 35.3 g/dl (32.0-36.5); MEAN CORPUSCULAR VOLUME 95.4 fl (80.0-96.0); PLATELET COUNT, AUTOMATED 426 10^3/uL (150-450); RED BLOOD COUNT 2.85 10^6/uL (4.30-6.10); WHITE BLOOD COUNT 4.7 10^3/uL (4.0-10.0)
[2021-03-28 06:44] LABS: CALCIUM LEVEL 7.8 MG/DL (8.8-10.2); CREATININE FOR GFR 1.34 MG/DL (0.70-1.30); GLOMERULAR FILTRATION RATE 57.7 (>49)
[2021-03-28] MEDS: ASPIRIN 81MG ENTERIC TABLET PO SCH (08:57)
[2021-03-28] MEDS: QUEtiapine FUMARATE 100 MG TAB PO SCH ×2 (08:58→22:51)
[2021-03-28] MEDS: LORATADINE 10 MG TAB PO SCH (08:58)
[2021-03-28] MEDS: CARVedilol 6.25 MG TAB PO SCH ×2 (08:58→21:00)
[2021-03-28] MEDS: LACTOBACILLUS ACIDOPHILUS CAP (BACID) PO SCH ×4 (08:59→22:51)
--- NOTE | 2021-03-28 13:41 | IPNPDOC ---
Subjective Date Seen The patient was seen on 03/28/21. Subjective Chief Complaint/HPI Mr. Crow is a 60 year old male resident of [facility] who is here with increasing edema and weight gain and found to have BRITTANI on CKD secondary to urinary obstruction/retention. This morning, he denies any chest pain or dyspnea. Renal function is about baseline. Today would be his last day of antibiotics. Anticipate return to [facility] tomorrow. Objective Physical Examination General Exam: Positive: Alert Eye Exam: Negative: Sclera icteric Neck Exam: Positive: Supple Chest Exam: Positive: Clear to auscultation Heart Exam: Positive: Rate Normal, Regular Rhythm Abdomen Exam: Positive: Normal bowel sounds, Soft; Negative: Tenderness Extremity Exam: Positive: Edema (bilaterla pitting) Assessment /Plan Assessment Mr. Crow is a 60 year old male resident of [facility] who is here with increasing edema and weight gain and found to have BRITTANI on CKD. Initially thought to be secondary to Bactrim and Lasix, but patient found to have acute urinary retention with 3.9L of fluid. Discussed case with nephrology. Patient should follow up with urology outpatient. Otherwise, continue treatment of UTI with meropenem. Today would be last day of meropenem. Anticipate discharge back to [facility] tomorrow. Plan/VTE VTE Prophylaxis Ordered?: Yes Plan 1. BRITTANI on CKD stage 3 -Baseline creatinine around 1.5 -Creatinine elevated at 5 -2/2 to post obstructive nephropathy -Changed Ramos, diuresed 3.9L -Resolved -Monitor blood pressure 2. Hyponatremia -Secondary to BRITTANI and HCTZ -Monitor 3. UTI -Urine culture on 03/15/21 demonstrates Klebsiella -Patient has been on Bactrim since 03/16/21 -Due to BRITTANI, Bactrim discontinued and Meropenem started -After 3 days, will discontinue meropenem. Today day 3/3 4. Hypertension -Continue carvedilol -Hold HCTZ due to renal dysfunction 5. DVT ppx -Compression stockings Disposition: Today would be last day of antibiotics. Anticipate discharge back to [facility] tomorrow. VS, I&O, 24H, Fishbone Vital Signs/I&O Vital Signs Date Time Temp Pulse Resp B/P (MAP) Pulse Ox O2 Delivery O2 Flow Rate FiO2 03/28/21 08:58 90 110/64 03/28/21 06:00 97.8 16 98 Room Air I&O- Last 24 Hours up to 6 AM 03/28/21 06:00 Intake Total 5195 ml Output Total 5800 ml Balance -605 ml Laboratory Data 24H LABS Laboratory Tests 2 03/28/21 05:49: Nucleated Red Blood Cells % (auto) 0.0, Anion Gap 5L, Glomerular Filtration Rate 57.7, Calcium Level 7.8L CBC/BMP Laboratory Tests 03/28/21 05:49 Microbiology Microbiology 03/25/21 Blood Culture - Preliminary, Resulted No Growth after 72 hours. All specime... 03/25/21 Blood Culture - Preliminary, Resulted No Growth after 72 hours. All specime... LAZ THACKER DO Mar 28, 2021 13:41
[2021-03-28] MEDS ORDERED: IRON SUCROSE 100MG 5ML VIAL (J1756 PER 1MG) IV ONE (13:50)
[2021-03-28 14:33] VITALS: BP 113/58
--- NOTE | 2021-03-28 14:33 | IPN ---
PROGRESS NOTE DATE: 03/28/2021 SUBJECTIVE: Arturo is seen and examined this morning at the bedside. He has a staff person present from the home where he lives. He denies any complaints. His leg edema is almost fully resolved. His sodium is up to 133 on the latest labs. He remains polyuric with 6.2 liters of urine yesterday and 8.3 liters of urine the day before. Temperature 97.8, pulse 80, respiratory rate 16, blood pressure 110/64, saturating 98% on room air. Intake yesterday was 5 liters. Urine output was 6.2 liters. Weight in the bed scale today is 88.5 kg. GENERAL: Patient is seen awake, alert, lying in bed with his staff member present. Tongue is moist. Neck is supple. Jugular veins are not elevated. HEART: Sounds are regular, S1, S2. LUNGS: Clear to auscultation bilaterally. No crackle or rale. ABDOMEN: Soft and nontender. There are bowel sounds. GENITOURINARY: Shows indwelling Ramos catheter. EXTREMITIES: Show now at most trace to 1+ edema that comes up to the mid shins. There is no clubbing or cyanosis. NEUROLOGIC: Patient is oriented to person and place, cooperative with physical exam. Answers simple questions appropriately and appears to be at his baseline mentation. LABORATORY DATA: Sodium 133, potassium 4.0, bicarbonate 29, BUN 29, creatinine 1.3. Hemoglobin 9.6, platelets 426. INPATIENT MEDICATIONS: Reviewed by myself. He continues on intravenous (IV) meropenem, aspirin, carvedilol with holding parameters, Seroquel, and tramadol as needed. He has been off of IV fluids the past day. PROBLEMS: 1. Acute kidney injury superimposed on chronic kidney disease (CKD), stage IIIA. The patient's acute kidney injury was secondary to severe urinary retention and obstruction. He now has a Ramos catheter. He is having ongoing postobstructive diuresis. He has made more than 14 liters of urine in the past 48 hours. His clinical fluid overload has almost resolved. His sodium levels have come up appropriately. He takes hydrochlorothiazide at home, and he needs to continue to stay off of it for now. 2. Postobstructive diuresis. Initially I did treat the patient with hypotonic fluids to slow down the rapid rate of sodium correction that would have otherwise occurred, but he has been off of IV fluids for more than a day now. His urine output is going to slow down. Continue with Ramos catheter. 3. Hypervolemic hyponatremia. It was secondary to renal failure from obstruction and severe urinary retention. He subsequently developed a postobstructive diuresis. Has made 14 liters of urine in the past 48 hours. We slowed down his rate of sodium correction with hypotonic fluid for a short duration, but he has been off of fluids for the past day, and there is no need for IV fluid. I suspect his sodium level is going to normalize within another day. Keep off of hydrochlorothiazide at present. 4. Hypertension. His blood pressures are soft. Systolic was actually in the 90s this morning. There is hold parameter written with carvedilol. He is not suitable for his home hydrochlorothiazide at present. 5. Iron deficiency anemia. Hemoglobin is 9.6. His transferrin saturation was only 18%. We will give a dose of Venofer. 6. Decompensated diastolic congestive heart failure. Echocardiogram noted with grade 1 diastolic dysfunction. His decompensation was because of severe urinary retention and obstruction. His volume status is now almost approaching euvolemia, as he is having a postobstructive diuresis. I expect that he will continue to autodiurese and self-correct his volume status. He takes hydrochlorothiazide at home. He is not suitable for the same right now.
[2021-03-28] MEDS ORDERED: IRON SUCROSE 25 MG in NS 25 ML IV ONE (17:00)
[2021-03-28] MEDS ORDERED: IRON SUCROSE 200 MG in NS 190 ML IV ONE (17:00)
[2021-03-28] MEDS: traMADol 50 MG TAB PO PRN (17:47)
[2021-03-28 22:00] VITALS: BP 118/55
[2021-03-28] MEDS: LORazepam 1 MG TAB PO PRN (22:51)
[2021-03-29 06:00] VITALS: BP 128/76
[2021-03-29 06:27] LABS: HEMATOCRIT 27.2 % (42.0-52.0); HEMOGLOBIN 9.2 g/dl (13.5-17.5); MEAN CORPUSCULAR HEMOGLOBIN 32.9 pg (27.0-33.0); MEAN CORPUSCULAR HGB CONC 33.8 g/dl (32.0-36.5); MEAN CORPUSCULAR VOLUME 97.1 fl (80.0-96.0); PLATELET COUNT, AUTOMATED 418 10^3/uL (150-450); WHITE BLOOD COUNT 3.9 10^3/uL (4.0-10.0)
[2021-03-29 06:48] LABS: BLOOD UREA NITROGEN 21 MG/DL (7-18); CALCIUM LEVEL 7.4 MG/DL (8.8-10.2); CARBON DIOXIDE LEVEL 33 MEQ/L (21-32); CHLORIDE LEVEL 102 MEQ/L (98-107); CREATININE FOR GFR 1.05 MG/DL (0.70-1.30); GLOMERULAR FILTRATION RATE > 60.0 (>49); GLUCOSE, FASTING 91 MG/DL (70-100); POTASSIUM SERUM 4.3 MEQ/L (3.5-5.1); SODIUM LEVEL 138 MEQ/L (136-145)
[2021-03-29] MEDS: LACTOBACILLUS ACIDOPHILUS CAP (BACID) PO SCH ×2 (07:00→13:52)
[2021-03-29] MEDS: traMADol 50 MG TAB PO PRN (07:00)
[2021-03-29] MEDS: LORazepam 1 MG TAB PO PRN ×2 (07:00→13:52)
[2021-03-29 09:02] VITALS: BP 128/76
[2021-03-29] MEDS: CARVedilol 6.25 MG TAB PO SCH (09:02)
[2021-03-29] MEDS: LORATADINE 10 MG TAB PO SCH (09:02)
[2021-03-29] MEDS: QUEtiapine FUMARATE 100 MG TAB PO SCH (09:02)
[2021-03-29] MEDS: ASPIRIN 81MG ENTERIC TABLET PO SCH (09:02)
--- NOTE | 2021-03-29 09:57 | DS.PDOC ---
Discharge Summary General Date of Admission Mar 25, 2021 at 12:05 Date of Discharge Mar 29, 2021 Specialist/Consultants [facility], Dr. Partick Breaux Discharge Summary PROCEDURES PERFORMED DURING STAY: None ADMITTING DIAGNOSES: 1. Acute kidney injury on chronic kidney disease stage 3 2. Hyponatremia 3. Catheter associated urinary tract infection 4. Schizophrenia 5. Hypertension DISCHARGE DIAGNOSES: 1. Acute kidney injury on chronic kidney disease stage 3 2. Hyponatremia 3. Catheter associated urinary tract infection 4. Schizophrenia 5. Hypertension 6. Acute urinary retention COMPLICATIONS/CHIEF COMPLAINT: BRITTANI. HISTORY OF PRESENT ILLNESS: Copied from admitting physician's H&P This is a 61-year-old [facility] resident with a history of schizophrenia, intermittent explosive disorder, mild intellectual disability, hypertension, dyslipidemia, chronic urine retention with chronic indwelling catheter, recurrent urinary tract infections, had issues with his chronic indwelling catheter in early March, recently treated for urinary tract infection with 10 days of Bactrim started on 03/16/2021 to complete on 03/26/2021. Patient has also had increasing lower extremity edema and was placed on Lasix 20 mg daily one week ago, presents to the Emergency Room today with persistent complaints of dysuria, was found to have worsening renal failure, creatinine of 4.5 from a baseline of 1.5. The patient otherwise denies any fevers or chills, shortness of breath, chest pain, pressure, or tightness. He has not noted any decrease in urine output. No nausea or vomiting, epigastric pain or flank pain. He has had no fevers or chills at home. He was also found to be anemic with hemoglobin of 9.8, hematocrit of 27 but denied any bright-red blood per rectum, melena, black or tarry stools, coffee-ground emesis or prior history of GI bleed. Prior hemoglobin was 12.4 from 03/15/2021 and hematocrit of 36.9, currently 27.1. The Hospitalist was called to admit the patient for acute on chronic renal failure, creatinine of 4.6 today from a baseline of 1.58 with chronic kidney disease Stage III and severe hyponatremia with a sodium level of 123. Previous urine culture on 03/15/2021 showed Klebsiella and prior history of enterococcus faecalis in November. HOSPITAL COURSE: Nephrology was consulted for increasing creatinine and nephrology had recommended a bladder scan. Bladder scan demonstrated more than 1L of fluid. Patient's special Ramos catheter was not draining. Spoke with urology who instructed removal of the previous Ramos and insertion of a regular Ramos catheter. With insertion of the new Ramos catheter, he drained 3.9L and renal function started to improve. Special attention was made to his sodium levels and they were low. This was due to the combination of hydrochlorothiazide and being fluid overloaded. Sodium was slowly corrected. Otherwise, patient had been on extended period of antibiotics. Gave an additional 3 days of Meropenem. Nephrology gave IV iron prior to discharge. Today, patient's renal function was back to normal. Patient denied abdominal pain and abdomen was softer than before. He was feeling well and felt ready for home. After discharge, patient should follow up with urology about his Ramos catheter. DISCHARGE MEDICATIONS: Please see below. ALLERGIES: Please see below. PHYSICAL EXAMINATION ON DISCHARGE: VITAL SIGNS: Please see below. GENERAL: Comfortable, in no apparent distress. HEENT: EOMI, sclera clear. NECK: Supple. RESPIRATORY: Lungs clear to auscultation bilaterally. CARDIOVASCULAR: Regular rate and rhythm. ABDOMEN: Soft, nontender. Normal bowel sounds. MUSCLE SKELETAL: Bilateral pitting edema NEUROLOGICAL: CN 312 grossly intact. PSYCHOLOGICAL: Anxious LABORATORY DATA: Please see below. IMAGING: Radiologist interpretation US lower extremity No evidence of deep venous thrombosis of the bilateral lower extremity femoral popliteal venous system. Bilateral inguinal adenopathy. US renal There is mild bilateral hydronephrosis. The renal cortical echoes are increased bilaterally as described above. There is evidence of urinary bladder distension. Cholelithiasis was seen on scanning the right kidney. Consider complete right upper quadrant ultrasound if clinically relevant. XR hip Chronic changes as described above. PROGNOSIS: Good ACTIVITY: As tolerated. DIET: As tolerated DISCHARGE PLAN: Return to [facility] DISPOSITION: Discharge to [facility] DISCHARGE INSTRUCTIONS: 1. Follow up with PCP within a week 2. Referral to urology for Ramos catheter DISCHARGE CONDITION: Stable. Total time spent on discharge planning, discharge summary, and medication reconciliation: 45 minutes Vital Signs/I&Os Vital Signs Date Time Temp Pulse Resp B/P (MAP) Pulse Ox O2 Delivery O2 Flow Rate FiO2 03/29/21 09:02 99 128/76 03/29/21 07:30 18 Room Air 03/29/21 06:00 97.1 100 I&O- Last 24 Hours up to 6 AM 03/29/21 06:00 Intake Total 2400 ml Output Total 5850 ml Balance -3450 ml Laboratory Data Labs 24H Laboratory Tests 2 03/29/21 05:59: Nucleated Red Blood Cells % (auto) 0.0, Anion Gap 3L, Glomerular Filtration Rate > 60.0, Calcium Level 7.4L CBC/BMP Laboratory Tests 03/29/21 05:59 Microbiology Microbiology 03/25/21 Blood Culture - Preliminary, Resulted No Growth after 72 hours. All specime... 03/25/21 Blood Culture - Preliminary, Resulted No Growth after 72 hours. All specime... Discharge Medications Scheduled Aspirin (Aspirin EC) 81 Mg Tablet.dr, 81 MG PO DAILY, (Reported) Carvedilol (Carvedilol) 6.25 Mg Tablet, 6.25 MG PO BID, (Reported) TAKE WITH FOOD. HOLD IF PULSE IS <60. Cyanocobalamin (Vitamin B-12) (Vitamin B-12) 1,000 Mcg Tablet, 1,000 MCG PO DA LONNIE, (Reported) Loratadine (Loratadine) 10 Mg Tablet, 10 MG PO DAILY, (Reported) Quetiapine Fumarate (Seroquel) 300 Mg Tablet, 300 MG PO QHS, (Reported) Quetiapine Fumarate (Seroquel) 100 Mg Tablet, 200 MG PO DAILY, (Reported) Scheduled PRN Lorazepam (Ativan) 1 Mg Tablet, 1 MG PO Q6H PRN for ANXIETY/AGITATION, (Reported) Polyethylene Glycol 3350 (Polyethylene Glycol 3350) 510 Gm Powder, 17 GRAM PO DAILY PRN for CONSTIPATION, (Reported) Allergies Coded Allergies: Penicillins (Verified Allergy, Unknown, 03/15/20) LAZ THACKER DO Mar 29, 2021 09:57
--- NOTE | 2021-03-29 12:24 | IPN ---
INPATIENT PROGRESS NOTE DATE: 03/29/2021 SUBJECTIVE: Mr. Morris is seen and examined this morning at the bedside. He is discharge pending. He has no complaints. His Ramos catheter is draining well. He remains polyuric. He made 5.7 liters of urine yesterday. He is having liberal fluid intake. His leg edema is improving. His labs show a full recovery of renal function. His sodium levels have normalized. He is looking forward to getting out of the hospital. PHYSICAL EXAMINATION: VITAL SIGNS: Temperature 97.1, pulse 99, respiratory rate 20, blood pressure 128/76, saturating 100% on room air. INTAKE/OUTPUT: Intake yesterday was 2.7 liters. Urine output was 5.7 liters, net negative 3 liters. Weight in the bed scale today is not recorded. Urine output today is already more than 2 liters. GENERAL: Patient seen awake, alert, oriented, comfortable, in no distress. HEENT: Extraocular muscles are intact. Tongue is moist. Neck is supple. Jugular veins are not elevated. HEART: Sounds are regular, S1, S2. LUNGS: Clear to auscultation bilaterally. No crackle or rale. ABDOMEN: Soft and nontender. There are bowel sounds. GENITOURINARY: Shows indwelling Ramos catheter. EXTREMITIES: Show ongoing 1+ edema that comes up just above the ankles. There is no clubbing or cyanosis. NEUROLOGIC: Patient is oriented to person, place, situation, cooperative with physical exam. Answers simple questions appropriately and is at baseline mentation. LABORATORY STUDIES: Sodium 138, potassium 4.3, bicarbonate 33, BUN 21, creatinine 1.0. Hemoglobin 9.2. INPATIENT MEDICATIONS: Reviewed by myself. He received a dose of I.V. Venofer last night 225 mg in total. The remainder of his medications are all unchanged as compared to yesterday. PROBLEMS: 1. Acute kidney injury superimposed on CKD stage 3: The acute kidney injury was secondary to severe urinary retention and obstruction. He had 3.9 liters of urine retention in the bladder, which is an extreme amount. He now has a Ramos catheter. He has been having ongoing post-obstructive diuresis. He made more than 5 liters of urine yesterday. He is having liberal oral fluid intake. His clinical fluid overload is almost resolved. His sodium levels have come up appropriately. He takes Hydrochlorothiazide at home and he needs to stay off of it for the time-being. 2. Post-obstructive diuresis: Patient remains polyuric. He should continue to stay off of Hydrochlorothiazide. He is having liberal oral fluid intake, which is appropriate. 3. Resolved hypervolemic hyponatremia: It was secondary to renal failure from obstruction and severe urinary retention. He is now polyuric and having post-obstructive diuresis and his sodium level has normalized. 4. Hypertension: Blood pressures are acceptable. He can continue on Carvedilol. He should stay off of Hydrochlorothiazide. 5. Iron deficiency anemia: He received a dose of Venofer yesterday. 6. Chronic diastolic congestive heart failure: His volume status is much improved now as he is polyuric from the post-obstructive diuresis. He takes Hydrochlorothiazide at home and I would continue to hold it while he is polyuric. DISPOSITION: Patient is acceptable for discharge from a nephrology point of view. He can continue with liberal oral fluid intake as he is polyuric for now. He should stay off of Hydrochlorothiazide and I will see him for follow-up in the nephrology office. He will also need to follow-up with urology for his chronic urinary retention requiring catheter.
== END 2021-03-29 16:00 | disposition home or self-care (01) | DRG 698 ==
LOC: EDBD 09:13 → M ED 09:13 → M ED INP 12:05 → ENRESERV 14:49 → M MS5PR 15:30
PROVIDERS: ADMIT General Practice; ATTEND Internal Medicine
DX: T83.518A Infection and inflammatory reaction due to other urinary catheter, initial encounter (principal); I50.33 Acute on chronic diastolic (congestive) heart failure; E87.1 Hypo-osmolality and hyponatremia; N17.9 Acute kidney failure, unspecified; N13.30 Unspecified hydronephrosis; I13.0 Hypertensive heart and chronic kidney disease with heart failure and stage 1 through stage 4 chronic kidney disease, or unspecified chronic kidney disease; N18.31 Chronic kidney disease, stage 3a; F20.9 Schizophrenia, unspecified; R41.89 Other symptoms and signs involving cognitive functions and awareness; F63.81 Intermittent explosive disorder; F70 Mild intellectual disabilities; B96.1 Klebsiella pneumoniae [K. pneumoniae] as the cause of diseases classified elsewhere; D50.9 Iron deficiency anemia, unspecified; E78.5 Hyperlipidemia, unspecified; J30.9 Allergic rhinitis, unspecified; R33.9 Retention of urine, unspecified; R60.0 Localized edema; Z79.899 Other long term (current) drug therapy; Z87.891 Personal history of nicotine dependence; Z88.0 Allergy status to penicillin; Y84.6 Urinary catheterization as the cause of abnormal reaction of the patient, or of later complication, without mention of misadventure at the time of the procedure

== ENCOUNTER → 2021-05-03 | Outpatient (REF) | payer MEDICARE, MEDICAID ==
[~2021-05-03] MED LIST changes: +ATIV1TAB7 PO; +B-122500 PO; +CYAN100050 PO; +FURO20TA2 PO; +LORA1TAB4 PO; +POLY510P14 PO
== END ==
LOC: M LAB REF 17:56
PROVIDERS: ATTEND Internal Medicine Nephrology
DX: E83.42 Hypomagnesemia (principal)

== ENCOUNTER 2021-06-10 15:25 | Inpatient (IN) | payer MEDICARE, MEDICAID ==
[~2021-06-10] VITALS: Ht 185.4 cm; Wt 72.2 kg
[2021-06-10] MEDS ORDERED: TAMS1CAP17 (15:47)
[2021-06-10] MEDS ORDERED: FURO20TA2 (15:47)
[2021-06-10] MEDS ORDERED: FINA5TAB2 (15:47)
[2021-06-10 17:57] LABS: BASO % 0.2 % (0.0-1.0); EOS # 0.1 10^3/uL (0.0-0.5); HEMATOCRIT 24.1 % (42.0-52.0); HEMOGLOBIN 7.9 g/dl (13.5-17.5); LYMPH # 0.9 10^3/uL (1.5-5.0); LYMPH % 17.5 % (24.0-44.0); MEAN CORPUSCULAR HEMOGLOBIN 32.1 pg (27.0-33.0); MEAN CORPUSCULAR HGB CONC 32.8 g/dl (32.0-36.5); MONO # 0.5 10^3/uL (0.0-0.8); MONO % 10.3 % (2.0-8.0); NEUTROPHILS # 3.5 10^3/uL (1.5-8.5); NEUTROPHILS % 69.8 % (36.0-66.0); PLATELET COUNT, AUTOMATED 322 10^3/uL (150-450); RED BLOOD COUNT 2.46 10^6/uL (4.30-6.10)
[2021-06-10 18:15] LABS: CALCIUM LEVEL 9.3 MG/DL (8.8-10.2); CREATININE FOR GFR 2.44 MG/DL (0.70-1.30); GLOMERULAR FILTRATION RATE 28.9 (>49); POTASSIUM SERUM 4.2 MEQ/L (3.5-5.1)
[2021-06-10 18:32] LABS: RSV AMPLIFICATION NEGATIVE (NEGATIVE)
[2021-06-10] MEDS ORDERED: ACETAMINOPHEN TAB 650MG DOSE (2X325MG) PO PRN (18:50)
[2021-06-10] MEDS ORDERED: VANCOMYCIN HCL 1,000 MG, VIAL MATE ADAPTER 1 EACH in NS 250 ML IV ONE (19:15)
[2021-06-10] MEDS ORDERED: GENTAMICIN 80 MG in D5W 50 ML IV ONE (19:15)
[2021-06-10] MEDS ORDERED: LevoFLOXacin 500MG/100ML IV BAG (J1956 PER 250MG) As Ordered ONE (19:16)
[2021-06-10] MEDS ORDERED: MIDAZOLAM INJ 2MG/2ML VIAL (J2250 PER 1MG) As Ordered ONE (19:17)
[2021-06-10] MEDS ORDERED: fentaNYL 100 MCG/2 ML INJECTION (J3010) As Ordered ONE (19:17)
[2021-06-10] MEDS ORDERED: GENTAMICIN SULF 80MG/2ML VIAL As Ordered ONE (19:25)
[2021-06-10] MEDS ORDERED: VANCOMYCIN 1000MG/20ML VIAL As Ordered ONE (19:25)
[2021-06-10] MEDS ORDERED: GENTAMICIN 80 MG in IV 1 EA IV ONE (19:30)
[2021-06-10] MEDS ORDERED: LIDOCAINE 2% 5ML JELLY UROJET As Ordered ONE (19:48)
--- NOTE | 2021-06-10 19:57 | HPEPDOC ---
General Date of Admission Jun 10, 2021 at 15:26 Date of Service: Jun 10, 2021 Chief Complaint The patient is a 60-year-old male admitted with a reason for visit of Urinary Retention. Source: RN/MD Exam Limitations: Other (Intellectual disability) History of Present Illness Arturo Crow is a 60-year-old man with significant history of schizophrenia, intellectual disability, meatal stenosis, CKD, anemia, and hypertension who presents with complaints of urinary retention. Per reports, patient lives at [facility]- he has had history of indwelling Stevens that was removed and pt refusal of Stevens until he was noted to have large urinary retention today. Pt went to urology clinic for stevens placement, but unable to place Stevens in clinic today. Thus, patient presents to the ED for OR urological Stevens placement. Of note, patient with elevated creatinine 2.44, hemoglobin 7.9. Patient will be admitted for further evaluation management of presenting concerns to include treatment of BRITTANI. Pt seen status post Stevens placement. He is groggy but oriented to self and place. Notable cognitive impairment and he somewhat mumbles, but follows commands and can easily verbalize his needs/wants and purposefully move extremities. There was a concern regarding aspiration in OR and patient having intermittent coughing nonproductive. Patient reports that he "coughs all the time". Patient does have notable bilateral lower extremity edema, tolerating 3L nasal cannula 100%-we will work to wean. Patient questionable low-grade fever 99.9 however recheck 98.9. Heart rate 109, sinus. Blood pressure normotensive. Chest x-ray nonacute. Notable hematuria to Stevens bag. Pt denies taylor, sinus congestion, sore throat, sob, palpitations, chest pain, n/v/d, abdominal pain, weakness, sensory changes or syncope. Home Medications Scheduled Aspirin (Aspirin EC) 81 Mg Tablet.dr, 81 MG PO DAILY, (Reported) Carvedilol (Carvedilol) 6.25 Mg Tablet, 6.25 MG PO BID, (Reported) TAKE WITH FOOD. HOLD IF PULSE IS <60. Cyanocobalamin (Vitamin B-12) (Vitamin B-12) 1,000 Mcg Tablet, 1,000 MCG PO DAILY, (Reported) Lorazepam (Lorazepam) 1 Mg Tablet, 1 MG PO DAILY, (Reported) Quetiapine Fumarate (Seroquel) 300 Mg Tablet, 350 MG PO QHS, (Reported) Quetiapine Fumarate (Seroquel) 100 Mg Tablet, 100 MG PO DAILY, (Reported) Scheduled PRN Lorazepam (Ativan) 1 Mg Tablet, 1 MG PO Q6H PRN for ANXIETY/AGITATION, (Rep orted) Polyethylene Glycol 3350 (Polyethylene Glycol 3350) 510 Gm Powder, 17 GRAM PO DAILY PRN for CONSTIPATION, (Reported) Miscellaneous Medications Finasteride (Finasteride) 5 Mg Tablet, (Reported) Furosemide (Furosemide) 20 Mg Tablet, (Reported) Tamsulosin Hcl (Tamsulosin HCl) 0.4 Mg Capsule, (Reported) Allergies Coded Allergies: Penicillins (Verified Allergy, Unknown, 04/17/21) Past Medical History Medical History Intellectual disability, schizophrenia, urinary retention, hypertension Surgical History Cystoscopy Social History * Smoker: non-smoker Alcohol: Denies Drugs: denies Recent Travel/Sick Contacts: Denies: Recent travel, Recent sick contacts Psychosocial History: Mental handicap, Schizophrenia, Other (Intermittent explosive disorder) Lives at [facility] A-FIB/[facility] A-FIB History Current/History of A-Fib/PAF?: No Current PO Anticoag Therapy: No Review of Systems Constitutional: Denies: Chills, Fever, Night Sweats Eyes: Denies: Pain, Vision change ENT: Denies: Head Aches, Ear Pain, Dysphagia Skin: Denies: Rash, Lesions, Breakdown Pulmonary: Denies: Dyspnea, Cough Cardiovascular: Denies: Chest Pain, Palpitations, Orthopnea, Paroxysmal Noc. Dyspnea, Lt Headedness Gastrointestinal: Denies: Nausea, Vomiting, Abdominal Pain, Diarrhea Genitourinary: Reports: Retention; Denies: Dysuria, Frequency, Incontinence Hematologic: Denies: Bruising, Bleeding Excessively Musculoskeletal: Denies: Neck Pain, Back Pain, Joint Pain, Muscle Pain, Spasms Neurological: Denies: Weakness, Numbness, Change in speech, Confusion Psych: Reports: Mood Normal; Denies: Depression, Memory Issues Physical Examination General Exam: Positive: Alert, No Acute Distress Eye Exam: Positive: PERRLA, Conjunctiva & lids normal, EOMI; Negative: Sclera icteric ENT Exam: Positive: Atraumatic, Mucous membr. moist/pink, Pharynx Normal Neck Exam: Positive: Supple; Negative: JVD, thyromegaly Chest Exam: Positive: Diminished (Bases) Heart Exam: Positive: Rate Normal, Regular Rhythm, Normal S1, Normal S2; Negative: Murmurs, Rubs Telemetry: Positive: No significant arrhythmia Abdomen Exam: Positive: Normal bowel sounds, Soft; Negative: Tenderness, Hepatospenomegaly Extremity Exam: Positive: Edema (2+ bilateral lower extremity pitting), Normal pulses; Negative: Clubbing, Cyanosis Skin Exam: Positive: Nl turgor and temperature; Negative: Breakdown, Lesion Neuro Exam: Positive: Normal Gait, Normal Speech, Cranial Nerves 3-12 NL, Reflexes 2+ Psych Exam: Positive: Mood NL; Negative: Mental status NL, Oriented x 3 (At baseline) Vital Signs Vital Signs Date Time Temp Pulse Resp B/P (MAP) Pulse Ox O2 Delivery O2 Flow Rate FiO2 06/10/21 18:54 98.3 81 16 141/78 (99) 98 Room Air Laboratory Data Labs 24H Laboratory Tests 2 06/10/21 17:29: Immature Granulocyte % (Auto) 0.2, Neutrophils (%) (Auto) 69.8H, Lymphocytes (%) (Auto) 17.5L, Monocytes (%) (Auto) 10.3H, Eosinophils (%) (Auto) 2.0, Basophils (%) (Auto) 0.2, Neutrophils # (Auto) 3.5, Lymphocytes # (Auto) 0.9L, Monocytes # (Auto) 0.5, Eosinophils # (Auto) 0.1, Basophils # (Auto) 0.0, Nucleated Red Blood Cells % (auto) 0.0, Anion Gap 6L, Glomerular Filtration Rate 28.9L, Calcium Level 9.3, Coronavirus (COVID-19)(PCR) NEGATIVE, Influenza Type A (RT- PCR) NEGATIVE, Influenza Type B (RT-PCR) NEGATIVE, Respiratory Syncytial Virus (PCR) NEGATIVE CBC/BMP Laboratory Tests 06/10/21 17:29 Assessment/Plan 1. BRITTANI in setting of urinary retention: Noted to have meatal stenosis. Creat increase from 1.03 to 2.44 ( He does have hx of CKD with creat ranging 2-4). -Status post Stevens placement with urology in OR -Plan for hydration gently given patient typically takes Lasix at home. -Avoid nephrotoxins as able -A.m. labs -Appreciate further urological recommendations: *Notable hematuria in Stevens bag. UA pending 2. HFr EF: Echo March 2021 EF 60 to 65%. -Monitor patient, I's and O's, daily weight. -Pt NPO given concerns for aspiration/ grogginess at this time, once more alert opt goal for 2g Na diet. -We will hold Lasix in setting of above. -Patient does have pitting lower extremity edema, albumin level pending. Chest x-ray nonacute. Will check BNP and monitor fluid balance. 3. Aspiration/ cough: Concern for aspiration. CXR nonacute. -Monitor patient for signs symptoms of infection. Monitor infectious markers. Will check two-view in a.m. for interval -Patient will remain n.p.o. given his drowsiness postop. Plan for bedside eval prior to p.o. once patient more alert in AM. Consider DISPLAY FABRICATOR. -Of note, patient mildly tachycardic in setting of cough/reported pain. Check magnesium and consider differentials if patient spikes fever/becomes tachypneic or white count elevates or hemoglobin lessens. 4. Anemia: Hemoglobin 7.9, this is a drop compared to the 9.22 months ago. -Plan to monitor patient for signs symptoms of symptomatic anemia. He has notable hematuria. -TIBC/ferritin/folate -Trend H&H. -Check Hemoccult consider differentials. He is not on any anticoagulation presently. 5. Schizophrenia/intellectual disability: Monitor patient mood, encourage expression. De-escalation techniques as needed. Continue home medications once reconciled. DVT: SCDs CODE STATUS: Full code Disposition: Back to [facility] once creatinine normalizes. Plan / VTE VTE Prophylaxis Ordered?: Yes AARON WILKINS NP Jun 10, 2021 19:36
[2021-06-10] MEDS ORDERED: propofoL 200 MG/20 ML VIAL As Ordered ONE (20:06)
[2021-06-10] MEDS ORDERED: SUCCINYLCHOLINE 100 MG/5 ML SYRINGE (J0330) As Ordered ONE (20:15)
[2021-06-10] MEDS ORDERED: LACRILUBE (AKWA TEARS) OPHTH OINT 3.5 GM As Ordered ONE (20:20)
[2021-06-10] MEDS ORDERED: ALBUTEROL SULFATE 2.5 MG/0.5 ML INH NEB SOLN As Ordered ONE (20:23)
[2021-06-10] MEDS ORDERED: ROCURONIUM BROMIDE 50 MG/5 ML VIAL As Ordered ONE (20:28)
[2021-06-10] MEDS ORDERED: SUGAMMADEX SODIUM 500 MG/5 ML VIAL (BRIDION) As Ordered ONE (20:30)
[2021-06-10] MEDS ORDERED: METOCLOPRAMIDE INJ 10MG/2ML VIAL (J2765 PER 1) As Ordered ONE (20:30)
[2021-06-10] MEDS ORDERED: dexameTHASONE 4 MG/ML 1ML VIAL (J1100 PER 1MG) As Ordered ONE (20:30)
[2021-06-10] MEDS ORDERED: ONDANSETRON 4MG/2ML VIAL IV PRN (21:00)
[2021-06-10] MEDS ORDERED: fentaNYL 100 MCG/2 ML INJECTION (J3010) IV PRN (21:00)
[2021-06-10] MEDS ORDERED: oxyCODONE 5MG TAB PO PRN (21:00)
[2021-06-10 22:10] VITALS: BP 138/72
[2021-06-10 22:45] VITALS: BP 125/69
--- NOTE | 2021-06-10 22:58 | REPVR ---
PROCEDURE INFORMATION: Exam: XR Chest Exam date and time: 06/10/2021 9:12 PM Age: 60 years old Clinical indication: Dyspnea; Additional info: R/O aspiration TECHNIQUE: Imaging protocol: XR of the chest. Views: 1 view. COMPARISON: CT ABD PELVIS W/O CONTRAST 03/15/2021 7:59 PM FINDINGS: Lungs: No focal areas of consolidation. Pleural spaces: Unremarkable. No pleural effusion. No pneumothorax. Heart/Mediastinum: Cardiac and mediastinal silhouettes are unremarkable. Bones/joints: No acute osseus lesion or fracture. IMPRESSION: No acute cardiopulmonary findings. Electronically signed by: Catalino Arita On 06/10/2021 22:57:44 PM
[2021-06-10] MEDS: LR 1,000 ML IV SCH (23:09)
[2021-06-10 23:15] VITALS: BP 123/68
[2021-06-10 23:24] LABS: HEMATOCRIT 25.1 % (42.0-52.0); HEMOGLOBIN 8.5 g/dl (13.5-17.5); MEAN CORPUSCULAR HEMOGLOBIN 32.9 pg (27.0-33.0); MEAN CORPUSCULAR HGB CONC 33.9 g/dl (32.0-36.5); MEAN CORPUSCULAR VOLUME 97.3 fl (80.0-96.0); PLATELET COUNT, AUTOMATED 216 10^3/uL (150-450); RED BLOOD COUNT 2.58 10^6/uL (4.30-6.10); WHITE BLOOD COUNT 2.1 10^3/uL (4.0-10.0)
[2021-06-10 23:59] LABS: MAGNESIUM LEVEL 1.7 MG/DL (1.8-2.4)
[2021-06-11] VITALS (9 sets, daily range): BP systolic 86–118; BP diastolic 50–70
[2021-06-11] LABS: LYMPHOCYTES 4 % (16-44); NEUTROPHILS 88 % (28-66); PLATELET CLUMPS SMALL AMT; PLATELET ESTIMATE NORMAL (NORMAL)
[2021-06-11 05:48] LABS: HEMATOCRIT 21.2 % (42.0-52.0); HEMOGLOBIN 7.1 g/dl (13.5-17.5); MEAN CORPUSCULAR HEMOGLOBIN 32.7 pg (27.0-33.0); MEAN CORPUSCULAR HGB CONC 33.5 g/dl (32.0-36.5); MEAN CORPUSCULAR VOLUME 97.7 fl (80.0-96.0); PLATELET COUNT, AUTOMATED 229 10^3/uL (150-450); RED BLOOD COUNT 2.17 10^6/uL (4.30-6.10); WHITE BLOOD COUNT 9.4 10^3/uL (4.0-10.0)
[2021-06-11 06:15] LABS: EOSINOPHILS 1 % (0-3); LYMPHOCYTES 2 % (16-44); NEUTROPHILS 82 % (28-66); PLATELET ESTIMATE NORMAL (NORMAL)
[2021-06-11] MEDS: LR 1,000 ML IV SCH (08:18)
[2021-06-11 08:21] LABS: ALBUMIN 2.8 GM/DL (3.2-5.2); ALT/SGPT 816 U/L (12-78); BILIRUBIN,TOTAL 0.9 MG/DL (0.2-1.0); BLOOD UREA NITROGEN 51 MG/DL (7-18); CALCIUM LEVEL 8.6 MG/DL (8.8-10.2); CARBON DIOXIDE LEVEL 27 MEQ/L (21-32); CHLORIDE LEVEL 100 MEQ/L (98-107); CREATININE FOR GFR 2.54 MG/DL (0.70-1.30); GLOMERULAR FILTRATION RATE 27.6 (>49); GLUCOSE, FASTING 103 MG/DL (70-100); POTASSIUM SERUM 3.8 MEQ/L (3.5-5.1); SODIUM LEVEL 135 MEQ/L (136-145); TOTAL PROTEIN 6.7 GM/DL (6.4-8.2)
[2021-06-11 09:01] LABS: HEMATOCRIT 20.9 % (42.0-52.0)
--- NOTE | 2021-06-11 09:28 | RO ---
OPERATIVE NOTE DATE OF OPERATION: 06/10/2021 PREOPERATIVE DIAGNOSIS: Urethral stricture. POSTOPERATIVE DIAGNOSIS: Urethral stricture. PROCEDURE: Cystoscopy, direct vision internal urethrotomy, urethral dilation. SURGEON: JENNIFER SAMANO MD PEDIATRICIAN MANAGING PARTNER: None. ANESTHESIA: General. OPERATIVE INDICATIONS: This is a 60-year-old male who has been found to be in urinary retention. I attempted to place a catheter in the office today and it would not go. On office cystoscopy he was found to have a very narrow bulbar urethral stricture. I was not able to dilate this in the office and therefore it was recommended he undergo the above procedure. DESCRIPTION OF PROCEDURE: Patient was brought to the Operating Room and general anesthesia was induced. Prophylatic antibiotics were infused. He was placed in the dorsal lithotomy position and prepped and draped in the usual sterile fashion. At this point I attempted to insert a urethrotome into the urethral meatus but it was not go as the meatus was too narrow. I therefore dilated the meatus to 26 [place] using curved metal sounds. I then advanced the urethrotome into the urethra using a visual obturator. At the level of the bulbar urethra there was a very narrow stricture. I utilized the cold knife and incised the stricture at 12 o'clock. I kept doing this for a distance of approximately 1 to 2 cm until I was ultimately at the level of the membranous urethra. I then advanced the scope into the bladder and drained out a large amount of fluid. I advanced the guidewire into the bladder and then withdrew the urethrotome out of the bladder. I then utilized the guidewire to advance an 18 [place]- tip catheter into the bladder. The balloon was filled with 10 ml of sterile water and then the wire was removed. The catheter was connected to gravity drainage and this marked conclusion of the procedure. The patient was then taken out of the dorsal lithotomy positioned, awakened from anesthesia and transferred to the Recovery Room in stable condition. ESTIMATED BLOOD LOSS: 10 ml. CONSULTATIONS: None. SPECIMENS: None. PLAN: The patient will need to leave his catheter in for at least 14 days. He will follow up in the Urology Clinic thereafter for catheter removal and voiding trial. ABDULLAHI
--- NOTE | 2021-06-11 09:30 | REP ---
INDICATION: potential asp during procedure COMPARISON: 06/10/2021. TECHNIQUE: PA/Lateral FINDINGS: Lungs: Clear, no infiltrate. Heart: Normal in size. Mediastinum: Mediastinal silhouette unremarkable. Pleural angles: Unremarkable.. Bones and soft tissues: There are degenerative changes of the spine without compression deformity. The visualized colon is moderately distended with air. IMPRESSION: No acute pulmonary disease. <Electronically signed by John Winslow > 06/11/21 0915
[2021-06-11 10:12] LABS: VITAMIN B12 LEVEL > 2000 PG/ML (247-911)
[2021-06-11] MEDS ORDERED: NS 1,000 ML IV ONE ×3 (10:35→21:50)
[2021-06-11] MEDS ORDERED: MIDODRINE 5 MG TAB PO ONE (10:35)
[2021-06-11] MEDS ORDERED: VANCOMYCIN HCL 1,000 MG, VIAL MATE ADAPTER 1 EACH in NS 250 ML IV SCH (10:50)
[2021-06-11] MEDS: MEROPENEM INJ 1 GM in IV 1 EA IV SCH (12:06)
[2021-06-11] MEDS ORDERED: VANCOMYCIN HCL 1,000 MG, VIAL MATE ADAPTER 1 EACH in NS 250 ML IV ONE ×2 (13:00→14:00)
--- NOTE | 2021-06-11 13:25 | IPN ---
PROGRESS NOTE DATE: 06/11/2021 SUBJECTIVE: Patient continues to have gross hematuria on the Ramos catheter status post cystoscopy and urethrotomy. He denies any abdominal pain, nausea or vomiting, chest pain or pressure or tightness, shortness of breath, lightheadedness despite hemoglobin of 7. No near syncopal episode. He remains tachycardic, slightly hypertensive with a systolic pressure of 102 to 94 systolic. OBJECTIVE: Vital signs: Temperature 97.8, pulse 102, respiratory rate 18, blood pressure 94/57, 99% on 2 liters nasal cannula. General: Awake, alert, oriented to person, place and time, answering questions appropriately. HEENT: Patient is pale. No cyanosis. Able to speak in full sentences. No icterus or jaundice. Moist mucous membranes. Neck: No JVD, no thyromegaly, cervical lymphadenopathy. Lungs: Clear to auscultation, no wheezes, rhonchi or rales. Heart: S1 and S2 sinus tachycardia. Abdomen: Soft, Ramos catheter was hematuria, nontender, nondistended, no CVA tenderness. Positive bowel sounds times 4 quadrants. Extremities: No cyanosis, clubbing or pitting edema. LABORATORY DATA: Laboratory data and microbiology have been reviewed. IMAGING STUDIES: Reviewed. ASSESSMENT: This is a 60-year-old male status post cystoscopy, direct vision internal urethrotomy secondary to urethral stricture with acute kidney injury and obstructive uropathy admitted on 06/10/2021, became hypotensive off carvedilol with prior history of Klebsiella and Enterococcus in the urine cultures. IMPRESSIONS: 1. Acute kidney injury secondary to obstructive uropathy with urine retention from urethral stricture. 2. Urethral stricture status post cystoscopy and direct visualization urethrotomy currently with a Ramos catheter to remain in place for 10 days and outpatient urology follow up. 3. Anemia secondary to acute blood loss from gross hematuria. 4. Gross hematuria requiring blood transfusion with hemoglobin of 7. 5. History of diastolic congestive heart failure, compensated. Chest x-ray has no pulmonary edema. 6. Schizophrenia, intellectual disability. Consents have been signed via verbal consent from patient's [id number] who is the Health Care Proxy for RBC transfusion. PLAN: Patient was noted to have a meatal stenosis status post Ramos placement by urology in the operating room. Creatinine has not improved yet. Strict I&O's, daily weights, continued on I.V. fluid, monitor for respiratory distress. For symptomatic anemia patient has been given RBC transfusion. Avoid anticoagulants and antiplatelet medications. Currently on meropenem and vancomycin due to hypotension and possible Gram-negative sepsis. Obtain 2 sets of blood cultures. Procalcitonin is very high. Urine culture is pending.
[2021-06-11] MEDS: VANCOMYCIN HCL 1,000 MG, VIAL MATE ADAPTER 1 EACH in NS 250 ML IV SCH (13:47)
[2021-06-11] MEDS ORDERED: MIDODRINE 5 MG TAB PO SCH (16:00)
--- NOTE | 2021-06-11 17:12 | IPNPDOC ---
Subjective Review oF Systems Chief Complaint The patient is a 60-year-old male admitted with a reason for visit of [place] (Acute Kidneyinjury), Urinary Retention. Events since Last Encounter No acute events o/n. Denies pain. Objective Physical Examination General Exam: Alert, Cooperative, No Acute Distress ABDOMEN EXAM: Soft Skin Exam: Nl turgor and temperature Psych Exam: Mood NL Other physical findings catheter draining pink-tinged urine Vital Signs/I&O Vital Signs Date Time Temp Pulse Resp B/P (MAP) Pulse Ox O2 Delivery O2 Flow Rate FiO2 06/11/21 14:00 99.1 85 18 106/67 (80) 100 Room Air 06/11/21 10:00 2.0 I&O- Last 24 Hours up to 6 AM 06/11/21 06:00 Intake Total 1200 ml Output Total 1300 ml Balance -100 ml Laboratory Data Labs 24H Laboratory Tests 2 06/10/21 17:29: Immature Granulocyte % (Auto) 0.2, Neutrophils (%) (Auto) 69.8H, Lymphocytes (%) (Auto) 17.5L, Monocytes (%) (Auto) 10.3H, Eosinophils (%) (Auto) 2.0, Basophils (%) (Auto) 0.2, Neutrophils # (Auto) 3.5, Lymphocytes # (Auto) 0.9L, Monocytes # (Auto) 0.5, Eosinophils # (Auto) 0.1, Basophils # (Auto) 0.0, Nucleated Red Blood Cells % (auto) 0.0, Anion Gap 6L, Glomerular Filtration Rate 28.9L, Calcium Level 9.3, Iron Level 45L, Total Iron Binding Capacity 250, Transferrin % Saturation 18.0L, Ferritin 490H, Folate 11.0, Coronavirus (COVID-19)(PCR) NEGATIVE, Influenza Type A (RT-PCR) NEGATIVE, Influenza Type B (RT-PCR) NEGATIVE, Respiratory Syncytial Virus (PCR) NEGATIVE 06/10/21 23:15: Neutrophils (%) (Auto) , Nucleated Red Blood Cells % (auto) 0.0, Neutrophils 88H, Band Neutrophils 8, Lymphocytes (Manual) 4L, Macrocytosis 1+, Platelet Estimate NORMAL, Clumped Platelets SMALL AMT, Magnesium Level 1.7L, HN-Uwa-I-Type Natriuretic Peptide 521H 06/10/21 23:25: Urine Color REDH, Urine Appearance CLOUDYH, Urine pH 6.0, Urine Specific Cobb 1.005, Urine Protein 2+H, Urine Glucose (UA) 1+H, Urine Ketones NEGATIVE, Urine Blood 3+H, Urine Nitrite NEGATIVE, Urine Bilirubin NEGATIVE, Urine Urobilinogen 0.2, Urine Leukocyte Esterase 2+H, Urine WBC (Auto) TNTCH, Urine RBC (Auto) TNTCH, Urine Hyaline Casts (Auto) 0, Urine Bacteria (Auto) 1+H, Urine Squamous Epithelial Cells 0, Urine Transitional Epithelial Cells <1, Urine Amorphous Sediment SMALLH, Urine Mucus (Auto) SMALL, Urine Sperm (Auto) 06/11/21 05:15: Neutrophils (%) (Auto) , Nucleated Red Blood Cells % (auto) 0.0, Anion Gap 8, Glomerular Filtration Rate 27.6L, Calcium Level 8.6L, Neutrophils 82H, Band Neutrophils 15H, Lymphocytes (Manual) 2L, Platelet Estimate NORMAL, Eosinophils (Manual) 1, Red Blood Cell Morphology NORMAL, Total Bilirubin 0.9, Aspartate Amino Transf (AST/SGOT) 1381H, Alanine Aminotransferase (ALT/SGPT) 816H, Alkaline Phosphatase 177H, Total Protein 6.7, Albumin 2.8L, Albumin/Globulin Ratio 0.7, Vitamin B12 Level > 2000H, Procalcitonin 42.21 06/11/21 12:01: Random Vancomycin Level 8.2 06/11/21 14:51: Methicillin-Resist S.aureus DNA PCR NOT DETECTED CBC/BMP Laboratory Tests 06/10/21 17:29 06/10/21 23:15 06/11/21 05:15 06/11/21 08:38 Microbiology Microbiology 06/11/21 Blood Culture, Received Pending 06/11/21 Blood Culture, Received Pending 06/10/21 Urine Culture, Received Pending Assessment/Plan Date Seen The patient was seen on 06/11/21. Patient Summary This is a 60 y/o M POD1 s/p cysto, DVIU for an extensive bulbar urethral stricture. I discussed w/ the patient the need to keep his catheter in for at least 2 wks to allow healing prior to doing a voiding trial. Plan/VTE VTE Prophylaxis Ordered?: Yes Plan - keep catheter to gravity drainage - will need to stay in for at least 2 wks - further care per hospitalist service - my office will arrange f/u for catheter removal and voiding trial JENNIFER SAMANO MD Jun 11, 2021 17:12
[2021-06-11] MEDS ORDERED: ACETAMINOPHEN 500 MG TAB PO ONE (18:35)
[2021-06-12] VITALS (17 sets, daily range): BP systolic 86–131; BP diastolic 52–84
[2021-06-12] MEDS: MEROPENEM INJ 1 GM in IV 1 EA IV SCH ×2 (01:21→12:19)
[2021-06-12] MEDS ORDERED: MIDODRINE 5 MG TAB PO ONE (06:00)
--- NOTE | 2021-06-12 06:55 | REPVR ---
PROCEDURE INFORMATION: Exam: XR Chest Exam date and time: 06/12/2021 6:14 AM Age: 60 years old Clinical indication: Pain; On breathing; Additional info: Cough bandemia TECHNIQUE: Imaging protocol: XR of the chest. Views: 1 view. COMPARISON: CR Chest, 2 view PA, Lat 06/11/2021 8:29 AM FINDINGS: Lungs: Interstitial prominence and trace basilar airspace disease. Pleural spaces: No pleural effusion. Heart/Mediastinum: Interval enlargement of the cardiac silhouette. Rightward deviation of the trachea with mild mediastinal widening. Bones/joints: Degenerative change. IMPRESSION: Interval enlargement of the cardiac silhouette. Electronically signed by: Stefano Rod On 06/12/2021 06:55:31 AM
[2021-06-12] MEDS ORDERED: NS 1,000 ML IV SCH (07:55)
[2021-06-12 09:19] LABS: HEMATOCRIT 26.9 % (42.0-52.0); HEMOGLOBIN 8.7 g/dl (13.5-17.5); MEAN CORPUSCULAR HEMOGLOBIN 31.4 pg (27.0-33.0); MEAN CORPUSCULAR HGB CONC 32.3 g/dl (32.0-36.5); MEAN CORPUSCULAR VOLUME 97.1 fl (80.0-96.0); PLATELET COUNT, AUTOMATED 197 10^3/uL (150-450); RED BLOOD COUNT 2.77 10^6/uL (4.30-6.10)
[2021-06-12 10:15] LABS: C REACTIVE PROTEIN QUANTITATIV 15.2 MG/DL (0.00-0.30); CALCIUM LEVEL 8.4 MG/DL (8.8-10.2); CREATININE FOR GFR 2.03 MG/DL (0.70-1.30); FREE THYROXINE INDEX 2.4 % (1.4-3.8); GLOMERULAR FILTRATION RATE 35.7 (>49); POTASSIUM SERUM 4.3 MEQ/L (3.5-5.1); THYROID STIMULATING HORMONE 8.19 uIU/ML (0.358-3.740); THYROXINE (T4) 7.2 UG/DL (4.5-12.0)
[2021-06-12 10:32] LABS: ERYTHROCYTE SEDIMENTATION RATE 81 mm/hr (0-20)
[2021-06-12 11:15] LABS: ATYPICAL LYMPH 1 % (0-5); LYMPHOCYTES 8 % (16-44); MONOCYTES 1 % (0-5); NEUTROPHILS 76 % (28-66)
[2021-06-12 11:16] LABS: ANISOCYTOSIS 1+; PLATELET ESTIMATE NORMAL (NORMAL)
[2021-06-12] MEDS: VANCOMYCIN HCL 1,000 MG, VIAL MATE ADAPTER 1 EACH in NS 250 ML IV SCH (13:58)
--- NOTE | 2021-06-12 14:51 | IPN ---
PROGRESS NOTE DATE: 06/12/2021 SUBJECTIVE: Overnight patient was hypertensive, given midodrine and I.V. fluid, started on vancomycin and meropenem due to systolic pressure of 86/52. Input yesterday was 2.8 liters, output of 1.4 liters. Current weight is 76.3 from admission weight of 69.7. Patient's creatinine is slightly increased from 2.44 to 2.54 yesterday currently with Ramos catheter. He was transfused RBCs due to a hemoglobin of 7 yesterday, transfused 2 units of RBCs. This morning he denies any chest pain, pressure or tightness, shortness of breath, dysuria, urgency, frequency. Patient feels abdominal fullness, but Ramos catheter is draining well, 1.4 liters yesterday and since midnight 1.15 liters. OBJECTIVE: Vital signs: Temperature 98.2, pulse 54, respiratory rate 18, blood pressure 112/60, 97% on room air. General: Awake, alert, oriented to person, place and time, answering questions appropriately in no distress, finishes his sentences without conversational dyspnea. HEENT: Moist mucous membranes. Neck: No JVD, no thyromegaly. No cervical lymphadenopathy. Lungs: Diminished, but clear to auscultation, no wheezing or rales. Heart: S1 and S2 sinus rhythm. Abdomen: Soft, nontender, nondistended. No CVA tenderness. Ramos catheter in place. Extremities: Trace to 1+ pitting edema bilaterally. ASSESSMENT: This is a 60-year-old male status post cystoscopy, direct vision internal urethrotomy secondary to urethral stricture with acute kidney injury and obstructive uropathy admitted on 06/10/2021, became hypotensive, taken off carvedilol, given I.V. fluids close to 3 liters yesterday and midodrine with mean arterial pressure maintained at 70-75. He had prior history of Klebsiella and Enterococcus in the urine culture with elevated procalcitonin and was started on I.V. vanco and meropenem due to PENICILLIN allergy. IMPRESSIONS/PLAN: 1. Acute kidney injury secondary to obstructive uropathy with urinary retention from a urethral stricture. 2. Urethral stricture status post cystoscopy, direct visualization urethrotomy: Currently with Ramos catheter to remain in place for a total of 10 days without outpatient urology follow up. Creatinine today is still pending. Strict I's and O's. 3. Anemia secondary to acute blood loss from gross hematuria requiring RBC transfusion with hemoglobin of 7. 4. History of diastolic heart failure. Chest x-ray shows no pulmonary edema or pleural effusion; however, he is beginning to have trace to 1+ pitting edema of bilateral lower extremities. 5. Schizophrenia, intellectual disability: Patient's [id number] is the Health Care Proxy and has been signing for consent for RBC transfusion and medical treatment. 6. Disposition: Await urine culture result and deescalate antibiotics. Continue with I.V. vanco and meropenem for now. His creatinine is back to baseline may discontinue antibiotics. Continue Ramos catheter for a total of 10 days per urology. MTDD
[2021-06-13] MEDS: MEROPENEM INJ 1 GM in IV 1 EA IV SCH (01:08)
[2021-06-13] MEDS ORDERED: VANCOMYCIN HCL 1,000 MG, VIAL MATE ADAPTER 1 EACH in NS 250 ML IV SCH (02:00)
[2021-06-13 06:00] VITALS: BP 122/67
[2021-06-13 06:49] LABS: BASO % 0.2 % (0.0-1.0); EOS # 0.1 10^3/uL (0.0-0.5); EOS % 0.7 % (0.0-3.0); HEMATOCRIT 29.8 % (42.0-52.0); LYMPH # 1.1 10^3/uL (1.5-5.0); LYMPH % 5.5 % (24.0-44.0); MEAN CORPUSCULAR HEMOGLOBIN 31.7 pg (27.0-33.0); MEAN CORPUSCULAR HGB CONC 33.6 g/dl (32.0-36.5); MEAN CORPUSCULAR VOLUME 94.6 fl (80.0-96.0); MONO # 0.7 10^3/uL (0.0-0.8); MONO % 3.5 % (2.0-8.0); NEUTROPHILS # 16.6 10^3/uL (1.5-8.5); PLATELET COUNT, AUTOMATED 277 10^3/uL (150-450); RED BLOOD COUNT 3.15 10^6/uL (4.30-6.10); WHITE BLOOD COUNT 19.4 10^3/uL (4.0-10.0)
[2021-06-13 07:20] LABS: CALCIUM LEVEL 8.5 MG/DL (8.8-10.2); CREATININE FOR GFR 1.77 MG/DL (0.70-1.30); GLOMERULAR FILTRATION RATE 41.8 (>49)
--- NOTE | 2021-06-13 07:20 | REPVR ---
PROCEDURE INFORMATION: Exam: XR Chest Exam date and time: 06/13/2021 6:53 AM Age: 60 years old Clinical indication: Cough; Additional info: Cough S/P ivfluids/transfusion R/O edema TECHNIQUE: Imaging protocol: XR of the chest. Views: 1 view. COMPARISON: CR PORTABLE CHEST X-RAY 06/12/2021 6:02 AM FINDINGS: Lungs: There is mildly increasing pulmonary vascular congestion. The lungs are otherwise clear. Pleural spaces: Unremarkable. No pleural effusion. No pneumothorax. Heart/Mediastinum: The cardiomediastinal silhouette is fairly stable in appearance, with similar cardiomegaly. Bones/joints: Degenerative changes again involve the spine. IMPRESSION: Cardiomegaly, as on 06/12/2021, with mildly increasing pulmonary vascular congestion. Electronically signed by: Misael Arroyo On 06/13/2021 07:20:00 AM
--- NOTE | 2021-06-13 07:50 | ECGEPIP ---
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
[2021-06-13] MEDS ORDERED: FUROSEMIDE 40MG/4ML VIAL (J1940) IV ONE (09:15)
[2021-06-13 09:24] LABS: C REACTIVE PROTEIN QUANTITATIV 11.5 MG/DL (0.00-0.30)
[2021-06-13 09:31] LABS: PROLACTIN 11.8 NG/ML (2.1-17.7)
[2021-06-13 09:33] LABS: ERYTHROCYTE SEDIMENTATION RATE 68 mm/hr (0-20)
[2021-06-13] MEDS ORDERED: LevoFLOXacin IV 750 MG in IV 1 EA IV SCH (10:00)
--- NOTE | 2021-06-13 12:44 | IPN ---
PROGRESS NOTE DATE: 06/13/2021 SUBJECTIVE: Patient was seen and examined at the bedside, the chart has been reviewed. Despite increasing white blood cell count the patient has been afebrile, urine culture is still pending identification of the patient's organism. He denies any dysuria, urgency or frequency. He has a Ramos catheter in place and has had no recurrent episode of hematuria. He denies any flank pain or chills, nausea or vomiting. He had one bowel movement yesterday but it was not loose and he denies any diarrhea. Despite IV fluids and RBC transfusion the patient denies any shortness of breath, PND or orthopnea with elevated BNP at 3000, decreased to 2000 without any intervention. Chest x-ray, however shows early pulmonary edema, given IV Lasix this morning with creatinine down to 1.7. Input and output has been reviewed. OBJECTIVE: VITAL SIGNS: Temperature 97.8, pulse is 64, respiratory rate 18, blood pressure 122/67, 98% on room air. GENERAL: Awake, alert and oriented to person, place and time, answering questions appropriately. NECK: No JVD. No thyromegaly. No cervical lymphadenopathy. Moist mucous membranes. He is able to speak in full sentences without any conversational dyspnea. No use of respiratory accessory muscles, tracheal deviation, or tripod positioning. LUNGS: Diminished but clear to auscultation. No wheezes, rales or rhonchi. HEART: S1 and S2. Sinus rhythm. ABDOMEN: Soft, nontender and nondistended. Ramos catheter in place. No hematuria noted. EXTREMITIES: Positive 1+ pitting edema bilaterally. LABORATORY DATA: Imaging studies have been reviewed, notable for a creatinine decreased to 1.77 from an admission of 2.54. Imaging studies, laboratory data and microbiology have been reviewed; notable for elevated white count of 19.4. Hemoglobin improved from 7 to 10 and hematocrit improved to 29 from 29.9 status post three units of RBC transfusion. ASSESSMENT AND PLAN: This is a 60-year-old male with a history of urethral stricture status post cystoscopy, direct vision internal urethrotomy and developed acute kidney injury with obstructive uropathy, admitted on 06/10/2021. Patient was hypertensive at that time. His Coreg had been discontinued as well as his diuretics. He was given intravenous fluids and Midodrine to keep mean arterial pressure elevated above 70. Due to prior history of Klebsiella and enterococcus in his urine cultures, he was empirically given Vancomycin and Meropenem due to penicillin allergy. Urine culture on admission is still pending identification of the organism. Patient developed worsening white blood cell count but procalcitonin, sed rate and CRP are decreasing. After the patient was found was found to have gross hematuria and was transfused 2 units of RBCs with increased hemoglobin from 7 to 10. ACTIVE ISSUES: 1. Acute kidney injury secondary to obstructive uropathy from urine retention due to urethral stricture. 2. Urethral stricture status post cystoscopy with direct visualization urethrotomy. 3. Anemia due to acute blood loss from gross hematuria requiring 3 units of RBC transfusion with a hemoglobin of 7 and increasing to 10. 4. History of diastolic heart failure with fluid overload and decompensated. 5. Schizophrenia, intellectual disability. PLAN: Due to a history of enterococcus and Klebsiella in the urine cultures, patient has been transitioned to IV Levaquin due to concerns of VRE with increasing white blood cell count despite increasing leukocytosis. Patient does not appear septic and has maintained a mean arterial pressure greater than 85. Since he has early edema on his chest x-ray we have stopped the IV fluids and started him on one dose of Lasix and will monitor respiratory status. We will not put him on scheduled diuretic since he is currently comfortable with clear lungs despite 1+ pitting edema of bilateral lower extremities due to recent improvement in his creatinine to 1.77. We are continually monitoring the patient's infection, still awaiting the culture results. [facility]
[2021-06-13 14:00] VITALS: BP 124/75
[2021-06-13 17:07] LABS: Lyme Disease IgG/IgM Antibodie <0.91 ISR (0.00-0.90); Lyme Disease IgM Ab Quantitati <0.80 index (0.00-0.79)
[2021-06-13 21:00] VITALS: BP 130/75
[2021-06-14 05:49] LABS: HEMATOCRIT 32.3 % (42.0-52.0); HEMOGLOBIN 10.6 g/dl (13.5-17.5); MEAN CORPUSCULAR HEMOGLOBIN 31.2 pg (27.0-33.0); MEAN CORPUSCULAR HGB CONC 32.8 g/dl (32.0-36.5); PLATELET COUNT, AUTOMATED 276 10^3/uL (150-450); WHITE BLOOD COUNT 13.3 10^3/uL (4.0-10.0)
[2021-06-14 06:09] LABS: CALCIUM LEVEL 8.5 MG/DL (8.8-10.2); CREATININE FOR GFR 1.67 MG/DL (0.70-1.30); GLOMERULAR FILTRATION RATE 44.7 (>49); POTASSIUM SERUM 3.9 MEQ/L (3.5-5.1)
[2021-06-14 06:23] VITALS: BP 139/72
[2021-06-14 06:27] LABS: ANISOCYTOSIS 1+; ATYPICAL LYMPH 1 % (0-5); LYMPHOCYTES 10 % (16-44); MONOCYTES 4 % (0-5); NEUTROPHILS 82 % (28-66); PLATELET ESTIMATE NORMAL (NORMAL)
[2021-06-14] MEDS ORDERED: LEVO750T13 PO (08:09)
[2021-06-14] MEDS ORDERED: BACI1CAP PO (08:09)
[2021-06-14] MEDS ORDERED: FUROSEMIDE 40MG/4ML VIAL (J1940) IV ONE (08:15)
[2021-06-14] MEDS ORDERED: QUEtiapine FUMARATE 100 MG TAB PO SCH ×5 (09:00→21:00)
[2021-06-14] MEDS ORDERED: LORazepam 1 MG TAB PO SCH (09:00)
--- NOTE | 2021-06-14 09:12 | REP ---
INDICATION: cough s/p ivf. COMPARISON: 06/13/2021. TECHNIQUE: Single portable AP view of the chest was performed. FINDINGS: There is no acute infiltrate or pulmonary edema. Lungs are clear. The heart is not significantly enlarged. The mediastinal silhouette is unremarkable. There is mild elevation of left hemidiaphragm. The visualized osseous structures are intact. IMPRESSION: No acute pulmonary disease. <Electronically signed by John Winslow > 06/14/21 0970
[2021-06-14] MEDS ORDERED: LORazepam 1 MG TAB PO PRN ×2 (09:35)
[2021-06-14] MEDS ORDERED: PILL CUTTER 1 EACH XX PRN (10:00)
--- NOTE | 2021-06-14 10:39 | DS.PDOC ---
Discharge Summary General Date of Admission Jun 11, 2021 at 10:46 Date of Discharge 06/14/21 Discharge Summary DISCHARGE DIAGNOSES: urethral stricture s/p dilation, cystoscopy, direct visual urethrotomy acute renal failure Enterococcus UTI due to indwelling catheter Obstructive uropathy Gross Hematuria Acute blood loss anemia requiring rbc tranfusion CHF systolic and diastolic dysfunction with fluid overload from rbc transfusion Schizophrenia intellectual disability. DISCHARGE MEDICATIONS: SEE BELOW DISCHARGE INSTRUCTIONS: SCOTT X [address] SAMANO AND PCP DANNY 1WK HOSPITAL COURSE: This is a 60-year-old male with a history of urethral stricture status post cystoscopy, direct vision internal urethrotomy , developed acute kidney injury with obstructive uropathy, admitted on 06/10/2021. Patient was hypotensive at that time. His Coreg had been discontinued as well as his diuretics. He was given intravenous fluids and Midodrine to keep mean arterial pressure elevated above 70. Due to prior history of Klebsiella and enterococcus in his urine cultures, he was empirically given Vancomycin and Meropenem due to penicillin allergy. Patient developed worsening white blood cell count but procalcitonin, sed rate and CRP are decreasing. Urineculture :enterococcus susceptible to levaquin, and vanco and merem were disdcontinued. after cystoscopy and scott placement , pt was found was found to have gross hematuria . Due to ivfluids and hemodilution and gross hematuria, pt's hgb decreased to 7, and needed 3 units rbc transfusion, with resultant fluid overload and cxr: cephalization with early edema. Creatinine was improving, and pt was resumed on lasix and his home psych meds. DISCHARGE PE: VITALS: SEE BELOW GENERAL: Awake, alert and oriented to person, place and time, answering questions appropriately. NECK: No JVD. No thyromegaly. No cervical lymphadenopathy. Moist mucous membranes. He is able to speak in full sentences without any conversational dyspnea. No use of respiratory accessory muscles, tracheal deviation, or tripod positioning. LUNGS: Diminished but clear to auscultation. No wheezes, rales or rhonchi. HEART: S1 and S2. Sinus rhythm. ABDOMEN: Soft, nontender and nondistended. Scott catheter in place. No hematuria noted. EXTREMITIES: Positive 1+ pitting edema bilaterally. LABORATORY DATA/MICROBIOLOGY/IMAGING: SEE CHART PROCEDURES: CYSTOSCOPY, URETHRAL DILATION, DIRECT VISION URETHROTOMY, SCOTT PLACEMENT BY UROLOGY TIME SPENT ON DISCHARGE: 30 MIN Vital Signs/I&Os Vital Signs Date Time Temp Pulse Resp B/P (MAP) Pulse Ox O2 Delivery O2 Flow Rate FiO2 06/14/21 06:23 97.4 65 18 139/72 (94) 96 Room Air 06/11/21 10:00 2.0 I&O- Last 24 Hours up to 6 AM 06/14/21 06:00 Intake Total 3390 ml Output Total 3300 ml Balance 90 ml Laboratory Data Labs 24H Laboratory Tests 2 06/14/21 05:30: Neutrophils (%) (Auto) , Nucleated Red Blood Cells % (auto) 0.0, Neutrophils 82H, Band Neutrophils 3, Lymphocytes (Manual) 10L, Monocytes (Manual) 4, Atypical Lymphocytes 1, Anisocytosis 1+, Platelet Estimate NORMAL, Anion Gap 8, Glomerular Filtration Rate 44.7L, Calcium Level 8.5L CBC/BMP Laboratory Tests 06/14/21 05:30 Microbiology Microbiology 06/13/21 Urine Culture, Received Pending 06/11/21 Blood Culture - Preliminary, Resulted No Growth after 48 hours. All Specime... 06/11/21 Blood Culture - Preliminary, Resulted No Growth after 48 hours. All Specime... 06/10/21 Urine Culture - Final, Complete Enterobacter Cloacae Complex Discharge Medications Scheduled Aspirin (Aspirin EC) 81 Mg Tablet.dr, 81 MG PO DAILY, (Reported) Bacillus Coagulans (Bacid with Lactospore) 1 Each Capsule, 1 CAP PO WM Carvedilol (Carvedilol) 6.25 Mg Tablet, 6.25 MG PO BID, (Reported) TAKE WITH FOOD. HOLD IF PULSE IS <60. Cyanocobalamin (Vitamin B-12) (Vitamin B-12) 1,000 Mcg Tablet, 1,000 MCG PO CHONG LY, (Reported) Levofloxacin (Levofloxacin) 750 Mg Tablet, 750 MG PO Q48H Lorazepam (Lorazepam) 1 Mg Tablet, 1 MG PO DAILY, (Reported) Quetiapine Fumarate (Seroquel) 300 Mg Tablet, 350 MG PO QHS, (Reported) Quetiapine Fumarate (Seroquel) 100 Mg Tablet, 100 MG PO DAILY, (Reported) Scheduled PRN Lorazepam (Ativan) 1 Mg Tablet, 1 MG PO Q6H PRN for ANXIETY/AGITATION, (Reported) Polyethylene Glycol 3350 (Polyethylene Glycol 3350) 510 Gm Powder, 17 GRAM PO DAILY PRN for CONSTIPATION, (Reported) Miscellaneous Medications Finasteride (Finasteride) 5 Mg Tablet, (Reported) Furosemide (Furosemide) 20 Mg Tablet, (Reported) Tamsulosin Hcl (Tamsulosin HCl) 0.4 Mg Capsule, (Reported) Allergies Coded Allergies: Penicillins (Verified Allergy, Unknown, 04/17/21) RY MUÑOZ MD Jun 14, 2021 10:39
[2021-06-14 14:00] VITALS: BP 163/94
== END 2021-06-14 15:45 | disposition home or self-care (01) | DRG 697 ==
LOC: M ED 15:25 → M ED INP 15:26 → M MSPAV 22:00 → OBSVTOIN 06-11 10:46
PROVIDERS: ADMIT Family Medicine; ATTEND General Practice
PROC: 0T7D8DZ Dilation of Urethra with Intraluminal Device, Via Natural or Artificial Opening Endoscopic (ICD-10-PCS; 2021-06-10)
PROC: 0T9B80Z Drainage of Bladder with Drainage Device, Via Natural or Artificial Opening Endoscopic (ICD-10-PCS; 2021-06-10)
PROC: 0TJB8ZZ Inspection of Bladder, Via Natural or Artificial Opening Endoscopic (ICD-10-PCS; principal; 2021-06-10 18:30)
PROC: 30233N1 Transfusion of Nonautologous Red Blood Cells into Peripheral Vein, Percutaneous Approach (ICD-10-PCS; 2021-06-11)
DX: N35.811 Other urethral stricture, male, meatal (principal); N17.9 Acute kidney failure, unspecified; I50.42 Chronic combined systolic (congestive) and diastolic (congestive) heart failure; I13.0 Hypertensive heart and chronic kidney disease with heart failure and stage 1 through stage 4 chronic kidney disease, or unspecified chronic kidney disease; D62 Acute posthemorrhagic anemia; T83.511A Infection and inflammatory reaction due to indwelling urethral catheter, initial encounter; N39.0 Urinary tract infection, site not specified; F20.9 Schizophrenia, unspecified; F79 Unspecified intellectual disabilities; N18.9 Chronic kidney disease, unspecified; Z79.82 Long term (current) use of aspirin; Z79.899 Other long term (current) drug therapy; Z88.0 Allergy status to penicillin; Z20.822 Contact with and (suspected) exposure to COVID-19; B95.2 Enterococcus as the cause of diseases classified elsewhere; R33.9 Retention of urine, unspecified

== ENCOUNTER → 2021-06-25 | Outpatient (REF) | payer MEDICARE, MEDICAID ==
[~2021-06-25] MED LIST changes: +BACI1CAP PO; +FINA5TAB2; +FURO20TA2; +LEVO750T13 PO; +TAMS1CAP17
[2021-06-25 15:51] LABS: CALCIUM LEVEL 8.9 MG/DL (8.8-10.2); CREATININE FOR GFR 1.46 MG/DL (0.70-1.30); GLOMERULAR FILTRATION RATE 52.3 (>49)
[2021-06-25 15:52] LABS: HEMATOCRIT 27.2 % (42.0-52.0); HEMOGLOBIN 8.9 g/dl (13.5-17.5); MEAN CORPUSCULAR HEMOGLOBIN 31.6 pg (27.0-33.0); MEAN CORPUSCULAR HGB CONC 32.7 g/dl (32.0-36.5); MEAN CORPUSCULAR VOLUME 96.5 fl (80.0-96.0); PLATELET COUNT, AUTOMATED 351 10^3/uL (150-450); RED BLOOD COUNT 2.82 10^6/uL (4.30-6.10); WHITE BLOOD COUNT 2.7 10^3/uL (4.0-10.0)
== END ==
LOC: M SFHCCLAY 10:00
PROVIDERS: ATTEND Family Medicine
DX: N40.1 Benign prostatic hyperplasia with lower urinary tract symptoms (principal); N18.32 Chronic kidney disease, stage 3b; Z79.82 Long term (current) use of aspirin; Z79.899 Other long term (current) drug therapy

== ENCOUNTER 2021-08-01 12:14 | Day surgery (SDC) | payer MEDICARE, MEDICAID ==
[~2021-08-01] VITALS: Ht 177.8 cm; Wt 81.8 kg
[~2021-08-01 12:14] MED LIST changes: -CIPR-250 PO; -CITA20TA6 PO; -FERR325T81 PO; +LevoFLOXacin IV 500 MG in IV 1 EA IV SCH
[2021-08-01] MEDS ORDERED: LIDOCAINE 2% 5ML JELLY UROJET TOP ONE (13:15)
[2021-08-01 15:23] LABS: RSV AMPLIFICATION NEGATIVE (NEGATIVE)
[2021-08-01] MEDS ORDERED: LIDOCAINE 2% 5ML JELLY UROJET As Ordered ONE (15:43)
[2021-08-01] MEDS ORDERED: propofoL 200 MG/20 ML VIAL As Ordered ONE ×2 (15:44→18:05)
[2021-08-01] MEDS ORDERED: LIDOCAINE 2% 100MG/5ML SDV (FOR ANES.) As Ordered ONE (15:44)
[2021-08-01] MEDS ORDERED: MIDAZOLAM INJ 2MG/2ML VIAL (J2250 PER 1MG) As Ordered ONE (15:44)
[2021-08-01] MEDS ORDERED: fentaNYL 100 MCG/2 ML INJECTION As Ordered ONE (15:45)
[2021-08-01] MEDS ORDERED: LevoFLOXacin 500MG/100ML IV BAG (J1956 PER 250MG) As Ordered ONE (16:22)
[2021-08-01] MEDS ORDERED: LR 1,000 ML IV SCH (18:35)
[2021-08-01] MEDS ORDERED: oxyCODONE 5MG TAB PO PRN (18:35)
[2021-08-01] MEDS ORDERED: HYDROMORPHONE HCL 0.5 MG/ 0.5 ML SYRINGE (J1170 PER 1) IV PRN (18:35)
[2021-08-01] MEDS ORDERED: ONDANSETRON 4MG/2ML VIAL IV PRN (18:35)
[2021-08-01] MEDS ORDERED: fentaNYL 100 MCG/2 ML INJECTION IV PRN (18:35)
[2021-08-01] MEDS ORDERED: ACETAMINOPHEN TAB 650MG DOSE (2X325MG) PO PRN (18:35)
[2021-08-01 19:52] VITALS: BP 147/81
[2021-08-02] MEDS ORDERED: LORA-674 PO (04:14)
[2021-08-02] MEDS ORDERED: CITA20TA6 PO (04:14)
[2021-08-02] MEDS ORDERED: ATIV1TAB7 PO (04:14)
[2021-08-06] MEDS ORDERED: CELE20TA PO (13:23)
== END 2021-08-01 18:49 | disposition home or self-care (01) ==
LOC: M ED 12:14 → M SDC 12:15 → M ED 15:58 → M SDC 18:49
PROVIDERS: ATTEND Internal Medicine
DX: N35.912 Unspecified bulbous urethral stricture, male (principal); N40.0 Benign prostatic hyperplasia without lower urinary tract symptoms; R33.9 Retention of urine, unspecified; E78.5 Hyperlipidemia, unspecified; F20.9 Schizophrenia, unspecified; I13.0 Hypertensive heart and chronic kidney disease with heart failure and stage 1 through stage 4 chronic kidney disease, or unspecified chronic kidney disease; I50.9 Heart failure, unspecified; N18.9 Chronic kidney disease, unspecified; Z88.0 Allergy status to penicillin

== ENCOUNTER 2021-08-01 23:05 | Inpatient (IN) | payer MEDICARE, MEDICAID ==
[~2021-08-01] VITALS: Ht 185.4 cm; Wt 84.6 kg
[~2021-08-01 23:05] MED LIST changes: -LevoFLOXacin IV 500 MG in IV 1 EA IV SCH
--- OUTSIDE RECORDS SUMMARY | 2021-08-01 23:15 | CCD ---
Author Author [facility] Organization [facility] Address Unknown Phone Unavailable Care Team Providers Care Energy Rater Name Role Phone Paradise Shukla MD Unavailable Unavailable Paradise Shukla MD Unavailable Unavailable Paradise Shukla MD Unavailable Unavailable Paradise Shukla MD Unavailable Unavailable Paradise Shukla MD Unavailable Unavailable Paradise Shukla MD Unavailable Unavailable Paradise Shukla MD Unavailable Unavailable Paradise Shukla MD Unavailable Unavailable Paradise Shukla MD Unavailable Unavailable Paradise Shukla MD Unavailable Unavailable Paradise Shukla MD Unavailable Unavailable Paradise Shukla MD Unavailable Unavailable Paradise Shukla MD Unavailable Unavailable Paradise Shukla MD Unavailable Unavailable Paradise Shukla MD Unavailable Unavailable Paradise Shukla MD Unavailable Unavailable Paradise Shukla MD Unavailable Unavailable Paradise Shukla MD Unavailable Unavailable Paradise Shukla MD Unavailable Unavailable Paradise Shukla MD Unavailable Unavailable Paradise Shukla MD Unavailable Unavailable Paradise Shukla MD Unavailable Unavailable Paradise Shukla MD Unavailable Unavailable Paradise Shukla MD Unavailable Unavailable Paradise Shukla MD Unavailable Unavailable Paradise Shukla MD Unavailable Unavailable Paradise Shukla MD Unavailable Unavailable Paradise Shukla MD Unavailable Unavailable Paradise Shukla MD Unavailable Unavailable Gayla, S Roger MD Unavailable Unavailable Gayla, S Roger MD Unavailable Unavailable Gayla, S Roger MD Unavailable Unavailable Gayla, S Roger MD Unavailable Unavailable Gayla, S Roger MD Unavailable Unavailable Gayla, S Roger MD Unavailable Unavailable Gayla, S Roger MD Unavailable Unavailable Gayla, S Roger MD Unavailable Unavailable Gayla, S Roger MD Unavailable Unavailable Gayla, S Roger MD Unavailable Unavailable Gayla, S Roger MD Unavailable Unavailable Gayla, S Roger MD Unavailable Unavailable Gayla, S Roger MD Unavailable Unavailable Gayla, S Roger MD Unavailable Unavailable Gayla, S Roger MD Unavailable Unavailable Gayla, S Roger MD Unavailable Unavailable Gayla, S Roger MD Unavailable Unavailable Gayla, S Roger MD Unavailable Unavailable Gayla, S Roger MD Unavailable Unavailable Gayla, S Roger MD Unavailable Unavailable Gayla, S Roger MD Unavailable Unavailable Amezcua, Alayna Nicole PA Unavailable Unavailable Amezcua, Alayna Nicole PA Unavailable Unavailable Amezcua, Alayna Nicole PA Unavailable Unavailable Amezcua, Alayna Nicole PA Unavailable Unavailable Amezcua, Alayna Nicole PA Unavailable Unavailable Amezcua, Alayna Nicole PA Unavailable Unavailable Amezcua, Alayna Nicole PA Unavailable Unavailable Amezcua, Alayna Nicole PA Unavailable Unavailable Amezcua, Alayna Nicole PA Unavailable Unavailable Amezcua, Alayna Nicole PA Unavailable Unavailable VANE, YOSELIN PA Unavailable [...] Unavailable Unavailable VANE, YOSELIN PA Unavailable Unavailable Re-disclosure Warning The records [...] is protected by Article 27-F of the [facility] Public Health law. If you continue you may have access to information: Regarding HIV / AIDS; Provided by facilities licensed or operated by the [facility] Office of Mental Health; or Provided by the [facility] Office for People With Developmental Disabilities. If such information is present, then the following [facility] mandated warning applies: This information has [...] law may result in a fine or shelter sentence or both. A general authorization for the release of medical or other information is NOT sufficient authorization for further disc losure. Encounters Encounter Providers Location Date Indications Data Source(s ) Outpatient [address] [place] [address], [place] [address] 07/15/2021 12:00:00 AM EDT eCW1 ([facility]) [place] [address] [facility] [address] 07/01/2021 12:00:00 AM EDT eCW1 ([facility]) [place] [address] [facility] [address] 06/27/2021 12:00:00 AM EDT eCW1 ([facility]) (TCM) Transition of Care Visit [address] [place] [address] 06/25/2021 12:00:00 AM EDT eCW1 ([facility]) [place] [address] [facility] [address] 06/24/2021 12:00:00 AM EDT eCW1 ([facility]) [place] [address] [facility] [address] 06/19/2021 12:00:00 AM EDT eCW1 ([facility]) [place] [address] [facility] [address] 06/18/2021 12:00:00 AM EDT eCW1 ([facility]) [place] [address] [facility] [address] 06/18/2021 12:00:00 AM EDT eCW1 ([facility]) [place] [address] [facility] [address] 06/11/2021 12:00:00 AM EDT eCW1 ([facility]) (Cysto1) Urology [address] [place] [address] 06/10/2021 12:00:00 AM EDT eCW1 ([facility]) [place] [address] [facility] [address] 06/03/2021 12:00:00 AM EDT eCW1 ([facility]) [place] [address] [facility] [address] 05/22/2021 12:00:00 AM EDT eCW1 ([facility]) [place] [address] [facility] [address] 05/20/2021 12:00:00 AM EDT eCW1 ([facility]) [place] [address] [facility] [address] 05/16/2021 12:00:00 AM EDT eCW1 ([facility]) [place] [address] [facility] [address] 05/16/2021 12:00:00 AM EDT eCW1 ([facility]) [place] [address] [facility] [address] 05/14/2021 12:00:00 AM EDT eCW1 ([facility]) [place] [address] [facility] [address] 05/09/2021 12:00:00 AM EDT eCW1 ([facility]) [place] [address] [facility] [address] 05/03/2021 12:00:00 AM EDT eCW1 ([facility]) [place] [address] [facility] [address] 04/17/2021 12:00:00 AM EDT eCW1 ([facility]) [place] [address] [facility] [address] 04/05/2021 12:00:00 AM EDT eCW1 ([facility]) [place] [address] [facility] [address] 04/03/2021 12:00:00 AM EDT eCW1 ([facility]) [place] [address] [facility] [address] 04/01/2021 12:00:00 AM EDT eCW1 ([facility]) [place] [address] [facility] [address] 03/26/2021 12:00:00 AM EDT eCW1 ([facility]) Outpatient Attender: Roger Shukla MD Main Office 03/21/2021 02:30:00 PM EDT MEDENT ([facility]) Unknown [address] [facility] [address] 03/19/2021 12:00:00 AM EDT eCW1 ([facility]) [place] [address] [facility] [address] 03/13/2021 12:00:00 AM EDT eCW1 ([facility]) [place] [address] [facility] [address] 03/12/2021 12:00:00 AM EDT eCW1 ([facility]) [place] [address] [facility] [address] 02/11/2021 12:00:00 AM EDT eCW1 ([facility]) [place] [address] [facility] [address] 02/08/2021 12:00:00 AM EDT eCW1 ([facility]) [place] [address] [facility] [address] 02/07/2021 12:00:00 AM EDT eCW1 ([facility]) [place] [address] [facility] [address] 01/31/2021 12:00:00 AM EDT eCW1 ([facility]) [place] [address] [facility] [address] 01/15/2021 12:00:00 AM EDT eCW1 ([facility]) [place] [address] [facility] [address] 01/07/2021 12:00:00 AM EDT eCW1 ([facility]) [place] [address] [facility] [address] 12/04/2020 12:00:00 AM EST eCW1 ([facility]) [place] [address] [facility] [address] 11/30/2020 12:00:00 AM EST eCW1 ([facility]) [place] [address] [facility] [address] 11/28/2020 12:00:00 AM EST eCW1 ([facility]) [place] [address] [facility] [address] 11/28/2020 12:00:00 AM EST eCW1 ([facility]) [place] [address] [facility] [address] 11/02/2020 12:00:00 AM EST eCW1 ([facility]) (Cysto1) Urology [address] [place] [address] 10/17/2020 12:00:00 AM EST eCW1 ([facility]) [place] [address] [facility] [address] 10/15/2020 12:00:00 AM EST eCW1 ([facility]) [place] [address] [facility] [address] 09/26/2020 12:00:00 AM EST eCW1 ([facility]) [place] [address] [facility] [address] 09/17/2020 12:00:00 AM EST eCW1 ([facility]) [place] [address] [facility] [address] 09/12/2020 12:00:00 AM EST eCW1 ([facility]) [place] [address] [facility] [address] 09/04/2020 12:00:00 AM EST eCW1 ([facility]) [place] [address] [facility] [address] 08/28/2020 12:00:00 AM EST eCW1 ([facility]) [place] [address] [facility] [address] 08/28/2020 12:00:00 AM EST eCW1 ([facility]) [place] [address] [facility] [address] 08/16/2020 12:00:00 AM EST eCW1 ([facility]) [place] [address] [facility] [address] 08/13/2020 12:00:00 AM EST eCW1 ([facility]) [place] [address] [facility] [address] 07/17/2020 12:00:00 AM EDT eCW1 ([facility]) Outpatient Attender: Nicole Mendez Prim kathleen 06/29/2020 10:45:00 AM EDT MEDENT ([facility]) Outpatient Attender: YOSELIN Mendez Prima ry 06/14/2020 04:50:00 PM EDT MEDENT ([facility]) Immunizations Vaccine Date Status Description Data Source(s) As of June 1999, a 2-dose hepatitis B schedule for adolescents (11-15 year olds) was FDA approved for [employer]'s Recombivax HB adult formulation. Use code 43 for the 2-dose. This code should be used for any use of standard adult formulation of hepatitis B vaccine. 02/07/2021 04:42:00 PM EDT completed eCW1 ([facility]) As of June 1999, a 2-dose hepatitis B schedule for adolescents (11-15 year olds) was FDA approved for [employer]'s Recombivax HB adult formulation. Use code 43 for the 2-dose. This code should be used for any use of standard adult formulation of hepatitis B vaccine. 02/07/2021 04:42:00 PM EDT completed eCW1 ([facility]) As of June 1999, a 2-dose hepatitis B schedule for adolescents (11-15 year olds) was FDA approved for [employer]'s Recombivax HB adult formulation. Use code 43 for the 2-dose. This code should be used for any use of standard adult formulation of hepatitis B vaccine. 02/07/2021 04:42:00 PM EDT completed eCW1 ([facility]) As of June 1999, a 2-dose hepatitis B schedule for adolescents (11-15 year olds) was FDA approved for [employer]'s Recombivax HB adult formulation. Use code 43 for the 2-dose. This code should be used for any use of standard adult formulation of hepatitis B vaccine. 02/07/2021 04:42:00 PM EDT completed eCW1 ([facility]) As of June 1999, a 2-dose hepatitis B schedule for adolescents (11-15 year olds) was FDA approved for [employer]'s Recombivax HB adult formulation. Use code 43 for the 2-dose. This code should be used for any use of standard adult formulation of hepatitis B vaccine. 02/07/2021 04:42:00 PM EDT completed eCW1 ([facility]) As of June 1999, a 2-dose hepatitis B schedule for adolescents (11-15 year olds) was FDA approved for [employer]'s Recombivax HB adult formulation. Use code 43 for the 2-dose. This code should be used for any use of standard adult formulation of hepatitis B vaccine. 02/07/2021 04:42:00 PM EDT completed eCW1 ([facility]) As of June 1999, a 2-dose hepatitis B schedule for adolescents (11-15 year olds) was FDA approved for [employer]'s Recombivax HB adult formulation. Use code 43 for the 2-dose. This code should be used for any use of standard adult formulation of hepatitis B vaccine. 02/07/2021 04:42:00 PM EDT completed eCW1 ([facility]) As of June 1999, a 2-dose hepatitis B schedule for adolescents (11-15 year olds) was FDA approved for [employer]'s Recombivax HB adult formulation. Use code 43 for the 2-dose. This code should be used for any use of standard adult formulation of hepatitis B vaccine. 02/07/2021 04:42:00 PM EDT completed eCW1 ([facility]) As of June 1999, a 2-dose hepatitis B schedule for adolescents (11-15 year olds) was FDA approved for Mer[employer]'s Recombivax HB adult formulation. Use code 43 for the 2-dose. This code should be used for any use of standard adult formulation of hepatitis B vaccine. 02/07/2021 04:42:00 PM EDT completed eCW1 ([facility]) As of June 1999, a 2-dose hepatitis B schedule for adolescents (11-15 year olds) was FDA approved for Mer[employer]'s Recombivax HB adult formulation. Use code 43 for the 2-dose. This code should be used for any use of standard adult formulation of hepatitis B vaccine. 02/07/2021 04:42:00 PM EDT completed eCW1 ([facility]) As of June 1999, a 2-dose hepatitis B schedule for adolescents (11-15 year olds) was FDA approved for Merck's Recombivax HB adult formulation. Use code 43 for the 2-dose. This code should be used for any use of standard adult formulation of hepatitis B vaccine. 02/07/2021 04:42:00 PM EDT completed eCW1 ([facility]) As of June 1999, a 2-dose hepatitis B schedule for adolescents (11-15 year olds) was FDA approved for Merck's Recombivax HB adult formulation. Use code 43 for the 2-dose. This code should be used for any use of standard adult formulation of hepatitis B vaccine. 02/07/2021 04:42:00 PM EDT completed eCW1 ([facility]) As of June 1999, a 2-dose hepatitis B schedule for adolescents (11-15 year olds) was FDA approved for Merck's Recombivax HB adult formulation. Use code 43 for the 2-dose. This code should be used for any use of standard adult formulation of hepatitis B vaccine. 02/07/2021 04:42:00 PM EDT completed eCW1 ([facility]) As of June 1999, a 2-dose hepatitis B schedule for adolescents (11-15 year olds) was FDA approved for Merck's Recombivax HB adult formulation. Use code 43 for the 2-dose. This code should be used for any use of standard adult formulation of hepatitis B vaccine. 02/07/2021 04:42:00 PM EDT completed eCW1 ([facility]) As of June 1999, a 2-dose hepatitis B schedule for adolescents (11-15 year olds) was FDA approved for Merck's Recombivax HB adult formulation. Use code 43 for the 2-dose. This code should be used for any use of standard adult formulation of hepatitis B vaccine. 02/07/2021 04:42:00 PM EDT completed eCW1 ([facility]) As of June 1999, a 2-dose hepatitis B schedule for adolescents (11-15 year olds) was FDA approved for Merck's Recombivax HB adult formulation. Use code 43 for the 2-dose. This code should be used for any use of standard adult formulation of hepatitis B vaccine. 02/07/2021 04:42:00 PM EDT completed eCW1 ([facility]) As of June 1999, a 2-dose hepatitis B schedule for adolescents (11-15 year olds) was FDA approved for Merck's Recombivax HB adult formulation. Use code 43 for the 2-dose. This code should be used for any use of standard adult formulation of hepatitis B vaccine. 02/07/2021 04:42:00 PM EDT completed eCW1 ([facility]) As of June 1999, a 2-dose hepatitis B schedule for adolescents (11-15 year olds) was FDA approved for Merck's Recombivax HB adult formulation. Use code 43 for the 2-dose. This code should be used for any use of standard adult formulation of hepatitis B vaccine. 02/07/2021 04:42:00 PM EDT completed eCW1 ([facility]) As of June 1999, a 2-dose hepatitis B schedule for adolescents (11-15 year olds) was FDA approved for Merck's Recombivax HB adult formulation. Use code 43 for the 2-dose. This code should be used for any use of standard adult formulation of hepatitis B vaccine. 02/07/2021 04:42:00 PM EDT completed eCW1 ([facility]) As of June 1999, a 2-dose hepatitis B schedule for adolescents (11-15 year olds) was FDA approved for Merck's Recombivax HB adult formulation. Use code 43 for the 2-dose. This code should be used for any use of standard adult formulation of hepatitis B vaccine. 02/07/2021 04:42:00 PM EDT completed eCW1 ([facility]) As of June 1999, a 2-dose hepatitis B schedule for adolescents (11-15 year olds) was FDA approved for Merck's Recombivax HB adult formulation. Use code 43 for the 2-dose. This code should be used for any use of standard adult formulation of hepatitis B vaccine. 02/07/2021 04:42:00 PM EDT completed eCW1 ([facility]) As of June 1999, a 2-dose hepatitis B schedule for adolescents (11-15 year olds) was FDA approved for Merck's Recombivax HB adult formulation. Use code 43 for the 2-dose. This code should be used for any use of standard adult formulation of hepatitis B vaccine. 02/07/2021 04:42:00 PM EDT completed eCW1 ([facility]) As of June 1999, a 2-dose hepatitis B schedule for adolescents (11-15 year olds) was FDA approved for Merck's Recombivax HB adult formulation. Use code 43 for the 2-dose. This code should be used for any use of standard adult formulation of hepatitis B vaccine. 02/07/2021 04:42:00 PM EDT completed eCW1 ([facility]) As of June 1999, a 2-dose hepatitis B schedule for adolescents (11-15 year olds) was FDA approved for Merck's Recombivax HB adult formulation. Use code 43 for the 2-dose. This code should be used for any use of standard adult formulation of hepatitis B vaccine. 02/07/2021 04:42:00 PM EDT completed eCW1 ([facility]) As of June 1999, a 2-dose hepatitis B schedule for adolescents (11-15 year olds) was FDA approved for Merck's Recombivax HB adult formulation. Use code 43 for the 2-dose. This code should be used for any use of standard adult formulation of hepatitis B vaccine. 02/07/2021 04:42:00 PM EDT completed eCW1 ([facility]) As of June 1999, a 2-dose hepatitis B schedule for adolescents (11-15 year olds) was FDA approved for Merck's Recombivax HB adult formulation. Use code 43 for the 2-dose. This code should be used for any use of standard adult formulation of hepatitis B vaccine. 02/07/2021 04:42:00 PM EDT completed eCW1 ([facility]) As of June 1999, a 2-dose hepatitis B schedule for adolescents (11-15 year olds) was FDA approved for Merck's Recombivax HB adult formulation. Use code 43 for the 2-dose. This code should be used for any use of standard adult formulation of hepatitis B vaccine. 02/07/2021 04:42:00 PM EDT completed eCW1 ([facility]) As of June 1999, a 2-dose hepatitis B schedule for adolescents (11-15 year olds) was FDA approved for Merck's Recombivax HB adult formulation. Use code 43 for the 2-dose. This code should be used for any use of standard adult formulation of hepatitis B vaccine. 02/07/2021 04:42:00 PM EDT completed eCW1 ([facility]) As of June 1999, a 2-dose hepatitis B schedule for adolescents (11-15 year olds) was FDA approved for Merck's Recombivax HB adult formulation. Use code 43 for the 2-dose. This code should be used for any use of standard adult formulation of hepatitis B vaccine. 02/07/2021 04:42:00 PM EDT completed eCW1 ([facility]) Moderna #2 dose COVID-19 SARSCOV2 VAC 100MCG/0.5ML IM 11/15/2020 12:39:00 PM EST completed eCW1 ([facility]) Moderna #2 dose COVID-19 SARSCOV2 VAC 100MCG/0.5ML IM 11/15/2020 12:39:00 PM EST completed eCW1 ([facility]) Moderna #2 dose COVID-19 SARSCOV2 VAC 100MCG/0.5ML IM 11/15/2020 12:39:00 PM EST completed eCW1 ([facility]) Moderna #2 dose COVID-19 SARSCOV2 VAC 100MCG/0.5ML IM 11/15/2020 12:39:00 PM EST completed eCW1 ([facility]) Moderna #2 dose COVID-19 SARSCOV2 VAC 100MCG/0.5ML IM 11/15/2020 12:39:00 PM EST completed eCW1 ([facility]) COVID-19 VACCINE Moderna 11/15/2020 12:00:00 AM EST completed [facility] Vaccine Series Complete: YESThis Data wa s Submitted to [facility] Via [employer]. Moderna #1 dose COVID-19 SARSCOV2 VAC 100MCG/0.5ML IM 10/18/2020 12:38:00 PM EST completed eCW1 ([facility]) Moderna #1 dose COVID-19 SARSCOV2 VAC 100MCG/0.5ML IM 10/18/2020 12:38:00 PM EST completed eCW1 ([facility]) Moderna #1 dose COVID-19 SARSCOV2 VAC 100MCG/0.5ML IM 10/18/2020 12:38:00 PM EST completed eCW1 ([facility]) Moderna #1 dose COVID-19 SARSCOV2 VAC 100MCG/0.5ML IM 10/18/2020 12:38:00 PM EST completed eCW1 ([facility]) Moderna #1 dose COVID-19 SARSCOV2 VAC 100MCG/0.5ML IM 10/18/2020 12:38:00 PM EST completed eCW1 ([facility]) COVID-19 VACCINE Moderna 10/18/2020 12:00:00 AM EST completed [facility] Vaccine Series Complete: NOThis Data was Submitted to [facility] Via [employer]. Tdap 09/12/2020 07:42:00 AM EST completed e CW1 ([facility]) Tdap 09/12/2020 07:42:00 AM EST completed e CW1 ([facility]) Tdap 09/12/2020 07:42:00 AM EST completed e CW1 ([facility]) Tdap 09/12/2020 07:42:00 AM EST completed e CW1 ([facility]) Tdap 09/12/2020 07:42:00 AM EST completed e CW1 ([facility]) Tdap 09/12/2020 07:42:00 AM EST completed e CW1 ([facility]) Tdap 09/12/2020 07:42:00 AM EST completed e CW1 ([facility]) Tdap 09/12/2020 07:42:00 AM EST completed e CW1 ([facility]) Tdap 09/12/2020 07:42:00 AM EST completed e CW1 ([facility]) Tdap 09/12/2020 07:42:00 AM EST completed e CW1 ([facility]) Tdap 09/12/2020 07:42:00 AM EST completed e CW1 ([facility]) Tdap 09/12/2020 07:42:00 AM EST completed e CW1 ([facility]) Tdap 09/12/2020 07:42:00 AM EST completed e CW1 ([facility]) Tdap 09/12/2020 07:42:00 AM EST completed e CW1 ([facility]) Tdap 09/12/2020 07:42:00 AM EST completed e CW1 ([facility]) Tdap 09/12/2020 07:42:00 AM EST completed e CW1 ([facility]) Tdap 09/12/2020 07:42:00 AM EST completed e CW1 ([facility]) Tdap 09/12/2020 07:42:00 AM EST completed e CW1 ([facility]) Tdap 09/12/2020 07:42:00 AM EST completed e CW1 ([facility]) Tdap 09/12/2020 07:42:00 AM EST completed e CW1 ([facility]) Tdap 09/12/2020 07:42:00 AM EST completed e CW1 ([facility]) Tdap 09/12/2020 07:42:00 AM EST completed e CW1 ([facility]) Tdap 09/12/2020 07:42:00 AM EST completed e CW1 ([facility]) Tdap 09/12/2020 07:42:00 AM EST completed e CW1 ([facility]) Tdap 09/12/2020 07:42:00 AM EST completed e CW1 ([facility]) Tdap 09/12/2020 07:42:00 AM EST completed e CW1 ([facility]) Tdap 09/12/2020 07:42:00 AM EST completed e CW1 ([facility]) Tdap 09/12/2020 07:42:00 AM EST completed e CW1 ([facility]) Tdap 09/12/2020 07:42:00 AM EST completed e CW1 ([facility]) Tdap 09/12/2020 07:42:00 AM EST completed e CW1 ([facility]) Tdap 09/12/2020 07:42:00 AM EST completed e CW1 ([facility]) Tdap 09/12/2020 07:42:00 AM EST completed e CW1 ([facility]) Tdap 09/12/2020 07:42:00 AM EST completed e CW1 ([facility]) Tdap 09/12/2020 07:42:00 AM EST completed e CW1 ([facility]) Tdap 09/12/2020 07:42:00 AM EST completed e CW1 ([facility]) Tdap 09/12/2020 07:42:00 AM EST completed e CW1 ([facility]) Tdap 09/12/2020 07:42:00 AM EST completed e CW1 ([facility]) Tdap 09/12/2020 07:42:00 AM EST completed e CW1 ([facility]) Tdap 09/12/2020 07:42:00 AM EST completed e CW1 ([facility]) Tdap 09/12/2020 07:42:00 AM EST completed e CW1 ([facility]) Tdap 09/12/2020 07:42:00 AM EST completed e CW1 ([facility]) Tdap 09/12/2020 07:42:00 AM EST completed e CW1 ([facility]) Medications Medication Brand Name Start Date Product Form Dose Route Admi nistrative Instructions Pharmacy Instructions Status Indications Reaction Description Data Source(s) COMPRESSION STOCKINGS 20-30 mmHg UNK 06/18/2021 12:00:00 AM EDT active COMPRESSION STOCKINGS 20-30 mmHg eCW1 ([facility]) COMPRESSION STOCKINGS 20-30 mmHg UNK 06/18/2021 12:00:00 AM EDT suspended COMPRESSION STOCKINGS 20-30 mmHg eCW1 ([facility]) COMPRESSION STOCKINGS 20-30 mmHg UNK 06/18/2021 12:00:00 AM EDT active COMPRESSION STOCKINGS 20-30 mmHg eCW1 ([facility]) COMPRESSION STOCKINGS 20-30 mmHg UNK 06/18/2021 12:00:00 AM EDT suspended COMPRESSION STOCKINGS 20-30 mmHg eCW1 ([facility]) COMPRESSION STOCKINGS 20-30 mmHg UNK 06/18/2021 12:00:00 AM EDT active COMPRESSION STOCKINGS 20-30 mmHg eCW1 ([facility]) COMPRESSION STOCKINGS 20-30 mmHg UNK 06/18/2021 12:00:00 AM EDT active COMPRESSION STOCKINGS 20-30 mmHg eCW1 ([facility]) COMPRESSION STOCKINGS 20-30 mmHg UNK 06/18/2021 12:00:00 AM EDT active COMPRESSION STOCKINGS 20-30 mmHg eCW1 ([facility]) COMPRESSION STOCKINGS 20-30 mmHg UNK 06/18/2021 12:00:00 AM EDT suspended COMPRESSION STOCKINGS 20-30 mmHg eCW1 ([facility]) Levofloxacin 750 MG Oral Tablet levoFLOXacin 750 MG levoFLOX acin 750 MG 06/14/2021 12:00:00 AM EDT 1.0 {tablet} active levoFLOXacin 750 MG eCW1 ([facility]) Lorazepam 1 MG Oral Tablet Lorazepam 1 MG 06/06/2021 12:00:00 AM EDT suspended Lorazepam 1 MG eCW1 ([facility]) Lorazepam 1 MG Oral Tablet Lorazepam 1 MG 06/06/2021 12:00:00 AM EDT suspended Lorazepam 1 MG eCW1 ([facility]) Lorazepam 1 MG Oral Tablet Lorazepam 1 MG 06/06/2021 12:00:00 AM EDT suspended Lorazepam 1 MG eCW1 ([facility]) Lorazepam 1 MG Oral Tablet Lorazepam 1 MG 06/06/2021 12:00:00 AM EDT active Lorazepam 1 MG eCW1 ([facility]) Lorazepam 1 MG Oral Tablet Lorazepam 1 MG 06/06/2021 12:00:00 AM EDT active Lorazepam 1 MG eCW1 ([facility]) Lorazepam 1 MG Oral Tablet Lorazepam 1 MG 06/06/2021 12:00:00 AM EDT active Lorazepam 1 MG eCW1 ([facility]) Lorazepam 1 MG Oral Tablet Lorazepam 1 MG 06/06/2021 12:00:00 AM EDT suspended Lorazepam 1 MG eCW1 ([facility]) Lorazepam 1 MG Oral Tablet Lorazepam 1 MG 06/06/2021 12:00:00 AM EDT suspended Lorazepam 1 MG eCW1 ([facility]) Lorazepam 1 MG Oral Tablet Lorazepam 1 MG 06/06/2021 12:00:00 AM EDT active Lorazepam 1 MG eCW1 ([facility]) Lorazepam 1 MG Oral Tablet Lorazepam 1 MG 06/06/2021 12:00:00 AM EDT suspended Lorazepam 1 MG eCW1 ([facility]) Lorazepam 1 MG Oral Tablet Lorazepam 1 MG 06/06/2021 12:00:00 AM EDT suspended Lorazepam 1 MG eCW1 ([facility]) Lorazepam 1 MG Oral Tablet Lorazepam 1 MG 06/06/2021 12:00:00 AM EDT suspended Lorazepam 1 MG eCW1 ([facility]) Lorazepam 1 MG Oral Tablet [Ativan] Ativan 1 MG Ativan 1 MG 05/22/2021 12:00:00 AM EDT active Ativan 1 MG eCW1 ([facility]) Finasteride 5 MG Oral Tablet Finasteride 5 MG 04/17/2021 12:00:00 A M EDT 1.0 {tablet} active Finasteride 5 MG eCW1 ( [facility]) Finasteride 5 MG Oral Tablet Finasteride 5 MG 04/17/2021 12:00:00 A M EDT 1.0 {tablet} active Finasteride 5 MG eCW1 ( [facility]) Finasteride 5 MG Oral Tablet Finasteride 5 MG 04/17/2021 12:00:00 A M EDT 1.0 {tablet} active Finasteride 5 MG eCW1 ( [facility]) Finasteride 5 MG Oral Tablet Finasteride 5 MG 04/17/2021 12:00:00 A M EDT 1.0 {tablet} active Finasteride 5 MG eCW1 ( [facility]) Finasteride 5 MG Oral Tablet Finasteride 5 MG 04/17/2021 12:00:00 A M EDT 1.0 {tablet} active Finasteride 5 MG eCW1 ( [facility]) Finasteride 5 MG Oral Tablet Finasteride 5 MG 04/17/2021 12:00:00 A M EDT 1.0 {tablet} active Finasteride 5 MG eCW1 ( [facility]) Finasteride 5 MG Oral Tablet Finasteride 5 MG 04/17/2021 12:00:00 A M EDT 1.0 {tablet} active Finasteride 5 MG eCW1 ( [facility]) Finasteride 5 MG Oral Tablet Finasteride 5 MG 04/17/2021 12:00:00 A M EDT 1.0 {tablet} active Finasteride 5 MG eCW1 ( [facility]) Finasteride 5 MG Oral Tablet Finasteride 5 MG 04/17/2021 12:00:00 A M EDT 1.0 {tablet} active Finasteride 5 MG eCW1 ( [facility]) Finasteride 5 MG Oral Tablet Finasteride 5 MG 04/17/2021 12:00:00 A M EDT 1.0 {tablet} active Finasteride 5 MG eCW1 ( [facility]) Finasteride 5 MG Oral Tablet Finasteride 5 MG 04/17/2021 12:00:00 A M EDT 1.0 {tablet} active Finasteride 5 MG eCW1 ( [facility]) Finasteride 5 MG Oral Tablet Finasteride 5 MG 04/17/2021 12:00:00 A M EDT 1.0 {tablet} active Finasteride 5 MG eCW1 ( [facility]) Finasteride 5 MG Oral Tablet Finasteride 5 MG 04/17/2021 12:00:00 A M EDT 1.0 {tablet} active Finasteride 5 MG eCW1 ( [facility]) Finasteride 5 MG Oral Tablet Finasteride 5 MG 04/17/2021 12:00:00 A M EDT 1.0 {tablet} active Finasteride 5 MG eCW1 ( [facility]) Finasteride 5 MG Oral Tablet Finasteride 5 MG 04/17/2021 12:00:00 A M EDT 1.0 {tablet} active Finasteride 5 MG eCW1 ( [facility]) Finasteride 5 MG Oral Tablet Finasteride 5 MG 04/17/2021 12:00:00 A M EDT 1.0 {tablet} active Finasteride 5 MG eCW1 ( [facility]) Finasteride 5 MG Oral Tablet Finasteride 5 MG 04/17/2021 12:00:00 A M EDT 1.0 {tablet} active Finasteride 5 MG eCW1 ( [facility]) Finasteride 5 MG Oral Tablet Finasteride 5 MG 04/17/2021 12:00:00 A M EDT 1.0 {tablet} active eCW1 ([facility]) Finasteride 5 MG Oral Tablet Finasteride 5 MG 04/17/2021 12:00:00 A M EDT 1.0 {tablet} active Finasteride 5 MG eCW1 ( [facility]) Bard Vgybtm-T-Sxj Leg Bag - Bard Yfxaib-Z-Txt Leg Bag - 03/13 12:00:00 AM EDT active Bard Jqkfex-A-Ocj Leg Bag - eCW1 ([facility]) Bard Hoazem-L-Tne Leg Bag - Bard Nksmhg-C-Ped Leg Bag - 03/13 12:00:00 AM EDT suspended Bard Dispoz-A- Bag Leg Bag - eCW1 ([facility]) Bard Bkozyk-P-Yzu Leg Bag - Bard Wzlcpj-E-Rgn Leg Bag - 03/13 12:00:00 AM EDT active Bard Wooxts-E-Sfs Leg Bag - eCW1 ([facility]) Bard Jtlwph-S-Uhw Leg Bag - Bard Obhusi-F-Ill Leg Bag - 03/13 12:00:00 AM EDT active Bard Vaozlu-Z-Vzu Leg Bag - eCW1 ([facility]) Bard Gmyvpj-S-Cdv Leg Bag - Bard Myvdna-M-Xuc Leg Bag - 03/13 12:00:00 AM EDT active Bard Rybhlg-E-Eeu Leg Bag - eCW1 ([facility]) Bard Edqsap-A-Pgl Leg Bag - Bard Xxivla-F-Knn Leg Bag - 03/13 12:00:00 AM EDT active Bard Wzhbwf-Q-Cin Leg Bag - eCW1 ([facility]) Bard Pibtsd-M-Sxi Leg Bag - Bard Prijqi-R-Etb Leg Bag - 03/13 12:00:00 AM EDT suspended Bard Dispoz-A- Bag Leg Bag - eCW1 ([facility]) Bard Wuhfml-J-Bqq Leg Bag - Bard Lxbbjv-N-Usv Leg Bag - 03/13 12:00:00 AM EDT active Bard Ieqlir-P-Axp Leg Bag - eCW1 ([facility]) Bard Noryab-P-Iim Leg Bag - Bard Vsebip-O-Zkh Leg Bag - 03/13 12:00:00 AM EDT active Bard Yztqna-U-Ypl Leg Bag - eCW1 ([facility]) Bard Vxiuyc-Z-Ugx Leg Bag - Bard Djvalk-I-Yuc Leg Bag - 03/13 12:00:00 AM EDT active eCW1 ([facility]) Bard Wtnlbe-S-Pct Leg Bag - Bard Lzgatm-L-Cfh Leg Bag - 03/13 12:00:00 AM EDT active Bard Fxhged-O-Xco Leg Bag - eCW1 ([facility]) Bard Yfzgbd-J-Slc Leg Bag - Bard Quotuh-M-Jry Leg Bag - 03/13 12:00:00 AM EDT active Bard Xudjjg-Z-Bjj Leg Bag - eCW1 ([facility]) Bard Qgbgur-L-Zzd Leg Bag - Bard Ixprqt-I-Dtk Leg Bag - 03/13 12:00:00 AM EDT active Bard Fczhka-N-Axk Leg Bag - eCW1 ([facility]) Bard Qwtayp-M-Vkp Leg Bag - Bard Yascts-M-Jgl Leg Bag - 03/13 12:00:00 AM EDT suspended Bard Dispoz-A- Bag Leg Bag - eCW1 ([facility]) Bard Pehtci-F-Cep Leg Bag - Bard Vqwmjo-L-Lhy Leg Bag - 03/13 12:00:00 AM EDT active Bard Cuyvpt-L-Bpz Leg Bag - eCW1 ([facility]) Bard Ejytlh-S-Tmg Leg Bag - Bard Ianmci-W-Wbz Leg Bag - 03/13 12:00:00 AM EDT active Bard Wbotwo-K-Twx Leg Bag - eCW1 ([facility]) Bard Bgrjpg-P-Ftd Leg Bag - Bard Mstgzh-X-Wgv Leg Bag - 03/13 12:00:00 AM EDT suspended Bard Dispoz-A- Bag Leg Bag - eCW1 ([facility]) Bard Jfalpo-S-Pun Leg Bag - Bard Bjllxp-B-Njf Leg Bag - 03/13 12:00:00 AM EDT active Bard Uvntpf-J-Hjz Leg Bag - eCW1 ([facility]) Bard Joafbt-V-Hkn Leg Bag - Bard Wmtmif-A-Hyv Leg Bag - 03/13 12:00:00 AM EDT active Bard Mjtubs-E-Ukp Leg Bag - eCW1 ([facility]) Bard Tjxppu-W-Xfc Leg Bag - Bard Voenhp-A-Lpz Leg Bag - 03/13 12:00:00 AM EDT suspended Bard Dispoz-A- Bag Leg Bag - eCW1 ([facility]) Bard Xuclqg-C-Spa Leg Bag - Bard Rdqgkm-J-Caf Leg Bag - 03/13 12:00:00 AM EDT active Bard Zlgbeq-M-Rvq Leg Bag - eCW1 ([facility]) Bard Byhnlq-W-Chm Leg Bag - Bard Hghzut-O-Cea Leg Bag - 03/13 12:00:00 AM EDT active Bard Waewco-X-Wuw Leg Bag - eCW1 ([facility]) Antonio Sutab 03/21/2021 12:00:00 AM EDT active [facility]ENT ([facility]) Furosemide 20 MG Oral Tablet Furosemide 20 MG 03/19/2021 12:00:00 A M EDT 1.0 {tablet} active Furosemide 20 MG eCW1 ( [facility]) Furosemide 20 MG Oral Tablet Furosemide 20 MG 03/19/2021 12:00:00 A M EDT 1.0 {tablet} active eCW1 ([facility]) Furosemide 20 MG Oral Tablet Furosemide 20 MG 03/19/2021 12:00:00 A M EDT 1.0 {tablet} active Furosemide 20 MG eCW1 ( [facility]) Furosemide 20 MG Oral Tablet Furosemide 20 MG 03/19/2021 12:00:00 A M EDT 1.0 {tablet} active Furosemide 20 MG eCW1 ( [facility]) Furosemide 20 MG Oral Tablet Furosemide 20 MG 03/19/2021 12:00:00 A M EDT 1.0 {tablet} active Furosemide 20 MG eCW1 ( [facility]) Furosemide 20 MG Oral Tablet Furosemide 20 MG 03/19/2021 12:00:00 A M EDT 1.0 {tablet} active Furosemide 20 MG eCW1 ( [facility]) Furosemide 20 MG Oral Tablet Furosemide 20 MG 03/19/2021 12:00:00 A M EDT 1.0 {tablet} active Furosemide 20 MG eCW1 ( [facility]) Furosemide 20 MG Oral Tablet Furosemide 20 MG 03/19/2021 12:00:00 A M EDT 1.0 {tablet} active Furosemide 20 MG eCW1 ( [facility]) Furosemide 20 MG Oral Tablet Furosemide 20 MG 03/19/2021 12:00:00 A M EDT 1.0 {tablet} active Furosemide 20 MG eCW1 ( [facility]) Furosemide 20 MG Oral Tablet Furosemide 20 MG 03/19/2021 12:00:00 A M EDT 1.0 {tablet} active Furosemide 20 MG eCW1 ( [facility]) Furosemide 20 MG Oral Tablet Furosemide 20 MG 03/19/2021 12:00:00 A M EDT 1.0 {tablet} active Furosemide 20 MG eCW1 ( [facility]) Furosemide 20 MG Oral Tablet Furosemide 20 MG 03/19/2021 12:00:00 A M EDT 1.0 {tablet} active Furosemide 20 MG eCW1 ( [facility]) Furosemide 20 MG Oral Tablet Furosemide 20 MG 03/19/2021 12:00:00 A M EDT 1.0 {tablet} active Furosemide 20 MG eCW1 ( [facility]) Furosemide 20 MG Oral Tablet Furosemide 20 MG 03/19/2021 12:00:00 A M EDT 1.0 {tablet} active Furosemide 20 MG eCW1 ( [facility]) Furosemide 20 MG Oral Tablet Furosemide 20 MG 03/19/2021 12:00:00 A M EDT 1.0 {tablet} active Furosemide 20 MG eCW1 ( [facility]) Furosemide 20 MG Oral Tablet Furosemide 20 MG 03/19/2021 12:00:00 A M EDT 1.0 {tablet} active Furosemide 20 MG eCW1 ( [facility]) Furosemide 20 MG Oral Tablet Furosemide 20 MG 03/19/2021 12:00:00 A M EDT 1.0 {tablet} active Furosemide 20 MG eCW1 ( [facility]) Furosemide 20 MG Oral Tablet Furosemide 20 MG 03/19/2021 12:00:00 A M EDT 1.0 {tablet} active Furosemide 20 MG eCW1 ( [facility]) Furosemide 20 MG Oral Tablet Furosemide 20 MG 03/19/2021 12:00:00 A M EDT 1.0 {tablet} active Furosemide 20 MG eCW1 ( [facility]) Furosemide 20 MG Oral Tablet Furosemide 20 MG 03/19/2021 12:00:00 A M EDT 1.0 {tablet} active Furosemide 20 MG eCW1 ( [facility]) Furosemide 20 MG Oral Tablet Furosemide 20 MG 03/19/2021 12:00:00 A M EDT 1.0 {tablet} active Furosemide 20 MG eCW1 ( [facility]) Furosemide 20 MG Oral Tablet Furosemide 20 MG 03/19/2021 12:00:00 A M EDT 1.0 {tablet} active Furosemide 20 MG eCW1 ( [facility]) Furosemide 20 MG Oral Tablet Furosemide 20 MG 03/19/2021 12:00:00 A M EDT 1.0 {tablet} active Furosemide 20 MG eCW1 ( [facility]) Furosemide 20 MG Oral Tablet Furosemide 20 MG 03/19/2021 12:00:00 A M EDT 1.0 {tablet} active Furosemide 20 MG eCW1 ( [facility]) Sulfamethoxazole 800 MG / Trimethoprim 1 60 MG Oral Tablet [Bactrim] Bactrim DS 800-160 MG Bactrim DS 800-160 MG 02/11/2021 12:00:00 AM EDT 1.0 {table t} active Bactrim DS 800-160 MG eCW1 ( [facility]) Sulfamethoxazole 800 MG / Trimethoprim 1 60 MG Oral Tablet [Bactrim] Bactrim DS 800-160 MG Bactrim DS 800-160 MG 02/11/2021 12:00:00 AM EDT 1.0 {table t} active Bactrim DS 800-160 MG eCW1 ( [facility]) Sulfamethoxazole 800 MG / Trimethoprim 1 60 MG Oral Tablet [Bactrim] Bactrim DS 800-160 MG Bactrim DS 800-160 MG 02/11/2021 12:00:00 AM EDT 1.0 {table t} active Bactrim DS 800-160 MG eCW1 ( [facility]) Sulfamethoxazole 800 MG / Trimethoprim 1 60 MG Oral Tablet [Bactrim] Bactrim DS 800-160 MG Bactrim DS 800-160 MG 02/11/2021 12:00:00 AM EDT 1.0 {table t} active Bactrim DS 800-160 MG eCW1 ( [facility]) Sulfamethoxazole 800 MG / Trimethoprim 1 60 MG Oral Tablet [Bactrim] Bactrim DS 800-160 MG Bactrim DS 800-160 MG 02/11/2021 12:00:00 AM EDT 1.0 {table t} active Bactrim DS 800-160 MG eCW1 ( [facility]) Sulfamethoxazole 800 MG / Trimethoprim 1 60 MG Oral Tablet [Bactrim] Bactrim DS 800-160 MG Bactrim DS 800-160 MG 02/11/2021 12:00:00 AM EDT 1.0 {table t} active Bactrim DS 800-160 MG eCW1 ( [facility]) Sulfamethoxazole 800 MG / Trimethoprim 1 60 MG Oral Tablet [Bactrim] Bactrim DS 800-160 MG Bactrim DS 800-160 MG 02/11/2021 12:00:00 AM EDT 1.0 {table t} active Bactrim DS 800-160 MG eCW1 ( [facility]) Hidalgo Ramos Insertion Tray - Markell Ramos Insertion Tray - 12:00:00 AM EDT active Markell Ramos Inser tion Tray - eCW1 ([facility]) Hidalgo Ramos Insertion Tray - Markell Ramos Insertion Tray - 12:00:00 AM EDT active Hidalgo Ramos Inser tion Tray - eCW1 ([facility]) Hidalgo Ramos Insertion Tray - Markell Ramos Insertion Tray - 12:00:00 AM EDT active Markell Ramos Inser tion Tray - eCW1 ([facility]) Hidalgo Ramos Insertion Tray - H[place] Ramos Insertion Tray - 12:00:00 AM EDT active Hidalgo Ramos Inser tion Tray - eCW1 ([facility]) Hidalgo Ramos Insertion Tray - Markell Ramos Insertion Tray - 12:00:00 AM EDT suspended Markell Ramos In sertion Tray - eCW1 ([facility]) Hidalgo Ramos Insertion Tray - Markell Ramos Insertion Tray - 12:00:00 AM EDT active Hidalgo Ramos Inser tion Tray - eCW1 ([facility]) Markell Ramos Insertion Tray - Markell Ramos Insertion Tray - 12:00:00 AM EDT active Hidalgo Ramos Inser tion Tray - eCW1 ([facility]) Hidalgo Ramos Insertion Tray - [place] Ramos Insertion Tray - 12:00:00 AM EDT active Markell Ramos Inser tion Tray - eCW1 ([facility]) Hidalgo Ramos Insertion Tray - Markell Ramos Insertion Tray - 12:00:00 AM EDT suspended Hidalgo Ramos In sertion Tray - eCW1 ([facility]) Markell Ramos Insertion Tray - Markell Ramos Insertion Tray - 12:00:00 AM EDT active Markell Ramos Inser tion Tray - eCW1 ([facility]) Hidalgo Ramos Insertion Tray - [place] Ramos Insertion Tray - 12:00:00 AM EDT active Hidalgo Ramos Inser tion Tray - eCW1 ([facility]) Markell Ramos Insertion Tray - H[place]go Ramos Insertion Tray - 12:00:00 AM EDT active Hidalgo Ramos Inser tion Tray - eCW1 ([facility]) Markell Ramos Insertion Tray - Markell Ramos Insertion Tray - 12:00:00 AM EDT suspended Hidalgo Ramos In sertion Tray - eCW1 ([facility]) Hidalgo Ramos Insertion Tray - Hidalgo Ramos Insertion Tray - 12:00:00 AM EDT active Hidalgo Ramos Inser tion Tray - eCW1 ([facility]) Hidalgo Ramos Insertion Tray - H[place] Ramos Insertion Tray - 12:00:00 AM EDT active Hidalgo Ramos Inser tion Tray - eCW1 ([facility]) Markell Ramos Insertion Tray - H[place]go Ramos Insertion Tray - 12:00:00 AM EDT active Hidalgo Ramos Inser tion Tray - eCW1 ([facility]) Markell Ramos Insertion Tray - H[place]go Ramos Insertion Tray - 12:00:00 AM EDT active Hidalgo Ramos Inser tion Tray - eCW1 ([facility]) Hidalgo Ramos Insertion Tray - H[place] Ramos Insertion Tray - 12:00:00 AM EDT suspended Hidalgo Ramos In sertion Tray - eCW1 ([facility]) Markell Ramos Insertion Tray - Markell Ramos Insertion Tray - 12:00:00 AM EDT suspended Hidalgo Ramos In sertion Tray - eCW1 ([facility]) Hidalgo Ramos Insertion Tray - Markell Ramos Insertion Tray - 12:00:00 AM EDT active Markell Ramos Inser tion Tray - eCW1 ([facility]) Markell Ramos Insertion Tray - Markell Ramos Insertion Tray - 12:00:00 AM EDT active Markell Ramos Inser tion Tray - eCW1 ([facility]) Markell Ramos Insertion Tray - Markell Ramos Insertion Tray - 12:00:00 AM EDT active Hidalgo Ramos Inser tion Tray - eCW1 ([facility]) Markell Ramos Insertion Tray - [place] Ramos Insertion Tray - 12:00:00 AM EDT active Markell Ramos Inser tion Tray - eCW1 ([facility]) Hidalgo Ramos Insertion Tray - Markell Ramos Insertion Tray - 12:00:00 AM EDT active Markell Ramos Inser tion Tray - eCW1 ([facility]) Markell Ramos Insertion Tray - Markell Ramos Insertion Tray - 12:00:00 AM EDT active Hidalgo Ramos Inser tion Tray - eCW1 ([facility]) Hidalgo Ramos Insertion Tray - Hidalgo Ramos Insertion Tray - 12:00:00 AM EDT active Markell Ramos Inser tion Tray - eCW1 ([facility]) Hidalgo Ramos Insertion Tray - H[place]go Ramos Insertion Tray - 12:00:00 AM EDT active Hidalgo Ramos Inser tion Tray - eCW1 ([facility]) Hidalgo Ramos Insertion Tray - H[place]go Ramos Insertion Tray - 12:00:00 AM EDT active Hidalgo Ramos Inser tion Tray - eCW1 ([facility]) Hidalgo Ramos Insertion Tray - Markell Ramos Insertion Tray - 12:00:00 AM EDT active Markell Ramos Inser tion Tray - eCW1 ([facility]) Hidalgo Ramos Insertion Tray - [place] Ramos Insertion Tray - 12:00:00 AM EDT active eCW1 ([facility]) Markell Ramos Insertion Tray - H[place]go Ramos Insertion Tray - 12:00:00 AM EDT active Markell Ramos Inser tion Tray - eCW1 ([facility]) Hidalgo Ramos Insertion Tray - Markell Ramos Insertion Tray - 12:00:00 AM EDT active Markell Ramos Inser tion Tray - eCW1 ([facility]) Bard Coude Tip Catheter - Bard Coude Tip Catheter - 12/04/2020 1 2:00:00 AM EST active Bard Coude Tip C atheter - eCW1 ([facility]) Bard Coude Tip Catheter - Bard Coude Tip Catheter - 12/04/2020 1 2:00:00 AM EST active Bard Coude Tip C atheter - eCW1 ([facility]) Bard Coude Tip Catheter - Bard Coude Tip Catheter - 12/04/2020 1 2:00:00 AM EST active Bard Coude Tip C atheter - eCW1 ([facility]) Bard Fmmmcw-C-Hrp/Flip-Burt Vlv - Bard Jjssmb-E-Gyq/Flip-Burt Vlv - 12/04/2020 12:00:00 AM EST active Bard Dis maurisio-A-Bag/Flip-Burt Vlv - eCW1 ([facility]) Bard Coude Tip Catheter - Bard Coude Tip Catheter - 12/04/2020 1 2:00:00 AM EST active Bard Coude Tip C atheter - eCW1 ([facility]) Bard Coude Tip Catheter - Bard Coude Tip Catheter - 12/04/2020 1 2:00:00 AM EST suspended Bard Coude Tip Catheter - eCW1 ([facility]) Bard Hpbicd-Y-Rtk/Flip-Burt Vlv - Bard Txzilv-F-Rhe/Flip-Burt Vlv - 12/04/2020 12:00:00 AM EST active Bard Dis maurisio-A-Bag/Flip-Burt Vlv - eCW1 ([facility]) Bard Kplaff-O-Wxw/Flip-Burt Vlv - Bard Wuebho-K-Smp/Flip-Burt Vlv - 12/04/2020 12:00:00 AM EST active Bard Dis maurisio-A-Bag/Flip-Burt Vlv - eCW1 ([facility]) Bard Coude Tip Catheter - Bard Coude Tip Catheter - 12/04/2020 1 2:00:00 AM EST active Bard Coude Tip C atheter - eCW1 ([facility]) Bard Wqqgze-Y-Yfp/Flip-Burt Vlv - Bard Zkbarz-Z-Qhy/Flip-Burt Vlv - 12/04/2020 12:00:00 AM EST suspended Bard Hxumez-P-Znb/Flip-Burt Vlv - eCW1 ([facility]) Bard Coude Tip Catheter - Bard Coude Tip Catheter - 12/04/2020 1 2:00:00 AM EST active Bard Coude Tip C atheter - eCW1 ([facility]) Bard Dkxdxh-E-Dek/Flip-Burt Vlv - Bard Qcrvwb-O-Fbq/Flip-Burt Vlv - 12/04/2020 12:00:00 AM EST active Bard Dis maurisio-A-Bag/Flip-Burt Vlv - eCW1 ([facility]) Bard Coude Tip Catheter - Bard Coude Tip Catheter - 12/04/2020 1 2:00:00 AM EST active Bard Coude Tip C atheter - eCW1 ([facility]) Bard Coude Tip Catheter - Bard Coude Tip Catheter - 12/04/2020 1 2:00:00 AM EST active Bard Coude Tip C atheter - eCW1 ([facility]) Bard Coude Tip Catheter - Bard Coude Tip Catheter - 12/04/2020 1 2:00:00 AM EST suspended Bard Coude Tip Catheter - eCW1 ([facility]) Bard Coude Tip Catheter - Bard Coude Tip Catheter - 12/04/2020 1 2:00:00 AM EST active Bard Coude Tip C atheter - eCW1 ([facility]) Bard Qctjdn-N-Vcj/Flip-Burt Vlv - Bard Xkqqhm-V-Euo/Flip-Burt Vlv - 12/04/2020 12:00:00 AM EST active Bard Dis maurisio-A-Bag/Flip-Burt Vlv - eCW1 ([facility]) Bard Coude Tip Catheter - Bard Coude Tip Catheter - 12/04/2020 1 2:00:00 AM EST active Bard Coude Tip C atheter - eCW1 ([facility]) Bard Coude Tip Catheter - Bard Coude Tip Catheter - 12/04/2020 1 2:00:00 AM EST active Bard Coude Tip C atheter - eCW1 ([facility]) Bard Klbtvy-R-Enf/Flip-Burt Vlv - Bard Vjlloi-R-Kex/Flip-Burt Vlv - 12/04/2020 12:00:00 AM EST active Bard Dis maurisio-A-Bag/Flip-Burt Vlv - eCW1 ([facility]) Bard Ntxphw-X-Obm/Flip-Burt Vlv - Bard Hovtpi-A-Oiw/Flip-Burt Vlv - 12/04/2020 12:00:00 AM EST active e CW1 ([facility]) Bard Kwyrco-Z-Dhy/Flip-Burt Vlv - Bard Efanno-Y-Eeo/Flip-Burt Vlv - 12/04/2020 12:00:00 AM EST active Bard Dis maurisio-A-Bag/Flip-Burt Vlv - eCW1 ([facility]) Bard Pdhism-J-Tju/Flip-Burt Vlv - Bard Tfxogu-J-Itc/Flip-Burt Vlv - 12/04/2020 12:00:00 AM EST suspended Bard Rfklav-G-Xvg/Flip-Burt Vlv - eCW1 ([facility]) Bard Yicmgi-B-Qtq/Flip-Burt Vlv - Bard Fauiuc-S-Ujn/Flip-Burt Vlv - 12/04/2020 12:00:00 AM EST active Bard Dis maurisio-A-Bag/Flip-Burt Vlv - eCW1 ([facility]) Bard Coude Tip Catheter - Bard Coude Tip Catheter - 12/04/2020 1 2:00:00 AM EST active Bard Coude Tip C atheter - eCW1 ([facility]) Bard Coude Tip Catheter - Bard Coude Tip Catheter - 12/04/2020 1 2:00:00 AM EST active Bard Coude Tip C atheter - eCW1 ([facility]) Bard Coude Tip Catheter - Bard Coude Tip Catheter - 12/04/2020 1 2:00:00 AM EST active Bard Coude Tip C atheter - eCW1 ([facility]) Bard Ywquql-G-Omp/Flip-Burt Vlv - Bard Kqipbt-F-Thu/Flip-Burt Vlv - 12/04/2020 12:00:00 AM EST active Bard Dis maurisio-A-Bag/Flip-Burt Vlv - eCW1 ([facility]) Bard Zdwvqr-M-Fle/Flip-Burt Vlv - Bard Wdpmtz-L-Eck/Flip-Burt Vlv - 12/04/2020 12:00:00 AM EST suspended Bard Hcixfd-H-Iuf/Flip-Burt Vlv - eCW1 ([facility]) Bard Coude Tip Catheter - Bard Coude Tip Catheter - 12/04/2020 1 2:00:00 AM EST active Bard Coude Tip C atheter - eCW1 ([facility]) Bard Lqqmfc-O-Zve/Flip-Burt Vlv - Bard Fdjgib-B-Evb/Flip-Burt Vlv - 12/04/2020 12:00:00 AM EST active Bard Dis maurisio-A-Bag/Flip-Burt Vlv - eCW1 ([facility]) Bard Efjsuy-F-Icg/Flip-Burt Vlv - Bard Ivbkhj-O-Pcb/Flip-Burt Vlv - 12/04/2020 12:00:00 AM EST active Bard Dis maurisio-A-Bag/Flip-Burt Vlv - eCW1 ([facility]) Bard Zrtqqd-L-Faf/Flip-Burt Vlv - Bard Krphjd-J-Ckd/Flip-Burt Vlv - 12/04/2020 12:00:00 AM EST active Bard Dis maurisio-A-Bag/Flip-Burt Vlv - eCW1 ([facility]) Bard Coude Tip Catheter - Bard Coude Tip Catheter - 12/04/2020 1 2:00:00 AM EST active Bard Coude Tip C atheter - eCW1 ([facility]) Bard Htvctv-J-Ixu/Flip-Burt Vlv - Bard Idxnro-G-Njg/Flip-Burt Vlv - 12/04/2020 12:00:00 AM EST active Bard Dis maurisio-A-Bag/Flip-Burt Vlv - eCW1 ([facility]) Bard Lujsho-J-Emy/Flip-Burt Vlv - Bard Cwhcni-F-Nyi/Flip-Burt Vlv - 12/04/2020 12:00:00 AM EST suspended Bard Qusocj-H-Qmk/Flip-Burt Vlv - eCW1 ([facility]) Bard Coude Tip Catheter - Bard Coude Tip Catheter - 12/04/2020 1 2:00:00 AM EST suspended Bard Coude Tip Catheter - eCW1 ([facility]) Bard Aynrqe-D-Agg/Flip-Burt Vlv - Bard Eajyzo-R-Dgw/Flip-Burt Vlv - 12/04/2020 12:00:00 AM EST active Bard Dis maurisio-A-Bag/Flip-Burt Vlv - eCW1 ([facility]) Bard Coude Tip Catheter - Bard Coude Tip Catheter - 12/04/2020 1 2:00:00 AM EST active Bard Coude Tip C atheter - eCW1 ([facility]) Bard Akezdv-L-Qfc/Flip-Burt Vlv - Bard Wqrqmc-Y-Lwi/Flip-Burt Vlv - 12/04/2020 12:00:00 AM EST active Bard Dis maurisio-A-Bag/Flip-Burt Vlv - eCW1 ([facility]) Bard Coiicd-Y-Bru/Flip-Burt Vlv - Bard Dcrpkr-U-Oje/Flip-Burt Vlv - 12/04/2020 12:00:00 AM EST active Bard Dis maurisio-A-Bag/Flip-Burt Vlv - eCW1 ([facility]) Bard Iavxfl-Q-Dvo/Flip-Burt Vlv - Bard Ybyrzp-R-Yci/Flip-Burt Vlv - 12/04/2020 12:00:00 AM EST active Bard Dis maurisio-A-Bag/Flip-Burt Vlv - eCW1 ([facility]) Bard Coude Tip Catheter - Bard Coude Tip Catheter - 12/04/2020 1 2:00:00 AM EST active Bard Coude Tip C atheter - eCW1 ([facility]) Bard Coude Tip Catheter - Bard Coude Tip Catheter - 12/04/2020 1 2:00:00 AM EST active Bard Coude Tip C atheter - eCW1 ([facility]) Bard Lvudqn-H-Atg/Flip-Burt Vlv - Bard Hezhxj-F-Mvv/Flip-Burt Vlv - 12/04/2020 12:00:00 AM EST active Bard Dis maurisio-A-Bag/Flip-Burt Vlv - eCW1 ([facility]) Bard Coude Tip Catheter - Bard Coude Tip Catheter - 12/04/2020 1 2:00:00 AM EST active Bard Coude Tip C atheter - eCW1 ([facility]) Bard Rukbhi-R-Lly/Flip-Burt Vlv - Bard Cygxma-M-Vqz/Flip-Burt Vlv - 12/04/2020 12:00:00 AM EST active Bard Dis maurisio-A-Bag/Flip-Burt Vlv - eCW1 ([facility]) Bard Serrau-A-Exk/Flip-Burt Vlv - Bard Xftnkw-F-Ftc/Flip-Burt Vlv - 12/04/2020 12:00:00 AM EST active Bard Dis maurisio-A-Bag/Flip-Burt Vlv - eCW1 ([facility]) Bard Coude Tip Catheter - Bard Coude Tip Catheter - 12/04/2020 1 2:00:00 AM EST active Bard Coude Tip C atheter - eCW1 ([facility]) Bard Wlzxfi-M-Ylj/Flip-Burt Vlv - Bard Gkfvue-N-Tsf/Flip-Burt Vlv - 12/04/2020 12:00:00 AM EST active Bard Dis maurisio-A-Bag/Flip-Burt Vlv - eCW1 ([facility]) Bard Coude Tip Catheter - Bard Coude Tip Catheter - 12/04/2020 1 2:00:00 AM EST active eCW1 ([facility]) Bard Coude Tip Catheter - Bard Coude Tip Catheter - 12/04/2020 1 2:00:00 AM EST suspended Bard Coude Tip Catheter - eCW1 ([facility]) Bard Wnquii-G-Dnh/Flip-Burt Vlv - Bard Deqbkj-A-Hsm/Flip-Burt Vlv - 12/04/2020 12:00:00 AM EST active Bard Dis maurisio-A-Bag/Flip-Burt Vlv - eCW1 ([facility]) Bard Xvuzcc-E-Tca/Flip-Burt Vlv - Bard Wpdzze-L-Noq/Flip-Burt Vlv - 12/04/2020 12:00:00 AM EST active Bard Dis maurisio-A-Bag/Flip-Burt Vlv - eCW1 ([facility]) Bard Snxjpe-J-Llo/Flip-Burt Vlv - Bard Gosldl-X-Xpd/Flip-Burt Vlv - 12/04/2020 12:00:00 AM EST active Bard Dis maurisio-A-Bag/Flip-Burt Vlv - eCW1 ([facility]) Bard Odyhkp-M-Zoq/Flip-Burt Vlv - Bard Cbfrwb-Z-Wko/Flip-Burt Vlv - 12/04/2020 12:00:00 AM EST active Bard Dis maurisio-A-Bag/Flip-Burt Vlv - eCW1 ([facility]) Bard Coude Tip Catheter - Bard Coude Tip Catheter - 12/04/2020 1 2:00:00 AM EST active Bard Coude Tip C atheter - eCW1 ([facility]) Bard Coude Tip Catheter - Bard Coude Tip Catheter - 12/04/2020 1 2:00:00 AM EST active Bard Coude Tip C atheter - eCW1 ([facility]) Bard Coude Tip Catheter - Bard Coude Tip Catheter - 12/04/2020 1 2:00:00 AM EST suspended Bard Coude Tip Catheter - eCW1 ([facility]) Bard Coude Tip Catheter - Bard Coude Tip Catheter - 12/04/2020 1 2:00:00 AM EST active Bard Coude Tip C atheter - eCW1 ([facility]) Bard Mwftbk-Q-Gbq/Flip-Burt Vlv - Bard Vxdnup-X-Bci/Flip-Burt Vlv - 12/04/2020 12:00:00 AM EST suspended Bard Gcqlat-D-Uvl/Flip-Burt Vlv - eCW1 ([facility]) Bard Coude Tip Catheter - Bard Coude Tip Catheter - 12/04/2020 1 2:00:00 AM EST active Bard Coude Tip C atheter - eCW1 ([facility]) Bard Loohfi-A-Wly/Flip-Burt Vlv - Bard Jzepbm-W-Wsn/Flip-Burt Vlv - 12/04/2020 12:00:00 AM EST active Bard Dis maurisio-A-Bag/Flip-Burt Vlv - eCW1 ([facility]) Bard Xbhvww-Q-Jxp/Flip-Burt Vlv - Bard Hkhufv-X-Muq/Flip-Burt Vlv - 12/04/2020 12:00:00 AM EST active Bard Dis maurisio-A-Bag/Flip-Burt Vlv - eCW1 ([facility]) Bard Iuxtsr-A-Auu/Flip-Burt Vlv - Bard Jxllbe-F-Kno/Flip-Burt Vlv - 12/04/2020 12:00:00 AM EST active Bard Dis maurisio-A-Bag/Flip-Burt Vlv - eCW1 ([facility]) Bard Dgbrep-O-Ldl/Flip-Burt Vlv - Bard Wjubam-Q-Kvh/Flip-Burt Vlv - 12/04/2020 12:00:00 AM EST active Bard Dis maurisio-A-Bag/Flip-Burt Vlv - eCW1 ([facility]) Bard Coude Tip Catheter - Bard Coude Tip Catheter - 12/04/2020 1 2:00:00 AM EST active Bard Coude Tip C atheter - eCW1 ([facility]) Bard Coude Tip Catheter - Bard Coude Tip Catheter - 12/04/2020 1 2:00:00 AM EST active Bard Coude Tip C atheter - eCW1 ([facility]) Bard Coude Tip Catheter - Bard Coude Tip Catheter - 12/04/2020 1 2:00:00 AM EST active Bard Coude Tip C atheter - eCW1 ([facility]) Bard Coude Tip Catheter - Bard Coude Tip Catheter - 12/04/2020 1 2:00:00 AM EST active Bard Coude Tip C atheter - eCW1 ([facility]) Finasteride 5 MG Oral Tablet Finasteride 5 MG 10/17/2020 12:00:00 A M EST 1.0 {tablet} active Finasteride 5 MG eCW1 ( [facility]) Finasteride 5 MG Oral Tablet Finasteride 5 MG 10/17/2020 12:00:00 A M EST 1.0 {tablet} active Finasteride 5 MG eCW1 ( [facility]) Finasteride 5 MG Oral Tablet Finasteride 5 MG 10/17/2020 12:00:00 A M EST 1.0 {tablet} active Finasteride 5 MG eCW1 ( [facility]) Sulfamethoxazole 800 MG / Trimethoprim 1 60 MG Oral Tablet [Bactrim] Bactrim DS 800-160 MG Bactrim DS 800-160 MG 09/17/2020 12:00:00 AM EST active Bactrim DS 800-160 MG eCW1 ([facility]) Sulfamethoxazole 800 MG / Trimethoprim 1 60 MG Oral Tablet [Bactrim] Bactrim DS 800-160 MG Bactrim DS 800-160 MG 09/17/2020 12:00:00 AM EST active Bactrim DS 800-160 MG eCW1 ([facility]) Sulfamethoxazole 800 MG / Trimethoprim 1 60 MG Oral Tablet [Bactrim] Bactrim DS 800-160 MG Bactrim DS 800-160 MG 09/17/2020 12:00:00 AM EST active Bactrim DS 800-160 MG eCW1 ([facility]) Sulfamethoxazole 800 MG / Trimethoprim 1 60 MG Oral Tablet [Bactrim] Bactrim DS 800-160 MG Bactrim DS 800-160 MG 09/17/2020 12:00:00 AM EST active Bactrim DS 800-160 MG eCW1 ([facility]) Sulfamethoxazole 800 MG / Trimethoprim 1 60 MG Oral Tablet [Bactrim] Bactrim DS 800-160 MG Bactrim DS 800-160 MG 09/17/2020 12:00:00 AM EST active Bactrim DS 800-160 MG eCW1 ([facility]) Sulfamethoxazole 800 MG / Trimethoprim 1 60 MG Oral Tablet [Bactrim] Bactrim DS 800-160 MG Bactrim DS 800-160 MG 09/17/2020 12:00:00 AM EST active Bactrim DS 800-160 MG eCW1 ([facility]) Sulfamethoxazole 800 MG / Trimethoprim 1 60 MG Oral Tablet [Bactrim] Bactrim DS 800-160 MG Bactrim DS 800-160 MG 09/17/2020 12:00:00 AM EST active Bactrim DS 800-160 MG eCW1 ([facility]) Sulfamethoxazole 800 MG / Trimethoprim 1 60 MG Oral Tablet [Bactrim] Bactrim DS 800-160 MG Bactrim DS 800-160 MG 09/17/2020 12:00:00 AM EST active Bactrim DS 800-160 MG eCW1 ([facility]) Sulfamethoxazole 800 MG / Trimethoprim 1 60 MG Oral Tablet [Bactrim] Bactrim DS 800-160 MG Bactrim DS 800-160 MG 09/17/2020 12:00:00 AM EST active Bactrim DS 800-160 MG eCW1 ([facility]) Sulfamethoxazole 800 MG / Trimethoprim 1 60 MG Oral Tablet [Bactrim] Bactrim DS 800-160 MG Bactrim DS 800-160 MG 09/17/2020 12:00:00 AM EST active Bactrim DS 800-160 MG eCW1 ([facility]) Sulfamethoxazole 800 MG / Trimethoprim 1 60 MG Oral Tablet [Bactrim] Bactrim DS 800-160 MG Bactrim DS 800-160 MG 09/17/2020 12:00:00 AM EST active Bactrim DS 800-160 MG eCW1 ([facility]) Sulfamethoxazole 800 MG / Trimethoprim 1 60 MG Oral Tablet [Bactrim] Bactrim DS 800-160 MG Bactrim DS 800-160 MG 09/17/2020 12:00:00 AM EST active Bactrim DS 800-160 MG eCW1 ([facility]) Depend Pant Large - Depend Pant Large - 08/28/2020 12:00:00 AM EST active Depend Pant Large - eCW1 ([facility]) Depend Pant Large - Depend Pant Large - 08/28/2020 12:00:00 AM EST active Depend Pant Large - eCW1 ([facility]) Depend Pant Large - Depend Pant Large - 08/28/2020 12:00:00 AM EST active Depend Pant Large - eCW1 ([facility]) Depend Pant Large - Depend Pant Large - 08/28/2020 12:00:00 AM EST active Depend Pant Large - eCW1 ([facility]) Depend Pant Large - Depend Pant Large - 08/28/2020 12:00:00 AM EST active Depend Pant Large - eCW1 ([facility]) Depend Pant Large - Depend Pant Large - 08/28/2020 12:00:00 AM EST active Depend Pant Large - eCW1 ([facility]) Depend Pant Large - Depend Pant Large - 08/28/2020 12:00:00 AM EST active Depend Pant Large - eCW1 ([facility]) Depend Pant Large - Depend Pant Large - 08/28/2020 12:00:00 AM EST active Depend Pant Large - eCW1 ([facility]) Depend Pant Large - Depend Pant Large - 08/28/2020 12:00:00 AM EST active Depend Pant Large - eCW1 ([facility]) Depend Pant Large - Depend Pant Large - 08/28/2020 12:00:00 AM EST active eCW1 ([facility]) Depend Pant Large - Depend Pant Large - 08/28/2020 12:00:00 AM EST active Depend Pant Large - eCW1 ([facility]) Depend Pant Large - Depend Pant Large - 08/28/2020 12:00:00 AM EST active Depend Pant Large - eCW1 ([facility]) Depend Pant Large - Depend Pant Large - 08/28/2020 12:00:00 AM EST active Depend Pant Large - eCW1 ([facility]) Depend Pant Large - Depend Pant Large - 08/28/2020 12:00:00 AM EST active Depend Pant Large - eCW1 ([facility]) Depend Pant Large - Depend Pant Large - 08/28/2020 12:00:00 AM EST active Depend Pant Large - eCW1 ([facility]) Depend Pant Large - Depend Pant Large - 08/28/2020 12:00:00 AM EST active Depend Pant Large - eCW1 ([facility]) Depend Pant Large - Depend Pant Large - 08/28/2020 12:00:00 AM EST active Depend Pant Large - eCW1 ([facility]) Depend Pant Large - Depend Pant Large - 08/28/2020 12:00:00 AM EST active Depend Pant Large - eCW1 ([facility]) Depend Pant Large - Depend Pant Large - 08/28/2020 12:00:00 AM EST active Depend Pant Large - eCW1 ([facility]) Depend Pant Large - Depend Pant Large - 08/28/2020 12:00:00 AM EST active Depend Pant Large - eCW1 ([facility]) Depend Pant Large - Depend Pant Large - 08/28/2020 12:00:00 AM EST active Depend Pant Large - eCW1 ([facility]) Depend Pant Large - Depend Pant Large - 08/28/2020 12:00:00 AM EST active Depend Pant Large - eCW1 ([facility]) Depend Pant Large - Depend Pant Large - 08/28/2020 12:00:00 AM EST active Depend Pant Large - eCW1 ([facility]) Depend Pant Large - Depend Pant Large - 08/28/2020 12:00:00 AM EST active Depend Pant Large - eCW1 ([facility]) Depend Pant Large - Depend Pant Large - 08/28/2020 12:00:00 AM EST active Depend Pant Large - eCW1 ([facility]) Depend Pant Large - Depend Pant Large - 08/28/2020 12:00:00 AM EST active Depend Pant Large - eCW1 ([facility]) Depend Pant Large - Depend Pant Large - 08/28/2020 12:00:00 AM EST active Depend Pant Large - eCW1 ([facility]) Depend Pant Large - Depend Pant Large - 08/28/2020 12:00:00 AM EST active Depend Pant Large - eCW1 ([facility]) Depend Pant Large - Depend Pant Large - 08/28/2020 12:00:00 AM EST active Depend Pant Large - eCW1 ([facility]) Depend Pant Large - Depend Pant Large - 08/28/2020 12:00:00 AM EST active Depend Pant Large - eCW1 ([facility]) Depend Pant Large - Depend Pant Large - 08/28/2020 12:00:00 AM EST active Depend Pant Large - eCW1 ([facility]) Depend Pant Large - Depend Pant Large - 08/28/2020 12:00:00 AM EST active Depend Pant Large - eCW1 ([facility]) Depend Pant Large - Depend Pant Large - 08/28/2020 12:00:00 AM EST active Depend Pant Large - eCW1 ([facility]) Depend Pant Large - Depend Pant Large - 08/28/2020 12:00:00 AM EST active Depend Pant Large - eCW1 ([facility]) Depend Pant Large - Depend Pant Large - 08/28/2020 12:00:00 AM EST active Depend Pant Large - eCW1 ([facility]) Depend Pant Large - Depend Pant Large - 08/28/2020 12:00:00 AM EST active Depend Pant Large - eCW1 ([facility]) Depend Pant Large - Depend Pant Large - 08/28/2020 12:00:00 AM EST active Depend Pant Large - eCW1 ([facility]) Depend Pant Large - Depend Pant Large - 08/28/2020 12:00:00 AM EST active Depend Pant Large - eCW1 ([facility]) Depend Pant Large - Depend Pant Large - 08/28/2020 12:00:00 AM EST active Depend Pant Large - eCW1 ([facility]) Depend Pant Large - Depend Pant Large - 08/28/2020 12:00:00 AM EST active Depend Pant Large - eCW1 ([facility]) Depend Pant Large - Depend Pant Large - 08/28/2020 12:00:00 AM EST active Depend Pant Large - eCW1 ([facility]) Depend Pant Large - Depend Pant Large - 08/28/2020 12:00:00 AM EST active Depend Pant Large - eCW1 ([facility]) Depend Pant Large - Depend Pant Large - 08/28/2020 12:00:00 AM EST active Depend Pant Large - eCW1 ([facility]) Depend Pant Large - Depend Pant Large - 08/28/2020 12:00:00 AM EST active Depend Pant Large - eCW1 ([facility]) Depend Pant Large - Depend Pant Large - 08/28/2020 12:00:00 AM EST active Depend Pant Large - eCW1 ([facility]) Hydrocortisone 10 MG/ML Topical Cream Hydrocortisone 1 % Hyd rocortisone 1 % 08/16/2020 12:00:00 AM EST 1.0 {application} act yvon Hydrocortisone 1 % eCW1 ([facility]) Hydrocortisone 10 MG/ML Topical Cream Hydrocortisone 1 % Hyd rocortisone 1 % 08/16/2020 12:00:00 AM EST 1.0 {application} act yvon Hydrocortisone 1 % eCW1 ([facility]) Hydrocortisone 10 MG/ML Topical Cream Hydrocortisone 1 % Hyd rocortisone 1 % 08/16/2020 12:00:00 AM EST 1.0 {application} act yvon Hydrocortisone 1 % eCW1 ([facility]) Hydrocortisone 10 MG/ML Topical Cream Hydrocortisone 1 % Hyd rocortisone 1 % 08/16/2020 12:00:00 AM EST 1.0 {application} act yvon Hydrocortisone 1 % eCW1 ([facility]) Hydrocortisone 10 MG/ML Topical Cream Hydrocortisone 1 % Hyd rocortisone 1 % 08/16/2020 12:00:00 AM EST 1.0 {application} act yvon Hydrocortisone 1 % eCW1 ([facility]) Hydrocortisone 10 MG/ML Topical Cream Hydrocortisone 1 % Hyd rocortisone 1 % 08/16/2020 12:00:00 AM EST 1.0 {application} act yvon Hydrocortisone 1 % eCW1 ([facility]) Hydrocortisone 10 MG/ML Topical Cream Hydrocortisone 1 % Hyd rocortisone 1 % 08/16/2020 12:00:00 AM EST 1.0 {application} act yvon Hydrocortisone 1 % eCW1 ([facility]) Hydrocortisone 10 MG/ML Topical Cream Hydrocortisone 1 % Hyd rocortisone 1 % 08/16/2020 12:00:00 AM EST 1.0 {application} act yvon Hydrocortisone 1 % eCW1 ([facility]) Hydrocortisone 10 MG/ML Topical Cream Hydrocortisone 1 % Hyd rocortisone 1 % 08/16/2020 12:00:00 AM EST 1.0 {application} act yvon Hydrocortisone 1 % eCW1 ([facility]) Hydrocortisone 10 MG/ML Topical Cream Hydrocortisone 1 % Hyd rocortisone 1 % 08/16/2020 12:00:00 AM EST 1.0 {application} act yvon Hydrocortisone 1 % eCW1 ([facility]) Hydrocortisone 10 MG/ML Topical Cream Hydrocortisone 1 % Hyd rocortisone 1 % 08/16/2020 12:00:00 AM EST 1.0 {application} act yvon Hydrocortisone 1 % eCW1 ([facility]) Hydrocortisone 10 MG/ML Topical Cream Hydrocortisone 1 % Hyd rocortisone 1 % 08/16/2020 12:00:00 AM EST 1.0 {application} act yvon Hydrocortisone 1 % eCW1 ([facility]) Hydrocortisone 10 MG/ML Topical Cream Hydrocortisone 1 % Hyd rocortisone 1 % 08/16/2020 12:00:00 AM EST 1.0 {application} act yvon Hydrocortisone 1 % eCW1 ([facility]) Hydrocortisone 10 MG/ML Topical Cream Hydrocortisone 1 % Hyd rocortisone 1 % 08/16/2020 12:00:00 AM EST 1.0 {application} act yvon Hydrocortisone 1 % eCW1 ([facility]) Hydrocortisone 10 MG/ML Topical Cream Hydrocortisone 1 % Hyd rocortisone 1 % 08/16/2020 12:00:00 AM EST 1.0 {application} act yvon Hydrocortisone 1 % eCW1 ([facility]) Hydrocortisone 10 MG/ML Topical Cream Hydrocortisone 1 % Hyd rocortisone 1 % 08/16/2020 12:00:00 AM EST 1.0 {application} act yvon Hydrocortisone 1 % eCW1 ([facility]) Hydrocortisone 10 MG/ML Topical Cream Hydrocortisone 1 % Hyd rocortisone 1 % 08/16/2020 12:00:00 AM EST 1.0 {application} act yvon Hydrocortisone 1 % eCW1 ([facility]) Sulfamethoxazole 800 MG / Trimethoprim 160 MG Oral Tab let Sulfamethoxazole/Trimethoprim DS 06/29/2020 12:00:00 AM EDT ORAL active MEDENT ([facility]) Doxycycline Monohydrate 100 MG Oral Capsule Doxycycline [place] hydrate 06/14/2020 12:00:00 AM EDT ORAL completed MEDENT ([facility], [facility]) Insurance Providers Payer name Policy type / Coverage type Policy ID Covered republican ID Covered republican's relationship to quintanilla Policy Quintanilla Plan Information [place]IC[place] - [place] [id number] S [id number] [place] [employer] [id number] S [id number] [place] [id number] SP [id number] MEDICAID [id number] S [id number] MEDICARE C [id number] S [id number] Medicare P UNAVAILABLE S [place] BLE Medicaid S UNAVAIL[place] S [place] B[place] MEDICA[place] [id number] SP [id number] [place] MED[employer] [employer]ISION [id number] S [id number] [place]IC[place] [id number] S [id number] ANSI-Medicaid [id number] ANS-Medicare Part B [id number] [facility]-Medicaid [id number] ANSI-Medicare Part B [id number] [facility]-Medicaid [id number] [facility]-Medicare Part B [id number] [facility]-Medicaid [id number] ANSI-Medicare Part B [id number] ANSI-Medicare Part B [id number] [facility]-Medicaid [id number] MEDICARE [id number] SP [id number] [facility] MEDICAID [id number] SP [id number] C [id number] MEDICARE [id number] SP [id number] V22 Problems, Conditions, and Diagnoses Code Display Name Description Problem Type Effective Dates Data Source(s) N37 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 Urethral str icture due to infection Problem 07/15/2021 12:00:00 AM EDT eCW1 ([facility]) N18.32 041640786 Stage 3b chronic kidney disease Problem 06/25/2021 12:00:00 AM EDT eCW1 ([facility]) Z87.898 Elevated PSA History of elevated PSA Problem 06/10/2021 12:00:00 AM EDT eCW1 ([facility]) R26.2 [id number] Difficulty walking Problem 05/09/2021 12:00: 00 AM EDT eCW1 ([facility]) N13.9 [id number] Obstructive uropathy Problem 04/05/2021 12:0 0:00 AM EDT eCW1 ([facility]) 11785336 Essential hypertension Essential hypertension Problem 03/21/2021 12:00:00 AM EDT MEDENT ([facility]) 267895654 Screening for malignant neoplasm of colo n Screening for malignant neoplasm of colon Problem 03/21/2021 12:00:00 AM EDT MEDENT ([facility]) N40.1 [id number] BPH loc w urin obs/LUTS Problem 09/04/2020 1 2:00:00 AM EST eCW1 ([facility]) R39.81 205630095 Functional urinary incontinence Problem 08/28/2020 12:00:00 AM EST eCW1 ([facility]) T14.8XXA 784618815 Hematoma of skin Problem 07/17/2020 12:00:00 AM EDT eCW1 ([facility]) Surgeries/Procedures Procedure Description Date Indications Data Source(s) uro PVR (Post Voiding Residual) Bladder Scan 12:00:00 AM EDT eCW1 ([facility]) Voiding Trial 06/24/2021 12:00:00 AM EDT eCW1 ([facility]) Med: Lidocaine Jelly 2% 6ml Intravesically (Glydo) 06/10/2021 12:00:00 AM EDT eCW1 ([facility]) uro PVR (Post Voiding Residual) Bladder Scan 12:00:00 AM EDT eCW1 ([facility]) HEPATITIS B VACCINE ADULT DOSAGE INTRAMUSCULAR 021 12:00:00 AM EDT eCW1 ([facility]) Medication: Lidocaine HCl 2% Jelly 5mL Intravesically 12/04/2020 12:00:00 AM EST eCW1 ([facility]) uro PVR (Post Voiding Residual) Bladder Scan 1 12:00:00 AM EST eCW1 ([facility]) uro PVR (Post Voiding Residual) Bladder Scan 0 12:00:00 AM EST eCW1 ([facility]) Results ID Date Data Source [id number] 06/10/2021 05:29:00 PM EDT [facility] Name Value Range Interpretation Code Description Data Daria rce(s) Supporting Document(s) SARS coronavirus 2 RNA [Presence] in Res piratory specimen by QUIN with probe detection NEGATIVE [facility] This lab was ordered by [facility] a nd reported by [facility]. ID Date Data Source [id number] 03/25/2021 01:42:00 PM EDT [facility] Name Value Range Interpretation Code Description Data Daria rce(s) Supporting Document(s) SARS coronavirus 2 RNA [Presence] in Res piratory specimen by QUIN with probe detection NEGATIVE [facility] This lab was ordered by [facility] a nd reported by [facility]. ID Date Data Source Urinalysis, no micro 08/28/2020 12:00:00 AM EST eCW1 ([facility]) Name Value Range Interpretation Code Description Data Daria rce(s) Supporting Document(s) 1.010 1.002 - 1.035 Spec gravity eCW1 ([facility]) 5 5.0 - 9.0 pH eCW1 ([facility]) neg Negative - Nitrate eCW1 ([facility]) neg Negative - mg/dl Protein eCW1 ([facility]) neg Negative - mg/dl Glucose eCW1 ([facility]) neg Negative - mg/dl Ketones eCW1 ([facility]) neg Negative - Leukocyte eCW1 ([facility]) yes Internal QC Acceptable (Y/N) e CW1 ([facility]) trace Negative - Blood eCW1 ([facility]) norm Normal - mg/dl Urobili eCW1 ([facility]) neg Negative - Bilirubin eCW1 ([facility]) Procedure Social History Code Duration Value Status Description Data Source(s ) Smoking 07/15/2021 12:00:00 AM EDT Never Smoker completed Never S moker eCW1 ([facility]) Smoking 06/25/2021 12:00:00 AM EDT Never Smoker completed Never S moker eCW1 ([facility]) Smoking 06/25/2021 12:00:00 AM EDT Never Smoker completed Never S moker eCW1 ([facility]) Smoking 06/25/2021 12:00:00 AM EDT Never Smoker completed Never S moker eCW1 ([facility]) Smoking 06/25/2021 12:00:00 AM EDT Never Smoker completed Never S moker eCW1 ([facility]) Smoking 06/24/2021 12:00:00 AM EDT Never Smoker completed Never S moker eCW1 ([facility]) Smoking 06/24/2021 12:00:00 AM EDT Never Smoker completed Never S moker eCW1 ([facility]) Smoking 06/10/2021 12:00:00 AM EDT Never Smoker completed Never S moker eCW1 ([facility]) Smoking 06/10/2021 12:00:00 AM EDT Never Smoker completed Never S moker eCW1 ([facility]) Smoking 06/10/2021 12:00:00 AM EDT Never Smoker completed Never S moker eCW1 ([facility]) Smoking 06/10/2021 12:00:00 AM EDT Never Smoker completed Never S moker eCW1 ([facility]) Smoking 05/16/2021 12:00:00 AM EDT Never Smoker completed Never S moker eCW1 ([facility]) Smoking 05/16/2021 12:00:00 AM EDT Never Smoker completed Never S moker eCW1 ([facility]) Smoking 05/16/2021 12:00:00 AM EDT Never Smoker completed Never S moker eCW1 ([facility]) Smoking 05/16/2021 12:00:00 AM EDT Never Smoker completed Never S moker eCW1 ([facility]) Smoking 05/16/2021 12:00:00 AM EDT Never Smoker completed Never S moker eCW1 ([facility]) Smoking 04/05/2021 12:00:00 AM EDT Never Smoker completed Never S moker eCW1 ([facility]) Smoking 04/05/2021 12:00:00 AM EDT Never Smoker completed Never S moker eCW1 ([facility]) Smoking 04/05/2021 12:00:00 AM EDT Never Smoker completed Never S moker eCW1 ([facility]) Smoking 04/05/2021 12:00:00 AM EDT Never Smoker completed Never S moker eCW1 ([facility]) Smoking 04/01/2021 12:00:00 AM EDT Never Smoker completed Never S moker eCW1 ([facility]) Smoking 04/01/2021 12:00:00 AM EDT Never Smoker completed Never S moker eCW1 ([facility]) Smoking 02/07/2021 12:00:00 AM EDT Never Smoker completed Never S moker eCW1 ([facility]) Smoking 02/07/2021 12:00:00 AM EDT Never Smoker completed Never S moker eCW1 ([facility]) Smoking 02/07/2021 12:00:00 AM EDT Never Smoker completed Never S moker eCW1 ([facility]) Smoking 02/07/2021 12:00:00 AM EDT Never Smoker completed Never S moker eCW1 ([facility]) Smoking 02/07/2021 12:00:00 AM EDT Never Smoker completed Never S moker eCW1 ([facility]) Smoking 02/07/2021 12:00:00 AM EDT Never Smoker completed Never S moker eCW1 ([facility]) Smoking 02/07/2021 12:00:00 AM EDT Never Smoker completed Never S moker eCW1 ([facility]) Smoking 12/04/2020 12:00:00 AM EST Never Smoker completed Never S moker eCW1 ([facility]) Smoking 12/04/2020 12:00:00 AM EST Never Smoker completed Never S moker eCW1 ([facility]) Smoking 12/04/2020 12:00:00 AM EST Never Smoker completed Never S moker eCW1 ([facility]) Smoking 12/04/2020 12:00:00 AM EST Never Smoker completed Never S moker eCW1 ([facility]) Smoking 12/04/2020 12:00:00 AM EST Never Smoker completed Never S moker eCW1 ([facility]) Smoking 12/04/2020 12:00:00 AM EST Never Smoker completed Never S moker eCW1 ([facility]) Smoking 11/28/2020 12:00:00 AM EST Never Smoker completed Never S moker eCW1 ([facility]) Smoking 10/17/2020 12:00:00 AM EST Never Smoker completed Never S moker eCW1 ([facility]) Smoking 10/17/2020 12:00:00 AM EST Never Smoker completed Never S moker eCW1 ([facility]) Smoking 09/17/2020 12:00:00 AM EST Never Smoker completed Never S moker eCW1 ([facility]) Smoking 09/17/2020 12:00:00 AM EST Never Smoker completed Never S moker eCW1 ([facility]) Smoking 09/17/2020 12:00:00 AM EST Never Smoker completed Never S moker eCW1 ([facility]) Smoking 08/28/2020 12:00:00 AM EST Never Smoker completed Never S moker eCW1 ([facility]) Smoking 08/28/2020 12:00:00 AM EST Never Smoker completed Never S moker eCW1 ([facility]) Smoking 08/28/2020 12:00:00 AM EST Never Smoker completed Never S moker eCW1 ([facility]) Smoking 08/28/2020 12:00:00 AM EST Never Smoker completed Never S moker eCW1 ([facility]) Smoking 08/16/2020 12:00:00 AM EST Never Smoker completed Never S moker eCW1 ([facility]) Smoking 07/17/2020 12:00:00 AM EDT Never Smoker completed Never S moker eCW1 ([facility]) Smoking 07/17/2020 12:00:00 AM EDT Never Smoker completed Never S moker eCW1 ([facility]) Smoking 06/29/2020 12:00:00 AM EDT Patient has never smoked co mpleted Patient has never smoked MEDENT ([facility]) Vital Signs ID Date Data Source UNK Name Value Range Interpretation Code Description Data Source(s) Body weight 192 [lb_av] 192 [lb_av] eCW1 ([facility]) Body weight 87.09 kg 87.09 kg eCW1 ([facility]ly [facility]) Body height [in_i] eCW1 ([facility]) Body mass index (BMI) [Ratio] 26.78 kg/m2 26.78 kg/m2 eCW1 ([facility]) Heart rate 82 /min 82 /min eCW1 ([facility]ly [facility]) Respiratory rate 18 /min 18 /min eCW1 ([facility]) Body temperature 96.4 [degF] 96.4 [degF] eCW1 ( [facility]) Systolic blood pressure 120 mm[Hg] 120 mm[Hg] e CW1 ([facility]) Diastolic blood pressure 78 mm[Hg] 78 mm[Hg] eCW1 ([facility]) Body weight 192.12 [lb_av] 192.12 [lb_av] eCW1 ([facility]) Body height [in_i] eCW1 ([facility]) Body mass index (BMI) [Ratio] 26.79 kg/m2 26.79 kg/m2 eCW1 ([facility]) Heart rate 76 /min 76 /min eCW1 ([facility]) Respiratory rate 19 /min 19 /min eCW1 ([facility]) Body temperature 97.8 [degF] 97.8 [degF] eCW1 ( [facility]) Systolic blood pressure 105 mm[Hg] 105 mm[Hg] e CW1 ([facility]) Diastolic blood pressure 69 mm[Hg] 69 mm[Hg] eCW1 ([facility]) Body weight 195 [lb_av] 195 [lb_av] eCW1 ([facility]) Body weight 88.45 kg 88.45 kg eCW1 ([facility]) Body temperature 97.0 [degF] 97.0 [degF] eCW1 ( [facility]) Systolic blood pressure 128 mm[Hg] 128 mm[Hg] e CW1 ([facility]) Diastolic blood pressure 78 mm[Hg] 78 mm[Hg] eCW1 ([facility]) Body height [in_i] eCW1 ([facility]) Body mass index (BMI) [Ratio] 27.19 kg/m2 27.19 kg/m2 eCW1 ([facility]) Heart rate 100 /min 100 /min eCW1 ([facility]) Respiratory rate 19 /min 19 /min eCW1 ([facility]) Body weight 195 [lb_av] 195 [lb_av] eCW1 ([facility]) Body height [in_i] eCW1 ([facility]) Body mass index (BMI) [Ratio] 27.19 kg/m2 27.19 kg/m2 eCW1 ([facility]) Heart rate 87 /min 87 /min eCW1 ([facility]) Respiratory rate 18 /min 18 /min eCW1 ([facility]) Body temperature 97.0 [degF] 97.0 [degF] eCW1 ( [facility]) Systolic blood pressure 142 mm[Hg] 142 mm[Hg] e CW1 ([facility]) Diastolic blood pressure 68 mm[Hg] 68 mm[Hg] eCW1 ([facility]) Body weight 195 [lb_av] 195 [lb_av] eCW1 ([facility]) Body weight 88.45 kg 88.45 kg eCW1 ([facility]) Body height [in_i] eCW1 ([facility]) Body mass index (BMI) [Ratio] 27.19 kg/m2 27.19 kg/m2 eCW1 ([facility]) Heart rate 89 /min 89 /min eCW1 ([facility]) Respiratory rate 19 /min 19 /min eCW1 ([facility]) Body temperature 98.7 [degF] 98.7 [degF] eCW1 ( [facility]) Systolic blood pressure 140 mm[Hg] 140 mm[Hg] e CW1 ([facility]) Diastolic blood pressure 80 mm[Hg] 80 mm[Hg] eCW1 ([facility]) Body height [in_i] eCW1 ([facility]) Respiratory rate 20 /min 20 /min eCW1 ([facility]) Body temperature 97 [degF] 97 [degF] eCW1 ([facility]) Systolic blood pressure 119 mm[Hg] 119 mm[Hg] e CW1 ([facility]) Diastolic blood pressure 76 mm[Hg] 76 mm[Hg] eCW1 ([facility]) Body weight 194.4 [lb_av] 194.4 [lb_av] eCW1 ([facility]) Body mass index (BMI) [Ratio] 27.11 kg/m2 27.11 kg/m2 eCW1 ([facility]) Heart rate 81 /min 81 /min eCW1 ([facility]) Body weight 185 [lb_av] 185 [lb_av] eCW1 ([facility]) Body height [in_i] eCW1 ([facility]) Body mass index (BMI) [Ratio] 25.80 kg/m2 25.80 kg/m2 eCW1 ([facility]) Heart rate 87 /min 87 /min eCW1 ([facility]) Respiratory rate 19 /min 19 /min eCW1 ([facility]) Systolic blood pressure 146 mm[Hg] 146 mm[Hg] e CW1 ([facility]) Diastolic blood pressure 76 mm[Hg] 76 mm[Hg] eCW1 ([facility]) Body height 68 [in_i] 68 [in_i] MEDENT ([facility]) 5'8" Body weight 188.00 [lb_av] 188.00 [lb_av] MEDEN T ([facility]) Systolic blood pressure 134 mm[Hg] 134 mm[Hg] M EDENT ([facility]) Diastolic blood pressure 478 mm[Hg] 478 mm[Hg] MEDENT ([facility]) Heart rate 78 /min 78 /min MED[facility] ([facility]) Body mass index (BMI) [Ratio] 28.6 kg/m2 28.6 k g/m2 MEDENT ([facility]) Body weight 85.277 kg 85.277 kg MEDENT ([facility]) Body temperature 97.3 [degF] 97.3 [degF] MEDENT ([facility]) Body height 68 [in_i] 68 [in_i] MEDENT ([facility]) 5'8" Body weight 214.00 [lb_av] 214.00 [lb_av] MEDEN T ([facility]) Systolic blood pressure 128 mm[Hg] 128 mm[Hg] M EDENT ([facility]) Diastolic blood pressure 83 mm[Hg] 83 mm[Hg] MEDENT ([facility]) Heart rate 78 /min 78 /min MEDENT ([facility]) Body mass index (BMI) [Ratio] 32.5 kg/m2 32.5 k g/m2 MEDENT ([facility]) Body weight 97.070 kg 97.070 kg MEDENT ([facility]) Body temperature 97.2 [degF] 97.2 [degF] MEDENT ([facility]) Body weight 185 [lb_av] 185 [lb_av] eCW1 ([facility]) Body height [in_i] eCW1 ([facility]) Body mass index (BMI) [Ratio] 25.80 kg/m2 25.80 kg/m2 eCW1 ([facility]) Heart rate 85 /min 85 /min eCW1 ([facility]) Respiratory rate 18 /min 18 /min eCW1 ([facility]) Body temperature 97.8 [degF] 97.8 [degF] eCW1 ( [facility]) Systolic blood pressure 137 mm[Hg] 137 mm[Hg] e CW1 ([facility]) Diastolic blood pressure 80 mm[Hg] 80 mm[Hg] eCW1 ([facility]) Body weight 186 [lb_av] 186 [lb_av] eCW1 ([facility]) Body height [in_i] eCW1 ([facility]) Body mass index (BMI) [Ratio] 25.94 kg/m2 25.94 kg/m2 eCW1 ([facility]) Heart rate 83 /min 83 /min eCW1 ([facility]) Respiratory rate 18 /min 18 /min eCW1 ([facility]) Body temperature 98.6 [degF] 98.6 [degF] eCW1 ( [facility]) Systolic blood pressure 138 mm[Hg] 138 mm[Hg] e CW1 ([facility]) Diastolic blood pressure 80 mm[Hg] 80 mm[Hg] eCW1 ([facility]) Body weight 183 [lb_av] 183 [lb_av] eCW1 ([facility]) Body height [in_i] eCW1 ([facility]) Body mass index (BMI) [Ratio] 25.52 kg/m2 25.52 kg/m2 eCW1 ([facility]) Heart rate 81 /min 81 /min eCW1 ([facility]) Respiratory rate 18 /min 18 /min eCW1 ([facility]) Body temperature 99.0 [degF] 99.0 [degF] eCW1 ( [facility]) Systolic blood pressure 126 mm[Hg] 126 mm[Hg] e CW1 ([facility]) Diastolic blood pressure 66 mm[Hg] 66 mm[Hg] eCW1 ([facility]) Body weight 194 [lb_av] 194 [lb_av] eCW1 ([facility]) Body height [in_i] eCW1 ([facility]) Body mass index (BMI) [Ratio] 27.05 kg/m2 27.05 kg/m2 eCW1 ([facility]) Heart rate 77 /min 77 /min eCW1 ([facility]) Respiratory rate 18 /min 18 /min eCW1 ([facility]) Systolic blood pressure 128 mm[Hg] 128 mm[Hg] e CW1 ([facility]) Diastolic blood pressure 68 mm[Hg] 68 mm[Hg] eCW1 ([facility]) Diastolic blood pressure 76 mm[Hg] 76 mm[Hg] eCW1 ([facility]) Body weight 199 [lb_av] 199 [lb_av] eCW1 ([facility]) Heart rate 63 /min 63 /min eCW1 ([facility]) Body mass index (BMI) [Ratio] 27.75 kg/m2 27.75 kg/m2 eCW1 ([facility]) Systolic blood pressure 134 mm[Hg] 134 mm[Hg] e CW1 ([facility]) Respiratory rate 18 /min 18 /min eCW1 ([facility]) Body temperature 98.0 [degF] 98.0 [degF] eCW1 ( [facility]) Body height [in_i] eCW1 ([facility]) Body weight 205 [lb_av] 205 [lb_av] eCW1 ([facility]) Body height [in_i] eCW1 ([facility]) Body mass index (BMI) [Ratio] 28.59 kg/m2 28.59 kg/m2 eCW1 ([facility]) Heart rate 76 /min 76 /min eCW1 ([facility]) Respiratory rate 18 /min 18 /min eCW1 ([facility]) Body temperature 98 [degF] 98 [degF] eCW1 ([facility]) Systolic blood pressure 150 mm[Hg] 150 mm[Hg] e CW1 ([facility]) Diastolic blood pressure 82 mm[Hg] 82 mm[Hg] eCW1 ([facility]) Body weight 203 [lb_av] 203 [lb_av] eCW1 ([facility]) Body height [in_i] eCW1 ([facility]) Body mass index (BMI) [Ratio] 28.31 kg/m2 28.31 kg/m2 eCW1 ([facility]) Heart rate 86 /min 86 /min eCW1 ([facility]) Respiratory rate 18 /min 18 /min eCW1 ([facility]) Body temperature 98 [degF] 98 [degF] eCW1 ([facility]) Systolic blood pressure 145 mm[Hg] 145 mm[Hg] e CW1 ([facility]) Diastolic blood pressure 89 mm[Hg] 89 mm[Hg] eCW1 ([facility]) Body weight 204 [lb_av] 204 [lb_av] eCW1 ([facility]) Systolic blood pressure 137 mm[Hg] 137 mm[Hg] e CW1 ([facility]) Diastolic blood pressure 80 mm[Hg] 80 mm[Hg] eCW1 ([facility]) Body temperature 98.7 [degF] 98.7 [degF] eCW1 ( [facility]) Body height [in_i] eCW1 ([facility]) Body mass index (BMI) [Ratio] 28.45 kg/m2 28.45 kg/m2 eCW1 ([facility]) Heart rate 72 /min 72 /min eCW1 ([facility]) Respiratory rate 18 /min 18 /min eCW1 ([facility]) Systolic blood pressure 148 mm[Hg] 148 mm[Hg] M EDENT ([facility]) Diastolic blood pressure 92 mm[Hg] 92 mm[Hg] MEDENT ([facility]) Heart rate 72 /min 72 /min MEDENT ([facility]) Respiratory rate 18 /min 18 /min MEDENT ( [facility], [facility]) Oxygen saturation in Arterial blood by Pulse oximetry 96 % 96 % [facility] ([facility], [facility]) Body temperature 97.8 [degF] 97.8 [degF] [facility] ([facility], [facility]) Body weight 219.00 [lb_av] 219.00 [lb_av] MEDEN T ([facility]) Body height 72 [in_i] 72 [in_i] [facility] ([facility]) 6'0" Body mass index (BMI) [Ratio] 29.7 kg/m2 29.7 k g/m2 [facility] ([facility]) Body mass index (BMI) [Ratio] 29.7 kg/m2 29.7 k g/m2 [facility] ([facility]) Systolic blood pressure 136 mm[Hg] 136 mm[Hg] [facility] ([facility]) Diastolic blood pressure 80 mm[Hg] 80 mm[Hg] [facility] ([facility]) Heart rate 82 /min 82 /min [facility] ([facility]) Oxygen saturation in Arterial blood by Pulse oximetry 99 % 99 % [facility] ([facility]) Body temperature 97.6 [degF] 97.6 [degF] [facility] ([facility]) Body weight 219.00 [lb_av] 219.00 [lb_av[facility] Body height 72 [in_i] 72 [in_i] [facility] ([facility]) 6'0" Patient Treatment Plan of Care Planned Activity Planned Date Details Description Data Source (s) COMPRESSION STOCKINGS 20-30 mmHg 06/18/2021 12:00:00 AM EDT eCW1 ([facility]) Lorazepam 1 MG Oral Tablet 06/06/2021 12:00:00 AM EDT eCW1 ([facility]) Lorazepam 1 MG Oral Tablet [Ativan] 05/22/2021 12:00:00 AM EDT eCW1 ([facility]) Finasteride 5 MG Oral Tablet 04/17/2021 12:00:00 AM EDT eCW1 ([facility]) Finasteride 5 MG Oral Tablet 04/17/2021 12:00:00 AM EDT eCW1 ([facility]) Finasteride 5 MG Oral Tablet 04/17/2021 12:00:00 AM EDT eCW1 ([facility]) Bard Cboyon-N-Oba Leg Bag - 04/03/2021 12:00:00 AM EDT eCW1 ([facility]) Bard Zwmakq-O-Bmc Leg Bag - 04/03/2021 12:00:00 AM EDT eCW1 ([facility]) Bard Hpqokf-F-Lhd Leg Bag - 04/03/2021 12:00:00 AM EDT eCW1 ([facility]) Bard Avqsau-K-Hux Leg Bag - 04/03/2021 12:00:00 AM EDT eCW1 ([facility]) Bard Quujsj-O-Vhk Leg Bag - 04/03/2021 12:00:00 AM EDT eCW1 ([facility]) Bard Fvjrhr-J-Cuo Leg Bag - 04/03/2021 12:00:00 AM EDT eCW1 ([facility]) Furosemide 20 MG Oral Tablet 03/19/2021 12:00:00 AM EDT eCW1 ([facility]) Furosemide 20 MG Oral Tablet 03/19/2021 12:00:00 AM EDT eCW1 ([facility]) Furosemide 20 MG Oral Tablet 03/19/2021 12:00:00 AM EDT eCW1 ([facility]) Furosemide 20 MG Oral Tablet 03/19/2021 12:00:00 AM EDT eCW1 ([facility]) Furosemide 20 MG Oral Tablet 03/19/2021 12:00:00 AM EDT eCW1 ([facility]) Furosemide 20 MG Oral Tablet 03/19/2021 12:00:00 AM EDT eCW1 ([facility]) Sulfamethoxazole 800 MG / Trimethoprim 160 MG Oral Tab let [Bactrim] 02/11/2021 12:00:00 AM EDT eCW1 ([facility]) Sulfamethoxazole 800 MG / Trimethoprim 160 MG Oral Tab let [Bactrim] 02/11/2021 12:00:00 AM EDT eCW1 ([facility]) Sulfamethoxazole 800 MG / Trimethoprim 160 MG Oral Tab let [Bactrim] 02/11/2021 12:00:00 AM EDT eCW1 ([facility]) Sulfamethoxazole 800 MG / Trimethoprim 160 MG Oral Tab let [Bactrim] 02/11/2021 12:00:00 AM EDT eCW1 ([facility]) Sulfamethoxazole 800 MG / Trimethoprim 160 MG Oral Tab let [Bactrim] 02/11/2021 12:00:00 AM EDT eCW1 ([facility]) Hidalgo Ramos Insertion Tray - 01/07/2021 12:00:00 AM EDT eCW1 ([facility]) Markell Ramos Insertion Tray - 01/07/2021 12:00:00 AM EDT eCW1 ([facility]) Hidalgo Ramos Insertion Tray - 01/07/2021 12:00:00 AM EDT eCW1 ([facility]) Hidalgo Ramos Insertion Tray - 01/07/2021 12:00:00 AM EDT eCW1 ([facility]) Hidalgo Ramos Insertion Tray - 01/07/2021 12:00:00 AM EDT eCW1 ([facility]) Hidalgo Ramos Insertion Tray - 01/07/2021 12:00:00 AM EDT eCW1 ([facility]) Hidalgo Ramos Insertion Tray - 01/07/2021 12:00:00 AM EDT eCW1 ([facility]) Hidalgo Ramos Insertion Tray - 01/07/2021 12:00:00 AM EDT eCW1 ([facility]) Hidalgo Ramos Insertion Tray - 01/07/2021 12:00:00 AM EDT eCW1 ([facility]) Markell Ramos Insertion Tray - 01/07/2021 12:00:00 AM EDT eCW1 ([facility]) Markell Ramos Insertion Tray - 01/07/2021 12:00:00 AM EDT eCW1 ([facility]) Hidalgo Ramos Insertion Tray - 01/07/2021 12:00:00 AM EDT eCW1 ([facility]) Markell Ramos Insertion Tray - 01/07/2021 12:00:00 AM EDT eCW1 ([facility]) Hidalgo Ramos Insertion Tray - 01/07/2021 12:00:00 AM EDT eCW1 ([facility]) Bard Bnwgao-U-Yvs/Flip-Burt Vlv - 12/04/2020 12:00:00 AM EST eCW1 ([facility]) Bard Coude Tip Catheter - 12/04/2020 12:00:00 AM EST eCW1 ([facility]) Bard Omqljt-O-Kle/Flip-Burt Vlv - 12/04/2020 12:00:00 AM EST eCW1 ([facility]) Bard Coude Tip Catheter - 12/04/2020 12:00:00 AM EST eCW1 ([facility]) Bard Msrswh-Q-Pnv/Flip-Burt Vlv - 12/04/2020 12:00:00 AM EST eCW1 ([facility]) Bard Coude Tip Catheter - 12/04/2020 12:00:00 AM EST eCW1 ([facility]) Bard Rwidzf-D-Hsn/Flip-Burt Vlv - 12/04/2020 12:00:00 AM EST eCW1 ([facility]) Bard Coude Tip Catheter - 12/04/2020 12:00:00 AM EST eCW1 ([facility]) Bard Glgtww-P-Ecn/Flip-Burt Vlv - 12/04/2020 12:00:00 AM EST eCW1 ([facility]) Bard Coude Tip Catheter - 12/04/2020 12:00:00 AM EST eCW1 ([facility]) Bard Pesxyx-R-Kjd/Flip-Burt Vlv - 12/04/2020 12:00:00 AM EST eCW1 ([facility]) Bard Coude Tip Catheter - 12/04/2020 12:00:00 AM EST eCW1 ([facility]) Bard Yvvcfb-I-Ysr/Flip-Burt Vlv - 12/04/2020 12:00:00 AM EST eCW1 ([facility]) Bard Coude Tip Catheter - 12/04/2020 12:00:00 AM EST eCW1 ([facility]) Bard Atimmy-Y-Bzn/Flip-Burt Vlv - 12/04/2020 12:00:00 AM EST eCW1 ([facility]) Bard Coude Tip Catheter - 12/04/2020 12:00:00 AM EST eCW1 ([facility]) Bard Foneof-Y-Liw/Flip-Burt Vlv - 12/04/2020 12:00:00 AM EST eCW1 ([facility]) Bard Coude Tip Catheter - 12/04/2020 12:00:00 AM EST eCW1 ([facility]) Bard Trclrv-K-Slt/Flip-Burt Vlv - 12/04/2020 12:00:00 AM EST eCW1 ([facility]) Bard Coude Tip Catheter - 12/04/2020 12:00:00 AM EST eCW1 ([facility]) Bard Byiyza-E-Wok/Flip-Burt Vlv - 12/04/2020 12:00:00 AM EST eCW1 ([facility]) Bard Coude Tip Catheter - 12/04/2020 12:00:00 AM EST eCW1 ([facility]) Bard Xxxnkf-X-Wdf/Flip-Burt Vlv - 12/04/2020 12:00:00 AM EST eCW1 ([facility]) Bard Coude Tip Catheter - 12/04/2020 12:00:00 AM EST eCW1 ([facility]) Bard Gnntdn-M-Baf/Flip-Burt Vlv - 12/04/2020 12:00:00 AM EST eCW1 ([facility]) Bard Coude Tip Catheter - 12/04/2020 12:00:00 AM EST eCW1 ([facility]) Bard Ieibkw-D-Qnm/Flip-Burt Vlv - 12/04/2020 12:00:00 AM EST eCW1 ([facility]) Bard Coude Tip Catheter - 12/04/2020 12:00:00 AM EST eCW1 ([facility]) Bard Inbsdd-P-Uql/Flip-Burt Vlv - 12/04/2020 12:00:00 AM EST eCW1 ([facility]) Bard Coude Tip Catheter - 12/04/2020 12:00:00 AM EST eCW1 ([facility]) Bard Eflhrq-G-Cci/Flip-Burt Vlv - 12/04/2020 12:00:00 AM EST eCW1 ([facility]) Bard Coude Tip Catheter - 12/04/2020 12:00:00 AM EST eCW1 ([facility]) Bard Lxdtch-A-Pax/Flip-Burt Vlv - 12/04/2020 12:00:00 AM EST eCW1 ([facility]) Bard Coude Tip Catheter - 12/04/2020 12:00:00 AM EST eCW1 ([facility]) Finasteride 5 MG Oral Tablet 10/17/2020 12:00:00 AM EST eCW1 ([facility]) Finasteride 5 MG Oral Tablet 10/17/2020 12:00:00 AM EST eCW1 ([facility]) Sulfamethoxazole 800 MG / Trimethoprim 160 MG Oral Tab let [Bactrim] 09/17/2020 12:00:00 AM EST eCW1 ([facility]) Sulfamethoxazole 800 MG / Trimethoprim 160 MG Oral Tab let [Bactrim] 09/17/2020 12:00:00 AM EST eCW1 ([facility]) Sulfamethoxazole 800 MG / Trimethoprim 160 MG Oral Tab let [Bactrim] 09/17/2020 12:00:00 AM EST eCW1 ([facility]) Depend Pant Large - 08/28/2020 12:00:00 AM EST eCW1 ([facility]) Depend Pant Large - 08/28/2020 12:00:00 AM EST eCW1 ([facility]) Depend Pant Large - 08/28/2020 12:00:00 AM EST eCW1 ([facility]) Depend Pant Large - 08/28/2020 12:00:00 AM EST eCW1 ([facility]) Depend Pant Large - 08/28/2020 12:00:00 AM EST eCW1 ([facility]) Depend Pant Large - 08/28/2020 12:00:00 AM EST eCW1 ([facility]) Depend Pant Large - 08/28/2020 12:00:00 AM EST eCW1 ([facility]) Depend Pant Large - 08/28/2020 12:00:00 AM EST eCW1 ([facility]) Depend Pant Large - 08/28/2020 12:00:00 AM EST eCW1 ([facility]) Depend Pant Large - 08/28/2020 12:00:00 AM EST eCW1 ([facility]) Depend Pant Large - 08/28/2020 12:00:00 AM EST eCW1 ([facility]) Depend Pant Large - 08/28/2020 12:00:00 AM EST eCW1 ([facility]) Depend Pant Large - 08/28/2020 12:00:00 AM EST eCW1 ([facility]) Depend Pant Large - 08/28/2020 12:00:00 AM EST eCW1 ([facility]) Depend Pant Large - 08/28/2020 12:00:00 AM EST eCW1 ([facility]) Hydrocortisone 10 MG/ML Topical Cream 08/16/2020 12:00:00 AM EST eCW1 ([facility])
[2021-08-01] MEDS ORDERED: NS 1,000 ML IV ONE (23:30)
[2021-08-01] MEDS: ACETAMINOPHEN TAB 650MG DOSE (2X325MG) PO ONE (23:51)
[2021-08-01] MEDS: cefTRIAXone SOD 2 GM in D5W MINI-BAG PLUS 50 ML IV ONE (23:52)
[2021-08-01] MEDS ORDERED: ACETAMINOPHEN 325 MG/10.15 ML UDC PO ONE (23:55)
[2021-08-02 00:11] LABS: HEMATOCRIT 29.3 % (42.0-52.0); HEMOGLOBIN 9.9 g/dl (13.5-17.5); LYMPH % 2.7 % (24.0-44.0); MEAN CORPUSCULAR HEMOGLOBIN 32.1 pg (27.0-33.0); MEAN CORPUSCULAR HGB CONC 33.8 g/dl (32.0-36.5); MEAN CORPUSCULAR VOLUME 95.1 fl (80.0-96.0); NEUTROPHILS % 97.3 % (36.0-66.0); PLATELET COUNT, AUTOMATED 188 10^3/uL (150-450); RED BLOOD COUNT 3.08 10^6/uL (4.30-6.10)
[2021-08-02 00:16] LABS: NEUTROPHILS # 0.7 10^3/uL (1.5-8.5); WHITE BLOOD COUNT 0.7 10^3/uL (4.0-10.0)
[2021-08-02] MEDS: cefTRIAXone SOD 2 GM in D5W MINI-BAG PLUS 50 ML IV ONE (00:26)
[2021-08-02] MEDS: ACETAMINOPHEN TAB 650MG DOSE (2X325MG) PO ONE (00:27)
[2021-08-02 00:49] LABS: BILIRUBIN,TOTAL 1.5 MG/DL (0.2-1.0); C REACTIVE PROTEIN QUANTITATIV 3.46 MG/DL (0.00-0.30); CALCIUM LEVEL 8.3 MG/DL (8.8-10.2); CREATININE FOR GFR 2.54 MG/DL (0.70-1.30); GLOMERULAR FILTRATION RATE 27.5 (>49); POTASSIUM SERUM 4.1 MEQ/L (3.5-5.1); TOTAL PROTEIN 6.9 GM/DL (6.4-8.2)
[2021-08-02] MEDS ORDERED: NS 2,340 ML in IV 1 EA IV ONE (00:50)
--- OUTSIDE RECORDS SUMMARY | 2021-08-02 01:12 | CCD ---
Author Author [facility] Organization [facility] Address Unknown Phone Unavailable Care Team Providers Care Universal Banker Name Role Phone Paradise Shukla MD Unavailable Unavailable Paradise Shukla MD Unavailable Unavailable Paradise Shukla MD Unavailable Unavailable aPradise Shukla MD Unavailable Unavailable Paradise Shukla MD [...] is protected by Article 27-F of the [facility] Public Health law. If you continue you may have access to information: Regarding HIV / AIDS; Provided by facilities licensed or operated by the [facility] Office of Mental Health; or Provided by the [facility] Office for People With Developmental Disabilities. If such information is present, then the following [facility] mandated warning applies: This information has [...] law may result in a fine or senior care sentence or both. A general authorization for the release of medical or other information is NOT sufficient authorization for further disc losure. Encounters Encounter Providers Location Date Indications Data Source(s ) Outpatient [address] [place] [address] [address] 07/15/2021 12:00:00 AM EDT eCW1 ([facility]) [place] [address] [facility] [address] 07/01/2021 12:00:00 AM EDT eCW1 ([facility]) Unknown [address] [facility] [address] 06/27/2021 12:00:00 AM EDT eCW1 ([facility]) (TCM) Transition of Care Visit [address] [place] [address] 06/25/2021 12:00:00 AM EDT eCW1 ([facility]) [place] [address] [facility] [address] 06/24/2021 12:00:00 AM EDT eCW1 ([facility]) [place] [address] [facility] [address] 06/19/2021 12:00:00 AM EDT eCW1 ([facility]) [place] [address] [facility] [address] 06/18/2021 12:00:00 AM EDT eCW1 ([facility]) [place] [address] [facility] [address] 06/18/2021 12:00:00 AM EDT eCW1 ([facility]) [place] [address] [facility] [address] 06/11/2021 12:00:00 AM EDT eCW1 ([facility]) (Cysto1) Urology [address] [place] [address] 06/10/2021 12:00:00 AM EDT eCW1 ([facility]) [place] [address] [facility] [address] 06/03/2021 12:00:00 AM EDT eCW1 ([facility]) [place] [address] [facility] [address] 05/22/2021 12:00:00 AM EDT eCW1 ([facility]) [place] [address] [facility] [address] 05/20/2021 12:00:00 AM EDT eCW1 ([facility]) [place] [address] [facility] [address] 05/16/2021 12:00:00 AM EDT eCW1 ([facility]) [place] [address] [facility] [address] 05/16/2021 12:00:00 AM EDT eCW1 ([facility]) [place] [address] [facility] [address] 05/14/2021 12:00:00 AM EDT eCW1 ([facility]) [place] [address] [facility] [address] 05/09/2021 12:00:00 AM EDT eCW1 ([facility]) [place] [address] [facility] [address] 05/03/2021 12:00:00 AM EDT eCW1 ([facility]) [place] [address] [facility] [address] 04/17/2021 12:00:00 AM EDT eCW1 ([facility]) [place] [address] [facility] [address] 04/05/2021 12:00:00 AM EDT eCW1 ([facility]) [place] [address] [facility] [address] 04/03/2021 12:00:00 AM EDT eCW1 ([facility]) [place] [address] [facility] [address] 04/01/2021 12:00:00 AM EDT eCW1 ([facility]) [place] [address] [facility] [address] 03/26/2021 12:00:00 AM EDT eCW1 ([facility]) Outpatient Attender: Roger Shukla MD Main Office 03/21/2021 02:30:00 PM EDT MEDENT ([facility]) Unknown [address] [facility] [address] 03/19/2021 12:00:00 AM EDT eCW1 ([facility]) [place] [address] [facility] [address] 03/13/2021 12:00:00 AM EDT eCW1 ([facility]) [place] [address] [facility] [address] 03/12/2021 12:00:00 AM EDT eCW1 ([facility]) [place] [address] [facility] [address] 02/11/2021 12:00:00 AM EDT eCW1 ([facility]) [place] [address] [facility] [address] 02/08/2021 12:00:00 AM EDT eCW1 ([facility]) [place] [address] [facility] [address] 02/07/2021 12:00:00 AM EDT eCW1 ([facility]) [place] [address] [facility] [address] 01/31/2021 12:00:00 AM EDT eCW1 ([facility]) [place] [address] [facility] [address] 01/15/2021 12:00:00 AM EDT eCW1 ([facility]) [place] [address] [facility] [address] 01/07/2021 12:00:00 AM EDT eCW1 ([facility]) [place] [address] [facility] [address] 12/04/2020 12:00:00 AM EST eCW1 ([facility]) [place] [address] [facility] [address] 11/30/2020 12:00:00 AM EST eCW1 ([facility]) [place] [address] [facility] [address] 11/28/2020 12:00:00 AM EST eCW1 ([facility]) [place] [address] [facility] [address] 11/28/2020 12:00:00 AM EST eCW1 ([facility]) [place] [address] [facility] [address] 11/02/2020 12:00:00 AM EST eCW1 ([facility]) (Cysto1) Urology [address] [place] [address] 10/17/2020 12:00:00 AM EST eCW1 ([facility]) [place] [address] [facility] [address] 10/15/2020 12:00:00 AM EST eCW1 ([facility]) [place] [address] [facility] [address] 09/26/2020 12:00:00 AM EST eCW1 ([facility]) [place] [address] [facility] [address] 09/17/2020 12:00:00 AM EST eCW1 ([facility]) [place] [address] [facility] [address] 09/12/2020 12:00:00 AM EST eCW1 ([facility]) [place] [address] [facility] [address] 09/04/2020 12:00:00 AM EST eCW1 ([facility]) [place] [address] [facility] [address] 08/28/2020 12:00:00 AM EST eCW1 ([facility]) [place] [address] [facility] [address] 08/28/2020 12:00:00 AM EST eCW1 ([facility]) [place] [address] [facility] [address] 08/16/2020 12:00:00 AM EST eCW1 ([facility]) [place] [address] [facility] [address] 08/13/2020 12:00:00 AM EST eCW1 ([facility]) [place] [address] [facility] [address] 07/17/2020 12:00:00 AM EDT eCW1 ([facility]) Outpatient Attender: Nicole Mendez Prim kathleen 06/29/2020 10:45:00 AM EDT [facility] ([facility]) Outpatient Attender: YOSELIN Mendez Prima ry 06/14/2020 04:50:00 PM EDT MED[facility] ([facility]) Immunizations Vaccine Date Status Description Data Source(s) As of June 1999, a 2-dose hepatitis B schedule for adolescents (11-15 year olds) was FDA approved for Merck's Recombivax HB adult formulation. Use code 43 for the 2-dose. This code should be used for any use of standard adult formulation of hepatitis B vaccine. 02/07/2021 04:42:00 PM EDT completed eCW1 ([facility]) As of June 1999, a 2-dose hepatitis B schedule for adolescents (11-15 year olds) was FDA approved for Merck's Recombivax HB adult formulation. Use code 43 for the 2-dose. This code should be used for any use of standard adult formulation of hepatitis B vaccine. 02/07/2021 04:42:00 PM EDT completed eCW1 ([facility]) As of June 1999, a 2-dose hepatitis B schedule for adolescents (11-15 year olds) was FDA approved for Merck's Recombivax HB adult formulation. Use code 43 for the 2-dose. This code should be used for any use of standard adult formulation of hepatitis B vaccine. 02/07/2021 04:42:00 PM EDT completed eCW1 ([facility]) As of June 1999, a 2-dose hepatitis B schedule for adolescents (11-15 year olds) was FDA approved for Merck's Recombivax HB adult formulation. Use code 43 for the 2-dose. This code should be used for any use of standard adult formulation of hepatitis B vaccine. 02/07/2021 04:42:00 PM EDT completed eCW1 ([facility]) As of June 1999, a 2-dose hepatitis B schedule for adolescents (11-15 year olds) was FDA approved for Merck's Recombivax HB adult formulation. Use code 43 for the 2-dose. This code should be used for any use of standard adult formulation of hepatitis B vaccine. 02/07/2021 04:42:00 PM EDT completed eCW1 ([facility]) As of June 1999, a 2-dose hepatitis B schedule for adolescents (11-15 year olds) was FDA approved for Merck's Recombivax HB adult formulation. Use code 43 for the 2-dose. This code should be used for any use of standard adult formulation of hepatitis B vaccine. 02/07/2021 04:42:00 PM EDT completed eCW1 ([facility]) As of June 1999, a 2-dose hepatitis B schedule for adolescents (11-15 year olds) was FDA approved for Merck's Recombivax HB adult formulation. Use code 43 for the 2-dose. This code should be used for any use of standard adult formulation of hepatitis B vaccine. 02/07/2021 04:42:00 PM EDT completed eCW1 ([facility]) As of June 1999, a 2-dose hepatitis B schedule for adolescents (11-15 year olds) was FDA approved for Merck's Recombivax HB adult formulation. Use code 43 for the 2-dose. This code should be used for any use of standard adult formulation of hepatitis B vaccine. 02/07/2021 04:42:00 PM EDT completed eCW1 ([facility]) As of June 1999, a 2-dose hepatitis B schedule for adolescents (11-15 year olds) was FDA approved for Merck's Recombivax HB adult formulation. Use code 43 for the 2-dose. This code should be used for any use of standard adult formulation of hepatitis B vaccine. 02/07/2021 04:42:00 PM EDT completed eCW1 ([facility]) As of June 1999, a 2-dose hepatitis B schedule for adolescents (11-15 year olds) was FDA approved for Merck's Recombivax HB adult formulation. Use code 43 for the 2-dose. This code should be used for any use of standard adult formulation of hepatitis B vaccine. 02/07/2021 04:42:00 PM EDT completed eCW1 ([facility]) As of June 1999, a 2-dose hepatitis B schedule for adolescents (11-15 year olds) was FDA approved for Merck's Recombivax HB adult formulation. Use code 43 for the 2-dose. This code should be used for any use of standard adult formulation of hepatitis B vaccine. 02/07/2021 04:42:00 PM EDT completed eCW1 ([facility]) As of June 1999, a 2-dose hepatitis B schedule for adolescents (11-15 year olds) was FDA approved for Merck's Recombivax HB adult formulation. Use code 43 for the 2-dose. This code should be used for any use of standard adult formulation of hepatitis B vaccine. 02/07/2021 04:42:00 PM EDT completed eCW1 ([facility]) As of June 1999, a 2-dose hepatitis B schedule for adolescents (11-15 year olds) was FDA approved for Merck's Recombivax HB adult formulation. Use code 43 for the 2-dose. This code should be used for any use of standard adult formulation of hepatitis B vaccine. 02/07/2021 04:42:00 PM EDT completed eCW1 ([facility]) As of June 1999, a 2-dose hepatitis B schedule for adolescents (11-15 year olds) was FDA approved for Merck's Recombivax HB adult formulation. Use code 43 for the 2-dose. This code should be used for any use of standard adult formulation of hepatitis B vaccine. 02/07/2021 04:42:00 PM EDT completed eCW1 ([facility]) As of June 1999, a 2-dose hepatitis B schedule for adolescents (11-15 year olds) was FDA approved for Merck's Recombivax HB adult formulation. Use code 43 for the 2-dose. This code should be used for any use of standard adult formulation of hepatitis B vaccine. 02/07/2021 04:42:00 PM EDT completed eCW1 ([facility]) As of June 1999, a 2-dose hepatitis B schedule for adolescents (11-15 year olds) was FDA approved for Merck's Recombivax HB adult formulation. Use code 43 for the 2-dose. This code should be used for any use of standard adult formulation of hepatitis B vaccine. 02/07/2021 04:42:00 PM EDT completed eCW1 ([facility]) As of June 1999, a 2-dose hepatitis B schedule for adolescents (11-15 year olds) was FDA approved for Merck's Recombivax HB adult formulation. Use code 43 for the 2-dose. This code should be used for any use of standard adult formulation of hepatitis B vaccine. 02/07/2021 04:42:00 PM EDT completed eCW1 ([facility]) As of June 1999, a 2-dose hepatitis B schedule for adolescents (11-15 year olds) was FDA approved for Merck's Recombivax HB adult formulation. Use code 43 for the 2-dose. This code should be used for any use of standard adult formulation of hepatitis B vaccine. 02/07/2021 04:42:00 PM EDT completed eCW1 ([facility]) As of June 1999, a 2-dose hepatitis B schedule for adolescents (11-15 year olds) was FDA approved for Merck's Recombivax HB adult formulation. Use code 43 for the 2-dose. This code should be used for any use of standard adult formulation of hepatitis B vaccine. 02/07/2021 04:42:00 PM EDT completed eCW1 ([facility]) As of June 1999, a 2-dose hepatitis B schedule for adolescents (11-15 year olds) was FDA approved for Merck's Recombivax HB adult formulation. Use code 43 for the 2-dose. This code should be used for any use of standard adult formulation of hepatitis B vaccine. 02/07/2021 04:42:00 PM EDT completed eCW1 ([facility]) As of June 1999, a 2-dose hepatitis B schedule for adolescents (11-15 year olds) was FDA approved for Merck's Recombivax HB adult formulation. Use code 43 for the 2-dose. This code should be used for any use of standard adult formulation of hepatitis B vaccine. 02/07/2021 04:42:00 PM EDT completed eCW1 ([facility]) As of June 1999, a 2-dose hepatitis B schedule for adolescents (11-15 year olds) was FDA approved for Merck's Recombivax HB adult formulation. Use code 43 for the 2-dose. This code should be used for any use of standard adult formulation of hepatitis B vaccine. 02/07/2021 04:42:00 PM EDT completed eCW1 ([facility]) As of June 1999, a 2-dose hepatitis B schedule for adolescents (11-15 year olds) was FDA approved for Merck's Recombivax HB adult formulation. Use code 43 for the 2-dose. This code should be used for any use of standard adult formulation of hepatitis B vaccine. 02/07/2021 04:42:00 PM EDT completed eCW1 ([facility]) As of June 1999, a 2-dose hepatitis B schedule for adolescents (11-15 year olds) was FDA approved for Merck's Recombivax HB adult formulation. Use code 43 for the 2-dose. This code should be used for any use of standard adult formulation of hepatitis B vaccine. 02/07/2021 04:42:00 PM EDT completed eCW1 ([facility]) As of June 1999, a 2-dose hepatitis B schedule for adolescents (11-15 year olds) was FDA approved for Merck's Recombivax HB adult formulation. Use code 43 for the 2-dose. This code should be used for any use of standard adult formulation of hepatitis B vaccine. 02/07/2021 04:42:00 PM EDT completed eCW1 ([facility]) As of June 1999, a 2-dose hepatitis B schedule for adolescents (11-15 year olds) was FDA approved for Merck's Recombivax HB adult formulation. Use code 43 for the 2-dose. This code should be used for any use of standard adult formulation of hepatitis B vaccine. 02/07/2021 04:42:00 PM EDT completed eCW1 ([facility]) As of June 1999, a 2-dose hepatitis B schedule for adolescents (11-15 year olds) was FDA approved for Merck's Recombivax HB adult formulation. Use code 43 for the 2-dose. This code should be used for any use of standard adult formulation of hepatitis B vaccine. 02/07/2021 04:42:00 PM EDT completed eCW1 ([facility]) As of June 1999, a 2-dose hepatitis B schedule for adolescents (11-15 year olds) was FDA approved for Merck's Recombivax HB adult formulation. Use code 43 for the 2-dose. This code should be used for any use of standard adult formulation of hepatitis B vaccine. 02/07/2021 04:42:00 PM EDT completed eCW1 ([facility]) As of June 1999, a 2-dose hepatitis B schedule for adolescents (11-15 year olds) was FDA approved for Merck's Recombivax HB adult formulation. Use code 43 for the 2-dose. This code should be used for any use of standard adult formulation of hepatitis B vaccine. 02/07/2021 04:42:00 PM EDT completed eCW1 ([facility]) Moderna #2 dose COVID-19 SARSCOV2 VAC 100MCG/0.5ML IM 11/15/2020 12:39:00 PM EST completed eCW1 ([facility]) Moderna #2 dose COVID-19 SARSCOV2 VAC 100MCG/0.5ML IM 11/15/2020 12:39:00 PM EST completed eCW1 ([facility]) Moderna #2 dose COVID-19 SARSCOV2 VAC 100MCG/0.5ML IM 11/15/2020 12:39:00 PM EST completed eCW1 ([facility]) Moderna #2 dose COVID-19 SARSCOV2 VAC 100MCG/0.5ML IM 11/15/2020 12:39:00 PM EST completed eCW1 ([facility]) Moderna #2 dose COVID-19 SARSCOV2 VAC 100MCG/0.5ML IM 11/15/2020 12:39:00 PM EST completed eCW1 ([facility]) COVID-19 VACCINE Moderna 11/15/2020 12:00:00 AM EST completed [facility] Vaccine Series Complete: YESThis Data wa s Submitted to [facility] Via [employer]. Moderna #1 dose COVID-19 SARSCOV2 VAC 100MCG/0.5ML IM 10/18/2020 12:38:00 PM EST completed eCW1 ([facility]) Moderna #1 dose COVID-19 SARSCOV2 VAC 100MCG/0.5ML IM 10/18/2020 12:38:00 PM EST completed eCW1 ([facility]) Moderna #1 dose COVID-19 SARSCOV2 VAC 100MCG/0.5ML IM 10/18/2020 12:38:00 PM EST completed eCW1 ([facility]) Moderna #1 dose COVID-19 SARSCOV2 VAC 100MCG/0.5ML IM 10/18/2020 12:38:00 PM EST completed eCW1 ([facility]) Moderna #1 dose COVID-19 SARSCOV2 VAC 100MCG/0.5ML IM 10/18/2020 12:38:00 PM EST completed eCW1 ([facility]) COVID-19 VACCINE Moderna 10/18/2020 12:00:00 AM EST completed [facility] Vaccine Series Complete: NOThis Data was Submitted to [facility] [employer]. Tdap 09/12/2020 07:42:00 AM EST completed e CW1 ([facility]) Tdap 09/12/2020 07:42:00 AM EST completed e CW1 ([facility]) Tdap 09/12/2020 07:42:00 AM EST completed e CW1 ([facility]) Tdap 09/12/2020 07:42:00 AM EST completed e CW1 ([facility]) Tdap 09/12/2020 07:42:00 AM EST completed e CW1 ([facility]) Tdap 09/12/2020 07:42:00 AM EST completed e CW1 ([facility]) Tdap 09/12/2020 07:42:00 AM EST completed e CW1 ([facility]) Tdap 09/12/2020 07:42:00 AM EST completed e CW1 ([facility]) Tdap 09/12/2020 07:42:00 AM EST completed e CW1 ([facility]) Tdap 09/12/2020 07:42:00 AM EST completed e CW1 ([facility]) Tdap 09/12/2020 07:42:00 AM EST completed e CW1 ([facility]) Tdap 09/12/2020 07:42:00 AM EST completed e CW1 ([facility]) Tdap 09/12/2020 07:42:00 AM EST completed e CW1 ([facility]) Tdap 09/12/2020 07:42:00 AM EST completed e CW1 ([facility]) Tdap 09/12/2020 07:42:00 AM EST completed e CW1 ([facility]) Tdap 09/12/2020 07:42:00 AM EST completed e CW1 ([facility]) Tdap 09/12/2020 07:42:00 AM EST completed e CW1 ([facility]) Tdap 09/12/2020 07:42:00 AM EST completed e CW1 ([facility]) Tdap 09/12/2020 07:42:00 AM EST completed e CW1 ([facility]) Tdap 09/12/2020 07:42:00 AM EST completed e CW1 ([facility]) Tdap 09/12/2020 07:42:00 AM EST completed e CW1 ([facility]) Tdap 09/12/2020 07:42:00 AM EST completed e CW1 ([facility]) Tdap 09/12/2020 07:42:00 AM EST completed e CW1 ([facility]) Tdap 09/12/2020 07:42:00 AM EST completed e CW1 ([facility]) Tdap 09/12/2020 07:42:00 AM EST completed e CW1 ([facility]) Tdap 09/12/2020 07:42:00 AM EST completed e CW1 ([facility]) Tdap 09/12/2020 07:42:00 AM EST completed e CW1 ([facility]) Tdap 09/12/2020 07:42:00 AM EST completed e CW1 ([facility]) Tdap 09/12/2020 07:42:00 AM EST completed e CW1 ([facility]) Tdap 09/12/2020 07:42:00 AM EST completed e CW1 ([facility]) Tdap 09/12/2020 07:42:00 AM EST completed e CW1 ([facility]) Tdap 09/12/2020 07:42:00 AM EST completed e CW1 ([facility]) Tdap 09/12/2020 07:42:00 AM EST completed e CW1 ([facility]) Tdap 09/12/2020 07:42:00 AM EST completed e CW1 ([facility]) Tdap 09/12/2020 07:42:00 AM EST completed e CW1 ([facility]) Tdap 09/12/2020 07:42:00 AM EST completed e CW1 ([facility]) Tdap 09/12/2020 07:42:00 AM EST completed e CW1 ([facility]) Tdap 09/12/2020 07:42:00 AM EST completed e CW1 ([facility]) Tdap 09/12/2020 07:42:00 AM EST completed e CW1 ([facility]) Tdap 09/12/2020 07:42:00 AM EST completed e CW1 ([facility]) Tdap 09/12/2020 07:42:00 AM EST completed e CW1 ([facility]) Tdap 09/12/2020 07:42:00 AM EST completed e CW1 ([facility]) Medications Medication Brand Name Start Date Product Form Dose Route Admi nistrative Instructions Pharmacy Instructions Status Indications Reaction Description Data Source(s) COMPRESSION STOCKINGS 20-30 mmHg UNK 06/18/2021 12:00:00 AM EDT active COMPRESSION STOCKINGS 20-30 mmHg eCW1 ([facility]) COMPRESSION STOCKINGS 20-30 mmHg UNK 06/18/2021 12:00:00 AM EDT suspended COMPRESSION STOCKINGS 20-30 mmHg eCW1 ([facility]) COMPRESSION STOCKINGS 20-30 mmHg UNK 06/18/2021 12:00:00 AM EDT active COMPRESSION STOCKINGS 20-30 mmHg eCW1 ([facility]) COMPRESSION STOCKINGS 20-30 mmHg UNK 06/18/2021 12:00:00 AM EDT suspended COMPRESSION STOCKINGS 20-30 mmHg eCW1 ([facility]) COMPRESSION STOCKINGS 20-30 mmHg UNK 06/18/2021 12:00:00 AM EDT active COMPRESSION STOCKINGS 20-30 mmHg eCW1 ([facility]) COMPRESSION STOCKINGS 20-30 mmHg UNK 06/18/2021 12:00:00 AM EDT active COMPRESSION STOCKINGS 20-30 mmHg eCW1 ([facility]) COMPRESSION STOCKINGS 20-30 mmHg UNK 06/18/2021 12:00:00 AM EDT active COMPRESSION STOCKINGS 20-30 mmHg eCW1 ([facility]) COMPRESSION STOCKINGS 20-30 mmHg UNK 06/18/2021 12:00:00 AM EDT suspended COMPRESSION STOCKINGS 20-30 mmHg eCW1 ([facility]) Levofloxacin 750 MG Oral Tablet levoFLOXacin 750 MG levoFLOX acin 750 MG 06/14/2021 12:00:00 AM EDT 1.0 {tablet} active levoFLOXacin 750 MG eCW1 ([facility]) Lorazepam 1 MG Oral Tablet Lorazepam 1 MG 06/06/2021 12:00:00 AM EDT suspended Lorazepam 1 MG eCW1 ([facility]) Lorazepam 1 MG Oral Tablet Lorazepam 1 MG 06/06/2021 12:00:00 AM EDT suspended Lorazepam 1 MG eCW1 ([facility]) Lorazepam 1 MG Oral Tablet Lorazepam 1 MG 06/06/2021 12:00:00 AM EDT suspended Lorazepam 1 MG eCW1 ([facility]) Lorazepam 1 MG Oral Tablet Lorazepam 1 MG 06/06/2021 12:00:00 AM EDT active Lorazepam 1 MG eCW1 ([facility]) Lorazepam 1 MG Oral Tablet Lorazepam 1 MG 06/06/2021 12:00:00 AM EDT active Lorazepam 1 MG eCW1 ([facility]) Lorazepam 1 MG Oral Tablet Lorazepam 1 MG 06/06/2021 12:00:00 AM EDT active Lorazepam 1 MG eCW1 ([facility]) Lorazepam 1 MG Oral Tablet Lorazepam 1 MG 06/06/2021 12:00:00 AM EDT suspended Lorazepam 1 MG eCW1 ([facility]) Lorazepam 1 MG Oral Tablet Lorazepam 1 MG 06/06/2021 12:00:00 AM EDT suspended Lorazepam 1 MG eCW1 ([facility]) Lorazepam 1 MG Oral Tablet Lorazepam 1 MG 06/06/2021 12:00:00 AM EDT active Lorazepam 1 MG eCW1 ([facility]) Lorazepam 1 MG Oral Tablet Lorazepam 1 MG 06/06/2021 12:00:00 AM EDT suspended Lorazepam 1 MG eCW1 ([facility]) Lorazepam 1 MG Oral Tablet Lorazepam 1 MG 06/06/2021 12:00:00 AM EDT suspended Lorazepam 1 MG eCW1 ([facility]) Lorazepam 1 MG Oral Tablet Lorazepam 1 MG 06/06/2021 12:00:00 AM EDT suspended Lorazepam 1 MG eCW1 ([facility]) Lorazepam 1 MG Oral Tablet [Ativan] Ativan 1 MG Ativan 1 MG 05/22/2021 12:00:00 AM EDT active Ativan 1 MG eCW1 ([facility]) Finasteride 5 MG Oral Tablet Finasteride 5 MG 04/17/2021 12:00:00 A M EDT 1.0 {tablet} active Finasteride 5 MG eCW1 ( [facility]) Finasteride 5 MG Oral Tablet Finasteride 5 MG 04/17/2021 12:00:00 A M EDT 1.0 {tablet} active Finasteride 5 MG eCW1 ( [facility]) Finasteride 5 MG Oral Tablet Finasteride 5 MG 04/17/2021 12:00:00 A M EDT 1.0 {tablet} active Finasteride 5 MG eCW1 ( [facility]) Finasteride 5 MG Oral Tablet Finasteride 5 MG 04/17/2021 12:00:00 A M EDT 1.0 {tablet} active Finasteride 5 MG eCW1 ( [facility]) Finasteride 5 MG Oral Tablet Finasteride 5 MG 04/17/2021 12:00:00 A M EDT 1.0 {tablet} active Finasteride 5 MG eCW1 ( [facility]) Finasteride 5 MG Oral Tablet Finasteride 5 MG 04/17/2021 12:00:00 A M EDT 1.0 {tablet} active Finasteride 5 MG eCW1 ( [facility]) Finasteride 5 MG Oral Tablet Finasteride 5 MG 04/17/2021 12:00:00 A M EDT 1.0 {tablet} active Finasteride 5 MG eCW1 ( [facility]) Finasteride 5 MG Oral Tablet Finasteride 5 MG 04/17/2021 12:00:00 A M EDT 1.0 {tablet} active Finasteride 5 MG eCW1 ( [facility]) Finasteride 5 MG Oral Tablet Finasteride 5 MG 04/17/2021 12:00:00 A M EDT 1.0 {tablet} active Finasteride 5 MG eCW1 ( [facility]) Finasteride 5 MG Oral Tablet Finasteride 5 MG 04/17/2021 12:00:00 A M EDT 1.0 {tablet} active Finasteride 5 MG eCW1 ( [facility]) Finasteride 5 MG Oral Tablet Finasteride 5 MG 04/17/2021 12:00:00 A M EDT 1.0 {tablet} active Finasteride 5 MG eCW1 ( [facility]) Finasteride 5 MG Oral Tablet Finasteride 5 MG 04/17/2021 12:00:00 A M EDT 1.0 {tablet} active Finasteride 5 MG eCW1 ( [facility]) Finasteride 5 MG Oral Tablet Finasteride 5 MG 04/17/2021 12:00:00 A M EDT 1.0 {tablet} active Finasteride 5 MG eCW1 ( [facility]) Finasteride 5 MG Oral Tablet Finasteride 5 MG 04/17/2021 12:00:00 A M EDT 1.0 {tablet} active Finasteride 5 MG eCW1 ( [facility]) Finasteride 5 MG Oral Tablet Finasteride 5 MG 04/17/2021 12:00:00 A M EDT 1.0 {tablet} active Finasteride 5 MG eCW1 ( [facility]) Finasteride 5 MG Oral Tablet Finasteride 5 MG 04/17/2021 12:00:00 A M EDT 1.0 {tablet} active Finasteride 5 MG eCW1 ( [facility]) Finasteride 5 MG Oral Tablet Finasteride 5 MG 04/17/2021 12:00:00 A M EDT 1.0 {tablet} active Finasteride 5 MG eCW1 ( [facility]) Finasteride 5 MG Oral Tablet Finasteride 5 MG 04/17/2021 12:00:00 A M EDT 1.0 {tablet} active eCW1 ([facility]) Finasteride 5 MG Oral Tablet Finasteride 5 MG 04/17/2021 12:00:00 A M EDT 1.0 {tablet} active Finasteride 5 MG eCW1 ( [facility]) Bard Ydjsow-E-Ztv Leg Bag - Bard Fbdcyw-U-Orp Leg Bag - 03/13 12:00:00 AM EDT active Bard Jnzzae-Z-Rcg Leg Bag - eCW1 ([facility]) Bard Gftggd-U-Ifb Leg Bag - Bard Kwhsfz-V-Emu Leg Bag - 03/13 12:00:00 AM EDT suspended Bard Dispoz-A- Bag Leg Bag - eCW1 ([facility]) Bard Wtdbyw-T-Qiv Leg Bag - Bard Ywsfnz-E-Bmu Leg Bag - 03/13 12:00:00 AM EDT active Bard Tcfiak-Y-Rpz Leg Bag - eCW1 ([facility]) Bard Tozyeo-W-Dlu Leg Bag - Bard Cxyyng-K-Ceb Leg Bag - 03/13 12:00:00 AM EDT active Bard Mohgjw-U-Xlz Leg Bag - eCW1 ([facility]) Bard Kkfrgz-S-Tna Leg Bag - Bard Sjxkwq-L-Wpu Leg Bag - 03/13 12:00:00 AM EDT active Bard Udylia-R-Isn Leg Bag - eCW1 ([facility]) Bard Lpcyiy-O-Pfm Leg Bag - Bard Djbddd-J-Yho Leg Bag - 03/13 12:00:00 AM EDT active Bard Wilcxm-V-Loq Leg Bag - eCW1 ([facility]) Bard Wfdrfd-O-Qnd Leg Bag - Bard Uqaaju-N-Adc Leg Bag - 03/13 12:00:00 AM EDT suspended Bard Dispoz-A- Bag Leg Bag - eCW1 ([facility]) Bard Zjxbim-M-Ipz Leg Bag - Bard Tdwoao-A-Guu Leg Bag - 03/13 12:00:00 AM EDT active Bard Mvzqrz-B-Zjt Leg Bag - eCW1 ([facility]) Bard Rztwad-J-Hkd Leg Bag - Bard Zqeikp-M-Cpz Leg Bag - 03/13 12:00:00 AM EDT active Bard Gnerda-R-Zkg Leg Bag - eCW1 ([facility]) Bard Gxnhqc-W-Wyk Leg Bag - Bard Mqykhu-I-Vgk Leg Bag - 03/13 12:00:00 AM EDT active eCW1 ([facility]) Bard Gkjvij-B-Zxk Leg Bag - Bard Kjvblx-A-Uvx Leg Bag - 03/13 12:00:00 AM EDT active Bard Bdeofs-E-Vdr Leg Bag - eCW1 ([facility]) Bard Ijijuo-K-Tcf Leg Bag - Bard Uaexek-C-Pkh Leg Bag - 03/13 12:00:00 AM EDT active Bard Ezevar-B-Pmk Leg Bag - eCW1 ([facility]) Bard Abuwdl-X-Ako Leg Bag - Bard Oelxbc-S-Wia Leg Bag - 03/13 12:00:00 AM EDT active Bard Vndaot-Z-Dzq Leg Bag - eCW1 ([facility]) Bard Cnqdug-N-Uuu Leg Bag - Bard Rrnmto-M-Sbs Leg Bag - 03/13 12:00:00 AM EDT suspended Bard Dispoz-A- Bag Leg Bag - eCW1 ([facility]) Bard Gtcqxl-R-Csn Leg Bag - Bard Hhtrho-K-Nrs Leg Bag - 03/13 12:00:00 AM EDT active Bard Bzpnlx-I-Klo Leg Bag - eCW1 ([facility]) Bard Mizpiz-C-Bjn Leg Bag - Bard Wshixz-B-Qhi Leg Bag - 03/13 12:00:00 AM EDT active Bard Bldmoa-E-Zsi Leg Bag - eCW1 ([facility]) Bard Oqjwff-L-Vjo Leg Bag - Bard Tqwgdt-N-Cfx Leg Bag - 03/13 12:00:00 AM EDT suspended Bard Dispoz-A- Bag Leg Bag - eCW1 ([facility]) Bard Qthnhy-D-Ddr Leg Bag - Bard Mewdzj-Z-Vlu Leg Bag - 03/13 12:00:00 AM EDT active Bard Kfehhw-I-Lab Leg Bag - eCW1 ([facility]) Bard Pgyxas-C-Djj Leg Bag - Bard Fquxpt-M-Zkf Leg Bag - 03/13 12:00:00 AM EDT active Bard Klyjvr-K-Bml Leg Bag - eCW1 ([facility]) Bard Ddxtgo-N-Zan Leg Bag - Bard Bxepmh-A-Vqq Leg Bag - 03/13 12:00:00 AM EDT suspended Bard Dispoz-A- Bag Leg Bag - eCW1 ([facility]) Bard Thzohb-B-Bck Leg Bag - Bard Yfgbbu-R-Bbx Leg Bag - 03/13 12:00:00 AM EDT active Bard Hsxtfz-F-Rjm Leg Bag - eCW1 ([facility]) Bard Fziajw-G-Aci Leg Bag - Bard Vmrlop-H-Umt Leg Bag - 03/13 12:00:00 AM EDT active Bard Qmqfwj-K-Koo Leg Bag - eCW1 ([facility]) Antonio Sutab 03/21/2021 12:00:00 AM EDT active [facility] ([facility]) Furosemide 20 MG Oral Tablet Furosemide 20 MG 03/19/2021 12:00:00 A M EDT 1.0 {tablet} active Furosemide 20 MG eCW1 ( [facility]) Furosemide 20 MG Oral Tablet Furosemide 20 MG 03/19/2021 12:00:00 A M EDT 1.0 {tablet} active eCW1 ([facility]) Furosemide 20 MG Oral Tablet Furosemide 20 MG 03/19/2021 12:00:00 A M EDT 1.0 {tablet} active Furosemide 20 MG eCW1 ( [facility]) Furosemide 20 MG Oral Tablet Furosemide 20 MG 03/19/2021 12:00:00 A M EDT 1.0 {tablet} active Furosemide 20 MG eCW1 ( [facility]) Furosemide 20 MG Oral Tablet Furosemide 20 MG 03/19/2021 12:00:00 A M EDT 1.0 {tablet} active Furosemide 20 MG eCW1 ( [facility]) Furosemide 20 MG Oral Tablet Furosemide 20 MG 03/19/2021 12:00:00 A M EDT 1.0 {tablet} active Furosemide 20 MG eCW1 ( [facility]) Furosemide 20 MG Oral Tablet Furosemide 20 MG 03/19/2021 12:00:00 A M EDT 1.0 {tablet} active Furosemide 20 MG eCW1 ( [facility]) Furosemide 20 MG Oral Tablet Furosemide 20 MG 03/19/2021 12:00:00 A M EDT 1.0 {tablet} active Furosemide 20 MG eCW1 ( [facility]) Furosemide 20 MG Oral Tablet Furosemide 20 MG 03/19/2021 12:00:00 A M EDT 1.0 {tablet} active Furosemide 20 MG eCW1 ( [facility]) Furosemide 20 MG Oral Tablet Furosemide 20 MG 03/19/2021 12:00:00 A M EDT 1.0 {tablet} active Furosemide 20 MG eCW1 ( [facility]) Furosemide 20 MG Oral Tablet Furosemide 20 MG 03/19/2021 12:00:00 A M EDT 1.0 {tablet} active Furosemide 20 MG eCW1 ( [facility]) Furosemide 20 MG Oral Tablet Furosemide 20 MG 03/19/2021 12:00:00 A M EDT 1.0 {tablet} active Furosemide 20 MG eCW1 ( [facility]) Furosemide 20 MG Oral Tablet Furosemide 20 MG 03/19/2021 12:00:00 A M EDT 1.0 {tablet} active Furosemide 20 MG eCW1 ( [facility]) Furosemide 20 MG Oral Tablet Furosemide 20 MG 03/19/2021 12:00:00 A M EDT 1.0 {tablet} active Furosemide 20 MG eCW1 ( [facility]) Furosemide 20 MG Oral Tablet Furosemide 20 MG 03/19/2021 12:00:00 A M EDT 1.0 {tablet} active Furosemide 20 MG eCW1 ( [facility]) Furosemide 20 MG Oral Tablet Furosemide 20 MG 03/19/2021 12:00:00 A M EDT 1.0 {tablet} active Furosemide 20 MG eCW1 ( [facility]) Furosemide 20 MG Oral Tablet Furosemide 20 MG 03/19/2021 12:00:00 A M EDT 1.0 {tablet} active Furosemide 20 MG eCW1 ( [facility]) Furosemide 20 MG Oral Tablet Furosemide 20 MG 03/19/2021 12:00:00 A M EDT 1.0 {tablet} active Furosemide 20 MG eCW1 ( [facility]) Furosemide 20 MG Oral Tablet Furosemide 20 MG 03/19/2021 12:00:00 A M EDT 1.0 {tablet} active Furosemide 20 MG eCW1 ( [facility]) Furosemide 20 MG Oral Tablet Furosemide 20 MG 03/19/2021 12:00:00 A M EDT 1.0 {tablet} active Furosemide 20 MG eCW1 ( [facility]) Furosemide 20 MG Oral Tablet Furosemide 20 MG 03/19/2021 12:00:00 A M EDT 1.0 {tablet} active Furosemide 20 MG eCW1 ( [facility]) Furosemide 20 MG Oral Tablet Furosemide 20 MG 03/19/2021 12:00:00 A M EDT 1.0 {tablet} active Furosemide 20 MG eCW1 ( [facility]) Furosemide 20 MG Oral Tablet Furosemide 20 MG 03/19/2021 12:00:00 A M EDT 1.0 {tablet} active Furosemide 20 MG eCW1 ( [facility]) Furosemide 20 MG Oral Tablet Furosemide 20 MG 03/19/2021 12:00:00 A M EDT 1.0 {tablet} active Furosemide 20 MG eCW1 ( [facility]) Sulfamethoxazole 800 MG / Trimethoprim 1 60 MG Oral Tablet [Bactrim] Bactrim DS 800-160 MG Bactrim DS 800-160 MG 02/11/2021 12:00:00 AM EDT 1.0 {table t} active Bactrim DS 800-160 MG eCW1 ( [facility]) Sulfamethoxazole 800 MG / Trimethoprim 1 60 MG Oral Tablet [Bactrim] Bactrim DS 800-160 MG Bactrim DS 800-160 MG 02/11/2021 12:00:00 AM EDT 1.0 {table t} active Bactrim DS 800-160 MG eCW1 ( [facility]) Sulfamethoxazole 800 MG / Trimethoprim 1 60 MG Oral Tablet [Bactrim] Bactrim DS 800-160 MG Bactrim DS 800-160 MG 02/11/2021 12:00:00 AM EDT 1.0 {table t} active Bactrim DS 800-160 MG eCW1 ( [facility]) Sulfamethoxazole 800 MG / Trimethoprim 1 60 MG Oral Tablet [Bactrim] Bactrim DS 800-160 MG Bactrim DS 800-160 MG 02/11/2021 12:00:00 AM EDT 1.0 {table t} active Bactrim DS 800-160 MG eCW1 ( [facility]) Sulfamethoxazole 800 MG / Trimethoprim 1 60 MG Oral Tablet [Bactrim] Bactrim DS 800-160 MG Bactrim DS 800-160 MG 02/11/2021 12:00:00 AM EDT 1.0 {table t} active Bactrim DS 800-160 MG eCW1 ( [facility]) Sulfamethoxazole 800 MG / Trimethoprim 1 60 MG Oral Tablet [Bactrim] Bactrim DS 800-160 MG Bactrim DS 800-160 MG 02/11/2021 12:00:00 AM EDT 1.0 {table t} active Bactrim DS 800-160 MG eCW1 ( [facility]) Sulfamethoxazole 800 MG / Trimethoprim 1 60 MG Oral Tablet [Bactrim] Bactrim DS 800-160 MG Bactrim DS 800-160 MG 02/11/2021 12:00:00 AM EDT 1.0 {table t} active Bactrim DS 800-160 MG eCW1 ( [facility]) [place] Ramos Insertion Tray - Markell Ramos Insertion Tray - 12:00:00 AM EDT active Markell Ramos Inser tion Tray - eCW1 ([facility]) [place] Ramos Insertion Tray - Markell Ramos Insertion Tray - 12:00:00 AM EDT active [place] Ramos Inser tion Tray - eCW1 ([facility]) [place] Ramos Insertion Tray - Marklel Ramos Insertion Tray - 12:00:00 AM EDT active Markell Ramos Inser tion Tray - eCW1 ([facility]) [place] Ramos Insertion Tray - [place] Insertion Tray - 12:00:00 AM EDT active [place] Inser tion Tray - eCW1 ([facility]) [place] Ramos Insertion Tray - Markell Ramos Insertion Tray - 12:00:00 AM EDT suspended Markell Ramos In sertion Tray - eCW1 ([facility]) [place] Ramos Insertion Tray - Markell Ramos Insertion Tray - 12:00:00 AM EDT active [place] Ramos Inser tion Tray - eCW1 ([facility]) Markell Ramos Insertion Tray - Markell Ramos Insertion Tray - 12:00:00 AM EDT active [place] Inser tion Tray - eCW1 ([facility]) [place] Insertion Tray - [place] Insertion Tray - 12:00:00 AM EDT active Markell Ramos Inser tion Tray - eCW1 ([facility]) [place] Ramos Insertion Tray - Markell Ramos Insertion Tray - 12:00:00 AM EDT suspended [place] In sertion Tray - eCW1 ([facility]) Markell Ramos Insertion Tray - Markell Ramos Insertion Tray - 12:00:00 AM EDT active Markell Ramos Inser tion Tray - eCW1 ([facility]) [place] Ramos Insertion Tray - [place] Insertion Tray - 12:00:00 AM EDT active [place] Inser tion Tray - eCW1 ([facility]) Markell Ramos Insertion Tray - [place] Insertion Tray - 12:00:00 AM EDT active [place] Inser tion Tray - eCW1 ([facility]) Markell Ramos Insertion Tray - Markell Ramos Insertion Tray - 12:00:00 AM EDT suspended [place] In sertion Tray - eCW1 ([facility]) [place] Insertion Tray - [place] Insertion Tray - 12:00:00 AM EDT active [place] Inser tion Tray - eCW1 ([facility]) [place] Insertion Tray - [place] Insertion Tray - 12:00:00 AM EDT active [place] Inser tion Tray - eCW1 ([facility]) Markell Ramos Insertion Tray - [place] Insertion Tray - 12:00:00 AM EDT active [place] Inser tion Tray - eCW1 ([facility]) Markell Ramos Insertion Tray - [place] Insertion Tray - 12:00:00 AM EDT active [place] Inser tion Tray - eCW1 ([facility]) [place] Insertion Tray - [place] Insertion Tray - 12:00:00 AM EDT suspended [place] In sertion Tray - eCW1 ([facility]) Markell Ramos Insertion Tray - Markell Ramos Insertion Tray - 12:00:00 AM EDT suspended [place] In sertion Tray - eCW1 ([facility]) [place] Insertion Tray - Markell Ramos Insertion Tray - 12:00:00 AM EDT active Markell Ramos Inser tion Tray - eCW1 ([facility]) Markell Ramos Insertion Tray - Markell Ramos Insertion Tray - 12:00:00 AM EDT active Markell Ramos Inser tion Tray - eCW1 ([facility]) Markell Ramos Insertion Tray - Markell Ramos Insertion Tray - 12:00:00 AM EDT active [place] Inser tion Tray - eCW1 ([facility]) Markell Ramos Insertion Tray - [place] Insertion Tray - 12:00:00 AM EDT active Markell Ramos Inser tion Tray - eCW1 ([facility]) [place] Ramos Insertion Tray - Markell Ramos Insertion Tray - 12:00:00 AM EDT active Markell Ramos Inser tion Tray - eCW1 ([facility]) Markell Ramos Insertion Tray - Markell Ramos Insertion Tray - 12:00:00 AM EDT active [place] Inser tion Tray - eCW1 ([facility]) [place] Insertion Tray - [place] Insertion Tray - 12:00:00 AM EDT active Markell Ramos Inser tion Tray - eCW1 ([facility]) [place] Insertion Tray - [place] Insertion Tray - 12:00:00 AM EDT active [place] Inser tion Tray - eCW1 ([facility]) [place] Insertion Tray - [place] Insertion Tray - 12:00:00 AM EDT active [place] Inser tion Tray - eCW1 ([facility]) [place] Ramos Insertion Tray - Markell Ramos Insertion Tray - 12:00:00 AM EDT active Markell Ramos Inser tion Tray - eCW1 ([facility]) [place] Ramos Insertion Tray - [place] Insertion Tray - 12:00:00 AM EDT active eCW1 ([facility]) Markell Ramos Insertion Tray - [place] Insertion Tray - 12:00:00 AM EDT active Markell Ramos Inser tion Tray - eCW1 ([facility]) [place] Ramos Insertion Tray - Markell Ramos Insertion Tray - 12:00:00 AM EDT active Markell Ramos Inser tion Tray - eCW1 ([facility]) Bard Coude Tip Catheter - Bard Coude Tip Catheter - 12/04/2020 1 2:00:00 AM EST active Bard Coude Tip C atheter - eCW1 ([facility]) Bard Coude Tip Catheter - Bard Coude Tip Catheter - 12/04/2020 1 2:00:00 AM EST active Bard Coude Tip C atheter - eCW1 ([facility]) Bard Coude Tip Catheter - Bard Coude Tip Catheter - 12/04/2020 1 2:00:00 AM EST active Bard Coude Tip C atheter - eCW1 ([facility]) Bard Lrqchz-Q-Xdi/Flip-Burt Vlv - Bard Vwfjru-C-Lnl/Flip-Burt Vlv - 12/04/2020 12:00:00 AM EST active Bard Dis maurisio-A-Bag/Flip-Burt Vlv - eCW1 ([facility]) Bard Coude Tip Catheter - Bard Coude Tip Catheter - 12/04/2020 1 2:00:00 AM EST active Bard Coude Tip C atheter - eCW1 ([facility]) Bard Coude Tip Catheter - Bard Coude Tip Catheter - 12/04/2020 1 2:00:00 AM EST suspended Bard Coude Tip Catheter - eCW1 ([facility]) Bard Zjjiqu-Q-Lot/Flip-Burt Vlv - Bard Louehh-Z-Ffb/Flip-Burt Vlv - 12/04/2020 12:00:00 AM EST active Bard Dis maurisio-A-Bag/Flip-Burt Vlv - eCW1 ([facility]) Bard Kfxqsz-K-Suu/Flip-Burt Vlv - Bard Iflyyg-J-Uob/Flip-Burt Vlv - 12/04/2020 12:00:00 AM EST active Bard Dis maurisio-A-Bag/Flip-Burt Vlv - eCW1 ([facility]) Bard Coude Tip Catheter - Bard Coude Tip Catheter - 12/04/2020 1 2:00:00 AM EST active Bard Coude Tip C atheter - eCW1 ([facility]) Bard Foczvk-C-Spu/Flip-Burt Vlv - Bard Olaeny-R-Uqm/Flip-Burt Vlv - 12/04/2020 12:00:00 AM EST suspended Bard Ptuung-V-Par/Flip-Burt Vlv - eCW1 ([facility]) Bard Coude Tip Catheter - Bard Coude Tip Catheter - 12/04/2020 1 2:00:00 AM EST active Bard Coude Tip C atheter - eCW1 ([facility]) Bard Auytov-U-Bst/Flip-Burt Vlv - Bard Ijceei-J-Ren/Flip-Burt Vlv - 12/04/2020 12:00:00 AM EST active Bard Dis maurisio-A-Bag/Flip-Burt Vlv - eCW1 ([facility]) Bard Coude Tip Catheter - Bard Coude Tip Catheter - 12/04/2020 1 2:00:00 AM EST active Bard Coude Tip C atheter - eCW1 ([facility]) Bard Coude Tip Catheter - Bard Coude Tip Catheter - 12/04/2020 1 2:00:00 AM EST active Bard Coude Tip C atheter - eCW1 ([facility]) Bard Coude Tip Catheter - Bard Coude Tip Catheter - 12/04/2020 1 2:00:00 AM EST suspended Bard Coude Tip Catheter - eCW1 ([facility]) Bard Coude Tip Catheter - Bard Coude Tip Catheter - 12/04/2020 1 2:00:00 AM EST active Bard Coude Tip C atheter - eCW1 ([facility]) Bard Kuiycl-K-Nwy/Flip-Burt Vlv - Bard Nrwduq-X-Jlq/Flip-Burt Vlv - 12/04/2020 12:00:00 AM EST active Bard Dis maurisio-A-Bag/Flip-Burt Vlv - eCW1 ([facility]) Bard Coude Tip Catheter - Bard Coude Tip Catheter - 12/04/2020 1 2:00:00 AM EST active Bard Coude Tip C atheter - eCW1 ([facility]) Bard Coude Tip Catheter - Bard Coude Tip Catheter - 12/04/2020 1 2:00:00 AM EST active Bard Coude Tip C atheter - eCW1 ([facility]) Bard Jtvzvy-U-Rmu/Flip-Burt Vlv - Bard Xxywiy-I-Bcj/Flip-Burt Vlv - 12/04/2020 12:00:00 AM EST active Bard Dis maurisio-A-Bag/Flip-Burt Vlv - eCW1 ([facility]) Bard Obqhmd-I-Phv/Flip-Burt Vlv - Bard Zpvzue-K-Mkh/Flip-Burt Vlv - 12/04/2020 12:00:00 AM EST active e CW1 ([facility]) Bard Odaorj-S-Frq/Flip-Burt Vlv - Bard Uouptv-R-Hvn/Flip-Burt Vlv - 12/04/2020 12:00:00 AM EST active Bard Dis maurisio-A-Bag/Flip-Burt Vlv - eCW1 ([facility]) Bard Jsedpk-N-Tuc/Flip-Burt Vlv - Bard Kqejrg-V-Uwg/Flip-Burt Vlv - 12/04/2020 12:00:00 AM EST suspended Bard Bdkuia-V-Ysd/Flip-Burt Vlv - eCW1 ([facility]) Bard Rigvzj-Q-Lry/Flip-Burt Vlv - Bard Udbxxb-T-Uqz/Flip-Burt Vlv - 12/04/2020 12:00:00 AM EST active Bard Dis maurisio-A-Bag/Flip-Burt Vlv - eCW1 ([facility]) Bard Coude Tip Catheter - Bard Coude Tip Catheter - 12/04/2020 1 2:00:00 AM EST active Bard Coude Tip C atheter - eCW1 ([facility]) Bard Coude Tip Catheter - Bard Coude Tip Catheter - 12/04/2020 1 2:00:00 AM EST active Bard Coude Tip C atheter - eCW1 ([facility]) Bard Coude Tip Catheter - Bard Coude Tip Catheter - 12/04/2020 1 2:00:00 AM EST active Bard Coude Tip C atheter - eCW1 ([facility]) Bard Esdnyd-L-Mss/Flip-Burt Vlv - Bard Wuirjt-O-Dbw/Flip-Burt Vlv - 12/04/2020 12:00:00 AM EST active Bard Dis maurisio-A-Bag/Flip-Burt Vlv - eCW1 ([facility]) Bard Kxhwqa-W-Byt/Flip-Burt Vlv - Bard Sozxte-J-Czr/Flip-Burt Vlv - 12/04/2020 12:00:00 AM EST suspended Bard Vgunnj-T-Vqo/Flip-Burt Vlv - eCW1 ([facility]) Bard Coude Tip Catheter - Bard Coude Tip Catheter - 12/04/2020 1 2:00:00 AM EST active Bard Coude Tip C atheter - eCW1 ([facility]) Bard Fdlitl-Q-Pun/Flip-Burt Vlv - Bard Qnizup-D-Qdi/Flip-Burt Vlv - 12/04/2020 12:00:00 AM EST active Bard Dis maurisio-A-Bag/Flip-Burt Vlv - eCW1 ([facility]) Bard Rowpnt-K-Ihz/Flip-Burt Vlv - Bard Kocxaf-O-Vmf/Flip-Burt Vlv - 12/04/2020 12:00:00 AM EST active Bard Dis maurisio-A-Bag/Flip-Burt Vlv - eCW1 ([facility]) Bard Toxqkp-W-Ixo/Flip-Burt Vlv - Bard Xqnzva-U-Stg/Flip-Burt Vlv - 12/04/2020 12:00:00 AM EST active Bard Dis maurisio-A-Bag/Flip-Burt Vlv - eCW1 ([facility]) Bard Coude Tip Catheter - Bard Coude Tip Catheter - 12/04/2020 1 2:00:00 AM EST active Bard Coude Tip C atheter - eCW1 ([facility]) Bard Wghwrp-U-Xbq/Flip-Burt Vlv - Bard Nxhihg-H-Wjq/Flip-Burt Vlv - 12/04/2020 12:00:00 AM EST active Bard Dis maurisio-A-Bag/Flip-Burt Vlv - eCW1 ([facility]) Bard Yboewn-R-Jzc/Flip-Burt Vlv - Bard Owcwec-D-Swb/Flip-Burt Vlv - 12/04/2020 12:00:00 AM EST suspended Bard Gcfxyr-E-Qaj/Flip-Burt Vlv - eCW1 ([facility]) Bard Coude Tip Catheter - Bard Coude Tip Catheter - 12/04/2020 1 2:00:00 AM EST suspended Bard Coude Tip Catheter - eCW1 ([facility]) Bard Alfsjh-K-Dby/Flip-Burt Vlv - Bard Qsxtaq-O-Cik/Flip-Burt Vlv - 12/04/2020 12:00:00 AM EST active Bard Dis maurisio-A-Bag/Flip-Burt Vlv - eCW1 ([facility]) Bard Coude Tip Catheter - Bard Coude Tip Catheter - 12/04/2020 1 2:00:00 AM EST active Bard Coude Tip C atheter - eCW1 ([facility]) Bard Nxqfqa-F-Raw/Flip-Burt Vlv - Bard Glbnbd-X-Ydl/Flip-Burt Vlv - 12/04/2020 12:00:00 AM EST active Bard Dis maurisio-A-Bag/Flip-Burt Vlv - eCW1 ([facility]) Bard Lclzry-R-Erb/Flip-Burt Vlv - Bard Nzpcjc-L-Enb/Flip-Burt Vlv - 12/04/2020 12:00:00 AM EST active Bard Dis maurisio-A-Bag/Flip-Burt Vlv - eCW1 ([facility]) Bard Tsnlnc-O-Cah/Flip-Burt Vlv - Bard Jmqfeo-A-Gsu/Flip-Burt Vlv - 12/04/2020 12:00:00 AM EST active Bard Dis maurisio-A-Bag/Flip-Burt Vlv - eCW1 ([facility]) Bard Coude Tip Catheter - Bard Coude Tip Catheter - 12/04/2020 1 2:00:00 AM EST active Bard Coude Tip C atheter - eCW1 ([facility]) Bard Coude Tip Catheter - Bard Coude Tip Catheter - 12/04/2020 1 2:00:00 AM EST active Bard Coude Tip C atheter - eCW1 ([facility]) Bard Llnszz-N-Lxk/Flip-Burt Vlv - Bard Amyvfz-E-Mna/Flip-Burt Vlv - 12/04/2020 12:00:00 AM EST active Bard Dis maurisio-A-Bag/Flip-Burt Vlv - eCW1 ([facility]) Bard Coude Tip Catheter - Bard Coude Tip Catheter - 12/04/2020 1 2:00:00 AM EST active Bard Coude Tip C atheter - eCW1 ([facility]) Bard Mjfwcb-F-Bpa/Flip-Burt Vlv - Bard Trcvri-F-Lpo/Flip-Burt Vlv - 12/04/2020 12:00:00 AM EST active Bard Dis maurisio-A-Bag/Flip-Burt Vlv - eCW1 ([facility]) Bard Iopzyc-C-Cty/Flip-Burt Vlv - Bard Ewzqir-Y-Tgz/Flip-Burt Vlv - 12/04/2020 12:00:00 AM EST active Bard Dis maurisio-A-Bag/Flip-Burt Vlv - eCW1 ([facility]) Bard Coude Tip Catheter - Bard Coude Tip Catheter - 12/04/2020 1 2:00:00 AM EST active Bard Coude Tip C atheter - eCW1 ([facility]) Bard Ksjitl-K-Qpd/Flip-Burt Vlv - Bard Lumjdy-N-Rst/Flip-Burt Vlv - 12/04/2020 12:00:00 AM EST active Bard Dis maurisio-A-Bag/Flip-Burt Vlv - eCW1 ([facility]) Bard Coude Tip Catheter - Bard Coude Tip Catheter - 12/04/2020 1 2:00:00 AM EST active eCW1 ([facility]) Bard Coude Tip Catheter - Bard Coude Tip Catheter - 12/04/2020 1 2:00:00 AM EST suspended Bard Coude Tip Catheter - eCW1 ([facility]) Bard Kyixjl-L-Bjw/Flip-Burt Vlv - Bard Czbbzq-A-Dat/Flip-Burt Vlv - 12/04/2020 12:00:00 AM EST active Bard Dis maurisio-A-Bag/Flip-Burt Vlv - eCW1 ([facility]) Bard Haerjb-N-Kno/Flip-Burt Vlv - Bard Vkadms-M-Dhm/Flip-Burt Vlv - 12/04/2020 12:00:00 AM EST active Bard Dis maurisio-A-Bag/Flip-Burt Vlv - eCW1 ([facility]) Bard Iwxuzx-G-Gbg/Flip-Burt Vlv - Bard Tadkva-S-Ata/Flip-Burt Vlv - 12/04/2020 12:00:00 AM EST active Bard Dis maurisio-A-Bag/Flip-Burt Vlv - eCW1 ([facility]) Bard Bfkhgd-W-Ufs/Flip-Burt Vlv - Bard Qcxisw-N-Uel/Flip-Burt Vlv - 12/04/2020 12:00:00 AM EST active Bard Dis maurisio-A-Bag/Flip-Burt Vlv - eCW1 ([facility]) Bard Coude Tip Catheter - Bard Coude Tip Catheter - 12/04/2020 1 2:00:00 AM EST active Bard Coude Tip C atheter - eCW1 ([facility]) Bard Coude Tip Catheter - Bard Coude Tip Catheter - 12/04/2020 1 2:00:00 AM EST active Bard Coude Tip C atheter - eCW1 ([facility]) Bard Coude Tip Catheter - Bard Coude Tip Catheter - 12/04/2020 1 2:00:00 AM EST suspended Bard Coude Tip Catheter - eCW1 ([facility]) Bard Coude Tip Catheter - Bard Coude Tip Catheter - 12/04/2020 1 2:00:00 AM EST active Bard Coude Tip C atheter - eCW1 ([facility]) Bard Sstbfh-Z-Nkd/Flip-Burt Vlv - Bard Qqnqzh-C-Vke/Flip-Burt Vlv - 12/04/2020 12:00:00 AM EST suspended Bard Tlrekr-S-Yba/Flip-Burt Vlv - eCW1 ([facility]) Bard Coude Tip Catheter - Bard Coude Tip Catheter - 12/04/2020 1 2:00:00 AM EST active Bard Coude Tip C atheter - eCW1 ([facility]) Bard Skdygh-K-Pdh/Flip-Burt Vlv - Bard Nckuwc-G-Rll/Flip-Burt Vlv - 12/04/2020 12:00:00 AM EST active Bard Dis maurisio-A-Bag/Flip-Burt Vlv - eCW1 ([facility]) Bard Tmdrur-Q-Eks/Flip-Burt Vlv - Bard Mzkmss-D-Qiz/Flip-Burt Vlv - 12/04/2020 12:00:00 AM EST active Bard Dis maurisio-A-Bag/Flip-Burt Vlv - eCW1 ([facility]) Bard Tufndn-W-Jwd/Flip-Burt Vlv - Bard Ihcyta-D-Mos/Flip-Burt Vlv - 12/04/2020 12:00:00 AM EST active Bard Dis maurisio-A-Bag/Flip-Burt Vlv - eCW1 ([facility]) Bard Zxvqvr-O-Qss/Flip-Burt Vlv - Bard Bxazcs-B-Nph/Flip-Burt Vlv - 12/04/2020 12:00:00 AM EST active Bard Dis maurisio-A-Bag/Flip-Burt Vlv - eCW1 ([facility]) Bard Coude Tip Catheter - Bard Coude Tip Catheter - 12/04/2020 1 2:00:00 AM EST active Bard Coude Tip C atheter - eCW1 ([facility]) Bard Coude Tip Catheter - Bard Coude Tip Catheter - 12/04/2020 1 2:00:00 AM EST active Bard Coude Tip C atheter - eCW1 ([facility]) Bard Coude Tip Catheter - Bard Coude Tip Catheter - 12/04/2020 1 2:00:00 AM EST active Bard Coude Tip C atheter - eCW1 ([facility]) Bard Coude Tip Catheter - Bard Coude Tip Catheter - 12/04/2020 1 2:00:00 AM EST active Bard Coude Tip C atheter - eCW1 ([facility]) Finasteride 5 MG Oral Tablet Finasteride 5 MG 10/17/2020 12:00:00 A M EST 1.0 {tablet} active Finasteride 5 MG eCW1 ( [facility]) Finasteride 5 MG Oral Tablet Finasteride 5 MG 10/17/2020 12:00:00 A M EST 1.0 {tablet} active Finasteride 5 MG eCW1 ( [facility]) Finasteride 5 MG Oral Tablet Finasteride 5 MG 10/17/2020 12:00:00 A M EST 1.0 {tablet} active Finasteride 5 MG eCW1 ( [facility]) Sulfamethoxazole 800 MG / Trimethoprim 1 60 MG Oral Tablet [Bactrim] Bactrim DS 800-160 MG Bactrim DS 800-160 MG 09/17/2020 12:00:00 AM EST active Bactrim DS 800-160 MG eCW1 ([facility]) Sulfamethoxazole 800 MG / Trimethoprim 1 60 MG Oral Tablet [Bactrim] Bactrim DS 800-160 MG Bactrim DS 800-160 MG 09/17/2020 12:00:00 AM EST active Bactrim DS 800-160 MG eCW1 ([facility]) Sulfamethoxazole 800 MG / Trimethoprim 1 60 MG Oral Tablet [Bactrim] Bactrim DS 800-160 MG Bactrim DS 800-160 MG 09/17/2020 12:00:00 AM EST active Bactrim DS 800-160 MG eCW1 ([facility]) Sulfamethoxazole 800 MG / Trimethoprim 1 60 MG Oral Tablet [Bactrim] Bactrim DS 800-160 MG Bactrim DS 800-160 MG 09/17/2020 12:00:00 AM EST active Bactrim DS 800-160 MG eCW1 ([facility]) Sulfamethoxazole 800 MG / Trimethoprim 1 60 MG Oral Tablet [Bactrim] Bactrim DS 800-160 MG Bactrim DS 800-160 MG 09/17/2020 12:00:00 AM EST active Bactrim DS 800-160 MG eCW1 ([facility]) Sulfamethoxazole 800 MG / Trimethoprim 1 60 MG Oral Tablet [Bactrim] Bactrim DS 800-160 MG Bactrim DS 800-160 MG 09/17/2020 12:00:00 AM EST active Bactrim DS 800-160 MG eCW1 ([facility]) Sulfamethoxazole 800 MG / Trimethoprim 1 60 MG Oral Tablet [Bactrim] Bactrim DS 800-160 MG Bactrim DS 800-160 MG 09/17/2020 12:00:00 AM EST active Bactrim DS 800-160 MG eCW1 ([facility]) Sulfamethoxazole 800 MG / Trimethoprim 1 60 MG Oral Tablet [Bactrim] Bactrim DS 800-160 MG Bactrim DS 800-160 MG 09/17/2020 12:00:00 AM EST active Bactrim DS 800-160 MG eCW1 ([facility]) Sulfamethoxazole 800 MG / Trimethoprim 1 60 MG Oral Tablet [Bactrim] Bactrim DS 800-160 MG Bactrim DS 800-160 MG 09/17/2020 12:00:00 AM EST active Bactrim DS 800-160 MG eCW1 ([facility]) Sulfamethoxazole 800 MG / Trimethoprim 1 60 MG Oral Tablet [Bactrim] Bactrim DS 800-160 MG Bactrim DS 800-160 MG 09/17/2020 12:00:00 AM EST active Bactrim DS 800-160 MG eCW1 ([facility]) Sulfamethoxazole 800 MG / Trimethoprim 1 60 MG Oral Tablet [Bactrim] Bactrim DS 800-160 MG Bactrim DS 800-160 MG 09/17/2020 12:00:00 AM EST active Bactrim DS 800-160 MG eCW1 ([facility]) Sulfamethoxazole 800 MG / Trimethoprim 1 60 MG Oral Tablet [Bactrim] Bactrim DS 800-160 MG Bactrim DS 800-160 MG 09/17/2020 12:00:00 AM EST active Bactrim DS 800-160 MG eCW1 ([facility]) Depend Pant Large - Depend Pant Large - 08/28/2020 12:00:00 AM EST active Depend Pant Large - eCW1 ([facility]) Depend Pant Large - Depend Pant Large - 08/28/2020 12:00:00 AM EST active Depend Pant Large - eCW1 ([facility]) Depend Pant Large - Depend Pant Large - 08/28/2020 12:00:00 AM EST active Depend Pant Large - eCW1 ([facility]) Depend Pant Large - Depend Pant Large - 08/28/2020 12:00:00 AM EST active Depend Pant Large - eCW1 ([facility]) Depend Pant Large - Depend Pant Large - 08/28/2020 12:00:00 AM EST active Depend Pant Large - eCW1 ([facility]) Depend Pant Large - Depend Pant Large - 08/28/2020 12:00:00 AM EST active Depend Pant Large - eCW1 ([facility]) Depend Pant Large - Depend Pant Large - 08/28/2020 12:00:00 AM EST active Depend Pant Large - eCW1 ([facility]) Depend Pant Large - Depend Pant Large - 08/28/2020 12:00:00 AM EST active Depend Pant Large - eCW1 ([facility]) Depend Pant Large - Depend Pant Large - 08/28/2020 12:00:00 AM EST active Depend Pant Large - eCW1 ([facility]) Depend Pant Large - Depend Pant Large - 08/28/2020 12:00:00 AM EST active eCW1 ([facility]) Depend Pant Large - Depend Pant Large - 08/28/2020 12:00:00 AM EST active Depend Pant Large - eCW1 ([facility]) Depend Pant Large - Depend Pant Large - 08/28/2020 12:00:00 AM EST active Depend Pant Large - eCW1 ([facility]) Depend Pant Large - Depend Pant Large - 08/28/2020 12:00:00 AM EST active Depend Pant Large - eCW1 ([facility]) Depend Pant Large - Depend Pant Large - 08/28/2020 12:00:00 AM EST active Depend Pant Large - eCW1 ([facility]) Depend Pant Large - Depend Pant Large - 08/28/2020 12:00:00 AM EST active Depend Pant Large - eCW1 ([facility]) Depend Pant Large - Depend Pant Large - 08/28/2020 12:00:00 AM EST active Depend Pant Large - eCW1 ([facility]) Depend Pant Large - Depend Pant Large - 08/28/2020 12:00:00 AM EST active Depend Pant Large - eCW1 ([facility]) Depend Pant Large - Depend Pant Large - 08/28/2020 12:00:00 AM EST active Depend Pant Large - eCW1 ([facility]) Depend Pant Large - Depend Pant Large - 08/28/2020 12:00:00 AM EST active Depend Pant Large - eCW1 ([facility]) Depend Pant Large - Depend Pant Large - 08/28/2020 12:00:00 AM EST active Depend Pant Large - eCW1 ([facility]) Depend Pant Large - Depend Pant Large - 08/28/2020 12:00:00 AM EST active Depend Pant Large - eCW1 ([facility]) Depend Pant Large - Depend Pant Large - 08/28/2020 12:00:00 AM EST active Depend Pant Large - eCW1 ([facility]) Depend Pant Large - Depend Pant Large - 08/28/2020 12:00:00 AM EST active Depend Pant Large - eCW1 ([facility]) Depend Pant Large - Depend Pant Large - 08/28/2020 12:00:00 AM EST active Depend Pant Large - eCW1 ([facility]) Depend Pant Large - Depend Pant Large - 08/28/2020 12:00:00 AM EST active Depend Pant Large - eCW1 ([facility]) Depend Pant Large - Depend Pant Large - 08/28/2020 12:00:00 AM EST active Depend Pant Large - eCW1 ([facility]) Depend Pant Large - Depend Pant Large - 08/28/2020 12:00:00 AM EST active Depend Pant Large - eCW1 ([facility]) Depend Pant Large - Depend Pant Large - 08/28/2020 12:00:00 AM EST active Depend Pant Large - eCW1 ([facility]) Depend Pant Large - Depend Pant Large - 08/28/2020 12:00:00 AM EST active Depend Pant Large - eCW1 ([facility]) Depend Pant Large - Depend Pant Large - 08/28/2020 12:00:00 AM EST active Depend Pant Large - eCW1 ([facility]) Depend Pant Large - Depend Pant Large - 08/28/2020 12:00:00 AM EST active Depend Pant Large - eCW1 ([facility]) Depend Pant Large - Depend Pant Large - 08/28/2020 12:00:00 AM EST active Depend Pant Large - eCW1 ([facility]) Depend Pant Large - Depend Pant Large - 08/28/2020 12:00:00 AM EST active Depend Pant Large - eCW1 ([facility]) Depend Pant Large - Depend Pant Large - 08/28/2020 12:00:00 AM EST active Depend Pant Large - eCW1 ([facility]) Depend Pant Large - Depend Pant Large - 08/28/2020 12:00:00 AM EST active Depend Pant Large - eCW1 ([facility]) Depend Pant Large - Depend Pant Large - 08/28/2020 12:00:00 AM EST active Depend Pant Large - eCW1 ([facility]) Depend Pant Large - Depend Pant Large - 08/28/2020 12:00:00 AM EST active Depend Pant Large - eCW1 ([facility]) Depend Pant Large - Depend Pant Large - 08/28/2020 12:00:00 AM EST active Depend Pant Large - eCW1 ([facility]) Depend Pant Large - Depend Pant Large - 08/28/2020 12:00:00 AM EST active Depend Pant Large - eCW1 ([facility]) Depend Pant Large - Depend Pant Large - 08/28/2020 12:00:00 AM EST active Depend Pant Large - eCW1 ([facility]) Depend Pant Large - Depend Pant Large - 08/28/2020 12:00:00 AM EST active Depend Pant Large - eCW1 ([facility]) Depend Pant Large - Depend Pant Large - 08/28/2020 12:00:00 AM EST active Depend Pant Large - eCW1 ([facility]) Depend Pant Large - Depend Pant Large - 08/28/2020 12:00:00 AM EST active Depend Pant Large - eCW1 ([facility]) Depend Pant Large - Depend Pant Large - 08/28/2020 12:00:00 AM EST active Depend Pant Large - eCW1 ([facility]) Depend Pant Large - Depend Pant Large - 08/28/2020 12:00:00 AM EST active Depend Pant Large - eCW1 ([facility]) Hydrocortisone 10 MG/ML Topical Cream Hydrocortisone 1 % Hyd rocortisone 1 % 08/16/2020 12:00:00 AM EST 1.0 {application} act yvon Hydrocortisone 1 % eCW1 ([facility]) Hydrocortisone 10 MG/ML Topical Cream Hydrocortisone 1 % Hyd rocortisone 1 % 08/16/2020 12:00:00 AM EST 1.0 {application} act yvon Hydrocortisone 1 % eCW1 ([facility]) Hydrocortisone 10 MG/ML Topical Cream Hydrocortisone 1 % Hyd rocortisone 1 % 08/16/2020 12:00:00 AM EST 1.0 {application} act yvon Hydrocortisone 1 % eCW1 ([facility]) Hydrocortisone 10 MG/ML Topical Cream Hydrocortisone 1 % Hyd rocortisone 1 % 08/16/2020 12:00:00 AM EST 1.0 {application} act yvon Hydrocortisone 1 % eCW1 ([facility]) Hydrocortisone 10 MG/ML Topical Cream Hydrocortisone 1 % Hyd rocortisone 1 % 08/16/2020 12:00:00 AM EST 1.0 {application} act yvon Hydrocortisone 1 % eCW1 ([facility]) Hydrocortisone 10 MG/ML Topical Cream Hydrocortisone 1 % Hyd rocortisone 1 % 08/16/2020 12:00:00 AM EST 1.0 {application} act yvon Hydrocortisone 1 % eCW1 ([facility]) Hydrocortisone 10 MG/ML Topical Cream Hydrocortisone 1 % Hyd rocortisone 1 % 08/16/2020 12:00:00 AM EST 1.0 {application} act yvon Hydrocortisone 1 % eCW1 ([facility]) Hydrocortisone 10 MG/ML Topical Cream Hydrocortisone 1 % Hyd rocortisone 1 % 08/16/2020 12:00:00 AM EST 1.0 {application} act yvon Hydrocortisone 1 % eCW1 ([facility]) Hydrocortisone 10 MG/ML Topical Cream Hydrocortisone 1 % Hyd rocortisone 1 % 08/16/2020 12:00:00 AM EST 1.0 {application} act yvon Hydrocortisone 1 % eCW1 ([facility]) Hydrocortisone 10 MG/ML Topical Cream Hydrocortisone 1 % Hyd rocortisone 1 % 08/16/2020 12:00:00 AM EST 1.0 {application} act yvon Hydrocortisone 1 % eCW1 ([facility]) Hydrocortisone 10 MG/ML Topical Cream Hydrocortisone 1 % Hyd rocortisone 1 % 08/16/2020 12:00:00 AM EST 1.0 {application} act yvon Hydrocortisone 1 % eCW1 ([facility]) Hydrocortisone 10 MG/ML Topical Cream Hydrocortisone 1 % Hyd rocortisone 1 % 08/16/2020 12:00:00 AM EST 1.0 {application} act yvon Hydrocortisone 1 % eCW1 ([facility]) Hydrocortisone 10 MG/ML Topical Cream Hydrocortisone 1 % Hyd rocortisone 1 % 08/16/2020 12:00:00 AM EST 1.0 {application} act yvon Hydrocortisone 1 % eCW1 ([facility]) Hydrocortisone 10 MG/ML Topical Cream Hydrocortisone 1 % Hyd rocortisone 1 % 08/16/2020 12:00:00 AM EST 1.0 {application} act yvon Hydrocortisone 1 % eCW1 ([facility]) Hydrocortisone 10 MG/ML Topical Cream Hydrocortisone 1 % Hyd rocortisone 1 % 08/16/2020 12:00:00 AM EST 1.0 {application} act yvon Hydrocortisone 1 % eCW1 ([facility]) Hydrocortisone 10 MG/ML Topical Cream Hydrocortisone 1 % Hyd rocortisone 1 % 08/16/2020 12:00:00 AM EST 1.0 {application} act yvon Hydrocortisone 1 % eCW1 ([facility]) Hydrocortisone 10 MG/ML Topical Cream Hydrocortisone 1 % Hyd rocortisone 1 % 08/16/2020 12:00:00 AM EST 1.0 {application} act yvon Hydrocortisone 1 % eCW1 ([facility]) Sulfamethoxazole 800 MG / Trimethoprim 160 MG Oral Tab let Sulfamethoxazole/Trimethoprim DS 06/29/2020 12:00:00 AM EDT ORAL active MEDENT ([facility]) Doxycycline Monohydrate 100 MG Oral Capsule Doxycycline [place] hydrate 06/14/2020 12:00:00 AM EDT ORAL completed MEDENT ([facility], [facility]) Insurance Providers Payer name Policy type / Coverage type Policy ID Covered democrat ID Covered democrat's relationship to quintanilla Policy [place] Plan Information [place]IC[place] - [place] [id number] S [id number] [facility] [employer] [id number] S [id number] [id number] SP [id number] MEDICAID [id number] S [id number] MEDICARE C [id number] S [id number] Medicare P UNAVAILABLE S [place] BLE Medicaid S UNAVAILABLE [place] B[place] MEDICAID [id number] SP [id number] [place] [employer] [id number] S [id number] [place]IC[place] [id number] S [id number] ANSI-Medicaid [id number] ANS-Medicare Part B [id number] [facility]-Medicaid [id number] ANSI-Medicare Part B [id number] [facility]-Medicaid [id number] [facility]-Medicare Part B [id number] [facility]-Medicaid [id number] ANSI-Medicare Part B [id number] ANSI-Medicare Part B [id number] 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 Urethral str icture due to infection Problem 07/15/2021 12:00:00 AM EDT eCW1 ([facility]) N18.32 [id number] Stage 3b chronic kidney disease Problem 06/25/2021 12:00:00 AM EDT eCW1 ([facility]) Z87.898 Elevated PSA History of elevated PSA Problem 06/10/2021 12:00:00 AM EDT eCW1 ([facility]) R26.2 [id number] Difficulty walking Problem 05/09/2021 12:00: 00 AM EDT eCW1 ([facility]) N13.9 0240851 Obstructive uropathy Problem 04/05/2021 12:0 0:00 AM EDT eCW1 ([facility]) 09749675 Essential hypertension Essential hypertension Problem 03/21/2021 12:00:00 AM EDT MEDENT ([facility]) 153333367 Screening for malignant neoplasm of colo n Screening for malignant neoplasm of colon Problem 03/21/2021 12:00:00 AM EDT MEDENT ([facility]) N40.1 [id number] BPH loc w urin obs/LUTS Problem 09/04/2020 1 2:00:00 AM EST eCW1 ([facility]) R39.81 554219534 Functional urinary incontinence Problem 08/28/2020 12:00:00 AM EST eCW1 ([facility]) T14.8XXA 636163001 Hematoma of skin Problem 07/17/2020 12:00:00 AM EDT eCW1 ([facility]) Surgeries/Procedures Procedure Description Date Indications Data Source(s) uro PVR (Post Voiding Residual) Bladder Scan 12:00:00 AM EDT eCW1 ([facility]) Voiding Trial 06/24/2021 12:00:00 AM EDT eCW1 ([facility]) Med: Lidocaine Jelly 2% 6ml Intravesically (Glydo) 06/10/2021 12:00:00 AM EDT eCW1 ([facility]) uro PVR (Post Voiding Residual) Bladder Scan 12:00:00 AM EDT eCW1 ([facility]) HEPATITIS B VACCINE ADULT DOSAGE INTRAMUSCULAR 021 12:00:00 AM EDT eCW1 ([facility]) Medication: Lidocaine HCl 2% Jelly 5mL Intravesically 12/04/2020 12:00:00 AM EST eCW1 ([facility]) uro PVR (Post Voiding Residual) Bladder Scan 1 12:00:00 AM EST eCW1 ([facility]) uro PVR (Post Voiding Residual) Bladder Scan 0 12:00:00 AM EST eCW1 ([facility]) Results ID Date Data Source [id number] 06/10/2021 05:29:00 PM EDT [facility] Name Value Range Interpretation Code Description Data Daria rce(s) Supporting Document(s) SARS coronavirus 2 RNA [Presence] in Res piratory specimen by QUIN with probe detection NEGATIVE [facility] This lab was ordered by [facility] a nd reported by [facility]. ID Date Data Source [id number] 03/25/2021 01:42:00 PM EDT [facility] Name Value Range Interpretation Code Description Data Daria rce(s) Supporting Document(s) SARS coronavirus 2 RNA [Presence] in Res piratory specimen by QUIN with probe detection NEGATIVE [facility] This lab was ordered by [facility] a nd reported by [facility]. ID Date Data Source Urinalysis, no micro 08/28/2020 12:00:00 AM EST eCW1 ([facility]) Name Value Range Interpretation Code Description Data Daria rce(s) Supporting Document(s) 1.010 1.002 - 1.035 Spec gravity eCW1 ([facility]) 5 5.0 - 9.0 pH eCW1 ([facility]) neg Negative - Nitrate eCW1 ([facility]) neg Negative - mg/dl Protein eCW1 ([facility]) neg Negative - mg/dl Glucose eCW1 ([facility]) neg Negative - mg/dl Ketones eCW1 ([facility]) neg Negative - Leukocyte eCW1 ([facility]) yes Internal QC Acceptable (Y/N) e CW1 ([facility]) trace Negative - Blood eCW1 ([facility]) norm Normal - mg/dl Urobili eCW1 ([facility]) neg Negative - Bilirubin eCW1 ([facility]) Procedure Social History Code Duration Value Status Description Data Source(s ) Smoking 07/15/2021 12:00:00 AM EDT Never Smoker completed Never S moker eCW1 ([facility]) Smoking 06/25/2021 12:00:00 AM EDT Never Smoker completed Never S moker eCW1 ([facility]) Smoking 06/25/2021 12:00:00 AM EDT Never Smoker completed Never S moker eCW1 ([facility]) Smoking 06/25/2021 12:00:00 AM EDT Never Smoker completed Never S moker [facility] [facility]) Smoking 06/25/2021 12:00:00 AM EDT Never Smoker completed Never S moker eCW1 ([facility]) Smoking 06/24/2021 12:00:00 AM EDT Never Smoker completed Never S moker eCW1 ([facility]) Smoking 06/24/2021 12:00:00 AM EDT Never Smoker completed Never S moker eCW1 ([facility]) Smoking 06/10/2021 12:00:00 AM EDT Never Smoker completed Never S moker eCW1 ([facility]) Smoking 06/10/2021 12:00:00 AM EDT Never Smoker completed Never S moker eCW1 ([facility]) Smoking 06/10/2021 12:00:00 AM EDT Never Smoker completed Never S moker eCW1 ([facility]) Smoking 06/10/2021 12:00:00 AM EDT Never Smoker completed Never S moker eCW1 ([facility]) Smoking 05/16/2021 12:00:00 AM EDT Never Smoker completed Never S moker eCW1 ([facility]) Smoking 05/16/2021 12:00:00 AM EDT Never Smoker completed Never S moker eCW1 ([facility]) Smoking 05/16/2021 12:00:00 AM EDT Never Smoker completed Never S moker eCW1 ([facility]) Smoking 05/16/2021 12:00:00 AM EDT Never Smoker completed Never S moker eCW1 ([facility]) Smoking 05/16/2021 12:00:00 AM EDT Never Smoker completed Never S moker eCW1 ([facility]) Smoking 04/05/2021 12:00:00 AM EDT Never Smoker completed Never S moker eCW1 ([facility]) Smoking 04/05/2021 12:00:00 AM EDT Never Smoker completed Never S moker eCW1 ([facility]) Smoking 04/05/2021 12:00:00 AM EDT Never Smoker completed Never S moker eCW1 ([facility]) Smoking 04/05/2021 12:00:00 AM EDT Never Smoker completed Never S moker eCW1 ([facility]) Smoking 04/01/2021 12:00:00 AM EDT Never Smoker completed Never S moker eCW1 ([facility]) Smoking 04/01/2021 12:00:00 AM EDT Never Smoker completed Never S moker eCW1 ([facility]) Smoking 02/07/2021 12:00:00 AM EDT Never Smoker completed Never S moker eCW1 ([facility]) Smoking 02/07/2021 12:00:00 AM EDT Never Smoker completed Never S moker eCW1 ([facility]) Smoking 02/07/2021 12:00:00 AM EDT Never Smoker completed Never S moker eCW1 ([facility]) Smoking 02/07/2021 12:00:00 AM EDT Never Smoker completed Never S moker eCW1 ([facility]) Smoking 02/07/2021 12:00:00 AM EDT Never Smoker completed Never S moker eCW1 ([facility]) Smoking 02/07/2021 12:00:00 AM EDT Never Smoker completed Never S moker eCW1 ([facility]) Smoking 02/07/2021 12:00:00 AM EDT Never Smoker completed Never S moker eCW1 ([facility]) Smoking 12/04/2020 12:00:00 AM EST Never Smoker completed Never S moker eCW1 ([facility]) Smoking 12/04/2020 12:00:00 AM EST Never Smoker completed Never S moker eCW1 ([facility]) Smoking 12/04/2020 12:00:00 AM EST Never Smoker completed Never S moker eCW1 ([facility]) Smoking 12/04/2020 12:00:00 AM EST Never Smoker completed Never S moker eCW1 ([facility]) Smoking 12/04/2020 12:00:00 AM EST Never Smoker completed Never S moker eCW1 ([facility]) Smoking 12/04/2020 12:00:00 AM EST Never Smoker completed Never S moker eCW1 ([facility]) Smoking 11/28/2020 12:00:00 AM EST Never Smoker completed Never S moker eCW1 ([facility]) Smoking 10/17/2020 12:00:00 AM EST Never Smoker completed Never S moker eCW1 ([facility]) Smoking 10/17/2020 12:00:00 AM EST Never Smoker completed Never S moker eCW1 ([facility]) Smoking 09/17/2020 12:00:00 AM EST Never Smoker completed Never S moker eCW1 ([facility]) Smoking 09/17/2020 12:00:00 AM EST Never Smoker completed Never S moker eCW1 ([facility]) Smoking 09/17/2020 12:00:00 AM EST Never Smoker completed Never S moker eCW1 ([facility]) Smoking 08/28/2020 12:00:00 AM EST Never Smoker completed Never S moker eCW1 ([facility]) Smoking 08/28/2020 12:00:00 AM EST Never Smoker completed Never S moker eCW1 ([facility]) Smoking 08/28/2020 12:00:00 AM EST Never Smoker completed Never S moker eCW1 ([facility]) Smoking 08/28/2020 12:00:00 AM EST Never Smoker completed Never S moker eCW1 ([facility]) Smoking 08/16/2020 12:00:00 AM EST Never Smoker completed Never S moker eCW1 ([facility]) Smoking 07/17/2020 12:00:00 AM EDT Never Smoker completed Never S moker eCW1 ([facility]) Smoking 07/17/2020 12:00:00 AM EDT Never Smoker completed Never S moker eCW1 ([facility]) Smoking 06/29/2020 12:00:00 AM EDT Patient has never smoked co mpleted Patient has never smoked MEDENT ([facility]) Vital Signs ID Date Data Source UNK Name Value Range Interpretation Code Description Data Source(s) Body weight 192 [lb_av] 192 [lb_av] eCW1 ([facility]) Body weight 87.09 kg 87.09 kg eCW1 ([facility]) Body height [in_i] eCW1 ([facility]) Body mass index (BMI) [Ratio] 26.78 kg/m2 26.78 kg/m2 eCW1 ([facility]) Heart rate 82 /min 82 /min eCW1 ([facility]) Respiratory rate 18 /min 18 /min eCW1 ([facility]) Body temperature 96.4 [degF] 96.4 [degF] eCW1 ( [facility]) Systolic blood pressure 120 mm[Hg] 120 mm[Hg] e CW1 ([facility]) Diastolic blood pressure 78 mm[Hg] 78 mm[Hg] eCW1 ([facility]) Body weight 192.12 [lb_av] 192.12 [lb_av] eCW1 ([facility]) Body height [in_i] eCW1 ([facility]) Body mass index (BMI) [Ratio] 26.79 kg/m2 26.79 kg/m2 eCW1 ([facility]) Heart rate 76 /min 76 /min eCW1 ([facility]) Respiratory rate 19 /min 19 /min eCW1 ([facility]) Body temperature 97.8 [degF] 97.8 [degF] eCW1 ( [facility]) Systolic blood pressure 105 mm[Hg] 105 mm[Hg] e CW1 ([facility]) Diastolic blood pressure 69 mm[Hg] 69 mm[Hg] eCW1 ([facility]) Body weight 195 [lb_av] 195 [lb_av] eCW1 ([facility]) Body weight 88.45 kg 88.45 kg eCW1 ([facility]) Body height [in_i] eCW1 ([facility]) Body mass index (BMI) [Ratio] 27.19 kg/m2 27.19 kg/m2 eCW1 ([facility]) Heart rate 100 /min 100 /min eCW1 ([facility]) Respiratory rate 19 /min 19 /min eCW1 ([facility]) Body temperature 97.0 [degF] 97.0 [degF] eCW1 ( [facility]) Systolic blood pressure 128 mm[Hg] 128 mm[Hg] e CW1 ([facility]) Diastolic blood pressure 78 mm[Hg] 78 mm[Hg] eCW1 ([facility]) Body weight 195 [lb_av] 195 [lb_av] eCW1 ([facility]) Body height [in_i] eCW1 ([facility]) Body mass index (BMI) [Ratio] 27.19 kg/m2 27.19 kg/m2 eCW1 ([facility]) Heart rate 87 /min 87 /min eCW1 ([facility]) Diastolic blood pressure 68 mm[Hg] 68 mm[Hg] eCW1 ([facility]) Respiratory rate 18 /min 18 /min eCW1 ([facility]) Body temperature 97.0 [degF] 97.0 [degF] eCW1 ( [facility]) Systolic blood pressure 142 mm[Hg] 142 mm[Hg] e CW1 ([facility]) Body weight 195 [lb_av] 195 [lb_av] eCW1 ([facility]) Body weight 88.45 kg 88.45 kg eCW1 ([facility]) Body height [in_i] eCW1 ([facility]) Body mass index (BMI) [Ratio] 27.19 kg/m2 27.19 kg/m2 eCW1 ([facility]) Heart rate 89 /min 89 /min eCW1 ([facility]) Respiratory rate 19 /min 19 /min eCW1 ([facility]) Body temperature 98.7 [degF] 98.7 [degF] eCW1 ( [facility]) Systolic blood pressure 140 mm[Hg] 140 mm[Hg] e CW1 ([facility]) Diastolic blood pressure 80 mm[Hg] 80 mm[Hg] eCW1 ([facility]) Body weight 194.4 [lb_av] 194.4 [lb_av] eCW1 ([facility]) Body mass index (BMI) [Ratio] 27.11 kg/m2 27.11 kg/m2 eCW1 ([facility]) Heart rate 81 /min 81 /min eCW1 ([facility]) Diastolic blood pressure 76 mm[Hg] 76 mm[Hg] eCW1 ([facility]) Body height [in_i] eCW1 ([facility]) Respiratory rate 20 /min 20 /min eCW1 ([facility]) Body temperature 97 [degF] 97 [degF] eCW1 ([facility]) Systolic blood pressure 119 mm[Hg] 119 mm[Hg] e CW1 ([facility]) Body weight 185 [lb_av] 185 [lb_av] eCW1 ([facility]) Body height [in_i] eCW1 ([facility]) Body mass index (BMI) [Ratio] 25.80 kg/m2 25.80 kg/m2 eCW1 ([facility]) Heart rate 87 /min 87 /min eCW1 ([facility]) Respiratory rate 19 /min 19 /min eCW1 ([facility]) Systolic blood pressure 146 mm[Hg] 146 mm[Hg] e CW1 ([facility]) Diastolic blood pressure 76 mm[Hg] 76 mm[Hg] eCW1 ([facility]) Body height 68 [in_i] 68 [in_i] MEDENT [...] Body weight 185 [lb_av] 185 [lb_av] eCW1 ([facility]) Body height [in_i] eCW1 ([facility]) Body mass index (BMI) [Ratio] 25.80 kg/m2 25.80 kg/m2 eCW1 ([facility]) Heart rate 85 /min 85 /min eCW1 ([facility]) Respiratory rate 18 /min 18 /min eCW1 ([facility]) Body temperature 97.8 [degF] 97.8 [degF] eCW1 ( [facility]) Systolic blood pressure 137 mm[Hg] 137 mm[Hg] e CW1 ([facility]) Diastolic blood pressure 80 mm[Hg] 80 mm[Hg] eCW1 ([facility]) Body weight 186 [lb_av] 186 [lb_av] eCW1 ([facility]) Body height [in_i] eCW1 ([facility]) Body mass index (BMI) [Ratio] 25.94 kg/m2 25.94 kg/m2 eCW1 ([facility]) Heart rate 83 /min 83 /min eCW1 ([facility]) Respiratory rate 18 /min 18 /min eCW1 ([facility]) Body temperature 98.6 [degF] 98.6 [degF] eCW1 ( [facility]) Systolic blood pressure 138 mm[Hg] 138 mm[Hg] e CW1 ([facility]) Diastolic blood pressure 80 mm[Hg] 80 mm[Hg] eCW1 ([facility]) Body weight 183 [lb_av] 183 [lb_av] eCW1 ([facility]) Body height [in_i] eCW1 ([facility]) Body mass index (BMI) [Ratio] 25.52 kg/m2 25.52 kg/m2 eCW1 ([facility]) Heart rate 81 /min 81 /min eCW1 ([facility]) Respiratory rate 18 /min 18 /min eCW1 ([facility]) Body temperature 99.0 [degF] 99.0 [degF] eCW1 ( [facility]) Systolic blood pressure 126 mm[Hg] 126 mm[Hg] e CW1 ([facility]) Diastolic blood pressure 66 mm[Hg] 66 mm[Hg] eCW1 ([facility]) Body weight 194 [lb_av] 194 [lb_av] eCW1 ([facility]) Body height [in_i] eCW1 ([facility]) Body mass index (BMI) [Ratio] 27.05 kg/m2 27.05 kg/m2 eCW1 ([facility]) Heart rate 77 /min 77 /min eCW1 ([facility]) Respiratory rate 18 /min 18 /min eCW1 ([facility]) Systolic blood pressure 128 mm[Hg] 128 mm[Hg] e CW1 ([facility]) Diastolic blood pressure 68 mm[Hg] 68 mm[Hg] eCW1 ([facility]) Diastolic blood pressure 76 mm[Hg] 76 mm[Hg] eCW1 ([facility]) Body weight 199 [lb_av] 199 [lb_av] eCW1 ([facility]) Body height [in_i] eCW1 ([facility]) Body mass index (BMI) [Ratio] 27.75 kg/m2 27.75 kg/m2 eCW1 ([facility]) Heart rate 63 /min 63 /min eCW1 ([facility]) Respiratory rate 18 /min 18 /min eCW1 ([facility]) Body temperature 98.0 [degF] 98.0 [degF] eCW1 ( [facility]) Systolic blood pressure 134 mm[Hg] 134 mm[Hg] e CW1 ([facility]) Body weight 205 [lb_av] 205 [lb_av] eCW1 ([facility]) Body height [in_i] eCW1 ([facility]) Body mass index (BMI) [Ratio] 28.59 kg/m2 28.59 kg/m2 eCW1 ([facility]) Heart rate 76 /min 76 /min eCW1 ([facility]) Respiratory rate 18 /min 18 /min eCW1 ([facility]) Body temperature 98 [degF] 98 [degF] eCW1 ([facility]) Systolic blood pressure 150 mm[Hg] 150 mm[Hg] e CW1 ([facility]) Diastolic blood pressure 82 mm[Hg] 82 mm[Hg] eCW1 ([facility]) Body weight 203 [lb_av] 203 [lb_av] eCW1 ([facility]) Body height [in_i] eCW1 ([facility]) Body mass index (BMI) [Ratio] 28.31 kg/m2 28.31 kg/m2 eCW1 ([facility]) Heart rate 86 /min 86 /min eCW1 ([facility]) Respiratory rate 18 /min 18 /min eCW1 ([facility]) Body temperature 98 [degF] 98 [degF] eCW1 ([facility]) Systolic blood pressure 145 mm[Hg] 145 mm[Hg] e CW1 ([facility]) Diastolic blood pressure 89 mm[Hg] 89 mm[Hg] eCW1 ([facility]) Body height [in_i] eCW1 ([facility]) Body mass index (BMI) [Ratio] 28.45 kg/m2 28.45 kg/m2 eCW1 ([facility]) Body temperature 98.7 [degF] 98.7 [degF] eCW1 ( [facility]) Systolic blood pressure 137 mm[Hg] 137 mm[Hg] e CW1 ([facility]) Diastolic blood pressure 80 mm[Hg] 80 mm[Hg] eCW1 ([facility]) Heart rate 72 /min 72 /min eCW1 ([facility]) Respiratory rate 18 /min 18 /min eCW1 ([facility]) Body weight 204 [lb_av] 204 [lb_av] eCW1 ([facility]) Systolic blood pressure 148 mm[Hg] 148 mm[Hg] M EDENT ([facility]) Diastolic blood pressure 92 mm[Hg] 92 mm[Hg] MEDENT ([facility]) Heart rate 72 /min 72 /min MEDENT ([facility]) Respiratory rate 18 /min 18 /min MEDENT ( [facility], [facility]) Oxygen saturation in Arterial blood by Pulse oximetry 96 % 96 % [facility] ([facility], [facility]) Body temperature 97.8 [degF] 97.8 [degF] [facility] ([facility], [facility]) Body weight 219.00 [lb_av] 219.00 [lb_av] MEDEN T ([facility]) Body height 72 [in_i] 72 [in_i] [facility] ([facility]) 6'0" Body mass index (BMI) [Ratio] 29.7 kg/m2 29.7 k g/m2 [facility] ([facility]) Body mass index (BMI) [Ratio] 29.7 kg/m2 29.7 k g/m2 [facility] ([facility]) Systolic blood pressure 136 mm[Hg] 136 mm[Hg] [facility] ([facility]) Diastolic blood pressure 80 mm[Hg] 80 mm[Hg] [facility] ([facility]) Heart rate 82 /min 82 /min [facility] ([facility]) Oxygen saturation in Arterial blood by Pulse oximetry 99 % 99 % [facility] ([facility]) Body temperature 97.6 [degF] 97.6 [degF] [facility] ([facility]) Body weight 219.00 [lb_av] 219.00 [lb_av] [facility] Body height 72 [in_i] 72 [in_i] [facility] ([facility]) 6'0" Patient Treatment Plan of Care Planned Activity Planned Date Details Description Data Source (s) COMPRESSION STOCKINGS 20-30 mmHg 06/18/2021 12:00:00 AM EDT eCW1 ([facility]) Lorazepam 1 MG Oral Tablet 06/06/2021 12:00:00 AM EDT eCW1 ([facility]) Lorazepam 1 MG Oral Tablet [Ativan] 05/22/2021 12:00:00 AM EDT eCW1 ([facility]) Finasteride 5 MG Oral Tablet 04/17/2021 12:00:00 AM EDT eCW1 ([facility]) Finasteride 5 MG Oral Tablet 04/17/2021 12:00:00 AM EDT eCW1 ([facility]) Finasteride 5 MG Oral Tablet 04/17/2021 12:00:00 AM EDT eCW1 ([facility]) Bard Atzeya-I-Pss Leg Bag - 04/03/2021 12:00:00 AM EDT eCW1 ([facility]) Bard Oojqcr-G-Kwd Leg Bag - 04/03/2021 12:00:00 AM EDT eCW1 ([facility]) Bard Jbulkw-E-Iit Leg Bag - 04/03/2021 12:00:00 AM EDT eCW1 ([facility]) Bard Tslrga-O-Qom Leg Bag - 04/03/2021 12:00:00 AM EDT eCW1 ([facility]) Bard Xzhzmf-K-Ebn Leg Bag - 04/03/2021 12:00:00 AM EDT eCW1 ([facility]) Bard Ikkyne-H-Qdg Leg Bag - 04/03/2021 12:00:00 AM EDT eCW1 ([facility]) Furosemide 20 MG Oral Tablet 03/19/2021 12:00:00 AM EDT eCW1 ([facility]) Furosemide 20 MG Oral Tablet 03/19/2021 12:00:00 AM EDT eCW1 ([facility]) Furosemide 20 MG Oral Tablet 03/19/2021 12:00:00 AM EDT eCW1 ([facility]) Furosemide 20 MG Oral Tablet 03/19/2021 12:00:00 AM EDT eCW1 ([facility]) Furosemide 20 MG Oral Tablet 03/19/2021 12:00:00 AM EDT eCW1 ([facility]) Furosemide 20 MG Oral Tablet 03/19/2021 12:00:00 AM EDT eCW1 ([facility]) Sulfamethoxazole 800 MG / Trimethoprim 160 MG Oral Tab let [Bactrim] 02/11/2021 12:00:00 AM EDT eCW1 ([facility]) Sulfamethoxazole 800 MG / Trimethoprim 160 MG Oral Tab let [Bactrim] 02/11/2021 12:00:00 AM EDT eCW1 ([facility]) Sulfamethoxazole 800 MG / Trimethoprim 160 MG Oral Tab let [Bactrim] 02/11/2021 12:00:00 AM EDT eCW1 ([facility]) Sulfamethoxazole 800 MG / Trimethoprim 160 MG Oral Tab let [Bactrim] 02/11/2021 12:00:00 AM EDT eCW1 ([facility]) Sulfamethoxazole 800 MG / Trimethoprim 160 MG Oral Tab let [Bactrim] 02/11/2021 12:00:00 AM EDT eCW1 ([facility]) [place] Ramos Insertion Tray - 01/07/2021 12:00:00 AM EDT eCW1 ([facility]) [place] Ramos Insertion Tray - 01/07/2021 12:00:00 AM EDT eCW1 ([facility]) [place] Ramos Insertion Tray - 01/07/2021 12:00:00 AM EDT eCW1 ([facility]) [place] Ramos Insertion Tray - 01/07/2021 12:00:00 AM EDT eCW1 ([facility]) [place] Ramos Insertion Tray - 01/07/2021 12:00:00 AM EDT eCW1 ([facility]) [place] Ramos Insertion Tray - 01/07/2021 12:00:00 AM EDT eCW1 ([facility]) [place] Ramos Insertion Tray - 01/07/2021 12:00:00 AM EDT eCW1 ([facility]) [place] Ramos Insertion Tray - 01/07/2021 12:00:00 AM EDT eCW1 ([facility]) [place] Ramos Insertion Tray - 01/07/2021 12:00:00 AM EDT eCW1 ([facility]) Markell Ramos Insertion Tray - 01/07/2021 12:00:00 AM EDT eCW1 ([facility]) Markell Ramos Insertion Tray - 01/07/2021 12:00:00 AM EDT eCW1 ([facility]) [place] Ramos Insertion Tray - 01/07/2021 12:00:00 AM EDT eCW1 ([facility]) Markell Ramos Insertion Tray - 01/07/2021 12:00:00 AM EDT eCW1 ([facility]) [place] Ramos Insertion Tray - 01/07/2021 12:00:00 AM EDT eCW1 ([facility]) Bard Fmxokv-C-Gaj/Flip-Burt Vlv - 12/04/2020 12:00:00 AM EST eCW1 ([facility]) Bard Coude Tip Catheter - 12/04/2020 12:00:00 AM EST eCW1 ([facility]) Bard Jqtzmd-T-Ksc/Flip-Burt Vlv - 12/04/2020 12:00:00 AM EST eCW1 ([facility]) Bard Coude Tip Catheter - 12/04/2020 12:00:00 AM EST eCW1 ([facility]) Bard Ylssad-S-Ieh/Flip-Burt Vlv - 12/04/2020 12:00:00 AM EST eCW1 ([facility]) Bard Coude Tip Catheter - 12/04/2020 12:00:00 AM EST eCW1 ([facility]) Bard Zzxdae-D-Oic/Flip-Burt Vlv - 12/04/2020 12:00:00 AM EST eCW1 ([facility]) Bard Coude Tip Catheter - 12/04/2020 12:00:00 AM EST eCW1 ([facility]) Bard Izurke-C-Ndi/Flip-Burt Vlv - 12/04/2020 12:00:00 AM EST eCW1 ([facility]) Bard Coude Tip Catheter - 12/04/2020 12:00:00 AM EST eCW1 ([facility]) Bard Azholf-J-Oai/Flip-Burt Vlv - 12/04/2020 12:00:00 AM EST eCW1 ([facility]) Bard Coude Tip Catheter - 12/04/2020 12:00:00 AM EST eCW1 ([facility]) Bard Vfjtsm-G-Hkg/Flip-Burt Vlv - 12/04/2020 12:00:00 AM EST eCW1 ([facility]) Bard Coude Tip Catheter - 12/04/2020 12:00:00 AM EST eCW1 ([facility]) Bard Fkjuez-A-Oqp/Flip-Burt Vlv - 12/04/2020 12:00:00 AM EST eCW1 ([facility]) Bard Coude Tip Catheter - 12/04/2020 12:00:00 AM EST eCW1 ([facility]) Bard Qxvkhd-N-Tqo/Flip-Burt Vlv - 12/04/2020 12:00:00 AM EST eCW1 ([facility]) Bard Coude Tip Catheter - 12/04/2020 12:00:00 AM EST eCW1 ([facility]) Bard Ighktr-E-Kez/Flip-Burt Vlv - 12/04/2020 12:00:00 AM EST eCW1 ([facility]) Bard Coude Tip Catheter - 12/04/2020 12:00:00 AM EST eCW1 ([facility]) Bard Bovurk-U-Vtp/Flip-Burt Vlv - 12/04/2020 12:00:00 AM EST eCW1 ([facility]) Bard Coude Tip Catheter - 12/04/2020 12:00:00 AM EST eCW1 ([facility]) Bard Zwszms-U-Fgp/Flip-Burt Vlv - 12/04/2020 12:00:00 AM EST eCW1 ([facility]) Bard Coude Tip Catheter - 12/04/2020 12:00:00 AM EST eCW1 ([facility]) Bard Wznvtl-C-Ayt/Flip-Burt Vlv - 12/04/2020 12:00:00 AM EST eCW1 ([facility]) Bard Coude Tip Catheter - 12/04/2020 12:00:00 AM EST eCW1 ([facility]) Bard Duvdew-M-Dij/Flip-Burt Vlv - 12/04/2020 12:00:00 AM EST eCW1 ([facility]) Bard Coude Tip Catheter - 12/04/2020 12:00:00 AM EST eCW1 ([facility]) Bard Ilzxtf-Q-Qzi/Flip-Burt Vlv - 12/04/2020 12:00:00 AM EST eCW1 ([facility]) Bard Coude Tip Catheter - 12/04/2020 12:00:00 AM EST eCW1 ([facility]) Bard Yredrn-F-Pgl/Flip-Burt Vlv - 12/04/2020 12:00:00 AM EST eCW1 ([facility]) Bard Coude Tip Catheter - 12/04/2020 12:00:00 AM EST eCW1 ([facility]) Bard Orgmxf-D-Xue/Flip-Burt Vlv - 12/04/2020 12:00:00 AM EST eCW1 ([facility]) Bard Coude Tip Catheter - 12/04/2020 12:00:00 AM EST eCW1 ([facility]) Finasteride 5 MG Oral Tablet 10/17/2020 12:00:00 AM EST eCW1 ([facility]) Finasteride 5 MG Oral Tablet 10/17/2020 12:00:00 AM EST eCW1 ([facility]) Sulfamethoxazole 800 MG / Trimethoprim 160 MG Oral Tab let [Bactrim] 09/17/2020 12:00:00 AM EST eCW1 ([facility]) Sulfamethoxazole 800 MG / Trimethoprim 160 MG Oral Tab let [Bactrim] 09/17/2020 12:00:00 AM EST eCW1 ([facility]) Sulfamethoxazole 800 MG / Trimethoprim 160 MG Oral Tab let [Bactrim] 09/17/2020 12:00:00 AM EST eCW1 ([facility]) Depend Pant Large - 08/28/2020 12:00:00 AM EST eCW1 ([facility]) Depend Pant Large - 08/28/2020 12:00:00 AM EST eCW1 ([facility]) Depend Pant Large - 08/28/2020 12:00:00 AM EST eCW1 ([facility]) Depend Pant Large - 08/28/2020 12:00:00 AM EST eCW1 ([facility]) Depend Pant Large - 08/28/2020 12:00:00 AM EST eCW1 ([facility]) Depend Pant Large - 08/28/2020 12:00:00 AM EST eCW1 ([facility]) Depend Pant Large - 08/28/2020 12:00:00 AM EST eCW1 ([facility]) Depend Pant Large - 08/28/2020 12:00:00 AM EST eCW1 ([facility]) Depend Pant Large - 08/28/2020 12:00:00 AM EST eCW1 ([facility]) Depend Pant Large - 08/28/2020 12:00:00 AM EST eCW1 ([facility]) Depend Pant Large - 08/28/2020 12:00:00 AM EST eCW1 ([facility]) Depend Pant Large - 08/28/2020 12:00:00 AM EST eCW1 ([facility]) Depend Pant Large - 08/28/2020 12:00:00 AM EST eCW1 ([facility]) Depend Pant Large - 08/28/2020 12:00:00 AM EST eCW1 ([facility]) Depend Pant Large - 08/28/2020 12:00:00 AM EST eCW1 ([facility]) Hydrocortisone 10 MG/ML Topical Cream 08/16/2020 12:00:00 AM EST eCW1 ([facility])
[2021-08-02 01:29] LABS: INR 1.67; PROTHROMBIN TIME 20.2 SECONDS (12.7-14.5)
[2021-08-02 01:31] LABS: PARTIAL THROMBOPLASTIN TIME 42.1 SECONDS (25.9-37.0)
--- NOTE | 2021-08-02 02:35 | REPVR ---
PROCEDURE INFORMATION: Exam: US Abdomen Complete Exam date and time: 08/02/21 (1:34am) Age: 61 years old Clinical indication: Acute abdominal pain. Acute renal failure, gallstones, sepsis. TECHNIQUE: Imaging protocol: Real-time ultrasound of the abdomen with image documentation COMPARISON: CT ABDOMEN PELVIS of 03/15/21 FINDINGS: The liver is visually normal size and the right lobe appears normal in texture (left lobe obscured by bowel gas). The spleen is normal in size (11.6 cm length). Multiple gallstones. Mild gallbladder wall thickening (3.4 mm thickness). Pericholecystic fluid is seen. The CBD is not dilated (4-4.5 mm diameter). The kidneys are each normal in size, with no solid masses -- The right kidney measures 11.2 cm in length. The left kidney measures 11.0 cm in length. [id number] left hydronephrosis. No upper tract stones are seen. The pancreas is unremarkable. No abnormal fluid collections. The abdominal aorta and IVC appear unremarkable. IMPRESSION: Findings are compatible with acute cholecystitis. Multiple gallstones. Pericholecystic fluid is present. Thickened gallbladder wall (4-4.5 mm thickness). No biliary obstruction. [id number] left hydronephrosis. Electronically signed by: Mulu Gao On 08/02/2021 02:34:24 AM
--- NOTE | 2021-08-02 02:42 | REPVR ---
PROCEDURE INFORMATION: Exam: XR Chest Exam date and time: 08/01/21 (12:04am) Age: 61 years old Clinical indication: FUO TECHNIQUE: Imaging protocol: Portable CXR Views: 1 view COMPARISON: Portable CXR of 06/14/21 FINDINGS: Comparison is made with a portable CXR done on 06/14/21 (done 7 weeks ago). Slightly suboptimal inspiratory effort. The heart may be top normal in size. No significant vascular congestion. No focal infiltrates. No pleural effusions. No pneumothorax. IMPRESSION: No acute findings. Electronically signed by: Mulu Gao On 08/02/2021 02:42:03 AM
--- NOTE | 2021-08-02 02:53 | REPVR ---
PROCEDURE INFORMATION: Exam: CT Chest without Contrast; Diagnostic Exam date and time: 08/02/21 (2:12am) Age: 61 years old Clinical indication: Sepsis TECHNIQUE: Imaging protocol: Diagnostic computed tomography of the chest without contrast Radiation optimization: All CT scans at this facility use at least one of these dose optimization techniques: automated exposure control; mA and/or kV adjustment per patient size (includes targeted exams where dose is matched to clinical indication); or iterative reconstruction. COMPARISON: Portable CXR of 08/01/21 FINDINGS: Lungs: Probably chronic interstitial lung disease. Some posterior bibasilar atelectasis. No consolidation. No masses. Pleural spaces: Unremarkable. No pneumothorax. No pleural effusion. Heart: Heart size probably top normal. No pericardial effusion. Aorta: Unremarkable. No aortic aneurysm. Lymph nodes: Unremarkable. No enlarged lymph nodes. Bones/joints: No acute fracture. Multilevel degenerative thoracic spine changes. Soft tissues: Unremarkable. Upper abdomen: Distended stomach, filled with air and fluid. Multiple gallstones (a large calcified gallstone (2.5 cm diameter)is noted). IMPRESSION: No definite acute findings. Probably chronic interstitial lung changes. Bibasilar atelectasis. Multiple gallstones. Electronically signed by: Mulu Gao On 08/02/2021 02:52:17 AM
[2021-08-02] MEDS ORDERED: MAALOX 30 ML SUSP *UDC PO PRN (04:00)
[2021-08-02] MEDS ORDERED: HEPARIN SOD (PORCINE) 5000UNITS/ML 1ML VIAL/SYRINGE SC SCH ×2 (04:00→06:00)
[2021-08-02] MEDS ORDERED: MOM 30ML SUSPENSION UDC PO PRN (04:00)
[2021-08-02] MEDS ORDERED: CITA20TA6 PO (04:14)
[2021-08-02] MEDS ORDERED: LORA-674 PO (04:14)
[2021-08-02] MEDS ORDERED: ATIV1TAB7 PO (04:14)
--- OUTSIDE RECORDS SUMMARY | 2021-08-02 04:14 | CCD ---
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 Name Role Phone Paradise Shukla MD Unavailable [...] Unavailable Unavailable VANE, YOSELIN PA Unavailable Unavailable AVNE, YOSELIN PA Unavailable Unavailable VANE, YOSELIN PA Unavailable Unavailable VANE, YOSELIN PA Unavailable Unavailable VANE, YOSELIN PA Unavailable Unavailable VANE, YOSELIN PA Unavailable Unavailable VANE, YOSELIN PA Unavailable Unavailable VANE, YOSELIN PA Unavailable Unavailable VANE, YOSELIN PA Unavailable Unavailable VANE, YOSELIN PA Unavailable Unavailable VANE, YOSELIN PA Unavailable Unavailable VANE, YSOELIN PA Unavailable Unavailable VANE, YOSELIN PA Unavailable [...] is protected by Article 27-F of the [facility] Public Health law. If you continue you may have access to information: Regarding HIV / AIDS; Provided by facilities licensed or operated by the [facility] Office of Mental Health; or Provided by the [facility] Office for People With Developmental Disabilities. If such information is present, then the following [facility] mandated warning applies: This information has [...] law may result in a fine or usp sentence or both. A general authorization for the release of medical or other information is NOT sufficient authorization for further disc losure. Encounters Encounter Providers Location Date Indications Data Source(s ) Outpatient [address] [place] [address], [place] [address] 07/15/2021 12:00:00 AM EDT eCW1 ([facility]) Unknown [address] [facility] [address] 07/01/2021 12:00:00 AM EDT eCW1 ([facility]) [place] [address] [facility] [address] 06/27/2021 12:00:00 AM EDT eCW1 ([facility]) (TCM) Transition of Care Visit [address] [place] [address] 06/25/2021 12:00:00 AM EDT eCW1 ([facility]) Outpatient [address] [facility] [address] 06/24/2021 12:00:00 AM EDT eCW1 ([facility]) [place] [address] [facility] [address] 06/19/2021 12:00:00 AM EDT eCW1 ([facility]) Unknown [address] [facility] [address] 06/18/2021 12:00:00 AM EDT eCW1 ([facility]) [place] [address] [facility] [address] 06/18/2021 12:00:00 AM EDT eCW1 ([facility]) [place] [address] [facility] [address] 06/11/2021 12:00:00 AM EDT eCW1 ([facility]) (Cysto1) Urology [address] [place] [address] 06/10/2021 12:00:00 AM EDT eCW1 ([facility]) Unknown [address] [facility] [address] 06/03/2021 12:00:00 AM EDT eCW1 ([facility]) [place] [address] [facility] [address] 05/22/2021 12:00:00 AM EDT eCW1 ([facility]) Unknown [address] [facility] [address] 05/20/2021 12:00:00 AM EDT eCW1 ([facility]) Outpatient [address] [facility] [address] 05/16/2021 12:00:00 AM EDT eCW1 ([facility]) Unknown [address] [facility] [address] 05/16/2021 12:00:00 AM EDT eCW1 ([facility]) [place] [address] [facility] [address] 05/14/2021 12:00:00 AM EDT eCW1 ([facility]) [place] [address] [facility] [address] 05/09/2021 12:00:00 AM EDT eCW1 ([facility]) Unknown [address] [facility] [address] 05/03/2021 12:00:00 AM EDT eCW1 ([facility]) Unknown [address] [facility] [address] 04/17/2021 12:00:00 AM EDT eCW1 ([facility]) Outpatient [address] [facility] [address] 04/05/2021 12:00:00 AM EDT eCW1 ([facility]) [place] [address] [facility] [address] 04/03/2021 12:00:00 AM EDT eCW1 ([facility]) [place] [address] [facility] [address] 04/01/2021 12:00:00 AM EDT eCW1 ([facility]) Unknown [address] [facility] [address] 03/26/2021 12:00:00 AM EDT eCW1 ([facility]) Outpatient Attender: Roger Shukla MD Main Office 03/21/2021 02:30:00 PM EDT MEDENT ([facility]) Unknown [address] [facility] [address] 03/19/2021 12:00:00 AM EDT eCW1 ([facility]) Unknown [address] [facility] [address] 03/13/2021 12:00:00 AM EDT eCW1 ([facility]) Unknown [address] [facility] [address] 03/12/2021 12:00:00 AM EDT eCW1 ([facility]) [place] [address] [facility] [address] 02/11/2021 12:00:00 AM EDT eCW1 ([facility]) [place] [address] [facility] [address] 02/08/2021 12:00:00 AM EDT eCW1 ([facility]) Outpatient [address] [facility] [address] 02/07/2021 12:00:00 AM EDT eCW1 ([facility]) [place] [address] [facility] [address] 01/31/2021 12:00:00 AM EDT eCW1 ([facility]) [place] [address] [facility] [address] 01/15/2021 12:00:00 AM EDT eCW1 ([facility]) [place] [address] [facility] [address] 01/07/2021 12:00:00 AM EDT eCW1 ([facility]) Outpatient [address] [facility] [address] 12/04/2020 12:00:00 AM EST eCW1 ([facility]) Unknown [address] [facility] [address] 11/30/2020 12:00:00 AM EST eCW1 ([facility]) Outpatient [address] [facility] [address] 11/28/2020 12:00:00 AM EST eCW1 ([facility]) [place] [address] [facility] [address] 11/28/2020 12:00:00 AM EST eCW1 ([facility]) [place] [address] [facility] [address] 11/02/2020 12:00:00 AM EST eCW1 ([facility]) (Cysto1) Urology [address] [place] [address] 10/17/2020 12:00:00 AM EST eCW1 ([facility]) [place] [address] [facility] [address] 10/15/2020 12:00:00 AM EST eCW1 ([facility]) [place] [address] [facility] [address] 09/26/2020 12:00:00 AM EST eCW1 ([facility]) [place]patient [address] [facility] [address] 09/17/2020 12:00:00 AM EST eCW1 ([facility]) [place] [address] [facility] [address] 09/12/2020 12:00:00 AM EST eCW1 ([facility]) [place] [address] [facility] [address] 09/04/2020 12:00:00 AM EST eCW1 ([facility]) [place]patient [address] [facility] [address] 08/28/2020 12:00:00 AM EST eCW1 ([facility]) [place] [address] [facility] [address] 08/28/2020 12:00:00 AM EST eCW1 ([facility]) Outpatient [address] [facility] [address] 08/16/2020 12:00:00 AM EST eCW1 ([facility]) Unknown [address] [facility] [address] 08/13/2020 12:00:00 AM EST eCW1 ([facility]) Outpatient [address] [facility] [address] 07/17/2020 12:00:00 AM EDT eCW1 ([facility]) Outpatient Attender: Nicole Mendez Prim kathleen 06/29/2020 10:45:00 AM EDT MEDENT ([facility]) Outpatient Attender: YOSELIN Mendez Prima ry 06/14/2020 04:50:00 PM EDT MEDENT ([facility]) Immunizations Vaccine Date Status Description Data Source(s) As of June 1999, a 2-dose hepatitis B schedule for adolescents (11-15 year olds) was FDA approved for [employer]'s Recombivax HB adult formulation. Use code 43 for the 2-dose. This code should be used for any use of standard adult formulation of hepatitis B vaccine. 02/07/2021 04:42:00 PM EDT completed eCW1 ([facility]) As of June 1999, a 2-dose hepatitis B schedule for adolescents (11-15 year olds) was FDA approved for [employer]'s Recombivax HB adult formulation. Use code 43 for the 2-dose. This code should be used for any use of standard adult formulation of hepatitis B vaccine. 02/07/2021 04:42:00 PM EDT completed eCW1 ([facility]) As of June 1999, a 2-dose hepatitis B schedule for adolescents (11-15 year olds) was FDA approved for [employer]'s Recombivax HB adult formulation. Use code 43 for the 2-dose. This code should be used for any use of standard adult formulation of hepatitis B vaccine. 02/07/2021 04:42:00 PM EDT completed eCW1 ([facility]) As of June 1999, a 2-dose hepatitis B schedule for adolescents (11-15 year olds) was FDA approved for [employer]'s Recombivax HB adult formulation. Use code 43 for the 2-dose. This code should be used for any use of standard adult formulation of hepatitis B vaccine. 02/07/2021 04:42:00 PM EDT completed eCW1 ([facility]) As of June 1999, a 2-dose hepatitis B schedule for adolescents (11-15 year olds) was FDA approved for [employer]'s Recombivax HB adult formulation. Use code 43 for the 2-dose. This code should be used for any use of standard adult formulation of hepatitis B vaccine. 02/07/2021 04:42:00 PM EDT completed eCW1 ([facility]) As of June 1999, a 2-dose hepatitis B schedule for adolescents (11-15 year olds) was FDA approved for [employer]'s Recombivax HB adult formulation. Use code 43 for the 2-dose. This code should be used for any use of standard adult formulation of hepatitis B vaccine. 02/07/2021 04:42:00 PM EDT completed eCW1 ([facility]) As of June 1999, a 2-dose hepatitis B schedule for adolescents (11-15 year olds) was FDA approved for [employer]'s Recombivax HB adult formulation. Use code 43 for the 2-dose. This code should be used for any use of standard adult formulation of hepatitis B vaccine. 02/07/2021 04:42:00 PM EDT completed eCW1 ([facility]) As of June 1999, a 2-dose hepatitis B schedule for adolescents (11-15 year olds) was FDA approved for Mer[employer]'s Recombivax HB adult formulation. Use code 43 for the 2-dose. This code should be used for any use of standard adult formulation of hepatitis B vaccine. 02/07/2021 04:42:00 PM EDT completed eCW1 ([facility]) As of June 1999, a 2-dose hepatitis B schedule for adolescents (11-15 year olds) was FDA approved for Mer[employer]'s Recombivax HB adult formulation. Use code 43 for the 2-dose. This code should be used for any use of standard adult formulation of hepatitis B vaccine. 02/07/2021 04:42:00 PM EDT completed eCW1 ([facility]) As of June 1999, a 2-dose hepatitis B schedule for adolescents (11-15 year olds) was FDA approved for Mer[employer]'s Recombivax HB adult formulation. Use code 43 for the 2-dose. This code should be used for any use of standard adult formulation of hepatitis B vaccine. 02/07/2021 04:42:00 PM EDT completed eCW1 ([facility]) As of June 1999, a 2-dose hepatitis B schedule for adolescents (11-15 year olds) was FDA approved for Mer[employer]'s Recombivax HB adult formulation. Use code 43 for the 2-dose. This code should be used for any use of standard adult formulation of hepatitis B vaccine. 02/07/2021 04:42:00 PM EDT completed eCW1 ([facility]) As of June 1999, a 2-dose hepatitis B schedule for adolescents (11-15 year olds) was FDA approved for Merck's Recombivax HB adult formulation. Use code 43 for the 2-dose. This code should be used for any use of standard adult formulation of hepatitis B vaccine. 02/07/2021 04:42:00 PM EDT completed eCW1 ([facility]) As of June 1999, a 2-dose hepatitis B schedule for adolescents (11-15 year olds) was FDA approved for Merck's Recombivax HB adult formulation. Use code 43 for the 2-dose. This code should be used for any use of standard adult formulation of hepatitis B vaccine. 02/07/2021 04:42:00 PM EDT completed eCW1 ([facility]) As of June 1999, a 2-dose hepatitis B schedule for adolescents (11-15 year olds) was FDA approved for Merck's Recombivax HB adult formulation. Use code 43 for the 2-dose. This code should be used for any use of standard adult formulation of hepatitis B vaccine. 02/07/2021 04:42:00 PM EDT completed eCW1 ([facility]) As of June 1999, a 2-dose hepatitis B schedule for adolescents (11-15 year olds) was FDA approved for Merck's Recombivax HB adult formulation. Use code 43 for the 2-dose. This code should be used for any use of standard adult formulation of hepatitis B vaccine. 02/07/2021 04:42:00 PM EDT completed eCW1 ([facility]) As of June 1999, a 2-dose hepatitis B schedule for adolescents (11-15 year olds) was FDA approved for Merck's Recombivax HB adult formulation. Use code 43 for the 2-dose. This code should be used for any use of standard adult formulation of hepatitis B vaccine. 02/07/2021 04:42:00 PM EDT completed eCW1 ([facility]) As of June 1999, a 2-dose hepatitis B schedule for adolescents (11-15 year olds) was FDA approved for Merck's Recombivax HB adult formulation. Use code 43 for the 2-dose. This code should be used for any use of standard adult formulation of hepatitis B vaccine. 02/07/2021 04:42:00 PM EDT completed eCW1 ([facility]) As of June 1999, a 2-dose hepatitis B schedule for adolescents (11-15 year olds) was FDA approved for Merck's Recombivax HB adult formulation. Use code 43 for the 2-dose. This code should be used for any use of standard adult formulation of hepatitis B vaccine. 02/07/2021 04:42:00 PM EDT completed eCW1 ([facility]) As of June 1999, a 2-dose hepatitis B schedule for adolescents (11-15 year olds) was FDA approved for Merck's Recombivax HB adult formulation. Use code 43 for the 2-dose. This code should be used for any use of standard adult formulation of hepatitis B vaccine. 02/07/2021 04:42:00 PM EDT completed eCW1 ([facility]) As of June 1999, a 2-dose hepatitis B schedule for adolescents (11-15 year olds) was FDA approved for Merck's Recombivax HB adult formulation. Use code 43 for the 2-dose. This code should be used for any use of standard adult formulation of hepatitis B vaccine. 02/07/2021 04:42:00 PM EDT completed eCW1 ([facility]) As of June 1999, a 2-dose hepatitis B schedule for adolescents (11-15 year olds) was FDA approved for Merck's Recombivax HB adult formulation. Use code 43 for the 2-dose. This code should be used for any use of standard adult formulation of hepatitis B vaccine. 02/07/2021 04:42:00 PM EDT completed eCW1 ([facility]) As of June 1999, a 2-dose hepatitis B schedule for adolescents (11-15 year olds) was FDA approved for Merck's Recombivax HB adult formulation. Use code 43 for the 2-dose. This code should be used for any use of standard adult formulation of hepatitis B vaccine. 02/07/2021 04:42:00 PM EDT completed eCW1 ([facility]) As of June 1999, a 2-dose hepatitis B schedule for adolescents (11-15 year olds) was FDA approved for Merck's Recombivax HB adult formulation. Use code 43 for the 2-dose. This code should be used for any use of standard adult formulation of hepatitis B vaccine. 02/07/2021 04:42:00 PM EDT completed eCW1 ([facility]) As of June 1999, a 2-dose hepatitis B schedule for adolescents (11-15 year olds) was FDA approved for Merck's Recombivax HB adult formulation. Use code 43 for the 2-dose. This code should be used for any use of standard adult formulation of hepatitis B vaccine. 02/07/2021 04:42:00 PM EDT completed eCW1 ([facility]) As of June 1999, a 2-dose hepatitis B schedule for adolescents (11-15 year olds) was FDA approved for Merck's Recombivax HB adult formulation. Use code 43 for the 2-dose. This code should be used for any use of standard adult formulation of hepatitis B vaccine. 02/07/2021 04:42:00 PM EDT completed eCW1 ([facility]) As of June 1999, a 2-dose hepatitis B schedule for adolescents (11-15 year olds) was FDA approved for Merck's Recombivax HB adult formulation. Use code 43 for the 2-dose. This code should be used for any use of standard adult formulation of hepatitis B vaccine. 02/07/2021 04:42:00 PM EDT completed eCW1 ([facility]) As of June 1999, a 2-dose hepatitis B schedule for adolescents (11-15 year olds) was FDA approved for Merck's Recombivax HB adult formulation. Use code 43 for the 2-dose. This code should be used for any use of standard adult formulation of hepatitis B vaccine. 02/07/2021 04:42:00 PM EDT completed eCW1 ([facility]) As of June 1999, a 2-dose hepatitis B schedule for adolescents (11-15 year olds) was FDA approved for Merck's Recombivax HB adult formulation. Use code 43 for the 2-dose. This code should be used for any use of standard adult formulation of hepatitis B vaccine. 02/07/2021 04:42:00 PM EDT completed eCW1 ([facility]) As of June 1999, a 2-dose hepatitis B schedule for adolescents (11-15 year olds) was FDA approved for Merck's Recombivax HB adult formulation. Use code 43 for the 2-dose. This code should be used for any use of standard adult formulation of hepatitis B vaccine. 02/07/2021 04:42:00 PM EDT completed eCW1 ([facility]) Moderna #2 dose COVID-19 SARSCOV2 VAC 100MCG/0.5ML IM 11/15/2020 12:39:00 PM EST completed eCW1 ([facility]) Moderna #2 dose COVID-19 SARSCOV2 VAC 100MCG/0.5ML IM 11/15/2020 12:39:00 PM EST completed eCW1 ([facility]) Moderna #2 dose COVID-19 SARSCOV2 VAC 100MCG/0.5ML IM 11/15/2020 12:39:00 PM EST completed eCW1 ([facility]) Moderna #2 dose COVID-19 SARSCOV2 VAC 100MCG/0.5ML IM 11/15/2020 12:39:00 PM EST completed eCW1 ([facility]) Moderna #2 dose COVID-19 SARSCOV2 VAC 100MCG/0.5ML IM 11/15/2020 12:39:00 PM EST completed eCW1 ([facility]) COVID-19 VACCINE Moderna 11/15/2020 12:00:00 AM EST completed [facility] Vaccine Series Complete: YESThis Data wa s Submitted to [facility] Via [employer]. Moderna #1 dose COVID-19 SARSCOV2 VAC 100MCG/0.5ML IM 10/18/2020 12:38:00 PM EST completed eCW1 ([facility]) Moderna #1 dose COVID-19 SARSCOV2 VAC 100MCG/0.5ML IM 10/18/2020 12:38:00 PM EST completed eCW1 ([facility]) Moderna #1 dose COVID-19 SARSCOV2 VAC 100MCG/0.5ML IM 10/18/2020 12:38:00 PM EST completed eCW1 ([facility]) Moderna #1 dose COVID-19 SARSCOV2 VAC 100MCG/0.5ML IM 10/18/2020 12:38:00 PM EST completed eCW1 ([facility]) Moderna #1 dose COVID-19 SARSCOV2 VAC 100MCG/0.5ML IM 10/18/2020 12:38:00 PM EST completed eCW1 ([facility]) COVID-19 VACCINE Moderna 10/18/2020 12:00:00 AM EST completed [facility] Vaccine Series Complete: NOThis Data was Submitted to [facility] Via [employer]. Tdap 09/12/2020 07:42:00 AM EST completed e CW1 ([facility]) Tdap 09/12/2020 07:42:00 AM EST completed e CW1 ([facility]) Tdap 09/12/2020 07:42:00 AM EST completed e CW1 ([facility]) Tdap 09/12/2020 07:42:00 AM EST completed e CW1 ([facility]) Tdap 09/12/2020 07:42:00 AM EST completed e CW1 ([facility]) Tdap 09/12/2020 07:42:00 AM EST completed e CW1 ([facility]) Tdap 09/12/2020 07:42:00 AM EST completed e CW1 ([facility]) Tdap 09/12/2020 07:42:00 AM EST completed e CW1 ([facility]) Tdap 09/12/2020 07:42:00 AM EST completed e CW1 ([facility]) Tdap 09/12/2020 07:42:00 AM EST completed e CW1 ([facility]) Tdap 09/12/2020 07:42:00 AM EST completed e CW1 ([facility]) Tdap 09/12/2020 07:42:00 AM EST completed e CW1 ([facility]) Tdap 09/12/2020 07:42:00 AM EST completed e CW1 ([facility]) Tdap 09/12/2020 07:42:00 AM EST completed e CW1 ([facility]) Tdap 09/12/2020 07:42:00 AM EST completed e CW1 ([facility]) Tdap 09/12/2020 07:42:00 AM EST completed e CW1 ([facility]) Tdap 09/12/2020 07:42:00 AM EST completed e CW1 ([facility]) Tdap 09/12/2020 07:42:00 AM EST completed e CW1 ([facility]) Tdap 09/12/2020 07:42:00 AM EST completed e CW1 ([facility]) Tdap 09/12/2020 07:42:00 AM EST completed e CW1 ([facility]) Tdap 09/12/2020 07:42:00 AM EST completed e CW1 ([facility]) Tdap 09/12/2020 07:42:00 AM EST completed e CW1 ([facility]) Tdap 09/12/2020 07:42:00 AM EST completed e CW1 ([facility]) Tdap 09/12/2020 07:42:00 AM EST completed e CW1 ([facility]) Tdap 09/12/2020 07:42:00 AM EST completed e CW1 ([facility]) Tdap 09/12/2020 07:42:00 AM EST completed e CW1 ([facility]) Tdap 09/12/2020 07:42:00 AM EST completed e CW1 ([facility]) Tdap 09/12/2020 07:42:00 AM EST completed e CW1 ([facility]) Tdap 09/12/2020 07:42:00 AM EST completed e CW1 ([facility]) Tdap 09/12/2020 07:42:00 AM EST completed e CW1 ([facility]) Tdap 09/12/2020 07:42:00 AM EST completed e CW1 ([facility]) Tdap 09/12/2020 07:42:00 AM EST completed e CW1 ([facility]) Tdap 09/12/2020 07:42:00 AM EST completed e CW1 ([facility]) Tdap 09/12/2020 07:42:00 AM EST completed e CW1 ([facility]) Tdap 09/12/2020 07:42:00 AM EST completed e CW1 ([facility]) Tdap 09/12/2020 07:42:00 AM EST completed e CW1 ([facility]) Tdap 09/12/2020 07:42:00 AM EST completed e CW1 ([facility]) Tdap 09/12/2020 07:42:00 AM EST completed e CW1 ([facility]) Tdap 09/12/2020 07:42:00 AM EST completed e CW1 ([facility]) Tdap 09/12/2020 07:42:00 AM EST completed e CW1 ([facility]) Tdap 09/12/2020 07:42:00 AM EST completed e CW1 ([facility]) Tdap 09/12/2020 07:42:00 AM EST completed e CW1 ([facility]) Medications Medication Brand Name Start Date Product Form Dose Route Admi nistrative Instructions Pharmacy Instructions Status Indications Reaction Description Data Source(s) COMPRESSION STOCKINGS 20-30 mmHg UNK 06/18/2021 12:00:00 AM EDT active COMPRESSION STOCKINGS 20-30 mmHg eCW1 ([facility]) COMPRESSION STOCKINGS 20-30 mmHg UNK 06/18/2021 12:00:00 AM EDT suspended COMPRESSION STOCKINGS 20-30 mmHg eCW1 ([facility]) COMPRESSION STOCKINGS 20-30 mmHg UNK 06/18/2021 12:00:00 AM EDT active COMPRESSION STOCKINGS 20-30 mmHg eCW1 ([facility]) COMPRESSION STOCKINGS 20-30 mmHg UNK 06/18/2021 12:00:00 AM EDT suspended COMPRESSION STOCKINGS 20-30 mmHg eCW1 ([facility]) COMPRESSION STOCKINGS 20-30 mmHg UNK 06/18/2021 12:00:00 AM EDT active COMPRESSION STOCKINGS 20-30 mmHg eCW1 ([facility]) COMPRESSION STOCKINGS 20-30 mmHg UNK 06/18/2021 12:00:00 AM EDT active COMPRESSION STOCKINGS 20-30 mmHg eCW1 ([facility]) COMPRESSION STOCKINGS 20-30 mmHg UNK 06/18/2021 12:00:00 AM EDT active COMPRESSION STOCKINGS 20-30 mmHg eCW1 ([facility]) COMPRESSION STOCKINGS 20-30 mmHg UNK 06/18/2021 12:00:00 AM EDT suspended COMPRESSION STOCKINGS 20-30 mmHg eCW1 ([facility]) Levofloxacin 750 MG Oral Tablet levoFLOXacin 750 MG levoFLOX acin 750 MG 06/14/2021 12:00:00 AM EDT 1.0 {tablet} active levoFLOXacin 750 MG eCW1 ([facility]) Lorazepam 1 MG Oral Tablet Lorazepam 1 MG 06/06/2021 12:00:00 AM EDT suspended Lorazepam 1 MG eCW1 ([facility]) Lorazepam 1 MG Oral Tablet Lorazepam 1 MG 06/06/2021 12:00:00 AM EDT suspended Lorazepam 1 MG eCW1 ([facility]) Lorazepam 1 MG Oral Tablet Lorazepam 1 MG 06/06/2021 12:00:00 AM EDT suspended Lorazepam 1 MG eCW1 ([facility]) Lorazepam 1 MG Oral Tablet Lorazepam 1 MG 06/06/2021 12:00:00 AM EDT active Lorazepam 1 MG eCW1 ([facility]) Lorazepam 1 MG Oral Tablet Lorazepam 1 MG 06/06/2021 12:00:00 AM EDT active Lorazepam 1 MG eCW1 ([facility]) Lorazepam 1 MG Oral Tablet Lorazepam 1 MG 06/06/2021 12:00:00 AM EDT active Lorazepam 1 MG eCW1 ([facility]) Lorazepam 1 MG Oral Tablet Lorazepam 1 MG 06/06/2021 12:00:00 AM EDT suspended Lorazepam 1 MG eCW1 ([facility]) Lorazepam 1 MG Oral Tablet Lorazepam 1 MG 06/06/2021 12:00:00 AM EDT suspended Lorazepam 1 MG eCW1 ([facility]) Lorazepam 1 MG Oral Tablet Lorazepam 1 MG 06/06/2021 12:00:00 AM EDT active Lorazepam 1 MG eCW1 ([facility]) Lorazepam 1 MG Oral Tablet Lorazepam 1 MG 06/06/2021 12:00:00 AM EDT suspended Lorazepam 1 MG eCW1 ([facility]) Lorazepam 1 MG Oral Tablet Lorazepam 1 MG 06/06/2021 12:00:00 AM EDT suspended Lorazepam 1 MG eCW1 ([facility]) Lorazepam 1 MG Oral Tablet Lorazepam 1 MG 06/06/2021 12:00:00 AM EDT suspended Lorazepam 1 MG eCW1 ([facility]) Lorazepam 1 MG Oral Tablet [Ativan] Ativan 1 MG Ativan 1 MG 05/22/2021 12:00:00 AM EDT active Ativan 1 MG eCW1 ([facility]) Finasteride 5 MG Oral Tablet Finasteride 5 MG 04/17/2021 12:00:00 A M EDT 1.0 {tablet} active Finasteride 5 MG eCW1 ( [facility]) Finasteride 5 MG Oral Tablet Finasteride 5 MG 04/17/2021 12:00:00 A M EDT 1.0 {tablet} active Finasteride 5 MG eCW1 ( [facility]) Finasteride 5 MG Oral Tablet Finasteride 5 MG 04/17/2021 12:00:00 A M EDT 1.0 {tablet} active Finasteride 5 MG eCW1 ( [facility]) Finasteride 5 MG Oral Tablet Finasteride 5 MG 04/17/2021 12:00:00 A M EDT 1.0 {tablet} active Finasteride 5 MG eCW1 ( [facility]) Finasteride 5 MG Oral Tablet Finasteride 5 MG 04/17/2021 12:00:00 A M EDT 1.0 {tablet} active Finasteride 5 MG eCW1 ( [facility]) Finasteride 5 MG Oral Tablet Finasteride 5 MG 04/17/2021 12:00:00 A M EDT 1.0 {tablet} active Finasteride 5 MG eCW1 ( [facility]) Finasteride 5 MG Oral Tablet Finasteride 5 MG 04/17/2021 12:00:00 A M EDT 1.0 {tablet} active Finasteride 5 MG eCW1 ( [facility]) Finasteride 5 MG Oral Tablet Finasteride 5 MG 04/17/2021 12:00:00 A M EDT 1.0 {tablet} active Finasteride 5 MG eCW1 ( [facility]) Finasteride 5 MG Oral Tablet Finasteride 5 MG 04/17/2021 12:00:00 A M EDT 1.0 {tablet} active Finasteride 5 MG eCW1 ( [facility]) Finasteride 5 MG Oral Tablet Finasteride 5 MG 04/17/2021 12:00:00 A M EDT 1.0 {tablet} active Finasteride 5 MG eCW1 ( [facility]) Finasteride 5 MG Oral Tablet Finasteride 5 MG 04/17/2021 12:00:00 A M EDT 1.0 {tablet} active Finasteride 5 MG eCW1 ( [facility]) Finasteride 5 MG Oral Tablet Finasteride 5 MG 04/17/2021 12:00:00 A M EDT 1.0 {tablet} active Finasteride 5 MG eCW1 ( [facility]) Finasteride 5 MG Oral Tablet Finasteride 5 MG 04/17/2021 12:00:00 A M EDT 1.0 {tablet} active Finasteride 5 MG eCW1 ( [facility]) Finasteride 5 MG Oral Tablet Finasteride 5 MG 04/17/2021 12:00:00 A M EDT 1.0 {tablet} active Finasteride 5 MG eCW1 ( [facility]) Finasteride 5 MG Oral Tablet Finasteride 5 MG 04/17/2021 12:00:00 A M EDT 1.0 {tablet} active Finasteride 5 MG eCW1 ( [facility]) Finasteride 5 MG Oral Tablet Finasteride 5 MG 04/17/2021 12:00:00 A M EDT 1.0 {tablet} active Finasteride 5 MG eCW1 ( [facility]) Finasteride 5 MG Oral Tablet Finasteride 5 MG 04/17/2021 12:00:00 A M EDT 1.0 {tablet} active Finasteride 5 MG eCW1 ( [facility]) Finasteride 5 MG Oral Tablet Finasteride 5 MG 04/17/2021 12:00:00 A M EDT 1.0 {tablet} active eCW1 ([facility]) Finasteride 5 MG Oral Tablet Finasteride 5 MG 04/17/2021 12:00:00 A M EDT 1.0 {tablet} active Finasteride 5 MG eCW1 ( [facility]) Bard Zkfrbe-E-Gow Leg Bag - Bard Ohvxjh-B-Qkp Leg Bag - 03/13 12:00:00 AM EDT active Bard Bcgnre-W-Imz Leg Bag - eCW1 ([facility]) Bard Yhcomc-L-Nos Leg Bag - Bard Mqdzwu-B-Nos Leg Bag - 03/13 12:00:00 AM EDT suspended Bard Dispoz-A- Bag Leg Bag - eCW1 ([facility]) Bard Qxhlmx-G-Uks Leg Bag - Bard Nkavai-Z-Gae Leg Bag - 03/13 12:00:00 AM EDT active Bard Gizoka-G-Pwp Leg Bag - eCW1 ([facility]) Bard Jyfqwk-H-Rhp Leg Bag - Bard Rkriac-Y-Rgx Leg Bag - 03/13 12:00:00 AM EDT active Bard Govnkq-W-Onz Leg Bag - eCW1 ([facility]) Bard Jhbozr-U-Nva Leg Bag - Bard Xleeta-L-Oqe Leg Bag - 03/13 12:00:00 AM EDT active Bard Oltpbc-N-Xhw Leg Bag - eCW1 ([facility]) Bard Wzbxrt-C-Uev Leg Bag - Bard Bulcmv-T-Blr Leg Bag - 03/13 12:00:00 AM EDT active Bard Nxjhar-Q-Rpm Leg Bag - eCW1 ([facility]) Bard Bclign-Q-Uuc Leg Bag - Bard Wsnsky-O-Kah Leg Bag - 03/13 12:00:00 AM EDT suspended Bard Dispoz-A- Bag Leg Bag - eCW1 ([facility]) Bard Rclnmj-Q-Cml Leg Bag - Bard Vhvfhb-G-Rdf Leg Bag - 03/13 12:00:00 AM EDT active Bard Ifwgxd-K-Gvf Leg Bag - eCW1 ([facility]) Bard Uctagu-C-Ksi Leg Bag - Bard Kwupzn-B-Owv Leg Bag - 03/13 12:00:00 AM EDT active Bard Hlwdwx-O-Vir Leg Bag - eCW1 ([facility]) Bard Twxyzd-Q-Rgd Leg Bag - Bard Leiuyl-O-Gmi Leg Bag - 03/13 12:00:00 AM EDT active eCW1 ([facility]) Bard Miwwjn-Y-Yvz Leg Bag - Bard Ecdxga-N-Olg Leg Bag - 03/13 12:00:00 AM EDT active Bard Zohhud-U-Sav Leg Bag - eCW1 ([facility]) Bard Gimxfs-G-Bal Leg Bag - Bard Oowmhm-Y-Oxb Leg Bag - 03/13 12:00:00 AM EDT active Bard Rrjeyy-D-Yrp Leg Bag - eCW1 ([facility]) Bard Tbnpqb-A-Vqy Leg Bag - Bard Gqpwdk-D-Fdd Leg Bag - 03/13 12:00:00 AM EDT active Bard Avbqsb-J-Jzc Leg Bag - eCW1 ([facility]) Bard Oddtgw-G-Rgu Leg Bag - Bard Ygznyj-F-Gtd Leg Bag - 03/13 12:00:00 AM EDT suspended Bard Dispoz-A- Bag Leg Bag - eCW1 ([facility]) Bard Fueppl-F-Siv Leg Bag - Bard Docfzc-D-Fua Leg Bag - 03/13 12:00:00 AM EDT active Bard Avanbq-J-Lgx Leg Bag - eCW1 ([facility]) Bard Ejijdz-X-Hcb Leg Bag - Bard Ysaljn-R-Xyr Leg Bag - 03/13 12:00:00 AM EDT active Bard Fivmli-W-Jzx Leg Bag - eCW1 ([facility]) Bard Aoecgv-A-Puz Leg Bag - Bard Iwttlq-S-Jxl Leg Bag - 03/13 12:00:00 AM EDT suspended Bard Dispoz-A- Bag Leg Bag - eCW1 ([facility]) Bard Jecybd-L-Cxn Leg Bag - Bard Kcktry-E-Rgi Leg Bag - 03/13 12:00:00 AM EDT active Bard [place]-D-Rws Leg Bag - eCW1 ([facility]) Bard Awnwor-B-Dal Leg Bag - Bard Zjrphj-V-Kkg Leg Bag - 03/13 12:00:00 AM EDT active Bard Kqtqja-M-Dzi Leg Bag - eCW1 ([facility]) Bard Etgswq-Z-Cqg Leg Bag - Bard Beafvl-Y-Por Leg Bag - 03/13 12:00:00 AM EDT suspended Bard Dispoz-A- Bag Leg Bag - eCW1 ([facility]) Bard Csclua-R-Zup Leg Bag - Bard Dikunt-O-Gdl Leg Bag - 03/13 12:00:00 AM EDT active Bard Okcnlp-E-Huu Leg Bag - eCW1 ([facility]) Bard Aqtavl-L-Czx Leg Bag - Bard Rihyao-R-Ooa Leg Bag - 03/13 12:00:00 AM EDT active Bard Qdeqxv-D-Shh Leg Bag - eCW1 ([facility]) Antonio Sutab 03/21/2021 12:00:00 AM EDT active MEDENT ([facility]) Furosemide 20 MG Oral Tablet Furosemide 20 MG 03/19/2021 12:00:00 A M EDT 1.0 {tablet} active Furosemide 20 MG eCW1 ( [facility]) Furosemide 20 MG Oral Tablet Furosemide 20 MG 03/19/2021 12:00:00 A M EDT 1.0 {tablet} active eCW1 ([facility]) Furosemide 20 MG Oral Tablet Furosemide 20 MG 03/19/2021 12:00:00 A M EDT 1.0 {tablet} active Furosemide 20 MG eCW1 ( [facility]) Furosemide 20 MG Oral Tablet Furosemide 20 MG 03/19/2021 12:00:00 A M EDT 1.0 {tablet} active Furosemide 20 MG eCW1 ( [facility]) Furosemide 20 MG Oral Tablet Furosemide 20 MG 03/19/2021 12:00:00 A M EDT 1.0 {tablet} active Furosemide 20 MG eCW1 ( [facility]) Furosemide 20 MG Oral Tablet Furosemide 20 MG 03/19/2021 12:00:00 A M EDT 1.0 {tablet} active Furosemide 20 MG eCW1 ( [facility]) Furosemide 20 MG Oral Tablet Furosemide 20 MG 03/19/2021 12:00:00 A M EDT 1.0 {tablet} active Furosemide 20 MG eCW1 ( [facility]) Furosemide 20 MG Oral Tablet Furosemide 20 MG 03/19/2021 12:00:00 A M EDT 1.0 {tablet} active Furosemide 20 MG eCW1 ( [facility]) Furosemide 20 MG Oral Tablet Furosemide 20 MG 03/19/2021 12:00:00 A M EDT 1.0 {tablet} active Furosemide 20 MG eCW1 ( [facility]) Furosemide 20 MG Oral Tablet Furosemide 20 MG 03/19/2021 12:00:00 A M EDT 1.0 {tablet} active Furosemide 20 MG eCW1 ( [facility]) Furosemide 20 MG Oral Tablet Furosemide 20 MG 03/19/2021 12:00:00 A M EDT 1.0 {tablet} active Furosemide 20 MG eCW1 ( [facility]) Furosemide 20 MG Oral Tablet Furosemide 20 MG 03/19/2021 12:00:00 A M EDT 1.0 {tablet} active Furosemide 20 MG eCW1 ( [facility]) Furosemide 20 MG Oral Tablet Furosemide 20 MG 03/19/2021 12:00:00 A M EDT 1.0 {tablet} active Furosemide 20 MG eCW1 ( [facility]) Furosemide 20 MG Oral Tablet Furosemide 20 MG 03/19/2021 12:00:00 A M EDT 1.0 {tablet} active Furosemide 20 MG eCW1 ( [facility]) Furosemide 20 MG Oral Tablet Furosemide 20 MG 03/19/2021 12:00:00 A M EDT 1.0 {tablet} active Furosemide 20 MG eCW1 ( [facility]) Furosemide 20 MG Oral Tablet Furosemide 20 MG 03/19/2021 12:00:00 A M EDT 1.0 {tablet} active Furosemide 20 MG eCW1 ( [facility]) Furosemide 20 MG Oral Tablet Furosemide 20 MG 03/19/2021 12:00:00 A M EDT 1.0 {tablet} active Furosemide 20 MG eCW1 ( [facility]) Furosemide 20 MG Oral Tablet Furosemide 20 MG 03/19/2021 12:00:00 A M EDT 1.0 {tablet} active Furosemide 20 MG eCW1 ( [facility]) Furosemide 20 MG Oral Tablet Furosemide 20 MG 03/19/2021 12:00:00 A M EDT 1.0 {tablet} active Furosemide 20 MG eCW1 ( [facility]) Furosemide 20 MG Oral Tablet Furosemide 20 MG 03/19/2021 12:00:00 A M EDT 1.0 {tablet} active Furosemide 20 MG eCW1 ( [facility]) Furosemide 20 MG Oral Tablet Furosemide 20 MG 03/19/2021 12:00:00 A M EDT 1.0 {tablet} active Furosemide 20 MG eCW1 ( [facility]) Furosemide 20 MG Oral Tablet Furosemide 20 MG 03/19/2021 12:00:00 A M EDT 1.0 {tablet} active Furosemide 20 MG eCW1 ( [facility]) Furosemide 20 MG Oral Tablet Furosemide 20 MG 03/19/2021 12:00:00 A M EDT 1.0 {tablet} active Furosemide 20 MG eCW1 ( [facility]) Furosemide 20 MG Oral Tablet Furosemide 20 MG 03/19/2021 12:00:00 A M EDT 1.0 {tablet} active Furosemide 20 MG eCW1 ( [facility]) Sulfamethoxazole 800 MG / Trimethoprim 1 60 MG Oral Tablet [Bactrim] Bactrim DS 800-160 MG Bactrim DS 800-160 MG 02/11/2021 12:00:00 AM EDT 1.0 {table t} active Bactrim DS 800-160 MG eCW1 ( [facility]) Sulfamethoxazole 800 MG / Trimethoprim 1 60 MG Oral Tablet [Bactrim] Bactrim DS 800-160 MG Bactrim DS 800-160 MG 02/11/2021 12:00:00 AM EDT 1.0 {table t} active Bactrim DS 800-160 MG eCW1 ( [facility]) Sulfamethoxazole 800 MG / Trimethoprim 1 60 MG Oral Tablet [Bactrim] Bactrim DS 800-160 MG Bactrim DS 800-160 MG 02/11/2021 12:00:00 AM EDT 1.0 {table t} active Bactrim DS 800-160 MG eCW1 ( [facility]) Sulfamethoxazole 800 MG / Trimethoprim 1 60 MG Oral Tablet [Bactrim] Bactrim DS 800-160 MG Bactrim DS 800-160 MG 02/11/2021 12:00:00 AM EDT 1.0 {table t} active Bactrim DS 800-160 MG eCW1 ( [facility]) Sulfamethoxazole 800 MG / Trimethoprim 1 60 MG Oral Tablet [Bactrim] Bactrim DS 800-160 MG Bactrim DS 800-160 MG 02/11/2021 12:00:00 AM EDT 1.0 {table t} active Bactrim DS 800-160 MG eCW1 ( [facility]) Sulfamethoxazole 800 MG / Trimethoprim 1 60 MG Oral Tablet [Bactrim] Bactrim DS 800-160 MG Bactrim DS 800-160 MG 02/11/2021 12:00:00 AM EDT 1.0 {table t} active Bactrim DS 800-160 MG eCW1 ( [facility]) Sulfamethoxazole 800 MG / Trimethoprim 1 60 MG Oral Tablet [Bactrim] Bactrim DS 800-160 MG Bactrim DS 800-160 MG 02/11/2021 12:00:00 AM EDT 1.0 {table t} active Bactrim DS 800-160 MG eCW1 ( [facility]) Curtice Ramos Insertion Tray - Markell Ramos Insertion Tray - 12:00:00 AM EDT active Markell Ramos Inser tion Tray - eCW1 ([facility]) Curtice Ramos Insertion Tray - Markell Ramos Insertion Tray - 12:00:00 AM EDT active Curtice Ramos Inser tion Tray - eCW1 ([facility]) Curtice Ramos Insertion Tray - Markell Ramos Insertion Tray - 12:00:00 AM EDT active Markell Ramos Inser tion Tray - eCW1 ([facility]) Curtice Ramos Insertion Tray - Curtice Ramos Insertion Tray - 12:00:00 AM EDT active Curtice Ramos Inser tion Tray - eCW1 ([facility]) Curtice Ramos Insertion Tray - Markell Ramos Insertion Tray - 12:00:00 AM EDT suspended Markell Ramos In sertion Tray - eCW1 ([facility]) Curtice Ramos Insertion Tray - Markell Ramos Insertion Tray - 12:00:00 AM EDT active Curtice Ramos Inser tion Tray - eCW1 ([facility]) Markell Ramos Insertion Tray - Markell Ramos Insertion Tray - 12:00:00 AM EDT active Curtice Ramos Inser tion Tray - eCW1 ([facility]) Curtice Ramos Insertion Tray - Curtice Ramos Insertion Tray - 12:00:00 AM EDT active Markell Ramos Inser tion Tray - eCW1 ([facility]) Curtice Ramos Insertion Tray - Markell Ramos Insertion Tray - 12:00:00 AM EDT suspended Curtice Ramos In sertion Tray - eCW1 ([facility]) Markell Ramos Insertion Tray - Markell Ramos Insertion Tray - 12:00:00 AM EDT active Markell Raoms Inser tion Tray - eCW1 ([facility]) Curtice Ramos Insertion Tray - Curtice Ramos Insertion Tray - 12:00:00 AM EDT active Curtice Ramos Inser tion Tray - eCW1 ([facility]) Markell Ramos Insertion Tray - Curtice Ramos Insertion Tray - 12:00:00 AM EDT active Curtice Ramos Inser tion Tray - eCW1 ([facility]) Markell Ramos Insertion Tray - Markell Ramos Insertion Tray - 12:00:00 AM EDT suspended Curtice Ramos In sertion Tray - eCW1 ([facility]) Curtice Ramos Insertion Tray - Curtice Ramos Insertion Tray - 12:00:00 AM EDT active Curtice Ramos Inser tion Tray - eCW1 ([facility]) Curtice Ramos Insertion Tray - Curtice Ramos Insertion Tray - 12:00:00 AM EDT active Curtice Ramos Inser tion Tray - eCW1 ([facility]) Markell Ramos Insertion Tray - Curtice Ramos Insertion Tray - 12:00:00 AM EDT active Curtice Ramos Inser tion Tray - eCW1 ([facility]) Markell Ramos Insertion Tray - Curtice Ramos Insertion Tray - 12:00:00 AM EDT active Curtice Ramos Inser tion Tray - eCW1 ([facility]) Curtice Ramos Insertion Tray - Curtice Ramos Insertion Tray - 12:00:00 AM EDT suspended Curtice Ramos In sertion Tray - eCW1 ([facility]) Markell Ramos Insertion Tray - Markell Ramos Insertion Tray - 12:00:00 AM EDT suspended Curtice Ramos In sertion Tray - eCW1 ([facility]) Curtice Ramos Insertion Tray - Markell Ramos Insertion Tray - 12:00:00 AM EDT active Markell Ramos Inser tion Tray - eCW1 ([facility]) Markell Ramos Insertion Tray - Markell Ramos Insertion Tray - 12:00:00 AM EDT active Markell Ramos Inser tion Tray - eCW1 ([facility]) Markell Ramos Insertion Tray - Markell Ramos Insertion Tray - 12:00:00 AM EDT active Curtice Ramos Inser tion Tray - eCW1 ([facility]) Markell Ramos Insertion Tray - Curtice Ramos Insertion Tray - 12:00:00 AM EDT active Markell Ramos Inser tion Tray - eCW1 ([facility]) Curtice Ramos Insertion Tray - Markell Ramos Insertion Tray - 12:00:00 AM EDT active Markell Ramos Inser tion Tray - eCW1 ([facility]) Markell Ramos Insertion Tray - Markell Ramos Insertion Tray - 12:00:00 AM EDT active Curtice Ramos Inser tion Tray - eCW1 ([facility]) Curtice Ramos Insertion Tray - Curtice Ramos Insertion Tray - 12:00:00 AM EDT active Markell Ramos Inser tion Tray - eCW1 ([facility]) Curtice Ramos Insertion Tray - Curtice Ramos Insertion Tray - 12:00:00 AM EDT active Curtice Ramos Inser tion Tray - eCW1 ([facility]) Curtice Ramos Insertion Tray - Curtice Ramos Insertion Tray - 12:00:00 AM EDT active Curtice Ramos Inser tion Tray - eCW1 ([facility]) Curtice Ramos Insertion Tray - Markell Ramos Insertion Tray - 12:00:00 AM EDT active Markell Ramos Inser tion Tray - eCW1 ([facility]) Curtice Ramos Insertion Tray - Curtice Ramos Insertion Tray - 12:00:00 AM EDT active eCW1 ([facility]) Markell Ramos Insertion Tray - Curtice Ramos Insertion Tray - 12:00:00 AM EDT active Markell Ramos Inser tion Tray - eCW1 ([facility]) Curtice Ramos Insertion Tray - Markell Ramos Insertion Tray - 12:00:00 AM EDT active Markell Ramos Inser tion Tray - eCW1 ([facility]) Bard Coude Tip Catheter - Bard Coude Tip Catheter - 12/04/2020 1 2:00:00 AM EST active Bard Coude Tip C atheter - eCW1 ([facility]) Bard Coude Tip Catheter - Bard Coude Tip Catheter - 12/04/2020 1 2:00:00 AM EST active Bard Coude Tip C atheter - eCW1 ([facility]) Bard Coude Tip Catheter - Bard Coude Tip Catheter - 12/04/2020 1 2:00:00 AM EST active Bard Coude Tip C atheter - eCW1 ([facility]) Bard Kdowuj-L-Ouk/Flip-Burt Vlv - Bard Hgakhv-C-Mgz/Flip-Burt Vlv - 12/04/2020 12:00:00 AM EST active Bard Dis maurisio-A-Bag/Flip-Burt Vlv - eCW1 ([facility]) Bard Coude Tip Catheter - Bard Coude Tip Catheter - 12/04/2020 1 2:00:00 AM EST active Bard Coude Tip C atheter - eCW1 ([facility]) Bard Coude Tip Catheter - Bard Coude Tip Catheter - 12/04/2020 1 2:00:00 AM EST suspended Bard Coude Tip Catheter - eCW1 ([facility]) Bard Tsphwx-Y-Sen/Flip-Burt Vlv - Bard Mjbgtf-G-Fst/Flip-Burt Vlv - 12/04/2020 12:00:00 AM EST active Bard Dis maurisio-A-Bag/Flip-Burt Vlv - eCW1 ([facility]) Bard Hqgkgj-M-Gzy/Flip-Burt Vlv - Bard Wycukf-R-Nsf/Flip-Burt Vlv - 12/04/2020 12:00:00 AM EST active Bard Dis maurisio-A-Bag/Flip-Burt Vlv - eCW1 ([facility]) Bard Coude Tip Catheter - Bard Coude Tip Catheter - 12/04/2020 1 2:00:00 AM EST active Bard Coude Tip C atheter - eCW1 ([facility]) Bard Wyoskd-T-Loe/Flip-Burt Vlv - Bard Ivoxgd-Z-Cte/Flip-Burt Vlv - 12/04/2020 12:00:00 AM EST suspended Bard Qbszme-Z-Wea/Flip-Burt Vlv - eCW1 ([facility]) Bard Coude Tip Catheter - Bard Coude Tip Catheter - 12/04/2020 1 2:00:00 AM EST active Bard Coude Tip C atheter - eCW1 ([facility]) Bard Dmmvni-W-Odb/Flip-Burt Vlv - Bard Bgebfn-U-Sfw/Flip-Burt Vlv - 12/04/2020 12:00:00 AM EST active Bard Dis maurisio-A-Bag/Flip-Burt Vlv - eCW1 ([facility]) Bard Coude Tip Catheter - Bard Coude Tip Catheter - 12/04/2020 1 2:00:00 AM EST active Bard Coude Tip C atheter - eCW1 ([facility]) Bard Coude Tip Catheter - Bard Coude Tip Catheter - 12/04/2020 1 2:00:00 AM EST active Bard Coude Tip C atheter - eCW1 ([facility]) Bard Coude Tip Catheter - Bard Coude Tip Catheter - 12/04/2020 1 2:00:00 AM EST suspended Bard Coude Tip Catheter - eCW1 ([facility]) Bard Coude Tip Catheter - Bard Coude Tip Catheter - 12/04/2020 1 2:00:00 AM EST active Bard Coude Tip C atheter - eCW1 ([facility]) Bard Prpbww-Z-Pmu/Flip-Burt Vlv - Bard Kqcjeg-Q-Ltn/Flip-Burt Vlv - 12/04/2020 12:00:00 AM EST active Bard Dis maurisio-A-Bag/Flip-Burt Vlv - eCW1 ([facility]) Bard Coude Tip Catheter - Bard Coude Tip Catheter - 12/04/2020 1 2:00:00 AM EST active Bard Coude Tip C atheter - eCW1 ([facility]) Bard Coude Tip Catheter - Bard Coude Tip Catheter - 12/04/2020 1 2:00:00 AM EST active Bard Coude Tip C atheter - eCW1 ([facility]) Bard Xisuai-Q-Ojq/Flip-Burt Vlv - Bard Qlsngx-P-Spy/Flip-Burt Vlv - 12/04/2020 12:00:00 AM EST active Bard Dis maurisio-A-Bag/Flip-Burt Vlv - eCW1 ([facility]) Bard Isuvjp-J-Zov/Flip-Burt Vlv - Bard Orrdvy-Q-Fxr/Flip-Burt Vlv - 12/04/2020 12:00:00 AM EST active e CW1 ([facility]) Bard Yphxov-O-Eij/Flip-Butr Vlv - Bard Shzfgv-R-Vkl/Flip-Burt Vlv - 12/04/2020 12:00:00 AM EST active Bard Dis maurisio-A-Bag/Flip-Burt Vlv - eCW1 ([facility]) Bard Idrrjw-A-Uon/Flip-Burt Vlv - Bard Lkhtai-J-Akg/Flip-Burt Vlv - 12/04/2020 12:00:00 AM EST suspended Bard Fdgpjr-H-Yhg/Flip-Burt Vlv - eCW1 ([facility]) Bard Urynnc-U-Joa/Flip-Burt Vlv - Bard Riwbnu-H-Irl/Flip-Burt Vlv - 12/04/2020 12:00:00 AM EST active Bard Dis maurisio-A-Bag/Flip-Burt Vlv - eCW1 ([facility]) Bard Coude Tip Catheter - Bard Coude Tip Catheter - 12/04/2020 1 2:00:00 AM EST active Bard Coude Tip C atheter - eCW1 ([facility]) Bard Coude Tip Catheter - Bard Coude Tip Catheter - 12/04/2020 1 2:00:00 AM EST active Bard Coude Tip C atheter - eCW1 ([facility]) Bard Coude Tip Catheter - Bard Coude Tip Catheter - 12/04/2020 1 2:00:00 AM EST active Bard Coude Tip C atheter - eCW1 ([facility]) Bard Gwgirf-Z-Auj/Flip-Burt Vlv - Bard Geuxgm-T-Kyh/Flip-Burt Vlv - 12/04/2020 12:00:00 AM EST active Bard Dis maurisio-A-Bag/Flip-Burt Vlv - eCW1 ([facility]) Bard Bvwogc-G-Gxr/Flip-Burt Vlv - Bard Trzvqs-U-Wsh/Flip-Burt Vlv - 12/04/2020 12:00:00 AM EST suspended Bard Gdmyvg-T-Ndo/Flip-Burt Vlv - eCW1 ([facility]) Bard Coude Tip Catheter - Bard Coude Tip Catheter - 12/04/2020 1 2:00:00 AM EST active Bard Coude Tip C atheter - eCW1 ([facility]) Bard Dxorkq-A-Nat/Flip-[facility] - Bard Cfjkgm-E-Ymw/Flip-Burt Vlv - 12/04/2020 12:00:00 AM EST active Bard Dis maurisio-A-Bag/Flip-Burt Vlv - eCW1 ([facility]) Bard Hvewit-A-Ncd/Flip-[facility] - Bard Bbsbxj-I-Uyx/Flip-Burt Vlv - 12/04/2020 12:00:00 AM EST active Bard Dis maurisio-A-Bag/Flip-Burt Vlv - eCW1 ([facility]) Bard Nkyppt-S-Zkw/Flip-[facility] - Bard Lffbwl-X-Zez/Flip-Burt Vlv - 12/04/2020 12:00:00 AM EST active Bard Dis maurisio-A-Bag/Flip-Burt Vlv - eCW1 ([facility]) Bard Coude Tip Catheter - Bard Coude Tip Catheter - 12/04/2020 1 2:00:00 AM EST active Bard Coude Tip C atheter - eCW1 ([facility]) Bard Ukcgqr-Y-Ief/Flip-[facility] - Bard Xrugub-V-Ayl/Flip-Burt Vlv - 12/04/2020 12:00:00 AM EST active Bard Dis maurisio-A-Bag/Flip-Burt Vlv - eCW1 ([facility]) Bard Qinnni-P-Ofh/Flip-[facility] - Bard Ivgvbs-Q-Dxn/Flip-Burt Vlv - 12/04/2020 12:00:00 AM EST suspended Bard Tuhybv-G-Usn/Flip-Burt Vlv - eCW1 ([facility]) Bard Coude Tip Catheter - Bard Coude Tip Catheter - 12/04/2020 1 2:00:00 AM EST suspended Bard Coude Tip Catheter - eCW1 ([facility]) Bard Jfnqan-Z-Arj/Flip-[facility] - Bard Xlbgnj-O-Rkv/Flip-Burt Vlv - 12/04/2020 12:00:00 AM EST active Bard Dis maurisio-A-Bag/Flip-Burt Vlv - eCW1 ([facility]) Bard Coude Tip Catheter - Bard Coude Tip Catheter - 12/04/2020 1 2:00:00 AM EST active Bard Coude Tip C atheter - eCW1 ([facility]) Bard Phfkfn-T-Bbg/Flip-[facility] - Bard Zsouax-Y-Ubi/Flip-Burt Vlv - 12/04/2020 12:00:00 AM EST active Bard Dis maurisio-A-Bag/Flip-Burt Vlv - eCW1 ([facility]) Bard Ixoljg-K-Pji/Flip-[facility] - Bard Ddpdai-N-Psv/Flip-Burt Vlv - 12/04/2020 12:00:00 AM EST active Bard Dis maurisio-A-Bag/Flip-Burt Vlv - eCW1 ([facility]) Bard Hhbusf-H-Uhm/Flip-Burt Vlv - Bard Xcmlwy-S-Jek/Flip-Burt Vlv - 12/04/2020 12:00:00 AM EST active Bard Dis maurisio-A-Bag/Flip-Burt Vlv - eCW1 ([facility]) Bard Coude Tip Catheter - Bard Coude Tip Catheter - 12/04/2020 1 2:00:00 AM EST active Bard Coude Tip C atheter - eCW1 ([facility]) Bard Coude Tip Catheter - Bard Coude Tip Catheter - 12/04/2020 1 2:00:00 AM EST active Bard Coude Tip C atheter - eCW1 ([facility]) Bard Lqcjbw-N-Ykp/Flip-Burt Vlv - Bard Uqvimd-Q-Glz/Flip-Burt Vlv - 12/04/2020 12:00:00 AM EST active Bard Dis maurisio-A-Bag/Flip-Burt Vlv - eCW1 ([facility]) Bard Coude Tip Catheter - Bard Coude Tip Catheter - 12/04/2020 1 2:00:00 AM EST active Bard Coude Tip C atheter - eCW1 ([facility]) Bard Lbapvr-O-Ash/Flip-Burt Vlv - Bard Bmobwd-T-Oty/Flip-Burt Vlv - 12/04/2020 12:00:00 AM EST active Bard Dis maurisio-A-Bag/Flip-Burt Vlv - eCW1 ([facility]) Bard Ugvbuc-S-Dvs/Flip-Burt Vlv - Bard Qkfuhj-D-Ayk/Flip-Burt Vlv - 12/04/2020 12:00:00 AM EST active Bard Dis maurisio-A-Bag/Flip-Burt Vlv - eCW1 ([facility]) Bard Coude Tip Catheter - Bard Coude Tip Catheter - 12/04/2020 1 2:00:00 AM EST active Bard Coude Tip C atheter - eCW1 ([facility]) Bard Mzsvwq-J-Fmi/Flip-Burt Vlv - Bard Sbzvkq-M-Url/Flip-Burt Vlv - 12/04/2020 12:00:00 AM EST active Bard Dis maurisio-A-Bag/Flip-Burt Vlv - eCW1 ([facility]) Bard Coude Tip Catheter - Bard Coude Tip Catheter - 12/04/2020 1 2:00:00 AM EST active eCW1 ([facility]) Bard Coude Tip Catheter - Bard Coude Tip Catheter - 12/04/2020 1 2:00:00 AM EST suspended Bard Coude Tip Catheter - eCW1 ([facility]) Bard Eynajy-T-Ibu/Flip-Burt Vlv - Bard Gzuirc-T-Qyg/Flip-Burt Vlv - 12/04/2020 12:00:00 AM EST active Bard Dis maurisio-A-Bag/Flip-Burt Vlv - eCW1 ([facility]) Bard Ypfapq-B-Nma/Flip-Burt Vlv - Bard Wbdymi-C-Mph/Flip-Burt Vlv - 12/04/2020 12:00:00 AM EST active Bard Dis maurisio-A-Bag/Flip-Burt Vlv - eCW1 ([facility]) Bard Spbtii-B-Jpy/Flip-Burt Vlv - Bard Qsovoa-K-Vdy/Flip-Burt Vlv - 12/04/2020 12:00:00 AM EST active Bard Dis maurisio-A-Bag/Flip-Burt Vlv - eCW1 ([facility]) Bard Gpzlvt-O-Rnt/Flip-Burt Vlv - Bard Cpehlz-B-Mbm/Flip-Burt Vlv - 12/04/2020 12:00:00 AM EST active Bard Dis maurisio-A-Bag/Flip-Burt Vlv - eCW1 ([facility]) Bard Coude Tip Catheter - Bard Coude Tip Catheter - 12/04/2020 1 2:00:00 AM EST active Bard Coude Tip C atheter - eCW1 ([facility]) Bard Coude Tip Catheter - Bard Coude Tip Catheter - 12/04/2020 1 2:00:00 AM EST active Bard Coude Tip C atheter - eCW1 ([facility]) Bard Coude Tip Catheter - Bard Coude Tip Catheter - 12/04/2020 1 2:00:00 AM EST suspended Bard Coude Tip Catheter - eCW1 ([facility]) Bard Coude Tip Catheter - Bard Coude Tip Catheter - 12/04/2020 1 2:00:00 AM EST active Bard Coude Tip C atheter - eCW1 ([facility]) Bard Ktcwne-U-Wkj/Flip-Burt Vlv - Bard Nefeeu-J-Dlk/Flip-Burt Vlv - 12/04/2020 12:00:00 AM EST suspended Bard Vbesfm-N-Oid/Flip-Burt Vlv - eCW1 ([facility]) Bard Coude Tip Catheter - Bard Coude Tip Catheter - 12/04/2020 1 2:00:00 AM EST active Bard Coude Tip C atheter - eCW1 ([facility]) Bard Xuiscn-O-Jxl/Flip-Burt Vlv - Bard Ljyczg-G-Jil/Flip-Burt Vlv - 12/04/2020 12:00:00 AM EST active Bard Dis maurisio-A-Bag/Flip-Burt Vlv - eCW1 ([facility]) Bard Zwliib-T-Xdv/Flip-Burt Vlv - Bard Qoknwp-J-Ojx/Flip-Burt Vlv - 12/04/2020 12:00:00 AM EST active Bard Dis maurisio-A-Bag/Flip-Burt Vlv - eCW1 ([facility]) Bard Ntuxws-H-Glq/Flip-Burt Vlv - Bard Rvqojs-F-Pgn/Flip-Burt Vlv - 12/04/2020 12:00:00 AM EST active Bard Dis maurisio-A-Bag/Flip-Burt Vlv - eCW1 ([facility]) Bard Tvndul-V-Ymz/Flip-Burt Vlv - Bard Cdewbq-C-Vwa/Flip-Burt Vlv - 12/04/2020 12:00:00 AM EST active Bard Dis maurisio-A-Bag/Flip-Burt Vlv - eCW1 ([facility]) Bard Coude Tip Catheter - Bard Coude Tip Catheter - 12/04/2020 1 2:00:00 AM EST active Bard Coude Tip C atheter - eCW1 ([facility]) Bard Coude Tip Catheter - Bard Coude Tip Catheter - 12/04/2020 1 2:00:00 AM EST active Bard Coude Tip C atheter - eCW1 ([facility]) Bard Coude Tip Catheter - Bard Coude Tip Catheter - 12/04/2020 1 2:00:00 AM EST active Bard Coude Tip C atheter - eCW1 ([facility]) Bard Coude Tip Catheter - Bard Coude Tip Catheter - 12/04/2020 1 2:00:00 AM EST active Bard Coude Tip C atheter - eCW1 ([facility]) Finasteride 5 MG Oral Tablet Finasteride 5 MG 10/17/2020 12:00:00 A M EST 1.0 {tablet} active Finasteride 5 MG eCW1 ( [facility]) Finasteride 5 MG Oral Tablet Finasteride 5 MG 10/17/2020 12:00:00 A M EST 1.0 {tablet} active Finasteride 5 MG eCW1 ( [facility]) Finasteride 5 MG Oral Tablet Finasteride 5 MG 10/17/2020 12:00:00 A M EST 1.0 {tablet} active Finasteride 5 MG eCW1 ( [facility]) Sulfamethoxazole 800 MG / Trimethoprim 1 60 MG Oral Tablet [Bactrim] Bactrim DS 800-160 MG Bactrim DS 800-160 MG 09/17/2020 12:00:00 AM EST active Bactrim DS 800-160 MG eCW1 ([facility]) Sulfamethoxazole 800 MG / Trimethoprim 1 60 MG Oral Tablet [Bactrim] Bactrim DS 800-160 MG Bactrim DS 800-160 MG 09/17/2020 12:00:00 AM EST active Bactrim DS 800-160 MG eCW1 ([facility]) Sulfamethoxazole 800 MG / Trimethoprim 1 60 MG Oral Tablet [Bactrim] Bactrim DS 800-160 MG Bactrim DS 800-160 MG 09/17/2020 12:00:00 AM EST active Bactrim DS 800-160 MG eCW1 ([facility]) Sulfamethoxazole 800 MG / Trimethoprim 1 60 MG Oral Tablet [Bactrim] Bactrim DS 800-160 MG Bactrim DS 800-160 MG 09/17/2020 12:00:00 AM EST active Bactrim DS 800-160 MG eCW1 ([facility]) Sulfamethoxazole 800 MG / Trimethoprim 1 60 MG Oral Tablet [Bactrim] Bactrim DS 800-160 MG Bactrim DS 800-160 MG 09/17/2020 12:00:00 AM EST active Bactrim DS 800-160 MG eCW1 ([facility]) Sulfamethoxazole 800 MG / Trimethoprim 1 60 MG Oral Tablet [Bactrim] Bactrim DS 800-160 MG Bactrim DS 800-160 MG 09/17/2020 12:00:00 AM EST active Bactrim DS 800-160 MG eCW1 ([facility]) Sulfamethoxazole 800 MG / Trimethoprim 1 60 MG Oral Tablet [Bactrim] Bactrim DS 800-160 MG Bactrim DS 800-160 MG 09/17/2020 12:00:00 AM EST active Bactrim DS 800-160 MG eCW1 ([facility]) Sulfamethoxazole 800 MG / Trimethoprim 1 60 MG Oral Tablet [Bactrim] Bactrim DS 800-160 MG Bactrim DS 800-160 MG 09/17/2020 12:00:00 AM EST active Bactrim DS 800-160 MG eCW1 ([facility]) Sulfamethoxazole 800 MG / Trimethoprim 1 60 MG Oral Tablet [Bactrim] Bactrim DS 800-160 MG Bactrim DS 800-160 MG 09/17/2020 12:00:00 AM EST active Bactrim DS 800-160 MG eCW1 ([facility]) Sulfamethoxazole 800 MG / Trimethoprim 1 60 MG Oral Tablet [Bactrim] Bactrim DS 800-160 MG Bactrim DS 800-160 MG 09/17/2020 12:00:00 AM EST active Bactrim DS 800-160 MG eCW1 ([facility]) Sulfamethoxazole 800 MG / Trimethoprim 1 60 MG Oral Tablet [Bactrim] Bactrim DS 800-160 MG Bactrim DS 800-160 MG 09/17/2020 12:00:00 AM EST active Bactrim DS 800-160 MG eCW1 ([facility]) Sulfamethoxazole 800 MG / Trimethoprim 1 60 MG Oral Tablet [Bactrim] Bactrim DS 800-160 MG Bactrim DS 800-160 MG 09/17/2020 12:00:00 AM EST active Bactrim DS 800-160 MG eCW1 ([facility]) Depend Pant Large - Depend Pant Large - 08/28/2020 12:00:00 AM EST active Depend Pant Large - eCW1 ([facility]) Depend Pant Large - Depend Pant Large - 08/28/2020 12:00:00 AM EST active Depend Pant Large - eCW1 ([facility]) Depend Pant Large - Depend Pant Large - 08/28/2020 12:00:00 AM EST active Depend Pant Large - eCW1 ([facility]) Depend Pant Large - Depend Pant Large - 08/28/2020 12:00:00 AM EST active Depend Pant Large - eCW1 ([facility]) Depend Pant Large - Depend Pant Large - 08/28/2020 12:00:00 AM EST active Depend Pant Large - eCW1 ([facility]) Depend Pant Large - Depend Pant Large - 08/28/2020 12:00:00 AM EST active Depend Pant Large - eCW1 ([facility]) Depend Pant Large - Depend Pant Large - 08/28/2020 12:00:00 AM EST active Depend Pant Large - eCW1 ([facility]) Depend Pant Large - Depend Pant Large - 08/28/2020 12:00:00 AM EST active Depend Pant Large - eCW1 ([facility]) Depend Pant Large - Depend Pant Large - 08/28/2020 12:00:00 AM EST active Depend Pant Large - eCW1 ([facility]) Depend Pant Large - Depend Pant Large - 08/28/2020 12:00:00 AM EST active eCW1 ([facility]) Depend Pant Large - Depend Pant Large - 08/28/2020 12:00:00 AM EST active Depend Pant Large - eCW1 ([facility]) Depend Pant Large - Depend Pant Large - 08/28/2020 12:00:00 AM EST active Depend Pant Large - eCW1 ([facility]) Depend Pant Large - Depend Pant Large - 08/28/2020 12:00:00 AM EST active Depend Pant Large - eCW1 ([facility]) Depend Pant Large - Depend Pant Large - 08/28/2020 12:00:00 AM EST active Depend Pant Large - eCW1 ([facility]) Depend Pant Large - Depend Pant Large - 08/28/2020 12:00:00 AM EST active Depend Pant Large - eCW1 ([facility]) Depend Pant Large - Depend Pant Large - 08/28/2020 12:00:00 AM EST active Depend Pant Large - eCW1 ([facility]) Depend Pant Large - Depend Pant Large - 08/28/2020 12:00:00 AM EST active Depend Pant Large - eCW1 ([facility]) Depend Pant Large - Depend Pant Large - 08/28/2020 12:00:00 AM EST active Depend Pant Large - eCW1 ([facility]) Depend Pant Large - Depend Pant Large - 08/28/2020 12:00:00 AM EST active Depend Pant Large - eCW1 ([facility]) Depend Pant Large - Depend Pant Large - 08/28/2020 12:00:00 AM EST active Depend Pant Large - eCW1 ([facility]) Depend Pant Large - Depend Pant Large - 08/28/2020 12:00:00 AM EST active Depend Pant Large - eCW1 ([facility]) Depend Pant Large - Depend Pant Large - 08/28/2020 12:00:00 AM EST active Depend Pant Large - eCW1 ([facility]) Depend Pant Large - Depend Pant Large - 08/28/2020 12:00:00 AM EST active Depend Pant Large - eCW1 ([facility]) Depend Pant Large - Depend Pant Large - 08/28/2020 12:00:00 AM EST active Depend Pant Large - eCW1 ([facility]) Depend Pant Large - Depend Pant Large - 08/28/2020 12:00:00 AM EST active Depend Pant Large - eCW1 ([facility]) Depend Pant Large - Depend Pant Large - 08/28/2020 12:00:00 AM EST active Depend Pant Large - eCW1 ([facility]) Depend Pant Large - Depend Pant Large - 08/28/2020 12:00:00 AM EST active Depend Pant Large - eCW1 ([facility]) Depend Pant Large - Depend Pant Large - 08/28/2020 12:00:00 AM EST active Depend Pant Large - eCW1 ([facility]) Depend Pant Large - Depend Pant Large - 08/28/2020 12:00:00 AM EST active Depend Pant Large - eCW1 ([facility]) Depend Pant Large - Depend Pant Large - 08/28/2020 12:00:00 AM EST active Depend Pant Large - eCW1 ([facility]) Depend Pant Large - Depend Pant Large - 08/28/2020 12:00:00 AM EST active Depend Pant Large - eCW1 ([facility]) Depend Pant Large - Depend Pant Large - 08/28/2020 12:00:00 AM EST active Depend Pant Large - eCW1 ([facility]) Depend Pant Large - Depend Pant Large - 08/28/2020 12:00:00 AM EST active Depend Pant Large - eCW1 ([facility]) Depend Pant Large - Depend Pant Large - 08/28/2020 12:00:00 AM EST active Depend Pant Large - eCW1 ([facility]) Depend Pant Large - Depend Pant Large - 08/28/2020 12:00:00 AM EST active Depend Pant Large - eCW1 ([facility]) Depend Pant Large - Depend Pant Large - 08/28/2020 12:00:00 AM EST active Depend Pant Large - eCW1 ([facility]) Depend Pant Large - Depend Pant Large - 08/28/2020 12:00:00 AM EST active Depend Pant Large - eCW1 ([facility]) Depend Pant Large - Depend Pant Large - 08/28/2020 12:00:00 AM EST active Depend Pant Large - eCW1 ([facility]) Depend Pant Large - Depend Pant Large - 08/28/2020 12:00:00 AM EST active Depend Pant Large - eCW1 ([facility]) Depend Pant Large - Depend Pant Large - 08/28/2020 12:00:00 AM EST active Depend Pant Large - eCW1 ([facility]) Depend Pant Large - Depend Pant Large - 08/28/2020 12:00:00 AM EST active Depend Pant Large - eCW1 ([facility]) Depend Pant Large - Depend Pant Large - 08/28/2020 12:00:00 AM EST active Depend Pant Large - eCW1 ([facility]) Depend Pant Large - Depend Pant Large - 08/28/2020 12:00:00 AM EST active Depend Pant Large - eCW1 ([facility]) Depend Pant Large - Depend Pant Large - 08/28/2020 12:00:00 AM EST active Depend Pant Large - eCW1 ([facility]) Depend Pant Large - Depend Pant Large - 08/28/2020 12:00:00 AM EST active Depend Pant Large - eCW1 ([facility]) Hydrocortisone 10 MG/ML Topical Cream Hydrocortisone 1 % Hyd rocortisone 1 % 08/16/2020 12:00:00 AM EST 1.0 {application} act yvon Hydrocortisone 1 % eCW1 ([facility]) Hydrocortisone 10 MG/ML Topical Cream Hydrocortisone 1 % Hyd rocortisone 1 % 08/16/2020 12:00:00 AM EST 1.0 {application} act yvon Hydrocortisone 1 % eCW1 ([facility]) Hydrocortisone 10 MG/ML Topical Cream Hydrocortisone 1 % Hyd rocortisone 1 % 08/16/2020 12:00:00 AM EST 1.0 {application} act yvon Hydrocortisone 1 % eCW1 ([facility]) Hydrocortisone 10 MG/ML Topical Cream Hydrocortisone 1 % Hyd rocortisone 1 % 08/16/2020 12:00:00 AM EST 1.0 {application} act yvon Hydrocortisone 1 % eCW1 ([facility]) Hydrocortisone 10 MG/ML Topical Cream Hydrocortisone 1 % Hyd rocortisone 1 % 08/16/2020 12:00:00 AM EST 1.0 {application} act yvon Hydrocortisone 1 % eCW1 ([facility]) Hydrocortisone 10 MG/ML Topical Cream Hydrocortisone 1 % Hyd rocortisone 1 % 08/16/2020 12:00:00 AM EST 1.0 {application} act yvon Hydrocortisone 1 % eCW1 ([facility]) Hydrocortisone 10 MG/ML Topical Cream Hydrocortisone 1 % Hyd rocortisone 1 % 08/16/2020 12:00:00 AM EST 1.0 {application} act yvon Hydrocortisone 1 % eCW1 ([facility]) Hydrocortisone 10 MG/ML Topical Cream Hydrocortisone 1 % Hyd rocortisone 1 % 08/16/2020 12:00:00 AM EST 1.0 {application} act yvon Hydrocortisone 1 % eCW1 ([facility]) Hydrocortisone 10 MG/ML Topical Cream Hydrocortisone 1 % Hyd rocortisone 1 % 08/16/2020 12:00:00 AM EST 1.0 {application} act yvon Hydrocortisone 1 % eCW1 ([facility]) Hydrocortisone 10 MG/ML Topical Cream Hydrocortisone 1 % Hyd rocortisone 1 % 08/16/2020 12:00:00 AM EST 1.0 {application} act yvon Hydrocortisone 1 % eCW1 ([facility]) Hydrocortisone 10 MG/ML Topical Cream Hydrocortisone 1 % Hyd rocortisone 1 % 08/16/2020 12:00:00 AM EST 1.0 {application} act yvon Hydrocortisone 1 % eCW1 ([facility]) Hydrocortisone 10 MG/ML Topical Cream Hydrocortisone 1 % Hyd rocortisone 1 % 08/16/2020 12:00:00 AM EST 1.0 {application} act yvon Hydrocortisone 1 % eCW1 ([facility]) Hydrocortisone 10 MG/ML Topical Cream Hydrocortisone 1 % Hyd rocortisone 1 % 08/16/2020 12:00:00 AM EST 1.0 {application} act yvon Hydrocortisone 1 % eCW1 ([facility]) Hydrocortisone 10 MG/ML Topical Cream Hydrocortisone 1 % Hyd rocortisone 1 % 08/16/2020 12:00:00 AM EST 1.0 {application} act yvon Hydrocortisone 1 % eCW1 ([facility]) Hydrocortisone 10 MG/ML Topical Cream Hydrocortisone 1 % Hyd rocortisone 1 % 08/16/2020 12:00:00 AM EST 1.0 {application} act yvon Hydrocortisone 1 % eCW1 ([facility]) Hydrocortisone 10 MG/ML Topical Cream Hydrocortisone 1 % Hyd rocortisone 1 % 08/16/2020 12:00:00 AM EST 1.0 {application} act yvon Hydrocortisone 1 % eCW1 ([facility]) Hydrocortisone 10 MG/ML Topical Cream Hydrocortisone 1 % Hyd rocortisone 1 % 08/16/2020 12:00:00 AM EST 1.0 {application} act yvon Hydrocortisone 1 % eCW1 ([facility]) Sulfamethoxazole 800 MG / Trimethoprim 160 MG Oral Tab let Sulfamethoxazole/Trimethoprim DS 06/29/2020 12:00:00 AM EDT ORAL active MEDENT ([facility], [facility]) Doxycycline Monohydrate 100 MG Oral Capsule Doxycycline [place] hydrate 06/14/2020 12:00:00 AM EDT ORAL completed MEDENT ([facility], [facility]) Insurance Providers Payer name Policy type / Coverage type Policy ID Covered republican ID Covered republican's relationship to quintanilla Policy Quint[place] Plan Information [place] [id number] S [id number] [employer] [id number] S [id number] [place] [id number] SP [id number] MEDICAID [id number] S [id number] MEDICARE C [id number] S [id number] Medicare P UNAVAILABLE S [place] BLE Medicaid S [place]NAVAIL[place] MED[place] [id number] SP [id number] [place] [id number] S [id number] [place]IC[place] [id number] S [id number] ANSI-Medicaid [id number] ANS-Medicare Part B [id number] [facility]-Medicaid [id number] ANSI-Medicare Part B [id number] [facility]-Medicaid [id number] [facility]-Medicare Part B [id number] [facility]-Medicaid [id number] ANSI-Medicare Part B [id number] ANSI-Medicare Part B [id number] [facility]-Medicaid [id number] MEDICARE [id number] SP [id number] [facility] MEDICAID [id number] SP [id number] C [id number] MEDICARE [id number] SP [id number] V22 Problems, Conditions, and Diagnoses Code Display Name Description Problem Type Effective Dates Data Source(s) N37 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 Urethral str icture due to infection Problem 07/15/2021 12:00:00 AM EDT eCW1 ([facility]) N18.32 [id number] Stage 3b chronic kidney disease Problem 06/25/2021 12:00:00 AM EDT eCW1 ([facility]) Z87.898 Elevated PSA History of elevated PSA Problem 06/10/2021 12:00:00 AM EDT eCW1 ([facility]) R26.2 [id number] Difficulty walking Problem 05/09/2021 12:00: 00 AM EDT eCW1 ([facility]) N13.9 6799407 Obstructive uropathy Problem 04/05/2021 12:0 0:00 AM EDT eCW1 ([facility]) 48765594 Essential hypertension Essential hypertension Problem 03/21/2021 12:00:00 AM EDT MEDENT ([facility]) 660886386 Screening for malignant neoplasm of colo n Screening for malignant neoplasm of colon Problem 03/21/2021 12:00:00 AM EDT MEDENT ([facility]) N40.1 721063994 BPH loc w urin obs/LUTS Problem 09/04/2020 1 2:00:00 AM EST eCW1 ([facility]) R39.81 [id number] Functional urinary incontinence Problem 08/28/2020 12:00:00 AM EST eCW1 ([facility]) T14.8XXA 161763432 Hematoma of skin Problem 07/17/2020 12:00:00 AM EDT eCW1 ([facility]) Surgeries/Procedures Procedure Description Date Indications Data Source(s) uro PVR (Post Voiding Residual) Bladder Scan 12:00:00 AM EDT eCW1 ([facility]) Voiding Trial 06/24/2021 12:00:00 AM EDT eCW1 ([facility]) Med: Lidocaine Jelly 2% 6ml Intravesically (Glydo) 06/10/2021 12:00:00 AM EDT eCW1 ([facility]) uro PVR (Post Voiding Residual) Bladder Scan 12:00:00 AM EDT eCW1 ([facility]) HEPATITIS B VACCINE ADULT DOSAGE INTRAMUSCULAR 021 12:00:00 AM EDT eCW1 ([facility]) Medication: Lidocaine HCl 2% Jelly 5mL Intravesically 12/04/2020 12:00:00 AM EST eCW1 ([facility]) uro PVR (Post Voiding Residual) Bladder Scan 1 12:00:00 AM EST eCW1 ([facility]) uro PVR (Post Voiding Residual) Bladder Scan 0 12:00:00 AM EST eCW1 ([facility]) Results ID Date Data Source [id number] 06/10/2021 05:29:00 PM EDT [facility] Name Value Range Interpretation Code Description Data Daria rce(s) Supporting Document(s) SARS coronavirus 2 RNA [Presence] in Res piratory specimen by QUIN with probe detection NEGATIVE [facility] This lab was ordered by [facility] a nd reported by [facility]. ID Date Data Source [id number] 03/25/2021 01:42:00 PM EDT [facility] Name Value Range Interpretation Code Description Data Daria rce(s) Supporting Document(s) SARS coronavirus 2 RNA [Presence] in Res piratory specimen by QUIN with probe detection NEGATIVE [facility] This lab was ordered by [facility] a nd reported by [facility]. ID Date Data Source Urinalysis, no micro 08/28/2020 12:00:00 AM EST eCW1 ([facility]) Name Value Range Interpretation Code Description Data Daria rce(s) Supporting Document(s) 1.010 1.002 - 1.035 Spec gravity eCW1 ([facility]) 5 5.0 - 9.0 pH eCW1 ([facility]) neg Negative - Nitrate eCW1 ([facility]) neg Negative - mg/dl Protein eCW1 ([facility]) neg Negative - mg/dl Glucose eCW1 ([facility]) neg Negative - mg/dl Ketones eCW1 ([facility]) neg Negative - Leukocyte eCW1 ([facility]) yes Internal QC Acceptable (Y/N) e CW1 ([facility]) trace Negative - Blood eCW1 ([facility]) norm Normal - mg/dl Urobili eCW1 ([facility]) neg Negative - Bilirubin eCW1 ([facility]) Procedure Social History Code Duration Value Status Description Data Source(s ) Smoking 07/15/2021 12:00:00 AM EDT Never Smoker completed Never S moker eCW1 ([facility]) Smoking 06/25/2021 12:00:00 AM EDT Never Smoker completed Never S moker eCW1 ([facility]) Smoking 06/25/2021 12:00:00 AM EDT Never Smoker completed Never S moker eCW1 ([facility]) Smoking 06/25/2021 12:00:00 AM EDT Never Smoker completed Never S moker eCW1 ([facility]) Smoking 06/25/2021 12:00:00 AM EDT Never Smoker completed Never S moker eCW1 ([facility]) Smoking 06/24/2021 12:00:00 AM EDT Never Smoker completed Never S moker eCW1 ([facility]) Smoking 06/24/2021 12:00:00 AM EDT Never Smoker completed Never S moker eCW1 ([facility]) Smoking 06/10/2021 12:00:00 AM EDT Never Smoker completed Never S moker eCW1 ([facility]) Smoking 06/10/2021 12:00:00 AM EDT Never Smoker completed Never S moker [facility]CW1 [facility] [facility] Smoking 06/10/2021 12:00:00 AM EDT Never Smoker completed Never S moker eCW1 ([facility]) Smoking 06/10/2021 12:00:00 AM EDT Never Smoker completed Never S moker eCW1 ([facility]) Smoking 05/16/2021 12:00:00 AM EDT Never Smoker completed Never S moker eCW1 ([facility]) Smoking 05/16/2021 12:00:00 AM EDT Never Smoker completed Never S moker eCW1 ([facility]) Smoking 05/16/2021 12:00:00 AM EDT Never Smoker completed Never S moker eCW1 ([facility]) Smoking 05/16/2021 12:00:00 AM EDT Never Smoker completed Never S moker eCW1 ([facility]) Smoking 05/16/2021 12:00:00 AM EDT Never Smoker completed Never S moker eCW1 ([facility]) Smoking 04/05/2021 12:00:00 AM EDT Never Smoker completed Never S moker eCW1 ([facility]) Smoking 04/05/2021 12:00:00 AM EDT Never Smoker completed Never S moker eCW1 ([facility]) Smoking 04/05/2021 12:00:00 AM EDT Never Smoker completed Never S moker eCW1 ([facility]) Smoking 04/05/2021 12:00:00 AM EDT Never Smoker completed Never S moker eCW1 ([facility]) Smoking 04/01/2021 12:00:00 AM EDT Never Smoker completed Never S moker eCW1 ([facility]) Smoking 04/01/2021 12:00:00 AM EDT Never Smoker completed Never S moker eCW1 ([facility]) Smoking 02/07/2021 12:00:00 AM EDT Never Smoker completed Never S moker eCW1 ([facility]) Smoking 02/07/2021 12:00:00 AM EDT Never Smoker completed Never S moker eCW1 ([facility]) Smoking 02/07/2021 12:00:00 AM EDT Never Smoker completed Never S moker eCW1 ([facility]) Smoking 02/07/2021 12:00:00 AM EDT Never Smoker completed Never S moker eCW1 ([facility]) Smoking 02/07/2021 12:00:00 AM EDT Never Smoker completed Never S moker eCW1 ([facility]) Smoking 02/07/2021 12:00:00 AM EDT Never Smoker completed Never S moker eCW1 ([facility]) Smoking 02/07/2021 12:00:00 AM EDT Never Smoker completed Never S moker eCW1 ([facility]) Smoking 12/04/2020 12:00:00 AM EST Never Smoker completed Never S moker eCW1 ([facility]) Smoking 12/04/2020 12:00:00 AM EST Never Smoker completed Never S moker eCW1 ([facility]) Smoking 12/04/2020 12:00:00 AM EST Never Smoker completed Never S moker eCW1 ([facility]) Smoking 12/04/2020 12:00:00 AM EST Never Smoker completed Never S moker eCW1 ([facility]) Smoking 12/04/2020 12:00:00 AM EST Never Smoker completed Never S moker eCW1 ([facility]) Smoking 12/04/2020 12:00:00 AM EST Never Smoker completed Never S moker eCW1 ([facility]) Smoking 11/28/2020 12:00:00 AM EST Never Smoker completed Never S moker eCW1 ([facility]) Smoking 10/17/2020 12:00:00 AM EST Never Smoker completed Never S moker eCW1 ([facility]) Smoking 10/17/2020 12:00:00 AM EST Never Smoker completed Never S moker eCW1 ([facility]) Smoking 09/17/2020 12:00:00 AM EST Never Smoker completed Never S moker eCW1 ([facility]) Smoking 09/17/2020 12:00:00 AM EST Never Smoker completed Never S moker eCW1 ([facility]) Smoking 09/17/2020 12:00:00 AM EST Never Smoker completed Never S moker eCW1 ([facility]) Smoking 08/28/2020 12:00:00 AM EST Never Smoker completed Never S moker eCW1 ([facility]) Smoking 08/28/2020 12:00:00 AM EST Never Smoker completed Never S moker eCW1 ([facility]) Smoking 08/28/2020 12:00:00 AM EST Never Smoker completed Never S moker eCW1 ([facility]) Smoking 08/28/2020 12:00:00 AM EST Never Smoker completed Never S moker eCW1 ([facility]) Smoking 08/16/2020 12:00:00 AM EST Never Smoker completed Never S moker eCW1 ([facility]) Smoking 07/17/2020 12:00:00 AM EDT Never Smoker completed Never S moker eCW1 ([facility]) Smoking 07/17/2020 12:00:00 AM EDT Never Smoker completed Never S moker eCW1 ([facility]) Smoking 06/29/2020 12:00:00 AM EDT Patient has never smoked co mpleted Patient has never smoked MEDENT ([facility]) Vital Signs ID Date Data Source UNK Name Value Range Interpretation Code Description Data Source(s) Body weight 192 [lb_av] 192 [lb_av] eCW1 ([facility]) Body weight 87.09 kg 87.09 kg eCW1 ([facility]) Body height [in_i] eCW1 ([facility]) Body mass index (BMI) [Ratio] 26.78 kg/m2 26.78 kg/m2 eCW1 ([facility]) Heart rate 82 /min 82 /min eCW1 ([facility]) Respiratory rate 18 /min 18 /min eCW1 ([facility]) Body temperature 96.4 [degF] 96.4 [degF] eCW1 ( [facility]) Systolic blood pressure 120 mm[Hg] 120 mm[Hg] e CW1 ([facility]) Diastolic blood pressure 78 mm[Hg] 78 mm[Hg] eCW1 ([facility]) Body weight 192.12 [lb_av] 192.12 [lb_av] eCW1 ([facility]) Body height [in_i] eCW1 ([facility]) Body mass index (BMI) [Ratio] 26.79 kg/m2 26.79 kg/m2 eCW1 ([facility]) Heart rate 76 /min 76 /min eCW1 ([facility]) Respiratory rate 19 /min 19 /min eCW1 ([facility]) Body temperature 97.8 [degF] 97.8 [degF] eCW1 ( [facility]) Systolic blood pressure 105 mm[Hg] 105 mm[Hg] e CW1 ([facility]) Diastolic blood pressure 69 mm[Hg] 69 mm[Hg] eCW1 ([facility]) Body temperature 97.0 [degF] 97.0 [degF] eCW1 ( [facility]) Body weight 195 [lb_av] 195 [lb_av] eCW1 ([facility]) Body weight 88.45 kg 88.45 kg eCW1 ([facility]) Body height [in_i] eCW1 ([facility]) Body mass index (BMI) [Ratio] 27.19 kg/m2 27.19 kg/m2 eCW1 ([facility]) Heart rate 100 /min 100 /min eCW1 ([facility]) Respiratory rate 19 /min 19 /min eCW1 ([facility]) Systolic blood pressure 128 mm[Hg] 128 mm[Hg] e CW1 ([facility]) Diastolic blood pressure 78 mm[Hg] 78 mm[Hg] eCW1 ([facility]) Body weight 195 [lb_av] 195 [lb_av] eCW1 ([facility]) Body height [in_i] eCW1 ([facility]) Body mass index (BMI) [Ratio] 27.19 kg/m2 27.19 kg/m2 eCW1 ([facility]) Body temperature 97.0 [degF] 97.0 [degF] eCW1 ( [facility]) Heart rate 87 /min 87 /min eCW1 ([facility]) Respiratory rate 18 /min 18 /min eCW1 ([facility]) Systolic blood pressure 142 mm[Hg] 142 mm[Hg] e CW1 ([facility]) Diastolic blood pressure 68 mm[Hg] 68 mm[Hg] eCW1 ([facility]) Respiratory rate 19 /min 19 /min eCW1 ([facility]) Body weight 195 [lb_av] 195 [lb_av] eCW1 ([facility]) Body weight 88.45 kg 88.45 kg eCW1 ([facility]) Body height [in_i] eCW1 ([facility]) Body mass index (BMI) [Ratio] 27.19 kg/m2 27.19 kg/m2 eCW1 ([facility]) Heart rate 89 /min 89 /min eCW1 ([facility]) Body temperature 98.7 [degF] 98.7 [degF] eCW1 ( [facility]) Systolic blood pressure 140 mm[Hg] 140 mm[Hg] e CW1 ([facility]) Diastolic blood pressure 80 mm[Hg] 80 mm[Hg] eCW1 ([facility]) Body height [in_i] eCW1 ([facility]) Body weight 194.4 [lb_av] 194.4 [lb_av] eCW1 ([facility]) Diastolic blood pressure 76 mm[Hg] 76 mm[Hg] eCW1 ([facility]) Respiratory rate 20 /min 20 /min eCW1 ([facility]) Body temperature 97 [degF] 97 [degF] eCW1 ([facility]) Systolic blood pressure 119 mm[Hg] 119 mm[Hg] e CW1 ([facility]) Body mass index (BMI) [Ratio] 27.11 kg/m2 27.11 kg/m2 eCW1 ([facility]) Heart rate 81 /min 81 /min eCW1 ([facility]) Body weight 185 [lb_av] 185 [lb_av] eCW1 ([facility]) Body height [in_i] eCW1 ([facility]) Body mass index (BMI) [Ratio] 25.80 kg/m2 25.80 kg/m2 eCW1 ([facility]) Heart rate 87 /min 87 /min eCW1 ([facility]) Respiratory rate 19 /min 19 /min eCW1 ([facility]) Systolic blood pressure 146 mm[Hg] 146 mm[Hg] e CW1 ([facility]) Diastolic blood pressure 76 mm[Hg] 76 mm[Hg] eCW1 ([facility]) Body height 68 [in_i] 68 [in_i] MEDENT [...] Body weight 185 [lb_av] 185 [lb_av] eCW1 ([facility]) Body height [in_i] eCW1 ([facility]) Body mass index (BMI) [Ratio] 25.80 kg/m2 25.80 kg/m2 eCW1 ([facility]) Heart rate 85 /min 85 /min eCW1 ([facility]) Respiratory rate 18 /min 18 /min eCW1 ([facility]) Body temperature 97.8 [degF] 97.8 [degF] eCW1 ( [facility]) Systolic blood pressure 137 mm[Hg] 137 mm[Hg] e CW1 ([facility]) Diastolic blood pressure 80 mm[Hg] 80 mm[Hg] eCW1 ([facility]) Body weight 186 [lb_av] 186 [lb_av] eCW1 ([facility]) Body height [in_i] eCW1 ([facility]) Body mass index (BMI) [Ratio] 25.94 kg/m2 25.94 kg/m2 eCW1 ([facility]) Heart rate 83 /min 83 /min eCW1 ([facility]) Respiratory rate 18 /min 18 /min eCW1 ([facility]) Body temperature 98.6 [degF] 98.6 [degF] eCW1 ( [facility]) Systolic blood pressure 138 mm[Hg] 138 mm[Hg] e CW1 ([facility]) Diastolic blood pressure 80 mm[Hg] 80 mm[Hg] eCW1 ([facility]) Body weight 183 [lb_av] 183 [lb_av] eCW1 ([facility]) Body height [in_i] eCW1 ([facility]) Body mass index (BMI) [Ratio] 25.52 kg/m2 25.52 kg/m2 eCW1 ([facility]) Heart rate 81 /min 81 /min eCW1 ([facility]) Respiratory rate 18 /min 18 /min eCW1 ([facility]) Body temperature 99.0 [degF] 99.0 [degF] eCW1 ( [facility]) Systolic blood pressure 126 mm[Hg] 126 mm[Hg] e CW1 ([facility]) Diastolic blood pressure 66 mm[Hg] 66 mm[Hg] eCW1 ([facility]) Body weight 194 [lb_av] 194 [lb_av] eCW1 ([facility]) Body height [in_i] eCW1 ([facility]) Body mass index (BMI) [Ratio] 27.05 kg/m2 27.05 kg/m2 eCW1 ([facility]) Heart rate 77 /min 77 /min eCW1 ([facility]) Respiratory rate 18 /min 18 /min eCW1 ([facility]) Systolic blood pressure 128 mm[Hg] 128 mm[Hg] e CW1 ([facility]) Diastolic blood pressure 68 mm[Hg] 68 mm[Hg] eCW1 ([facility]) Diastolic blood pressure 76 mm[Hg] 76 mm[Hg] eCW1 ([facility]) Body weight 199 [lb_av] 199 [lb_av] eCW1 ([facility]) Heart rate 63 /min 63 /min eCW1 ([facility]) Body mass index (BMI) [Ratio] 27.75 kg/m2 27.75 kg/m2 eCW1 ([facility]) Systolic blood pressure 134 mm[Hg] 134 mm[Hg] e CW1 ([facility]) Respiratory rate 18 /min 18 /min eCW1 ([facility]) Body temperature 98.0 [degF] 98.0 [degF] eCW1 ( [facility]) Body height [in_i] eCW1 ([facility]) Body weight 205 [lb_av] 205 [lb_av] eCW1 ([facility]) Body height [in_i] eCW1 ([facility]) Body mass index (BMI) [Ratio] 28.59 kg/m2 28.59 kg/m2 eCW1 ([facility]) Heart rate 76 /min 76 /min eCW1 ([facility]) Respiratory rate 18 /min 18 /min eCW1 ([facility]) Body temperature 98 [degF] 98 [degF] eCW1 ([facility]) Systolic blood pressure 150 mm[Hg] 150 mm[Hg] e CW1 ([facility]) Diastolic blood pressure 82 mm[Hg] 82 mm[Hg] eCW1 ([facility]) Body weight 203 [lb_av] 203 [lb_av] eCW1 ([facility]) Body height [in_i] eCW1 ([facility]) Body mass index (BMI) [Ratio] 28.31 kg/m2 28.31 kg/m2 eCW1 ([facility]) Heart rate 86 /min 86 /min eCW1 ([facility]) Respiratory rate 18 /min 18 /min eCW1 ([facility]) Body temperature 98 [degF] 98 [degF] eCW1 ([facility]) Systolic blood pressure 145 mm[Hg] 145 mm[Hg] e CW1 ([facility]) Diastolic blood pressure 89 mm[Hg] 89 mm[Hg] eCW1 ([facility]) Body height [in_i] eCW1 ([facility]) Body temperature 98.7 [degF] 98.7 [degF] eCW1 ( [facility]) Systolic blood pressure 137 mm[Hg] 137 mm[Hg] e CW1 ([facility]) Diastolic blood pressure 80 mm[Hg] 80 mm[Hg] eCW1 ([facility]) Body mass index (BMI) [Ratio] 28.45 kg/m2 28.45 kg/m2 eCW1 ([facility]) Heart rate 72 /min 72 /min eCW1 ([facility]) Respiratory rate 18 /min 18 /min eCW1 ([facility]) Body weight 204 [lb_av] 204 [lb_av] eCW1 ([facility]) Systolic blood pressure 148 mm[Hg] 148 mm[Hg] M EDENT ([facility]) Diastolic blood pressure 92 mm[Hg] 92 mm[Hg] MEDENT ([facility]) Heart rate 72 /min 72 /min MEDENT ([facility]) Respiratory rate 18 /min 18 /min MEDENT ( [facility], [facility]) Oxygen saturation in Arterial blood by Pulse oximetry 96 % 96 % [facility] ([facility], [facility]) Body temperature 97.8 [degF] 97.8 [degF] [facility] ([facility], [facility]) Body weight 219.00 [lb_av] 219.00 [lb_av] MEDEN T ([facility]) Body height 72 [in_i] 72 [in_i] [facility] ([facility]) 6'0" Body mass index (BMI) [Ratio] 29.7 kg/m2 29.7 k g/m2 [facility] ([facility]) Body mass index (BMI) [Ratio] 29.7 kg/m2 29.7 k g/m2 [facility] ([facility]) Systolic blood pressure 136 mm[Hg] 136 mm[Hg] [facility] ([facility]) Diastolic blood pressure 80 mm[Hg] 80 mm[Hg] [facility] ([facility]) Heart rate 82 /min 82 /min [facility] ([facility]) Oxygen saturation in Arterial blood by Pulse oximetry 99 % 99 % [facility] ([facility]) Body temperature 97.6 [degF] 97.6 [degF] [facility] ([facility]) Body weight 219.00 [lb_av] 219.00 [lb_av] [employer] ([facility]) Body height 72 [in_i] 72 [in_i] [facility] ([facility]) 6'0" Patient Treatment Plan of Care Planned Activity Planned Date Details Description Data Source (s) COMPRESSION STOCKINGS 20-30 mmHg 06/18/2021 12:00:00 AM EDT eCW1 ([facility]) Lorazepam 1 MG Oral Tablet 06/06/2021 12:00:00 AM EDT eCW1 ([facility]) Lorazepam 1 MG Oral Tablet [Ativan] 05/22/2021 12:00:00 AM EDT eCW1 ([facility]) Finasteride 5 MG Oral Tablet 04/17/2021 12:00:00 AM EDT eCW1 ([facility]) Finasteride 5 MG Oral Tablet 04/17/2021 12:00:00 AM EDT eCW1 ([facility]) Finasteride 5 MG Oral Tablet 04/17/2021 12:00:00 AM EDT eCW1 ([facility]) Bard Johdpp-V-Jxe Leg Bag - 04/03/2021 12:00:00 AM EDT eCW1 ([facility]) Bard Gyxbwj-Z-Ujd Leg Bag - 04/03/2021 12:00:00 AM EDT eCW1 ([facility]) Bard Pygaxh-X-Fdk Leg Bag - 04/03/2021 12:00:00 AM EDT eCW1 ([facility]) Bard Ojstgj-I-Mxc Leg Bag - 04/03/2021 12:00:00 AM EDT eCW1 ([facility]) Bard Lhgqas-H-Rtv Leg Bag - 04/03/2021 12:00:00 AM EDT eCW1 ([facility]) Bard Ivgowu-U-Onh Leg Bag - 04/03/2021 12:00:00 AM EDT eCW1 ([facility]) Furosemide 20 MG Oral Tablet 03/19/2021 12:00:00 AM EDT eCW1 ([facility]) Furosemide 20 MG Oral Tablet 03/19/2021 12:00:00 AM EDT eCW1 ([facility]) Furosemide 20 MG Oral Tablet 03/19/2021 12:00:00 AM EDT eCW1 ([facility]) Furosemide 20 MG Oral Tablet 03/19/2021 12:00:00 AM EDT eCW1 ([facility]) Furosemide 20 MG Oral Tablet 03/19/2021 12:00:00 AM EDT eCW1 ([facility]) Furosemide 20 MG Oral Tablet 03/19/2021 12:00:00 AM EDT eCW1 ([facility]) Sulfamethoxazole 800 MG / Trimethoprim 160 MG Oral Tab let [Bactrim] 02/11/2021 12:00:00 AM EDT eCW1 ([facility]) Sulfamethoxazole 800 MG / Trimethoprim 160 MG Oral Tab let [Bactrim] 02/11/2021 12:00:00 AM EDT eCW1 ([facility]) Sulfamethoxazole 800 MG / Trimethoprim 160 MG Oral Tab let [Bactrim] 02/11/2021 12:00:00 AM EDT eCW1 ([facility]) Sulfamethoxazole 800 MG / Trimethoprim 160 MG Oral Tab let [Bactrim] 02/11/2021 12:00:00 AM EDT eCW1 ([facility]) Sulfamethoxazole 800 MG / Trimethoprim 160 MG Oral Tab let [Bactrim] 02/11/2021 12:00:00 AM EDT eCW1 ([facility]) Curtice Ramos Insertion Tray - 01/07/2021 12:00:00 AM EDT eCW1 ([facility]) Markell Ramos Insertion Tray - 01/07/2021 12:00:00 AM EDT eCW1 ([facility]) Curtice Ramos Insertion Tray - 01/07/2021 12:00:00 AM EDT eCW1 ([facility]) Curtice Ramos Insertion Tray - 01/07/2021 12:00:00 AM EDT eCW1 ([facility]) Curtice Ramos Insertion Tray - 01/07/2021 12:00:00 AM EDT eCW1 ([facility]) Curtice Ramos Insertion Tray - 01/07/2021 12:00:00 AM EDT eCW1 ([facility]) Curtice Ramos Insertion Tray - 01/07/2021 12:00:00 AM EDT eCW1 ([facility]) Curtice Ramos Insertion Tray - 01/07/2021 12:00:00 AM EDT eCW1 ([facility]) Curtice Ramos Insertion Tray - 01/07/2021 12:00:00 AM EDT eCW1 ([facility]) Markell Ramos Insertion Tray - 01/07/2021 12:00:00 AM EDT eCW1 ([facility]) Markell Ramos Insertion Tray - 01/07/2021 12:00:00 AM EDT eCW1 ([facility]) Curtice Ramos Insertion Tray - 01/07/2021 12:00:00 AM EDT eCW1 ([facility]) Markell Ramos Insertion Tray - 01/07/2021 12:00:00 AM EDT eCW1 ([facility]) Curtice Ramos Insertion Tray - 01/07/2021 12:00:00 AM EDT eCW1 ([facility]) Bard Mcsyra-Q-Pnx/Flip-Burt Vlv - 12/04/2020 12:00:00 AM EST eCW1 ([facility]) Bard Coude Tip Catheter - 12/04/2020 12:00:00 AM EST eCW1 ([facility]) Bard Yasuoh-R-Fgl/Flip-Burt Vlv - 12/04/2020 12:00:00 AM EST eCW1 ([facility]) Bard Coude Tip Catheter - 12/04/2020 12:00:00 AM EST eCW1 ([facility]) Bard Solfbu-S-Pdm/Flip-Burt Vlv - 12/04/2020 12:00:00 AM EST eCW1 ([facility]) Bard Coude Tip Catheter - 12/04/2020 12:00:00 AM EST eCW1 ([facility]) Bard Kqrzil-D-Hor/Flip-Burt Vlv - 12/04/2020 12:00:00 AM EST eCW1 ([facility]) Bard Coude Tip Catheter - 12/04/2020 12:00:00 AM EST eCW1 ([facility]) Bard Woedcx-A-Tyo/Flip-Burt Vlv - 12/04/2020 12:00:00 AM EST eCW1 ([facility]) Bard Coude Tip Catheter - 12/04/2020 12:00:00 AM EST eCW1 ([facility]) Bard Isjafz-H-Vag/Flip-Burt Vlv - 12/04/2020 12:00:00 AM EST eCW1 ([facility]) Bard Coude Tip Catheter - 12/04/2020 12:00:00 AM EST eCW1 ([facility]) Bard Hvfali-F-Ght/Flip-Burt Vlv - 12/04/2020 12:00:00 AM EST eCW1 ([facility]) Bard Coude Tip Catheter - 12/04/2020 12:00:00 AM EST eCW1 ([facility]) Bard Iihpgj-O-Jun/Flip-Burt Vlv - 12/04/2020 12:00:00 AM EST eCW1 ([facility]) Bard Coude Tip Catheter - 12/04/2020 12:00:00 AM EST eCW1 ([facility]) Bard Nmutsc-M-Ckg/Flip-Burt Vlv - 12/04/2020 12:00:00 AM EST eCW1 ([facility]) Bard Coude Tip Catheter - 12/04/2020 12:00:00 AM EST eCW1 ([facility]) Bard Thkutz-O-Tuf/Flip-Burt Vlv - 12/04/2020 12:00:00 AM EST eCW1 ([facility]) Bard Coude Tip Catheter - 12/04/2020 12:00:00 AM EST eCW1 ([facility]) Bard Kjfhki-S-Jsh/Flip-Burt Vlv - 12/04/2020 12:00:00 AM EST eCW1 ([facility]) Bard Coude Tip Catheter - 12/04/2020 12:00:00 AM EST eCW1 ([facility]) Bard Grpqrd-V-Yeg/Flip-Burt Vlv - 12/04/2020 12:00:00 AM EST eCW1 ([facility]) Bard Coude Tip Catheter - 12/04/2020 12:00:00 AM EST eCW1 ([facility]) Bard Qmusye-V-Grc/Flip-Burt Vlv - 12/04/2020 12:00:00 AM EST eCW1 ([facility]) Bard Coude Tip Catheter - 12/04/2020 12:00:00 AM EST eCW1 ([facility]) Bard Qhddtf-N-Slz/Flip-Burt Vlv - 12/04/2020 12:00:00 AM EST eCW1 ([facility]) Bard Coude Tip Catheter - 12/04/2020 12:00:00 AM EST eCW1 ([facility]) Bard Nzylrt-Y-Ltf/Flip-Burt Vlv - 12/04/2020 12:00:00 AM EST eCW1 ([facility]) Bard Coude Tip Catheter - 12/04/2020 12:00:00 AM EST eCW1 ([facility]) Bard Hagftu-Z-Rpv/Flip-Burt Vlv - 12/04/2020 12:00:00 AM EST eCW1 ([facility]) Bard Coude Tip Catheter - 12/04/2020 12:00:00 AM EST eCW1 ([facility]) Bard Biulpl-F-Ctt/Flip-Burt Vlv - 12/04/2020 12:00:00 AM EST eCW1 ([facility]) Bard Coude Tip Catheter - 12/04/2020 12:00:00 AM EST eCW1 ([facility]) Finasteride 5 MG Oral Tablet 10/17/2020 12:00:00 AM EST eCW1 ([facility]) Finasteride 5 MG Oral Tablet 10/17/2020 12:00:00 AM EST eCW1 ([facility]) Sulfamethoxazole 800 MG / Trimethoprim 160 MG Oral Tab let [Bactrim] 09/17/2020 12:00:00 AM EST eCW1 ([facility]) Sulfamethoxazole 800 MG / Trimethoprim 160 MG Oral Tab let [Bactrim] 09/17/2020 12:00:00 AM EST eCW1 ([facility]) Sulfamethoxazole 800 MG / Trimethoprim 160 MG Oral Tab let [Bactrim] 09/17/2020 12:00:00 AM EST eCW1 ([facility]) Depend Pant Large - 08/28/2020 12:00:00 AM EST eCW1 ([facility]) Depend Pant Large - 08/28/2020 12:00:00 AM EST eCW1 ([facility]) Depend Pant Large - 08/28/2020 12:00:00 AM EST eCW1 ([facility]) Depend Pant Large - 08/28/2020 12:00:00 AM EST eCW1 ([facility]) Depend Pant Large - 08/28/2020 12:00:00 AM EST eCW1 ([facility]) Depend Pant Large - 08/28/2020 12:00:00 AM EST eCW1 ([facility]) Depend Pant Large - 08/28/2020 12:00:00 AM EST eCW1 ([facility]) Depend Pant Large - 08/28/2020 12:00:00 AM EST eCW1 ([facility]) Depend Pant Large - 08/28/2020 12:00:00 AM EST eCW1 ([facility]) Depend Pant Large - 08/28/2020 12:00:00 AM EST eCW1 ([facility]) Depend Pant Large - 08/28/2020 12:00:00 AM EST eCW1 ([facility]) Depend Pant Large - 08/28/2020 12:00:00 AM EST eCW1 ([facility]) Depend Pant Large - 08/28/2020 12:00:00 AM EST eCW1 ([facility]) Depend Pant Large - 08/28/2020 12:00:00 AM EST eCW1 ([facility]) Depend Pant Large - 08/28/2020 12:00:00 AM EST eCW1 ([facility]) Hydrocortisone 10 MG/ML Topical Cream 08/16/2020 12:00:00 AM EST eCW1 ([facility])
[2021-08-02] MEDS ORDERED: HOME MED LIST COMPLETE! XX SCH (04:15)
--- NOTE | 2021-08-02 04:48 | REPVR ---
PROCEDURE INFORMATION: Exam: CT Abdomen And Pelvis Without Contrast Exam date and time: 08/02/2021 2:13 AM Age: 61 years old Clinical indication: Other: Sepsis, voiding blood TECHNIQUE: Imaging protocol: Computed tomography of the abdomen and pelvis without contrast. Radiation optimization: All CT scans at this facility use at least one of these dose optimization techniques: automated exposure control; mA and/or kV adjustment per patient size (includes targeted exams where dose is matched to clinical indication); or iterative reconstruction. COMPARISON: 1. ABD COMPLETE US 08/02/2021 1:33:[address] ABD PELVIS W/O CONTRAST 03/15/2021 7:59 PM FINDINGS: Limitations: There is artifact related to the positioning of the patients arms. Soft tissue differentiation is somewhat limited due to the lack of oral and IV contrast. Tubes, catheters and devices: A Ramos catheter is present. Lungs: Nonspecific dependent density is present in the lung bases, probably mild atelectasis. There is a calcified granuloma in the left lower lobe. Liver: The liver is enlarged, measuring 25 cm craniocaudal. Gallbladder and bile ducts: Gallstones are present. The gallbladder appears partially contracted. There is no gross biliary ductal dilation. Pancreas: The pancreas appears unremarkable. No pancreatic ductal dilation identified. Spleen: The unenhanced spleen appears unremarkable. Adrenal glands: The adrenal glands are normal. Kidneys and ureters: The unenhanced kidneys appear unremarkable. There is no significant hydronephrosis. The nondilated distal ureters are difficult to trace, but no stones are seen along their expected course. Stomach and bowel: The stomach is mildly distended, containing gas and fluid. The small bowel appears unremarkable. There is gaseous distention of the sigmoid colon. There is stool distending the rectum to 7.4 cm in diameter. No gross bowel wall thickening is identified. Appendix: A normal appendix is identified. Intraperitoneal space: No free air. No significant fluid collection. There is diffuse nonspecific, mild infiltration of the intraperitoneal and sub peritoneal fat. Vasculature: The aorta demonstrates mild atherosclerotic calcification. No aortic aneurysm. Lymph nodes: There is no gross lymphadenopathy. Urinary bladder: The bladder is decompressed. There is a small amount of intraluminal air in the bladder consistent with instrumentation. There is marked, diffuse bladder wall thickening. Reproductive: The prostate gland appears normal. Bones/joints: Degenerative endplate changes are seen at multiple levels in the visualized spine. 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 There is a grade 1 anterolisthesis of L5 on S1. Soft tissues: There is diffuse nonspecific subcutaneous tissue edema. IMPRESSION: 1. Markedly thickened bladder wall, suggestive of cystitis. Ramos catheter is present. 2. Stool distending the rectum and gaseous distention of the sigmoid colon, but otherwise no significant dilation of the colon and no gross bowel wall thickening. Correlate with symptoms of constipation. 3. Cholelithiasis and partial contraction of the gallbladder. No definite signs of acute cholecystitis. 4. Nonspecific hepatomegaly. Electronically signed by: Zoie Nicole On 08/02/2021 04:47:30 AM
[2021-08-02] MEDS: NS 1,000 ML IV SCH ×2 (04:58→16:15)
--- NOTE | 2021-08-02 05:10 | HPEPDOC ---
General Date of Admission Aug 02, 2021 at 03:50 Date of Service: Aug 02, 2021 Attending Physician: SAGAR AWAD MD Chief Complaint The patient is a 61-year-old male admitted with a reason for visit of Acute Kidney Injury, Acute Renal Failure, Acute Ur. History of Present Illness History of present illness: Mr. Crow is a 61 year old male who presented to the emergency department from [facility] after his caretakers noticed he was disoriented, sweaty, and weak. They noticed he was bleeding excessively from his urethral meatus and they measure a BP of 59/35 before calling 911. Mr. Crow had left [facility] around 19:30 on 08/01/21 following a surgical procedure (cystoscopy , direct vision internal urethrotomy, complex catheter placement over wire) before returning to [facility]. He was treated on 06/10/21 for urinary retention caused by a urethral stricture with direct vision internal urethromtomy and urethral dilation at [facility]. He had a follow up appointment at Dr. May's office on the morning of 08/01/21 for catheter removal and voiding trial. The patient went into urinary retention after the catheter was removed and thus failed the voiding trial. Several attempts were made to place a new catheter in Dr. Cardoza office; all of which were unsuccessful. It was decided by Dr. May that the patient should be brought to the OR the afternoon of 08/01/21 for complex catheter placement over a wire. His eventual plan for the patient was to place a suprapubic catheter within the next few weeks. The patient presented to the ED with a temperature of 101.1, Heart rate of 122, and a BP of 85/47. He was found to have a lactic acid of 5.7 and a WBC of 0.7. On top of the severe sepsis, the patient was noted as having an acute on chronic kidney injury, transaminitis, and acute cholecystitis on imaging. He aggressively hydrated and given one dose of ceftrixone. Dr. Tamayo and Dr. May were both made aware of this patient who was eventually admitted to the ICU with a MAP of 62. Past medical history: Bulbar urethral stricture Urinary retention schizophrenia intellectual disability CKD BPH Anemia hypertension Past surgical history: Urological stevens catheter placement Cystoscopy Social history: Patient does not use tobacco, alcohol, or illicit drugs Patient is mentally handicap and lives at [facility] Family history: Allergies: Penicillin-unknown reaction Review of systems: Unable to assess; patient is a poor historian Physical examination: General: Mr. Crow is lying in bed with his eyes closed. He would not answer any of my questions but did mumble a few words and phrases that were unrelated to what I was asking him. HEENT: Patient would not open eyes, mucous membranes appear moist and pink, no lymphadenopathy, normocephalic, atraumatic Cardiovascular: regular rate and rhythm, no mumurs were appreciated Pulmonary: equal air intake bilaterally, no rhonchi or wheezes appreciated. Abdomen: soft and nontender to palpation in all four quadrants. Mild suprapubic tenderness. No organomegaly noted. Negative murphys sign. : A stevens catheter is seen inserted in penis. Blood is visible around the urethral meatus and on bed sheets surrounding the area. 300 cc of bright red urine are seen in the stevens bag. Patients testicles appear edematous. Extremities: No edema, hair loss present. Skin: Pale, without cyanosis or ecchymosis Psych: Patient is alert to self but will not answer any other questions. His words and though patterns are disorganized. Imagin08/01/21: Chest x ray: No acute findings. 08/02/21: Abdomen u/s: IMPRESSION: Findings are compatible with acute cholecystitis. Multiple gallstones. Pericholecystic fluid is present. Thickened gallbladder wall (4-4.5 mm thickness). No biliary obstruction. [id number] left hydronephrosis. 08/02/21: Abdomen pelvis CT: IMPRESSION: Markedly thickened bladder wall, suggestive of cystitis. Stevens catheter is present. Stool distending the rectum and gaseous distention of the sigmoid colon, but otherwise no significant dilation of the colon and no gross bowel wall thickening. Correlate with symptoms of constipation. Cholelithiasis and partial contraction of the gallbladder. No definite signs of acute cholecystitis. Nonspecific hepatomegaly. 08/02/[address]: IMPRESSION: No definite acute findings. Probably chronic interstitial lung changes. Bibasilar atelectasis. Multiple gallstones. Assessment: Mr. Crow is a 61 year old male with past medical history of Bu lbar urethral stricture, Urinary retention s/p complex catheter placement over wire, schizophrenia, intellectual disability, CKD, BPH, Anemia and hypertension who presented to the ED from [facility] after his caretakers noticed he looked ill a few hours after he left [facility] following a cystoscopy, direct vision internal urethrotomy, complex catheter placement over wire. He was found to have a lactic acid of 5.7 and a WBC of 0.7. On top of the severe sepsis, the patient was noted as having an acute on chronic kidney injury, transaminitis, and acute cholecystitis on imaging. He aggressively hydrated and given one dose of ceftrixone. Dr. Tamayo and Dr. May were both made aware of this patient who was eventually admitted to the ICU with a MAP of 62. He is being admitted to the ICU for further monitoring and treatment. Dr. May and Dr. Tamayo are going to see this patient this AM. Plan: Sepsis: secondary to urosepsis vs less likely cholecystitis -lactic acid was 5.7 with repeat of 2.0 -patient aggressively hydrated in ED per sepsis protocol, started maintence fluids at 120ml/hr x 2 bags -started meropenem 1gm q 12 hours, patient has a penicillin allergy and impaired kidney function -placed patient on telemetry and continous pulse oximetry -patient WBC 0.7, absolute neutrophil count is 681 indicating moderate neutropenia -patient is currently afebrile Acute on chronic kidney injury -likely postobstructive secondary to urinary retention and urethral stricture -continue patient on maintenance fluids -Will continue to monitor renal function -Creatinine 2.54, BUN 34, GFR 27.5 Transaminitis: shock liver vs hepatitis -AST 2418/ALT 1324 -ordered hepatitis panel -will continue to monitor, would expect this to downtrend in shock liver Urinary retention s/p complex catheter placement over wire -catheter placement over wire 08/01/21 -Dr. May has been consulted on this patient and will assess him in the AM -the eventual plan is to place a suprapubic catheter in a few weeks Acute cholecystitis -imaging results as above -Dr. Tamayo has been consulted on this patient and will assess him in the AM for possible cholecystectomy -Keep patient NPO Moderate neutropenia -WBC 0.7 -Absolute neutrophil count is 681 -Patient does not have any bands -patient will need outpatient workup schizophrenia intellectual disability BPH Anemia -hemoglobin is stable at 9.9 hypertension -patient has been hypotensive -will hold home meds at this time -if patient's blood pressure continues to downtrend he may need central line/vasopressors DVT prophylaxis: -patient has gross hematuria, holding anticoagulation at this time -ordered TEDs and Sequentials Disposition: The patient has been hypotensive, if his blood pressure continues to downtrend he may need central line placement and vasopressors. Dr. Tamayo and Dr. May have been consulted on this patient, we appreciate their input. Continue to monitor liver enzymes and renal panel. Home Medications Scheduled Aspirin (Aspirin EC) 81 Mg Tablet.dr, 81 MG PO DAILY, (Reported) Carvedilol (Carvedilol) 6.25 Mg Tablet, 6.25 MG PO BID, (Reported) Ciprofloxacin HCl (Cipro) 250 Mg Tablet, 1 TAB PO BID Citalopram Hydrobromide (Celexa) 20 Mg Tablet, 20 MG PO DAILY, (Reported) Cyanocobalamin (Vitamin B-12) (Vitamin B-12) 1,000 Mcg Tablet, 1,000 MCG PO DAILY, (Reported) Ferrous Sulfate (Iron) 325 Mg Tablet, 1 TAB PO BID Finasteride (Finasteride) 5 Mg Tablet, 5 MG PO DAILY, (Reported) Furosemide (Furosemide) 20 Mg Tablet, 20 MG PO DAILY, (Reported) Loratadine (Loratadine) 10 Mg Tablet, 10 MG PO DAILY, (Reported) Lorazepam (Lorazepam) 1 Mg Tablet, 1 MG PO DAILY, (Reported) Quetiapine Fumarate (Seroquel) 300 Mg Tablet, 350 MG PO BID, (Reported) Tamsulosin Hcl (Tamsulosin HCl) 0.4 Mg Capsule, 0.8 MG PO DAILY, (Reported) Scheduled PRN Lorazepam (Ativan) 1 Mg Tablet, 2 MG PO ASDIRECTED PRN for ANXIETY/AGITATION, (Reported) TO BE GIVEN 1 HOUR PRIOR TO APPOINTMENT Polyethylene Glycol 3350 (Polyethylene Glycol 3350) 510 Gm Powder, 17 GRAM PO DAILY PRN for CONSTIPATION, (Reported) Allergies Coded Allergies: Penicillins (Verified Allergy, Unknown, 08/06/21) A-FIB/CHADSVASC A-FIB History Current/History of A-Fib/PAF?: No Current PO Anticoag Therapy: No Vital Signs Vital Signs Date Time Temp Pulse Resp B/P (MAP) Pulse Ox O2 Delivery O2 Flow Rate FiO2 08/02/21 04:53 98.7 93 16 100/55 (70) 08/02/21 04:30 99 Nasal Cannula 2.0 Laboratory Data Labs 24H Laboratory Tests 2 08/01/21 23:27: Immature Granulocyte % (Auto) 0.0, Neutrophils (%) (Auto) 97.3H, Lymphocytes (%) (Auto) 2.7L, Monocytes (%) (Auto) 0.0L, Eosinophils (%) (Auto) 0.0, Basophils (%) (Auto) 0.0, Neutrophils # (Auto) 0.7L, Lymphocytes # (Auto) 0.0L, Monocytes # (Auto) 0.0, Eosinophils # (Auto) 0.0, Basophils # (Auto) 0.0, Nucleated Red Blood Cells % (auto) 2.7H, Anion Gap 10, Glomerular Filtration Rate 27.5L, Lactic Acid Level 5.7*H, Calcium Level 8.3L, Total Bilirubin 1.5H, Direct Bilirubin 1.0H, Aspartate Amino Transf (AST/SGOT) 2418H, Alanine Aminotran sferase (ALT/SGPT) 1324H, Alkaline Phosphatase 185H, C-Reactive Protein, Quantitative 3.46H, Total Protein 6.9, Albumin 3.0L, Albumin/Globulin Ratio 0.8, Amylase Level 45 08/02/21 01:03: Prothrombin Time 20.2H, Prothromb Time International Ratio 1.67, Activated Partial Thromboplast Time 42.1H 08/02/21 03:46: Lactic Acid Followup at 4 Hours 2.0 CBC/BMP Laboratory Tests 08/01/21 23:27 Microbiology Microbiology 08/02/21 Urine Culture, Received Pending 08/02/21 Blood Culture, Received Pending 08/01/21 Respiratory Virus Panel (PCR) (SUJIT) - Final, Complete 08/01/21 Blood Culture, Received Pending Plan / VTE VTE Prophylaxis Ordered?: Yes GME ATTESTATION GME ATTESTATION My faculty preceptor for this patient encounter was physically present during the encounter and was fully available. All aspects of the patient interview, examination, medical decision making process, and medical care plan development were reviewed and approved by the faculty preceptor. The faculty preceptor is aware and concurs with the plan as stated in the body of this note and will attest to such by his/her cosignature. ATTENDING NOTE I, A Yousef, have independently examined this patient and performed my own physical exam, as well as reviewed the documentation and edited where necessary. I have discussed in detail with the resident / student the findings and plan of treatment as documented by the resident / student and edited their note. I agree with their findings and treatment plan and have edited their documentation. I will continue to follow the patient during this hospital stay. ORLANDO JOHNSTON DO Aug 02, 2021 05:10 SAGAR AWAD MD Aug 07, 2021 04:26
[2021-08-02] MEDS ORDERED: PIPERACILLIN/TAZOBACTAM SOD 4.5 GM in D5W MINI-BAG PLUS 50 ML IV SCH (06:35)
[2021-08-02] MEDS: MEROPENEM INJ 1 GM in IV 1 EA IV SCH ×2 (08:29→22:35)
[2021-08-02 08:49] LABS: HEMATOCRIT 24.6 % (42.0-52.0); HEMOGLOBIN 8.2 g/dl (13.5-17.5); MEAN CORPUSCULAR HEMOGLOBIN 32.3 pg (27.0-33.0); MEAN CORPUSCULAR HGB CONC 33.3 g/dl (32.0-36.5); MEAN CORPUSCULAR VOLUME 96.9 fl (80.0-96.0); PLATELET COUNT, AUTOMATED 145 10^3/uL (150-450); RED BLOOD COUNT 2.54 10^6/uL (4.30-6.10)
[2021-08-02] MEDS: DOCUSATE SODIUM 100MG CAPSULE PO SCH ×3 (09:00→23:12)
[2021-08-02 09:19] LABS: ALBUMIN 2.5 GM/DL (3.2-5.2); BILIRUBIN,TOTAL 1.8 MG/DL (0.2-1.0); CALCIUM LEVEL 7.9 MG/DL (8.8-10.2); CREATININE FOR GFR 2.59 MG/DL (0.70-1.30); GLOMERULAR FILTRATION RATE 26.9 (>49); LYMPHOCYTES 4 % (16-44); MONOCYTES 2 % (0-5); NEUTROPHILS 51 % (28-66); POTASSIUM SERUM 3.6 MEQ/L (3.5-5.1)
[2021-08-02 09:20] LABS: HYPOCHROMASIA 1+; PLATELET CLUMPS SMALL AMT; PLATELET ESTIMATE NORMAL (NORMAL)
[2021-08-02] MEDS ORDERED: VANCOMYCIN HCL 1,000 MG, VIAL MATE ADAPTER 1 EACH in NS 250 ML IV ONE ×2 (10:00→11:00)
[2021-08-02 10:08] LABS: HEPATITIS B CORE ANTIBODY IGM NEGATIVE (NEGATIVE); HEPATITIS B SURFACE ANTIGEN NEGATIVE (NEGATIVE); HEPATITIS C VIRUS ABY INDEX < 0.0 INDEX (<0.8)
[2021-08-02] MEDS ORDERED: NS 1,000 ML IV ONE ×3 (12:35→14:45)
[2021-08-02] MEDS ORDERED: LORazepam 1 MG TAB PO PRN (13:40)
[2021-08-02 15:59] LABS: HEMATOCRIT 23.6 % (42.0-52.0); HEMOGLOBIN 8.2 g/dl (13.5-17.5); MEAN CORPUSCULAR HEMOGLOBIN 33.1 pg (27.0-33.0); MEAN CORPUSCULAR HGB CONC 34.7 g/dl (32.0-36.5); MEAN CORPUSCULAR VOLUME 95.2 fl (80.0-96.0); PLATELET COUNT, AUTOMATED 140 10^3/uL (150-450); RED BLOOD COUNT 2.48 10^6/uL (4.30-6.10); WHITE BLOOD COUNT 6.9 10^3/uL (4.0-10.0)
--- NOTE | 2021-08-02 16:15 | IPNPDOC ---
Text Note Date of Service The patient was seen on 08/02/21. NOTE Subjective: I saw the patient in the morning, he continues to be hypotensive with blood pressure 85/55. Patient denied any fever or chills. Objective: GENERAL APPEARANCE: In severe distress, uncooperative HEENT: no scleral icterus, no JVD, EOMI CARDIOVASCULAR: S1S2 LUNGS: Diminished lung sounds bilaterally ABDOMEN: soft & tender w palpation over the suprapubic area MUSCULOSKELETAL: no cyanosis, no swelling INTEGUMENT: no generalized pallor NEUROLOGICAL: cranial nerve function from 2-12 intact, follows commands, speech not dysarthric Assessment and plan: Patient 61 years old male with past medical history of Bulbar urethral stricture, Urinary retention s/p complex catheter placement over wire, schizophrenia, intellectual disability, CKD, BPH, Anemia and hypertension who presented to the ED from [facility] after his caretakers noticed he looked ill a few hours after he left [facility] following a cystoscopy, direct vision internal u rethrotomy, complex catheter placement over wire. He was found to have a lactic acid of 5.7 and a WBC of 0.7. On top of the severe sepsis, the patient was noted as having an acute on chronic kidney injury, transaminitis, and acute cholecystitis on imaging. Severe sepsis/bandemia Most likely secondary to urinary tract infection Await urine culture, blood culture I talked to Dr. May, he recommended to keep Ramos in and continue to physical therapy I continue aggressive hydration, it seems patient responsive to IV fluid, his blood pressure improved to 97/47, lactic acid improved to 2. Continue to monitor lactic acid, vital signs every 4 hours Continue meropenem IV and vancomycin IV day 1 Procalcitonin elevated to 59, patient developed bandemia UTI/urinary retention/status post Ramos placement Secondary to recent urological procedure and catheter placement Continue antibiotic therapy Dr. May will place a suprapubic catheter in 2 weeks Acute on chronic kidney injury Continue IV hydration continue to monitor Transaminitis/shock liver Most likely secondary to hypoperfusion due to severe sepsis Improved after IV fluid resuscitation Hepatitis panel negative Acute cholecystitis Ultrasound showed picture of acute cholecystitis Appreciate/agree with surgical consult Most likely transaminitis associated with shock liver due to hypoperfusion Neutropenia Resolved schizophrenia/intellectual disability Continue home meds BPH Follow-up with urologist in the outpatient setting Normocytic anemia Hemoglobin dropped to 8.2. Because of tachycardia and sepsis I will give patient 1 unit of blood H&H every 6 hours We will check iron panel, B12, folate and stool for occult blood DVT prophylaxis: Teds and sequentials VS,Fishbone, I+O VS, Fishbone, I+O Laboratory Tests 08/01/21 23:27 08/02/21 08:39 Vital Signs Date Time Temp Pulse Resp B/P (MAP) Pulse Ox O2 Delivery O2 Flow Rate FiO2 08/02/21 15:19 103 98 08/02/21 15:15 97/47 (64) 08/02/21 10:00 16 Room Air 08/02/21 06:45 1.0 08/02/21 04:53 98.7 I&O- Last 24 Hours up to 6 AM 08/02/21 06:00 Intake Total 3390 ml Output Total 600 ml Balance 2790 ml JUAN MILLER DO Aug 02, 2021 16:15
[2021-08-02 16:30] LABS: ALBUMIN 2.3 GM/DL (3.2-5.2); ALT/SGPT 959 U/L (12-78); BILIRUBIN,TOTAL 1.8 MG/DL (0.2-1.0); BLOOD UREA NITROGEN 36 MG/DL (7-18); CALCIUM LEVEL 7.4 MG/DL (8.8-10.2); CARBON DIOXIDE LEVEL 21 MEQ/L (21-32); CHLORIDE LEVEL 109 MEQ/L (98-107); GLOMERULAR FILTRATION RATE 29.3 (>49); GLUCOSE, FASTING 81 MG/DL (70-100); POTASSIUM SERUM 3.9 MEQ/L (3.5-5.1); SODIUM LEVEL 139 MEQ/L (136-145); TOTAL PROTEIN 5.4 GM/DL (6.4-8.2)
[2021-08-02 16:46] LABS: LYMPHOCYTES 4 % (16-44); MONOCYTES 2 % (0-5); NEUTROPHILS 33 % (28-66)
[2021-08-02 16:47] LABS: PLATELET ESTIMATE DECREASED (NORMAL)
[2021-08-02 16:54] LABS: IRON (FE) 23 UG/DL (65-175); PERCENT SATURATION 14.7 % (19.7-50.0); TOTAL IRON BINDING CAPACITY 156 UG/DL (250-450)
[2021-08-02 17:31] LABS: VITAMIN B12 LEVEL > 2000 PG/ML (247-911)
[2021-08-02 18:47] VITALS: BP 107/52
[2021-08-02 19:03] VITALS: BP 109/55
[2021-08-02 20:15] VITALS: BP 117/56
--- NOTE | 2021-08-02 20:24 | CR ---
CONSULTATION DATE: 08/02/2021 REASON FOR CONSULTATION: Gallstones identified during presentation with shock. HISTORY OF PRESENT ILLNESS: The patient is a 61-year-old man with a history of schizophrenia, intellectual disability, chronic kidney disease, anemia and hypertension, who has had some issues with a urethral stricture. He apparently resides at a [facility]. He had had an indwelling Ramos catheter for a time earlier in the year. He had undergone a previous direct vision internal urethrotomy and dilation back in May. He was brought back to the Emergency Department on the 01 of August with evidence for recurrent obstruction. He was taken to the O.R. on the [address] May and underwent a cystoscopy with direct vision internal urethrotomy and a complex catheter placement over a wire. He was discharged home in the evening but was brought back to the E.R. at 11:05 p.m. on the with complaints that he had some blood in his urine and was found to be hypotensive at the scene when EMS was called. He was also noted to be febrile. In the Emergency Department he was apparently hypotensive. He underwent treatment with some fluid boluses and also received antibiotics. An abdominal and pelvis CT was obtained which the Ramos catheter in place in a thickened bladder. He had a large amount of stool in the colon. He was noted to have several large gallstones within the gallbladder. A gallbladder ultrasound was subsequently obtained which confirmed cholelithiasis. The radiologist reported the presence of multiple gallstones with some mild gallbladder wall thickening and some pericholecystic fluid. The common bile duct was not dilated. There was some mild to moderate left hydronephrosis. His laboratory studies showed a white count of 0.7 with an elevated lactic acid of 5.7, creatinine of 2.5 and significant elevations of his AST and ALT to 2,400 and 1,300 respectively. He was felt to be in septic shock and I am consulted regarding the potential that the gallstones play a role in this process. ALLERGIES: The patient has a reported allergy to Penicillins. HOME MEDICATIONS: 1. Aspirin 81 mg p.o. daily. 2. Carvedilol 6.25 mg twice daily. 3. Citalopram 20 mg p.o. daily. 4. Vitamin B-12 1,000 mcg daily. 5. Finasteride 5 mg tablets, one tablet daily. 6. Lasix 20 mg p.o. daily. 7. Loratadine 10 mg daily. 8. Lorazepam one mg p.o. daily. 9. Seroquel 300 mg tablets, 350 mg p.o. twice daily. 10. Tamsulosin 0.4 mg capsule, 2 capsules p.o. daily. MEDICAL HISTORY: The patient's past medical history is significant for: 1. His intellectual disability. 2. He has a history of schizophrenia. 3. He has chronic kidney disease. 4. Benign prostatic hyperplasia. 5. Anemia. 6. Hypertension. 7. He has a history of a bulbar urethral stricture with urinary retention. SURGICAL HISTORY: The patient's past surgical history is significant for: 1. Previous cystoscopy with direct vision internal urethrotomy on two occasions, most recently on the 01 of August. SOCIAL HISTORY: The patient is a resident of a [facility] residence. PHYSICAL EXAMINATION: GENERAL APPEARANCE: The patient is examined at approximately 4:30 in the afternoon on the 02 of August. He is responsive and alert, sitting propped up in his bed in Room 3 of the Emergency Department, where he is in a holding bed. He is responsive and answers questions appropriately, though often in short, one-word answers. VITAL SIGNS: His pulse is approximately 105, blood pressure is approximately 100 systolic. His pulse oximetry is normal. His recent temperature was at 5:00 in the morning when it was 98.7. INTAKE AND OUTPUT: Intake and output shows that he has had approximately 6,800 mL of IV fluid. His urine output is recorded as 1,420 so far today. SKIN: Warm and dry HEENT: Sclerae are anicteric. HEART: Regular rhythm at about 100. LUNGS: Good bilateral breath sounds. ABDOMEN: Nondistended. He has bowel sounds present. The abdomen is soft and nontender. There is no evidence of right subcostal tenderness or mass. He has palpable radial and pedal pulses. LABORATORY STUDIES: Most recently, this afternoon show a white count of 7, hemoglobin 8, hematocrit 24, and a platelet count of 140,000. His differential count shows 33% neutrophils, 61% bands and 4% lymphocytes. Coagulation studies show a PT of 20, INR of 1.7 and a PTT of 42, and that was at 1:00 in the morning. Chemistry profile at 8:30 this morning showed normal electrolytes with a BUN of 33, creatinine 2.6, and a glucose of 86. Total bilirubin is 1.8, AST is 1,633, ALT 1,212, alkaline phosphatase 145. His lactic acid was down to normal of 2.0 at 3:46 this morning. IMAGING STUDIES: I reviewed the imaging from his CT scan and his ultrasound. I would agree that he has gallstones. I am not convinced that there is a significant degree of gallbladder wall thickening to support a diagnosis of acute cholecystitis. IMPRESSION: The patient appears to have had a fairly significant septic episode with hypotension and elevation of his liver enzymes. He has definite gallstones though I do not believe this plays a role in his episode of sepsis. RECOMMENDATIONS: I would recommend continuing with the antibiotic therapy and supportive treatments while culture results are awaited. I do not believe that his gallstones are a factor in his current acute illness. He has no pain or tenderness to suggest acute cholecystitis at this time. I believe his diet can be addressed and advanced when he is felt to be stable enough to begin oral intake. ABDULLAHI
[2021-08-02 20:34] VITALS: BP 124/58
[2021-08-02 21:39] VITALS: BP 123/57
[2021-08-02] MEDS: QUEtiapine FUMARATE 100 MG TAB PO SCH (22:35)
[2021-08-02] MEDS: QUEtiapine FUMARATE 50MG TAB PO SCH (22:35)
[2021-08-02] MEDS: LORazepam 1 MG TAB PO SCH (22:35)
[2021-08-02] MEDS: ASPIRIN 81MG ENTERIC TABLET PO SCH (22:35)
[2021-08-02] MEDS: CARVedilol 6.25 MG TAB PO SCH (22:36)
[2021-08-02] MEDS: CitaloPRAM (CeleXA) 20 MG TAB PO SCH (22:36)
[2021-08-03] VITALS (8 sets, daily range): BP systolic 86–97; BP diastolic 49–60; O2SAT 97–98
--- NOTE | 2021-08-03 06:29 | ECGEPIP ---
[facility] - ED Test Date: 2021-08-02 Pat Name: MARGARET LOZA Department: Room: [place] [address] Gender: Male Poker Supervisor: JAVON : 1960 Requested By: Kp Parra Order Number: [id number] Reading MD: Mick Barreto Measurements Intervals [place] Rate: 100 P: 61 [place]: 154 QRS: 24 QRSD: 84 T: 56 QT: 358 QTc: 461 Interpretive Statements Normal sinus rhythm rate increased from tracing done 06-12-21 Baseline artifact Electronically Signed on 08-03-2021 6:28:52 EDT by Mick Barreto
[2021-08-03] MEDS ORDERED: NS 1,000 ML IV ONE (08:00)
[2021-08-03] MEDS: MEROPENEM INJ 1 GM in IV 1 EA IV SCH ×2 (08:35→20:29)
[2021-08-03] MEDS: CitaloPRAM (CeleXA) 20 MG TAB PO SCH (08:35)
[2021-08-03] MEDS: QUEtiapine FUMARATE 100 MG TAB PO SCH ×2 (08:35→20:30)
[2021-08-03] MEDS: QUEtiapine FUMARATE 50MG TAB PO SCH ×2 (08:35→20:30)
[2021-08-03] MEDS: LORazepam 1 MG TAB PO SCH (08:36)
[2021-08-03] MEDS: ASPIRIN 81MG ENTERIC TABLET PO SCH (08:36)
[2021-08-03] MEDS: DOCUSATE SODIUM 100MG CAPSULE PO SCH ×2 (08:36→20:31)
[2021-08-03] MEDS: CARVedilol 6.25 MG TAB PO SCH ×2 (08:36→20:32)
[2021-08-03] MEDS ORDERED: NS 1,000 ML IV SCH (09:00)
[2021-08-03 09:09] LABS: HEMATOCRIT 28.6 % (42.0-52.0); HEMOGLOBIN 9.8 g/dl (13.5-17.5); MEAN CORPUSCULAR HEMOGLOBIN 32.6 pg (27.0-33.0); MEAN CORPUSCULAR HGB CONC 34.3 g/dl (32.0-36.5); PLATELET COUNT, AUTOMATED 136 10^3/uL (150-450); RED BLOOD COUNT 3.01 10^6/uL (4.30-6.10); WHITE BLOOD COUNT 10.3 10^3/uL (4.0-10.0)
[2021-08-03 09:40] LABS: ALBUMIN 2.5 GM/DL (3.2-5.2); BILIRUBIN,TOTAL 1.2 MG/DL (0.2-1.0); CALCIUM LEVEL 7.7 MG/DL (8.8-10.2); CREATININE FOR GFR 2.23 MG/DL (0.70-1.30); GLOMERULAR FILTRATION RATE 31.9 (>49); POTASSIUM SERUM 4.1 MEQ/L (3.5-5.1); TOTAL PROTEIN 5.9 GM/DL (6.4-8.2)
[2021-08-03 09:46] LABS: LYMPHOCYTES 5 % (16-44); MONOCYTES 1 % (0-5); NEUTROPHILS 46 % (28-66)
[2021-08-03 09:47] LABS: ANISOCYTOSIS 1+; PLATELET ESTIMATE DECREASED (NORMAL)
[2021-08-03] MEDS ORDERED: VANCOMYCIN HCL 1,000 MG, VIAL MATE ADAPTER 1 EACH in NS 250 ML IV SCH (10:00)
--- NOTE | 2021-08-03 12:03 | IPNPDOC ---
Text Note Date of Service The patient was seen on 08/03/21. NOTE Subjective: I saw the patient in the morning, patient is more verbally respo nsive today. He stated he feels better Objective: GENERAL APPEARANCE: NAD HEENT: no scleral icterus, no JVD, EOMI CARDIOVASCULAR: S1S2 LUNGS: Diminished lung sounds bilaterally ABDOMEN: soft & tender w palpation over the suprapubic area MUSCULOSKELETAL: no cyanosis, no swelling INTEGUMENT: no generalized pallor NEUROLOGICAL: cranial nerve function from 2-12 intact, follows commands, speech not dysarthric Assessment and plan: Patient 61 years old male with past medical history of Bulbar urethral stricture, Urinary retention s/p complex catheter placement over wire, schizophrenia, intellectual disability, CKD, BPH, Anemia and hypertension who presented to the ED from [facility] after his caretakers noticed he looked ill a few hours after he left [facility] following a cystoscopy, direct vision internal urethrotomy, complex catheter placement over wire. He was found to have a lactic acid of 5.7 and a WBC of 0.7. On top of the severe sepsis, the patient was noted as having an acute on chronic kidney injury, transaminitis, and acute cholecystitis on imaging. Severe sepsis/bandemia Most likely secondary to urinary tract infection Await urine culture, blood culture negative I talked to Dr. May, he recommended to keep Ramos in and continue to physical therapy Continue meropenem IV and vancomycin IV day 2. Yesterday , procalcitonin elevated to 59, patient developed bandemia Sepsis currently resolved UTI/urinary retention/status post Ramos placement Secondary to recent urological procedure and catheter placement Continue antibiotic therapy Dr. May will place a suprapubic catheter in 2 weeks Acute on chronic kidney injury Kidney function improved Continue to monitor Transaminitis/shock liver Most likely secondary to hypoperfusion due to severe sepsis Improved after IV fluid resuscitation Hepatitis panel negative Improved today Acute cholecystitis Ultrasound showed picture of acute cholecystitis Patient was consulted by Dr. Tamayo, no surgical intervention indicated for now Most likely transaminitis associated with shock liver due to hypoperfusion Neutropenia Resolved schizophrenia/intellectual disability Continue home meds BPH Follow-up with urologist in the outpatient setting Normocytic anemia Hemoglobin 9.8 today H&H every 6 hours We will check iron panel shows iron is low, B12 within normal limit, folate and stool for occult blood pending We will start iron supplementation DVT prophylaxis: Teds and sequentials VS,Fishbone, I+O VS, Fishbone, I+O Laboratory Tests 08/02/21 15:44 08/03/21 08:53 Vital Signs Date Time Temp Pulse Resp B/P (MAP) Pulse Ox O2 Delivery O2 Flow Rate FiO2 08/03/21 10:30 81 18 109/54 (72) 93 Room Air 08/03/21 07:30 98.2 08/02/21 06:45 1.0 I&O- Last 24 Hours up to 6 AM 08/03/21 06:00 Intake Total 3875 ml Output Total 1720 ml Balance 2155 ml JUAN MLILER DO Aug 03, 2021 12:03
[2021-08-03] MEDS: IRON POLYSAC (NIFEREX) 150 MG CAP PO SCH ×2 (13:33→20:30)
[2021-08-04] VITALS (13 sets, daily range): BP systolic 82–105; BP diastolic 50–60; O2SAT 96–100
[2021-08-04] MEDS: MEROPENEM INJ 1 GM in IV 1 EA IV SCH ×2 (08:29→20:19)
[2021-08-04] MEDS: QUEtiapine FUMARATE 100 MG TAB PO SCH ×2 (09:21→21:00)
[2021-08-04] MEDS: ASPIRIN 81MG ENTERIC TABLET PO SCH (09:21)
[2021-08-04] MEDS: IRON POLYSAC (NIFEREX) 150 MG CAP PO SCH ×2 (09:21→21:00)
[2021-08-04] MEDS: LORazepam 1 MG TAB PO SCH (09:22)
[2021-08-04] MEDS: CitaloPRAM (CeleXA) 20 MG TAB PO SCH (09:22)
[2021-08-04] MEDS: QUEtiapine FUMARATE 50MG TAB PO SCH ×2 (09:22→21:00)
[2021-08-04] MEDS: DOCUSATE SODIUM 100MG CAPSULE PO SCH ×2 (09:22→21:00)
[2021-08-04] MEDS: CARVedilol 6.25 MG TAB PO SCH ×2 (09:22→21:00)
--- NOTE | 2021-08-04 10:12 | IPNPDOC ---
Text Note Date of Service The patient was seen on 08/04/21. NOTE Subjective: I saw the patient in the morning, patient is awake and alert. No fever or chills reported overnight Objective: GENERAL APPEARANCE: NAD HEENT: no scleral icterus, no JVD, EOMI CARDIOVASCULAR: S1S2 LUNGS: Diminished lung sounds bilaterally ABDOMEN: soft & tender w palpation over the suprapubic area MUSCULOSKELETAL: no cyanosis, no swelling INTEGUMENT: no generalized pallor, hemorrhage around urethral meatus NEUROLOGICAL: cranial nerve function from 2-12 intact, follows commands, speech not dysarthric Assessment and plan: Patient 61 years old male with past medical history of Bulbar urethral stricture, Urinary retention s/p complex catheter placement over wire, schizophrenia, intellectual disability, CKD, BPH, Anemia and hypertension who presented to the ED from [facility] after his caretakers noticed he looked ill a few hours after he left [facility] following a cystoscopy, direct vision internal urethrotomy, complex catheter placement over wire. He was found to have a lactic acid of 5.7 and a WBC of 0.7. On top of the severe sepsis, the patient was noted as having an acute on chronic kidney injury, transaminitis, and acute cholecystitis on imaging. Severe sepsis/bandemia Most likely secondary to urinary tract infection Await urine culture, blood culture negative I talked to Dr. May, he recommended to keep Ramos in and continue to physical therapy Continue meropenem IV day 3. procalcitonin elevated to 59, patient developed bandemia. I discontinued vancomycin, MRSA negative Sepsis currently resolved UTI/urinary retention/status post Ramos placement Secondary to recent urological procedure and catheter placement Continue antibiotic therapy Dr. May will place a suprapubic catheter in 2 weeks I will ask urology team to evaluate patient today due to continuous hemorrhage around urethral meatus. Patient cleared for surgery, okay for suprapubic catheter placement Acute on chronic kidney injury Kidney function improved Continue to monitor Transaminitis/shock liver Most likely secondary to hypoperfusion due to severe sepsis Improved after IV fluid resuscitation Hepatitis panel negative Improved Acute cholecystitis Ultrasound showed picture of acute cholecystitis Patient was consulted by Dr. Tamayo, no surgical intervention indicated for now Most likely transaminitis associated with shock liver due to hypoperfusion Neutropenia Resolved schizophrenia/intellectual disability Continue home meds BPH Follow-up with urologist in the outpatient setting Normocytic anemia Hemoglobin 9.8 today H&H every 6 hours iron panel shows iron is low, B12 within normal limit, folate and stool for occult blood pending Continue iron supplementation DVT prophylaxis: Teds and sequentials VS,Fishbone, I+O VS, Fishbone, I+O Vital Signs Date Time Temp Pulse Resp B/P (MAP) Pulse Ox O2 Delivery O2 Flow Rate FiO2 08/04/21 09:22 84 103/55 08/04/21 08:00 98.0 20 98 Room Air 08/02/21 06:45 1.0 I&O- Last 24 Hours up to 6 AM 08/04/21 06:00 Intake Total 1480 ml Output Total 1200 ml Balance 280 ml JUAN MILLER DO Aug 04, 2021 10:12
[2021-08-04 10:38] LABS: HEMATOCRIT 29.2 % (42.0-52.0); HEMOGLOBIN 9.9 g/dl (13.5-17.5); MEAN CORPUSCULAR HEMOGLOBIN 32.8 pg (27.0-33.0); MEAN CORPUSCULAR HGB CONC 33.9 g/dl (32.0-36.5); MEAN CORPUSCULAR VOLUME 96.7 fl (80.0-96.0); PLATELET COUNT, AUTOMATED 110 10^3/uL (150-450); RED BLOOD COUNT 3.02 10^6/uL (4.30-6.10); WHITE BLOOD COUNT 13.5 10^3/uL (4.0-10.0)
[2021-08-04 10:57] LABS: ALBUMIN 2.1 GM/DL (3.2-5.2); BILIRUBIN,TOTAL 0.6 MG/DL (0.2-1.0); CALCIUM LEVEL 7.5 MG/DL (8.8-10.2); CREATININE FOR GFR 1.78 MG/DL (0.70-1.30); GLOMERULAR FILTRATION RATE 41.4 (>49); TOTAL PROTEIN 5.4 GM/DL (6.4-8.2)
[2021-08-04 10:59] LABS: ANISOCYTOSIS 1+; LYMPHOCYTES 5 % (16-44); MONOCYTES 2 % (0-5); NEUTROPHILS 52 % (28-66); PLATELET ESTIMATE DECREASED (NORMAL)
[2021-08-04 11:01] LABS: BURR CELLS 1+
--- NOTE | 2021-08-04 15:01 | SMCUROLCON ---
Urology Consultation General Date of Consultation 08/04/21 Reason For Consultation This patient is seen for intermittent bleeding per urethra around his Ramos catheter History of Present Illness 61 year old male who presented to the emergency department from [facility] after his caretakers noticed he was disoriented, sweaty, and weak. They noticed he was bleeding excessively from his urethral meatus and they measure a BP of 59/35 before calling 911. Mr. Crow had left [facility] around 19:30 on 08/01/21 followin g a surgical procedure (cystoscopy, direct vision internal urethrotomy, complex catheter placement over wire) before returning to [facility]. He was treated on 06/10/21 for urinary retention caused by a urethral stricture with direct vision internal urethrotomy at [facility]. He had a follow up appointment at Dr. May's office on the morning of 08/01/21 for catheter removal and voiding trial. The patient went into urinary retention after the catheter was removed and thus failed the voiding trial. Several attempts were made to place a new catheter in Dr. Cardoza office; all of which were unsuccessful. It was decided by Dr. May that the patient should be brought to the OR the afternoon of 08/01/21 for complex catheter placement over a wire and insertion of an 18 Fr Outlook Ramos. His eventual plan for the patient was to place a suprapubic catheter within the next few weeks. The patient presented to the ED with a temperature of 101.1, Heart rate of 122, and a BP of 85/47. He was found to have a lactic acid of 5.7 and a WBC of 0.7. On top of the severe sepsis, the patient was noted as having an acute on chronic kidney injury, transaminitis, and acute cholecystitis on imaging. He aggres sively hydrated and given one dose of ceftrixone. Dr. Tamayo and Dr. May were both made aware of this patient who was eventually admitted to the ICU with a MAP of 62. When he transfers, moves or pulls on his catheter there has been intermittent bleeding around the catheter that eventually stops without intervention. He received 1 unit PRBC 2 days ago and has a stable H/H. He is current sitting eating his lunch and there is no active bleeding per urethra. Past medical history: schizophrenia intellectual disability CKD BPH Anemia hypertension Medications Current Medications Current Medications Medications (Trade) Dose Ordered Sig/Elena Route PRN Reason Start Time Stop Time Status Last Admin Dose Admin Al Hydrox/Mg Hydrox/Simethicone (Mylanta) 30 ml DAILY PRN PO DYSPEPSIA 08/02/21 04:00 Aspirin (Ecotrin) 81 mg DAILY PO 08/02/21 09:00 08/04/21 09:21 Carvedilol (COReg) 6.25 mg BID PO 08/02/21 21:00 08/04/21 09:22 Citalopram Hydrobromide (CeleXA) 20 mg DAILY PO 08/02/21 09:00 08/04/21 09:22 Docusate Sodium (Colace) 100 mg BID PO 08/02/21 09:00 08/04/21 09:22 Heparin Sodium (Porcine) (Heparin) 5,000 units Q8H SC 08/02/21 04:00 08/02/21 04:15 DC Heparin Sodium (Porcine) (Heparin) 5,000 units Q8H SC 08/02/21 06:00 08/02/21 05:25 DC Home Med (Home Med List Complete!) ASDIRECTED XX 08/02/21 04:15 08/02/21 04:17 DC Iron (Niferex) 150 mg BID PO 08/03/21 09:00 08/04/21 09:21 Lorazepam (Ativan) 1 mg DAILY PO 08/02/21 09:00 08/04/21 09:22 Lorazepam (Ativan) 2 mg ASDIRECTED PRN PO ANXIETY/AGITATION 08/02/21 13:40 UNV Magnesium Hydroxide (Milk Of Magnesia) 30 ml DAILY PRN PO CONSTIPATION 08/02/21 04:00 Meropenem 1 gm/IV Miscellaneous Supplies 50 ml @ 100 mls/hr Q12H IV 08/02/21 08:00 08/04/21 08:29 Piperacillin Sod/ Tazobactam Sod 4.5 gm/Dextrose 50 ml @ 50 mls/hr Q6H IV 08/02/21 06:35 08/02/21 05:01 DC Quetiapine Fumarate (SEROquel) 50 mg BID PO 08/02/21 21:00 08/04/21 09:22 Quetiapine Fumarate (SEROquel) 300 mg BID PO 08/02/21 21:00 08/04/21 09:21 Sodium Chloride 1,000 ml @ 120 mls/hr Q8H20M IV 08/03/21 09:00 08/03/21 07:21 DC Sodium Chloride 1,000 ml @ 150 mls/hr Q6H40M IV 08/02/21 04:15 08/02/21 19:13 DC 08/02/21 16:15 Vancomycin HCl 1000 mg/IV Miscellaneous Supplies 1 each/ Sodium Chloride 270 ml @ 270 mls/hr Q24H IV 08/03/21 10:00 08/04/21 07:11 DC 08/03/21 12:05 Allergies Allergies: Coded Allergies: Penicillins (Verified Allergy, Unknown, 04/17/21) Review of Systems General: Reports: Normal Appetite; Denies: Fatigue, Malaise Physical Examination Male Exam Abd soft nd nt 18 Fr Ramos clear urine out put Phallus buried in scrotum, minimal dried clot, no active bleeding Vital Signs/I&O Vital Signs Date Time Temp Pulse Resp B/P (MAP) Pulse Ox O2 Delivery O2 Flow Rate FiO2 08/04/21 12:00 97.5 87 20 82/53 (63) 99 Room Air 08/02/21 06:45 1.0 I&O- Last 24 Hours up to 6 AM 08/04/21 06:00 Intake Total 1480 ml Output Total 1200 ml Balance 280 ml Laboratory Data 24H Labs Laboratory Tests 2 08/03/21 15:45: Bedside Glucose (Misc Panel) 68L 08/03/21 16:35: Bedside Glucose (Misc Panel) 85 08/03/21 16:45: Urine Color YELLOW, Urine Appearance CLOUDYH, Urine pH 5.0, Urine Specific Morris 1.013, Urine Protein 2+H, Urine Glucose (UA) NEGATIVE, Urine Ketones NEGATIVE, Urine Blood 3+H, Urine Nitrite NEGATIVE, Urine Bilirubin NEGATIVE, Urine Urobilinogen 0.2, Urine Leukocyte Esterase TRACEH, Urine WBC (Auto) 15H, Urine RBC (Auto) 39H, Urine Hyaline Casts (Auto) 0, Urine Bacteria (Auto) 1+H, Urine Squamous Epithelial Cells 0, Urine Mucus (Auto) SMALL, Urine Sperm (Auto) 08/04/21 10:23: Neutrophils (%) (Auto) , Nucleated Red Blood Cells % (auto) 0.0, Neutrophils 52, Band Neutrophils 41H, Lymphocytes (Manual) 5L, Monocytes (Manual) 2, An isocytosis 1+, Macrocytosis 1+, [place] Cells 1+, Platelet Estimate DECREASED, Anion Gap 6L, Glomerular Filtration Rate 41.4L, Calcium Level 7.5L, Total Bilirubin 0.6, Aspartate Amino Transf (AST/SGOT) 199H, Alanine Aminotransferase (ALT/SGPT) 478H, Alkaline Phosphatase 153H, Total Protein 5.4L, Albumin 2.1L, Albumin/Globulin Ratio 0.6 CBC/BMP Laboratory Tests 08/04/21 10:23 Microbiology Microbiology 08/03/21 Urine Culture - Final, Complete 08/02/21 Urine Culture - Final, Complete 08/02/21 Blood Culture - Preliminary, Resulted No Growth after 48 hours. All Specime... 08/01/21 Respiratory Virus Panel (PCR) (SUJIT) - Final, Complete 08/01/21 Blood Culture - Preliminary, Resulted No Growth after 48 hours. All Specime... Assessment Urinary retention for chronic indwelling Ramos. No active bleed per urethra Pt is very cooperative but likely irritated by a penile Ramos and perhaps an SPT will be better tolerated. Plan Minimize transfers and Ramos trauma Monitor H/H daily and prn significant bleeding Will discuss with Dr. May possible SPT insertion prior to d/c home DORY ARROYO M.D. Aug 04, 2021 15:01
[2021-08-05 06:59] VITALS: BP 104/57
[2021-08-05] MEDS: DOCUSATE SODIUM 100MG CAPSULE PO SCH (09:19)
[2021-08-05] MEDS: LORazepam 1 MG TAB PO SCH (09:19)
[2021-08-05] MEDS: MEROPENEM INJ 1 GM in IV 1 EA IV SCH (09:19)
[2021-08-05] MEDS: IRON POLYSAC (NIFEREX) 150 MG CAP PO SCH (09:19)
[2021-08-05] MEDS: CitaloPRAM (CeleXA) 20 MG TAB PO SCH (09:19)
[2021-08-05] MEDS: QUEtiapine FUMARATE 50MG TAB PO SCH (09:19)
[2021-08-05] MEDS: ASPIRIN 81MG ENTERIC TABLET PO SCH (09:19)
[2021-08-05] MEDS: QUEtiapine FUMARATE 100 MG TAB PO SCH (09:20)
[2021-08-05 09:23] VITALS: BP 112/62
[2021-08-05] MEDS: CARVedilol 6.25 MG TAB PO SCH (09:23)
[2021-08-05 09:55] LABS: HEMATOCRIT 30.4 % (42.0-52.0); HEMOGLOBIN 10.3 g/dl (13.5-17.5); MEAN CORPUSCULAR HEMOGLOBIN 32.4 pg (27.0-33.0); MEAN CORPUSCULAR HGB CONC 33.9 g/dl (32.0-36.5); MEAN CORPUSCULAR VOLUME 95.6 fl (80.0-96.0); PLATELET COUNT, AUTOMATED 116 10^3/uL (150-450); RED BLOOD COUNT 3.18 10^6/uL (4.30-6.10); WHITE BLOOD COUNT 14.1 10^3/uL (4.0-10.0)
[2021-08-05 10:13] LABS: INR 1.03; PROTHROMBIN TIME 13.9 SECONDS (12.7-14.5)
[2021-08-05 10:37] LABS: ATYPICAL LYMPH 1 % (0-5); LYMPHOCYTES 10 % (16-44); MONOCYTES 2 % (0-5); NEUTROPHILS 84 % (28-66); PLATELET ESTIMATE DECREASED (NORMAL)
[2021-08-05 10:38] LABS: ANISOCYTOSIS 1+; DOHLE BODIES 1+; TOXIC VACUOLATION 1+
[2021-08-05 10:39] LABS: CRENATED RBC 1+
[2021-08-05 11:10] LABS: ALBUMIN 1.9 GM/DL (3.2-5.2); BILIRUBIN,TOTAL 0.5 MG/DL (0.2-1.0); CALCIUM LEVEL 7.9 MG/DL (8.8-10.2); CREATININE FOR GFR 1.6 MG/DL (0.70-1.30); GLOMERULAR FILTRATION RATE 46.9 (>49); POTASSIUM SERUM 4.1 MEQ/L (3.5-5.1); TOTAL PROTEIN 5.8 GM/DL (6.4-8.2)
[2021-08-05] MEDS ORDERED: FERR325T81 PO (11:47)
[2021-08-05] MEDS ORDERED: CIPR-250 PO (11:47)
--- NOTE | 2021-08-05 19:20 | DS.PDOC ---
Discharge Summary General Date of Admission Aug 02, 2021 at 03:50 Date of Discharge 08/05/21 Discharge Summary PROCEDURES PERFORMED DURING STAY: [None]. ADMITTING DIAGNOSES: Severe sepsis/bandemia UTI/urinary retention/status post Ramos placement Acute on chronic kidney injury Transaminitis/shock liver Acute cholecystitis Neutropenia schizophrenia/intellectual disability BPH Normocytic anemia DISCHARGE DIAGNOSES: Severe sepsis/bandemia UTI/urinary retention/status post Ramos placement Acute on chronic kidney injury Transaminitis/shock liver Acute cholecystitis Neutropenia schizophrenia/intellectual disability BPH Normocytic anemia COMPLICATIONS/CHIEF COMPLAINT: Acute Kidney Injury, Acute Renal Failure, Acute Ur. HISTORY OF PRESENT ILLNESS: Patient 61 years old male with past medical history of Bulbar urethral stricture, Urinary retention s/p complex catheter placement over wire, schizophrenia, intellectual disability, CKD, BPH, Anemia and hypertension who presented to the ED from [facility] after his caretakers noticed he looked ill a few hours after he left [facility] following a cystoscopy, direct vision internal urethrotomy, complex catheter placement over wire. He was found to have a lactic acid of 5.7 and a WBC of 0.7. On top of the severe sepsis, the patient was noted as having an acute on chronic kidney injury, transaminitis, and acute cholecystitis on imaging. HOSPITAL COURSE: During the hospital stay with the following issues addressed Severe sepsis/bandemia Most likely secondary to urinary tract infection urine culture negative, blood culture negative I talked to Dr. May, he recommended to keep Ramos in and continue to antibiotic therapy Patient received a course of meropenem. procalcitonin was elevated to 59, patient developed bandemia. I discontinued vancomycin, MRSA negative Sepsis currently resolved. Patient stable UTI/urinary retention/status post Ramos placement Secondary to recent urological procedure and catheter placement Continue antibiotic therapy Dr. May will place a suprapubic catheter on Acute on chronic kidney injury Kidney function improved Continue to monitor Transaminitis/shock liver Most likely secondary to hypoperfusion due to severe sepsis Improved after IV fluid resuscitation Hepatitis panel negative Improved Acute cholecystitis Ultrasound showed picture of acute cholecystitis Patient was consulted by Dr. Tamayo, no surgical intervention indicated for now Most likely transaminitis associated with shock liver due to hypoperfusion Neutropenia Resolved schizophrenia/intellectual disability Continue home meds BPH Follow-up with urologist in the outpatient setting Normocytic anemia Hemoglobin stable H&H every 6 hours iron panel shows iron is low, B12 within normal limit Patient received iron supplementation DISCHARGE MEDICATIONS: Please see below. ALLERGIES: Please see below. PHYSICAL EXAMINATION ON DISCHARGE: VITAL SIGNS: Please see below. GENERAL APPEARANCE: NAD HEENT: no scleral icterus, no JVD, EOMI CARDIOVASCULAR: S1S2 LUNGS: Diminished lung sounds bilaterally ABDOMEN: soft & tender w palpation over the suprapubic area MUSCULOSKELETAL: no cyanosis, no swelling INTEGUMENT: no generalized pallor, hemorrhage around urethral meatus NEUROLOGICAL: cranial nerve function from 2-12 intact, follows commands, speech not dysarthric LABORATORY DATA: Please see below PROGNOSIS: Fair ACTIVITY: [As tolerated]. DIET: Regular DISPOSITION: 01 Home, Self-Care. DISCHARGE INSTRUCTIONS: Follow-up with Dr. May and PCP DISCHARGE CONDITION: [Stable]. TIME SPENT ON DISCHARGE: 40minutes. Vital Signs/I&Os Vital Signs Date Time Temp Pulse Resp B/P (MAP) Pulse Ox O2 Delivery O2 Flow Rate FiO2 08/05/21 09:23 82 112/62 08/05/21 06:59 99.3 18 Room Air 08/04/21 23:30 96 08/02/21 06:45 1.0 I&O- Last 24 Hours up to 6 AM 08/05/21 06:00 Intake Total 940 ml Output Total 1425 ml Balance -485 ml Laboratory Data Labs 24H Laboratory Tests 2 08/05/21 09:38: Neutrophils (%) (Auto) , Nucleated Red Blood Cells % (auto) 0.0, Neutrophils 84H, Band Neutrophils 3, Lymphocytes (Manual) 10L, Monocytes (Manual) 2, Atypical Lymphocytes 1, Anisocytosis 1+, Crenated Cell 1+, Dohle Bodies 1+, Toxic Vacuolation 1+, Platelet Estimate DECREASED, Prothrombin Time 13.9, Prothromb Time International Ratio 1.03, Anion Gap 5L, Glomerular Filtration Rate 46.9L, Calcium Level 7.9L, Total Bilirubin 0.5, Aspartate Amino Transf (AST/SGOT) 102H, Alanine Aminotransferase (ALT/SGPT) 341H, Alkaline Phosphatase 290H, Total Protein 5.8L, Albumin 1.9L, Albumin/Globulin Ratio 0.5 CBC/BMP Laboratory Tests 08/05/21 09:38 Microbiology Microbiology 08/03/21 Urine Culture - Final, Complete 08/02/21 Urine Culture - Final, Complete 08/02/21 Blood Culture - Preliminary, Resulted No Growth after 72 hours. All specime... 08/01/21 Respiratory Virus Panel (PCR) (SUJIT) - Final, Complete 08/01/21 Blood Culture - Preliminary, Resulted No Growth after 72 hours. All specime... Discharge Medications Scheduled Aspirin (Aspirin EC) 81 Mg Tablet.dr, 81 MG PO DAILY, (Reported) Carvedilol (Carvedilol) 6.25 Mg Tablet, 6.25 MG PO BID, (Reported) Ciprofloxacin HCl (Cipro) 250 Mg Tablet, 1 TAB PO BID Citalopram Hydrobromide (Citalopram HBr) 20 Mg Tablet, 20 MG PO DAILY, (Reported) Cyanocobalamin (Vitamin B-12) (Vitamin B-12) 1,000 Mcg Tablet, 1,000 MCG PO SEVERO Y, (Reported) Ferrous Sulfate (Iron) 325 Mg Tablet, 1 TAB PO BID Finasteride (Finasteride) 5 Mg Tablet, 5 MG PO DAILY, (Reported) Furosemide (Furosemide) 20 Mg Tablet, 20 MG PO DAILY, (Reported) Loratadine (Loratadine) 10 Mg Tablet, 10 MG PO DAILY, (Reported) Lorazepam (Lorazepam) 1 Mg Tablet, 1 MG PO DAILY, (Reported) Quetiapine Fumarate (Seroquel) 300 Mg Tablet, 350 MG PO BID, (Reported) Tamsulosin Hcl (Tamsulosin HCl) 0.4 Mg Capsule, 0.8 MG PO DAILY, (Reported) Scheduled PRN Lorazepam (Ativan) 1 Mg Tablet, 2 MG PO ASDIRECTED PRN for ANXIETY/AGITATION, (Reported) TO BE GIVEN 1 HOUR PRIOR TO APPOINTMENT Polyethylene Glycol 3350 (Polyethylene Glycol 3350) 510 Gm Powder, 17 GRAM PO DAILY PRN for CONSTIPATION, (Reported) Allergies Coded Allergies: Penicillins (Verified Allergy, Unknown, 04/17/21) JUAN MILLER DO Aug 05, 2021 19:20
[2021-08-06] MEDS ORDERED: CELE20TA PO (13:23)
== END 2021-08-05 15:23 | disposition home or self-care (01) | DRG 853 ==
LOC: M ED 23:05 → M ED INP 08-02 03:50 → CANRESERV 08-03 01:08 → ENRESERV 08-03 01:08 → M PCU 08-03 11:41 → M MSPAV 08-04 23:25
PROVIDERS: ADMIT Family Medicine; ATTEND Internal Medicine
PROC: 0TND8ZZ Release Urethra, Via Natural or Artificial Opening Endoscopic (ICD-10-PCS; principal; 2021-08-01)
PROC: 0T9B80Z Drainage of Bladder with Drainage Device, Via Natural or Artificial Opening Endoscopic (ICD-10-PCS; 2021-08-01)
PROC: 30233N1 Transfusion of Nonautologous Red Blood Cells into Peripheral Vein, Percutaneous Approach (ICD-10-PCS; 2021-08-02)
DX: A41.9 Sepsis, unspecified organism (principal); K72.00 Acute and subacute hepatic failure without coma; N17.9 Acute kidney failure, unspecified; K80.00 Calculus of gallbladder with acute cholecystitis without obstruction; R65.20 Severe sepsis without septic shock; R33.8 Other retention of urine; D70.9 Neutropenia, unspecified; F79 Unspecified intellectual disabilities; N35.919 Unspecified urethral stricture, male, unspecified site; F20.9 Schizophrenia, unspecified; N18.9 Chronic kidney disease, unspecified; N40.1 Benign prostatic hyperplasia with lower urinary tract symptoms; D64.9 Anemia, unspecified; I12.9 Hypertensive chronic kidney disease with stage 1 through stage 4 chronic kidney disease, or unspecified chronic kidney disease; R31.0 Gross hematuria; Z79.82 Long term (current) use of aspirin; Z79.899 Other long term (current) drug therapy; Z88.0 Allergy status to penicillin

== ENCOUNTER → 2021-08-01 | Outpatient (REF) | payer MEDICARE, MEDICAID ==
[~2021-08-01] MED LIST changes: +CIPR-250 PO; +CITA20TA6 PO; +FERR325T81 PO; -FINA5TAB2; +FINA5TAB2 PO; -FURO20TA2; -TAMS1CAP17
[2021-08-01 13:41] LABS: APPEARANCE, URINE HAZY (CLEAR); BACTERIA, URINE AUTO 1+ (NEGATIVE); BILIRUBIN, URINE AUTO NEGATIVE (NEGATIVE); BLOOD, URINE BLOOD 1+ (NEGATIVE); COLOR, URINE YELLOW (YELLOW); GLUCOSE, URINE (UA) AUTO NEGATIVE (NEGATIVE); KETONE, URINE AUTO NEGATIVE (NEGATIVE); LEUKOCYTE ESTERASE, URINE AUTO 3+ (NEGATIVE); MUCUS, URINE SMALL (NEGATIVE); NITRITE, URINE AUTO POSITIVE (NEGATIVE); PROTEIN, URINE AUTO NEGATIVE (NEGATIVE); RBC, URINE AUTO 6 /HPF (0-3); SPECIFIC GRAVITY URINE AUTO 1.003 (1.002-1.035); SQUAMOUS EPITHELIAL CELL UR AU 0 /HPF (0-6); UROBILINOGEN, URINE AUTO 0.2 mg/dL (0.0-2.0); WBC, URINE AUTO 51 /HPF (0-3)
== END ==
LOC: M SMT 13:04
PROVIDERS: ATTEND Urology
DX: R33.8 Other retention of urine (principal)

== ENCOUNTER 2021-08-08 15:22 | Day surgery (SDC) | payer MEDICARE, MEDICAID ==
[~2021-08-08] VITALS: Ht 177.8 cm; Wt 81.6 kg
[~2021-08-08 15:22] MED LIST changes: +ACETAMINOPHEN 1000MG 100ML IV BTL (OFIRMEV) (J0131 PER 10MG) As Ordered ONE; +BUPIVACAINE HCL 0.25% 30ML VIAL As Ordered ONE; +CELE20TA PO; +CIPR-250 PO; +CITA20TA6 PO; +FERR325T81 PO; +GENTAMICIN 80 MG in IV 1 EA IV ONE; +LIDOCAINE 1% SDV 30ML VIAL As Ordered ONE; +LIDOCAINE 2% 100MG/5ML SDV (FOR ANES.) As Ordered ONE; +MIDAZOLAM INJ 2MG/2ML VIAL (J2250 PER 1MG) As Ordered ONE; +ONDANSETRON 4MG/2ML VIAL As Ordered ONE; +VANCOMYCIN HCL 1,000 MG, VIAL MATE ADAPTER 1 EACH in NS 250 ML IV ONE; +dexameTHASONE 4 MG/ML 1ML VIAL (J1100 PER 1MG) As Ordered ONE; +fentaNYL 100 MCG/2 ML INJECTION As Ordered ONE; +propofoL 200 MG/20 ML VIAL As Ordered ONE
[2021-08-08] MEDS ORDERED: PHENYLephrine 500MCG 5ML (100MCG/ML) SYRINGE As Ordered ONE (17:10)
[2021-08-08] MEDS ORDERED: ePHEDrine SULFATE 25 MG/5 ML(5MG/ML) SYRINGE As Ordered ONE (17:11)
[2021-08-08] MEDS ORDERED: OXYC1TAB23 PO (18:05)
[2021-08-08] MEDS ORDERED: PERCOCET 5MG/325MG TAB PO PRN (18:25)
[2021-08-08] MEDS ORDERED: LR 1,000 ML IV SCH (18:25)
[2021-08-08] MEDS ORDERED: ONDANSETRON 4MG/2ML VIAL IV PRN (18:25)
[2021-08-08] MEDS ORDERED: fentaNYL 100 MCG/2 ML INJECTION IV PRN (18:25)
[2021-08-08 18:43] VITALS: BP 154/73
== END 2021-08-08 19:01 | disposition home or self-care (01) ==
LOC: M SDC 15:22
PROVIDERS: ATTEND Urology
DX: R33.9 Retention of urine, unspecified (principal); N40.0 Benign prostatic hyperplasia without lower urinary tract symptoms; N18.30 Chronic kidney disease, stage 3 unspecified; I50.9 Heart failure, unspecified; F79 Unspecified intellectual disabilities; Z79.82 Long term (current) use of aspirin; Z79.899 Other long term (current) drug therapy
CPT/HCPCS: 51040; J0131; J1100; J1580; J2250; J2370; J2405; J3010; J3370; U0002

== ENCOUNTER → 2021-09-03 | Outpatient (REF) | payer MEDICARE, MEDICAID ==
[~2021-09-03] MED LIST changes: -ACETAMINOPHEN 1000MG 100ML IV BTL (OFIRMEV) (J0131 PER 10MG) As Ordered ONE; -BUPIVACAINE HCL 0.25% 30ML VIAL As Ordered ONE; -GENTAMICIN 80 MG in IV 1 EA IV ONE; -LIDOCAINE 1% SDV 30ML VIAL As Ordered ONE; -LIDOCAINE 2% 100MG/5ML SDV (FOR ANES.) As Ordered ONE; -MIDAZOLAM INJ 2MG/2ML VIAL (J2250 PER 1MG) As Ordered ONE; -ONDANSETRON 4MG/2ML VIAL As Ordered ONE; +OXYC1TAB23 PO; -VANCOMYCIN HCL 1,000 MG, VIAL MATE ADAPTER 1 EACH in NS 250 ML IV ONE; -dexameTHASONE 4 MG/ML 1ML VIAL (J1100 PER 1MG) As Ordered ONE; -fentaNYL 100 MCG/2 ML INJECTION As Ordered ONE; -propofoL 200 MG/20 ML VIAL As Ordered ONE
== END ==
LOC: M LAB REF 17:20
PROVIDERS: ATTEND Internal Medicine Nephrology
DX: E83.42 Hypomagnesemia (principal)

== ENCOUNTER → 2021-09-03 | Outpatient (CLI) | payer MEDICARE, MEDICAID ==
[2021-09-03 11:20] LABS: HEMATOCRIT 33.7 % (42.0-52.0); MEAN CORPUSCULAR HEMOGLOBIN 32.2 pg (27.0-33.0); MEAN CORPUSCULAR HGB CONC 32.6 g/dl (32.0-36.5); MEAN CORPUSCULAR VOLUME 98.5 fl (80.0-96.0); PLATELET COUNT, AUTOMATED 327 10^3/uL (150-450); RED BLOOD COUNT 3.42 10^6/uL (4.30-6.10); WHITE BLOOD COUNT 4.5 10^3/uL (4.0-10.0)
[2021-09-03 11:56] LABS: ALBUMIN 3.8 GM/DL (3.2-5.2); BILIRUBIN,TOTAL 0.5 MG/DL (0.2-1.0); CALCIUM LEVEL 9.6 MG/DL (8.8-10.2); CREATININE FOR GFR 1.46 MG/DL (0.70-1.30); FREE T4 0.93 NG/DL (0.76-1.46); GLOMERULAR FILTRATION RATE 52.1 (>49); THYROID STIMULATING HORMONE 2.82 uIU/ML (0.358-3.740); TOTAL PROTEIN 8.8 GM/DL (6.4-8.2)
== END ==
LOC: M WUC 09:31
PROVIDERS: ATTEND Family Medicine
DX: K72.00 Acute and subacute hepatic failure without coma (principal); I10 Essential (primary) hypertension; E07.9 Disorder of thyroid, unspecified; E83.42 Hypomagnesemia

== ENCOUNTER → 2021-10-03 | Outpatient (CLI) | payer MEDICARE, MEDICAID ==
[2021-10-03 11:41] LABS: HEMATOCRIT 31.7 % (42.0-52.0); HEMOGLOBIN 10.7 g/dl (13.5-17.5); MEAN CORPUSCULAR HEMOGLOBIN 33.6 pg (27.0-33.0); MEAN CORPUSCULAR HGB CONC 33.8 g/dl (32.0-36.5); MEAN CORPUSCULAR VOLUME 99.7 fl (80.0-96.0); PLATELET COUNT, AUTOMATED 241 10^3/uL (150-450); RED BLOOD COUNT 3.18 10^6/uL (4.30-6.10); WHITE BLOOD COUNT 4.2 10^3/uL (4.0-10.0)
[2021-10-03 12:42] LABS: ALBUMIN 3.6 GM/DL (3.2-5.2); BILIRUBIN,TOTAL 0.5 MG/DL (0.2-1.0); CALCIUM LEVEL 9.3 MG/DL (8.8-10.2); CREATININE FOR GFR 1.35 MG/DL (0.70-1.30); FREE T4 0.83 NG/DL (0.76-1.46); POTASSIUM SERUM 3.8 MEQ/L (3.5-5.1); THYROID STIMULATING HORMONE 1.76 uIU/ML (0.358-3.740); TOTAL PROTEIN 7.6 GM/DL (6.4-8.2)
== END ==
LOC: M WUC 09:14
PROVIDERS: ATTEND Family Medicine
DX: I10 Essential (primary) hypertension (principal); K72.00 Acute and subacute hepatic failure without coma; E07.9 Disorder of thyroid, unspecified

== ENCOUNTER → 2021-11-27 | Outpatient (REF) | payer MEDICARE, MEDICAID ==
[2021-11-27 17:35] LABS: APPEARANCE, URINE CLOUDY (CLEAR); BACTERIA, URINE AUTO 1+ (NEGATIVE); BILIRUBIN, URINE AUTO NEGATIVE (NEGATIVE); BLOOD, URINE BLOOD 1+ (NEGATIVE); COLOR, URINE YELLOW (YELLOW); GLUCOSE, URINE (UA) AUTO NEGATIVE (NEGATIVE); KETONE, URINE AUTO NEGATIVE (NEGATIVE); LEUKOCYTE ESTERASE, URINE AUTO 3+ (NEGATIVE); MUCUS, URINE SMALL (NEGATIVE); NITRITE, URINE AUTO NEGATIVE (NEGATIVE); PROTEIN, URINE AUTO NEGATIVE (NEGATIVE); RBC, URINE AUTO 2 /HPF (0-3); SPECIFIC GRAVITY URINE AUTO 1.004 (1.002-1.035); SQUAMOUS EPITHELIAL CELL UR AU 0 /HPF (0-6); UROBILINOGEN, URINE AUTO 0.2 mg/dL (0.0-2.0); WBC, URINE AUTO TNTC /HPF (0-3)
== END ==
LOC: M SMT 17:13
PROVIDERS: ATTEND Nurse Practitioner Women's Health
DX: N39.0 Urinary tract infection, site not specified (principal)

== ENCOUNTER → 2022-02-18 | Outpatient (REF) | payer MEDICARE, MEDICAID ==
[2022-02-18 16:07] LABS: BASO % 0.9 % (0.0-1.0); EOS # 0.1 10^3/uL (0.0-0.5); EOS % 2.2 % (0.0-3.0); HEMATOCRIT 31.6 % (42.0-52.0); HEMOGLOBIN 10.7 g/dl (13.5-17.5); LYMPH # 0.9 10^3/uL (1.5-5.0); LYMPH % 39.5 % (24.0-44.0); MEAN CORPUSCULAR HEMOGLOBIN 33.4 pg (27.0-33.0); MEAN CORPUSCULAR HGB CONC 33.9 g/dl (32.0-36.5); MEAN CORPUSCULAR VOLUME 98.8 fl (80.0-96.0); MONO # 0.3 10^3/uL (0.0-0.8); MONO % 11.7 % (2.0-8.0); NEUTROPHILS % 45.7 % (36.0-66.0); PLATELET COUNT, AUTOMATED 283 10^3/uL (150-450); WHITE BLOOD COUNT 2.2 10^3/uL (4.0-10.0)
[2022-02-18 16:40] LABS: ALBUMIN 3.7 GM/DL (3.2-5.2); ALT/SGPT 26 U/L (12-78); BILIRUBIN,TOTAL 0.7 MG/DL (0.2-1.0); BLOOD UREA NITROGEN 15 MG/DL (7-18); CALCIUM LEVEL 8.9 MG/DL (8.8-10.2); CARBON DIOXIDE LEVEL 31 MEQ/L (21-32); CHLORIDE LEVEL 100 MEQ/L (98-107); CHOLESTEROL LEVEL 131 MG/DL (<200); CHOLESTEROL RISK RATIO 2.079 (<5); CREATININE FOR GFR 1.11 MG/DL (0.70-1.30); GLOMERULAR FILTRATION RATE > 60.0 (>49); GLUCOSE, FASTING 93 MG/DL (70-100); HDL CHOLESTEROL 63 MG/DL (>40); LDL CHOLESTEROL 60 MG/DL (<100); NON-HDL-C 68 MG/DL; POTASSIUM SERUM 4.3 MEQ/L (3.5-5.1); SODIUM LEVEL 134 MEQ/L (136-145); TOTAL PROTEIN 7.4 GM/DL (6.4-8.2); TRIGLYCERIDES LEVEL 42 MG/DL (<150)
[2022-02-19 08:01] LABS: FERRITIN 360 NG/ML (26-388); IRON (FE) 41 UG/DL (65-175); TOTAL IRON BINDING CAPACITY 216 UG/DL (250-450)
[2022-02-19 09:04] LABS: VITAMIN B12 LEVEL 1209 PG/ML (247-911)
== END ==
LOC: M SFHCCLAY 12:01
PROVIDERS: ATTEND Family Medicine
DX: R33.9 Retention of urine, unspecified (principal); E78.2 Mixed hyperlipidemia; I10 Essential (primary) hypertension

== ENCOUNTER → 2022-09-09 | Outpatient (REF) | payer MEDICARE, MEDICAID ==
[~2022-09-09] MED LIST changes: +LEVO1TAB40 PO; -LEVO750T13 PO
== END ==
LOC: M LAB REF 16:32
PROVIDERS: ATTEND Surgery
DX: D04.5 Carcinoma in situ of skin of trunk (principal)

== ENCOUNTER → 2022-10-15 | Outpatient (REF) | payer MEDICARE, MEDICAID ==
[~2022-10-15] MED LIST changes: +BACI500O8 TOP; +BACTDSTA PO; +CARV3.12 PO; +DOCU100C16 PO; +SERO50TA PO
[2022-10-15 18:41] LABS: HEMATOCRIT 32.4 % (42.0-52.0); HEMOGLOBIN 10.9 g/dl (13.5-17.5); MEAN CORPUSCULAR HEMOGLOBIN 33.3 pg (27.0-33.0); MEAN CORPUSCULAR HGB CONC 33.6 g/dl (32.0-36.5); MEAN CORPUSCULAR VOLUME 99.1 fl (80.0-96.0); PLATELET COUNT, AUTOMATED 196 10^3/uL (150-450); RED BLOOD COUNT 3.27 10^6/uL (4.30-6.10); WHITE BLOOD COUNT 3.4 10^3/uL (4.0-10.0)
[2022-10-15 18:43] LABS: ALBUMIN 3.8 G/DL (3.2-5.2); ALKALINE PHOSPHATASE 52 U/L (46-116); ALT/SGPT 31 U/L (7.0-40); AST/SGOT 31 U/L (<34); BILIRUBIN,TOTAL 0.6 MG/DL (0.3-1.2); BLOOD UREA NITROGEN 23 MG/DL (9-23); CALCIUM LEVEL 8.5 MG/DL (8.3-10.6); CARBON DIOXIDE LEVEL 29 MMOL/L (20-31); CHLORIDE LEVEL 98 MMOL/L (98-107); CHOLESTEROL LEVEL 130 MG/DL (<200); CHOLESTEROL RISK RATIO 2.02 (<5); FREE T4 0.89 NG/DL (0.89-1.76); GLOMERULAR FILTRATION RATE > 60.0 (>49); GLUCOSE, FASTING 97 MG/DL (74-106); HDL CHOLESTEROL 64.3 MG/DL (>40); LDL CHOLESTEROL 57.7 MG/DL (<100); NON-HDL-C 66 MG/DL; POTASSIUM SERUM 4.2 MMOL/L (3.5-5.1); SODIUM LEVEL 133 MMOL/L (136-145); THYROID STIMULATING HORMONE 2.138 uIU/ML (0.55-4.78); TRIGLYCERIDES LEVEL 40 MG/DL (<150)
[2022-10-15 19:27] LABS: HEMOGLOBIN A1c 4.5 % (4.0-6.0)
== END ==
LOC: M SFHCCLAY 11:38
PROVIDERS: ATTEND Family Medicine
DX: I10 Essential (primary) hypertension (principal); N13.9 Obstructive and reflux uropathy, unspecified; R33.9 Retention of urine, unspecified; Z79.899 Other long term (current) drug therapy

== ENCOUNTER → 2022-12-10 | Outpatient (REF) | payer MEDICARE, MEDICAID ==
[2022-12-10 16:07] LABS: APPEARANCE, URINE HAZY (CLEAR); BACTERIA, URINE AUTO 3+ (NEGATIVE); BILIRUBIN, URINE AUTO NEGATIVE (NEGATIVE); BLOOD, URINE BLOOD 2+ (NEGATIVE); COLOR, URINE YELLOW (YELLOW); GLUCOSE, URINE (UA) AUTO NEGATIVE (NEGATIVE); KETONE, URINE AUTO NEGATIVE (NEGATIVE); LEUKOCYTE ESTERASE, URINE AUTO 3+ (NEGATIVE); NITRITE, URINE AUTO POSITIVE (NEGATIVE); PROTEIN, URINE AUTO NEGATIVE (NEGATIVE); RBC, URINE AUTO 5 /HPF (0-3); SPECIFIC GRAVITY URINE AUTO 1.006 (1.002-1.035); SQUAMOUS EPITHELIAL CELL UR AU 0 /HPF (0-6); UROBILINOGEN, URINE AUTO 0.2 mg/dL (0.0-2.0); WBC, URINE AUTO TNTC /HPF (0-3)
== END ==
LOC: M SMT 15:23
PROVIDERS: ATTEND Physician Assistant
DX: R33.9 Retention of urine, unspecified (principal)

== ENCOUNTER 2022-12-13 10:03 | Emergency (ER) | payer MEDICARE, MEDICAID ==
[~2022-12-13 10:03] MED LIST changes: -BACI500O8 TOP; -BACTDSTA PO; -CARV3.12 PO; -DOCU100C16 PO; -SERO50TA PO
[2022-12-13] MEDS ORDERED: ACETAMINOPHEN 500 MG TAB PO ONE (10:25)
[2022-12-13 11:23] LABS: BASO % 0.6 % (0.0-1.0); EOS # 0.1 10^3/uL (0.0-0.5); HEMATOCRIT 31.4 % (42.0-52.0); HEMOGLOBIN 10.6 g/dl (13.5-17.5); LYMPH # 0.8 10^3/uL (1.5-5.0); LYMPH % 23.4 % (24.0-44.0); MEAN CORPUSCULAR HGB CONC 33.8 g/dl (32.0-36.5); MEAN CORPUSCULAR VOLUME 100.6 fl (80.0-96.0); MONO # 0.3 10^3/uL (0.0-0.8); MONO % 7.9 % (2.0-8.0); NEUTROPHILS # 2.1 10^3/uL (1.5-8.5); NEUTROPHILS % 64.8 % (36.0-66.0); PLATELET COUNT, AUTOMATED 338 10^3/uL (150-450); RED BLOOD COUNT 3.12 10^6/uL (4.30-6.10); WHITE BLOOD COUNT 3.3 10^3/uL (4.0-10.0)
[2022-12-13 11:47] LABS: OSMOLALITY SERUM 284 MOSM/KG (280-301)
[2022-12-13 11:50] LABS: ALBUMIN 3.5 G/DL (3.2-5.2); ALKALINE PHOSPHATASE 57 U/L (46-116); ALT/SGPT 20 U/L (7.0-40); AST/SGOT 24 U/L (<34); BILIRUBIN,DIRECT 0.1 MG/DL (<0.4); BILIRUBIN,TOTAL 0.4 MG/DL (0.3-1.2); BLOOD UREA NITROGEN 24 MG/DL (9-23); CALCIUM LEVEL 8.4 MG/DL (8.3-10.6); CARBON DIOXIDE LEVEL 28 MMOL/L (20-31); CHLORIDE LEVEL 99 MMOL/L (98-107); CREATININE FOR GFR 1.12 MG/DL (0.70-1.30); GLOMERULAR FILTRATION RATE > 60.0 (>49); GLUCOSE, FASTING 94 MG/DL (74-106); POTASSIUM SERUM 4.5 MMOL/L (3.5-5.1); SODIUM LEVEL 134 MMOL/L (136-145); THYROID STIMULATING HORMONE 2.147 uIU/ML (0.55-4.78); TOTAL PROTEIN 7.1 G/DL (5.7-8.2)
[2022-12-13] MEDS ORDERED: BACTDSTA PO (11:50)
[2022-12-13] MEDS ORDERED: SERO50TA PO (11:50)
[2022-12-13] MEDS ORDERED: BACI500O8 TOP (11:50)
[2022-12-13] MEDS ORDERED: CARV3.12 PO (11:50)
[2022-12-13] MEDS ORDERED: DOCU100C16 PO (11:50)
[2022-12-13] MEDS ORDERED: HOME MED LIST COMPLETE! XX SCH (11:55)
[2022-12-13 15:55] VITALS: BP 138/82
== END 2022-12-13 16:05 | disposition home or self-care (01) ==
LOC: EDBD 10:03 → M ED 10:03
DX: N13.30 Unspecified hydronephrosis (principal); K80.20 Calculus of gallbladder without cholecystitis without obstruction; N32.89 Other specified disorders of bladder; G31.9 Degenerative disease of nervous system, unspecified; K76.89 Other specified diseases of liver; Z96.0 Presence of urogenital implants; M43.06 Spondylolysis, lumbar region; I10 Essential (primary) hypertension; F20.9 Schizophrenia, unspecified; Z88.0 Allergy status to penicillin; Z79.899 Other long term (current) drug therapy

== ENCOUNTER → 2022-12-19 | Outpatient (REF) | payer MEDICARE, MEDICAID ==
[~2022-12-19] MED LIST changes: +BACI500O8 TOP; +BACTDSTA PO; +CARV3.12 PO; +DOCU100C16 PO; +SERO50TA PO
[2022-12-19 17:35] LABS: POTASSIUM SERUM 4.4 MMOL/L (3.5-5.1)
== END ==
LOC: M LAB REF 16:51
PROVIDERS: ATTEND Internal Medicine Nephrology
DX: N18.31 Chronic kidney disease, stage 3a (principal)

== ENCOUNTER → 2023-02-26 | Outpatient (REF) | payer MEDICARE, MEDICAID ==
[~2023-02-26] MED LIST changes: +LORA1TAB23 PO; -LORA1TAB4 PO
[2023-02-26 17:49] LABS: BASO % 0.4 % (0.0-1.0); EOS # 0.3 10^3/uL (0.0-0.5); EOS % 7.4 % (0.0-3.0); HEMATOCRIT 35.3 % (42.0-52.0); LYMPH # 1.1 10^3/uL (1.5-5.0); LYMPH % 23.3 % (24.0-44.0); MEAN CORPUSCULAR HEMOGLOBIN 34.2 pg (27.0-33.0); MEAN CORPUSCULAR VOLUME 100.6 fl (80.0-96.0); MONO # 0.4 10^3/uL (0.0-0.8); MONO % 8.7 % (2.0-8.0); NEUTROPHILS # 2.8 10^3/uL (1.5-8.5); PLATELET COUNT, AUTOMATED 249 10^3/uL (150-450); RED BLOOD COUNT 3.51 10^6/uL (4.30-6.10); WHITE BLOOD COUNT 4.6 10^3/uL (4.0-10.0)
[2023-02-26 17:54] LABS: BLOOD UREA NITROGEN 23 MG/DL (9-23); CALCIUM LEVEL 9.6 MG/DL (8.3-10.6); CARBON DIOXIDE LEVEL 32 MMOL/L (20-31); CHLORIDE LEVEL 99 MMOL/L (98-107); CREATININE FOR GFR 1.14 MG/DL (0.70-1.30); GLOMERULAR FILTRATION RATE > 60.0 (>49); GLUCOSE, FASTING 84 MG/DL (74-106); IRON (FE) 52 UG/DL (65-175); PERCENT SATURATION 18.2 % (19.7-50.0); POTASSIUM SERUM 4.2 MMOL/L (3.5-5.1); SODIUM LEVEL 134 MMOL/L (136-145); TOTAL IRON BINDING CAPACITY 285 UG/DL (250-425)
[2023-02-26 17:56] LABS: THYROID STIMULATING HORMONE 2.252 uIU/ML (0.55-4.78)
[2023-02-26 17:57] LABS: FREE T4 1.04 NG/DL (0.89-1.76)
[2023-02-26 18:14] LABS: HEMOGLOBIN A1c 4.6 % (4.0-6.0)
== END ==
LOC: M SFHCCLAY 12:33
PROVIDERS: ATTEND Family Medicine
DX: I10 Essential (primary) hypertension (principal); E78.2 Mixed hyperlipidemia; N13.9 Obstructive and reflux uropathy, unspecified; R33.9 Retention of urine, unspecified; Z79.899 Other long term (current) drug therapy

== ENCOUNTER → 2023-03-04 | Outpatient (REF) | payer MEDICARE, MEDICAID ==
[2023-03-04 15:32] LABS: APPEARANCE, URINE HAZY (CLEAR); BACTERIA, URINE AUTO 1+ (NEGATIVE); BILIRUBIN, URINE AUTO NEGATIVE (NEGATIVE); BLOOD, URINE BLOOD 2+ (NEGATIVE); COLOR, URINE YELLOW (YELLOW); GLUCOSE, URINE (UA) AUTO NEGATIVE (NEGATIVE); KETONE, URINE AUTO NEGATIVE (NEGATIVE); LEUKOCYTE ESTERASE, URINE AUTO 3+ (NEGATIVE); MUCUS, URINE SMALL (NEGATIVE); NITRITE, URINE AUTO POSITIVE (NEGATIVE); PROTEIN, URINE AUTO NEGATIVE (NEGATIVE); RBC, URINE AUTO 13 /HPF (0-3); SPECIFIC GRAVITY URINE AUTO 1.008 (1.002-1.035); SQUAMOUS EPITHELIAL CELL UR AU 0 /HPF (0-6); UROBILINOGEN, URINE AUTO 0.2 mg/dL (0.0-2.0); WBC, URINE AUTO 109 /HPF (0-3)
== END ==
LOC: M SMT 13:13
PROVIDERS: ATTEND Urology
DX: N39.0 Urinary tract infection, site not specified (principal)

== ENCOUNTER 2023-04-03 22:31 | Emergency (ER) | payer MEDICARE, MEDICAID ==
[~2023-04-03] VITALS: Ht 174 cm; Wt 75.5 kg
[~2023-04-03 22:31] MED LIST changes: +CYAN-1 PO; -CYAN100050 PO
[2023-04-04 00:26] VITALS: BP 118/68; TEMP 98.1; O2SAT 99
[2023-04-04] MEDS ORDERED: BACT800T5 PO (12:12)
== END 2023-04-04 00:27 | disposition home or self-care (01) ==
LOC: M ED 22:31
DX: R33.9 Retention of urine, unspecified (principal); I12.9 Hypertensive chronic kidney disease with stage 1 through stage 4 chronic kidney disease, or unspecified chronic kidney disease; N18.30 Chronic kidney disease, stage 3 unspecified; N35.912 Unspecified bulbous urethral stricture, male; F20.9 Schizophrenia, unspecified; F70 Mild intellectual disabilities; Z88.0 Allergy status to penicillin; Z79.899 Other long term (current) drug therapy

== ENCOUNTER → 2023-04-16 | Outpatient (REF) | payer MEDICARE, MEDICAID ==
[2023-04-16 18:24] LABS: BLOOD UREA NITROGEN 20 MG/DL (9-23); CALCIUM LEVEL 9.2 MG/DL (8.3-10.6); CARBON DIOXIDE LEVEL 31 MMOL/L (20-31); CHLORIDE LEVEL 99 MMOL/L (98-107); CREATININE FOR GFR 1.04 MG/DL (0.70-1.30); GLOMERULAR FILTRATION RATE > 60.0 (>49); GLUCOSE, FASTING 103 MG/DL (74-106); IRON (FE) 57 UG/DL (65-175); PERCENT SATURATION 20.6 % (19.7-50.0); POTASSIUM SERUM 4.5 MMOL/L (3.5-5.1); SODIUM LEVEL 134 MMOL/L (136-145); TOTAL IRON BINDING CAPACITY 277 UG/DL (250-425)
[2023-04-16 18:25] LABS: FOLATE 18.88 NG/ML (>5.4); VITAMIN B12 LEVEL 1005 PG/ML (211-911)
[2023-04-16 18:27] LABS: BASO % 0.5 % (0.0-1.0); EOS # 0.1 10^3/uL (0.0-0.5); EOS % 2.1 % (0.0-3.0); HEMATOCRIT 38.3 % (42.0-52.0); HEMOGLOBIN 12.9 g/dl (13.5-17.5); LYMPH # 0.9 10^3/uL (1.5-5.0); LYMPH % 20.9 % (24.0-44.0); MEAN CORPUSCULAR HGB CONC 33.7 g/dl (32.0-36.5); MEAN CORPUSCULAR VOLUME 101.1 fl (80.0-96.0); MONO # 0.4 10^3/uL (0.0-0.8); MONO % 8.7 % (2.0-8.0); NEUTROPHILS % 67.6 % (36.0-66.0); PLATELET COUNT, AUTOMATED 260 10^3/uL (150-450); RED BLOOD COUNT 3.79 10^6/uL (4.30-6.10); WHITE BLOOD COUNT 4.4 10^3/uL (4.0-10.0)
== END ==
LOC: M SFHCCLAY 12:08
PROVIDERS: ATTEND Family Medicine
DX: D64.9 Anemia, unspecified (principal)

== ENCOUNTER → 2023-05-05 | Outpatient (CLI) | payer MEDICARE, MEDICAID | LOC: M WUC 10:32 | PROVIDERS: ATTEND Family Medicine | DX: M16.0 Bilateral primary osteoarthritis of hip (principal) ==

== ENCOUNTER → 2023-06-26 | Outpatient (CLI) | payer MEDICARE, MEDICAID ==
[~2023-06-26] MED LIST changes: +LORA-1041 PO; -LORA-674 PO
== END ==
LOC: M SOG 07:55
PROVIDERS: ATTEND Orthopaedic Surgery
DX: M16.0 Bilateral primary osteoarthritis of hip (principal)

== ENCOUNTER → 2023-09-16 | Day surgery (SDC) | payer MEDICARE, MEDICAID ==
[~2023-09-16] VITALS: Ht 172.7 cm; Wt 85.3 kg
[~2023-09-16] MED LIST changes: +APAP325T4 PO; +GLYCOPYRROLATE INJ 0.2 MG/ML 2 ML VIAL As Ordered ONE; +LIDOCAINE 2% 100MG/5ML SDV (FOR ANES.) As Ordered ONE; +NS 1,000 ML IV ONE; +propofoL 200 MG/20 ML VIAL As Ordered ONE
[2023-09-16 09:49] VITALS: TEMP 97.6
[2023-09-16 10:10] VITALS: BP 126/89; O2SAT 99
== END | disposition home or self-care (01) ==
LOC: M OPP 07:53
PROVIDERS: ATTEND Internal Medicine Gastroenterology
DX: K64.0 First degree hemorrhoids (principal); K64.4 Residual hemorrhoidal skin tags; D50.9 Iron deficiency anemia, unspecified; K44.9 Diaphragmatic hernia without obstruction or gangrene; K31.A14 Gastric intestinal metaplasia without dysplasia, involving the cardia; Z79.1 Long term (current) use of non-steroidal anti-inflammatories (NSAID); Z79.82 Long term (current) use of aspirin; Z79.899 Other long term (current) drug therapy; Z88.0 Allergy status to penicillin

== ENCOUNTER → 2024-02-04 | Outpatient (REF) | payer MEDICARE, MEDICAID ==
[~2024-02-04] MED LIST changes: -GLYCOPYRROLATE INJ 0.2 MG/ML 2 ML VIAL As Ordered ONE; -LIDOCAINE 2% 100MG/5ML SDV (FOR ANES.) As Ordered ONE; -NS 1,000 ML IV ONE; -propofoL 200 MG/20 ML VIAL As Ordered ONE
[2024-02-04 17:48] LABS: AMORPHOUS SEDIMENT SMALL (NEGATIVE); APPEARANCE, URINE CLOUDY (CLEAR); BACTERIA, URINE AUTO 1+ (NEGATIVE); BILIRUBIN, URINE AUTO NEGATIVE (NEGATIVE); BLOOD, URINE BLOOD 2+ (NEGATIVE); COLOR, URINE RED (YELLOW); GLUCOSE, URINE (UA) AUTO NEGATIVE (NEGATIVE); KETONE, URINE AUTO NEGATIVE (NEGATIVE); LEUKOCYTE ESTERASE, URINE AUTO 3+ (NEGATIVE); NITRITE, URINE AUTO POSITIVE (NEGATIVE); PROTEIN, URINE AUTO 1+ mg/dL (NEGATIVE); RBC, URINE AUTO 55 /HPF (0-3); SPECIFIC GRAVITY URINE AUTO 1.009 (1.002-1.035); SQUAMOUS EPITHELIAL CELL UR AU 0 /HPF (0-6); TRIPLE PHOSPHATE CRYSTALS MODERATE; UROBILINOGEN, URINE AUTO 0.2 mg/dL (0.0-2.0); WBC, URINE AUTO 86 /HPF (0-3)
== END ==
LOC: M SMT 16:51
PROVIDERS: ATTEND Urology
DX: N39.0 Urinary tract infection, site not specified (principal)

== ENCOUNTER 2024-02-23 17:33 | Emergency (ER) | payer MEDICARE, MEDICAID ==
[~2024-02-23] VITALS: Ht 190.5 cm; Wt 81.6 kg
[~2024-02-23 17:33] MED LIST changes: +ABIL1INJ2 IM; +AMLO1TAB24 PO; +ARIP10TA32 PO; +MAGN400T2 PO; +SODI1TAB12 PO
[2024-02-23 18:36] LABS: BASO % 0.3 % (0.0-1.0); HEMATOCRIT 36.3 % (42.0-52.0); HEMOGLOBIN 13.2 g/dl (13.5-17.5); LYMPH # 0.8 10^3/uL (1.5-5.0); LYMPH % 8.3 % (24.0-44.0); MEAN CORPUSCULAR HEMOGLOBIN 33.9 pg (27.0-33.0); MEAN CORPUSCULAR HGB CONC 36.4 g/dl (32.0-36.5); MEAN CORPUSCULAR VOLUME 93.3 fl (80.0-96.0); MONO % 11.1 % (2.0-8.0); NEUTROPHILS # 7.3 10^3/uL (1.5-8.5); PLATELET COUNT, AUTOMATED 360 10^3/uL (150-450); RED BLOOD COUNT 3.89 10^6/uL (4.30-6.10); WHITE BLOOD COUNT 9.1 10^3/uL (4.0-10.0)
[2024-02-23 18:57] LABS: ALBUMIN 4.2 G/DL (3.2-5.2); ALKALINE PHOSPHATASE 84 U/L (46-116); ALT/SGPT 19 U/L (7.0-40); AST/SGOT 27 U/L (<34); BILIRUBIN,DIRECT 0.3 MG/DL (<0.4); BILIRUBIN,TOTAL 0.7 MG/DL (0.3-1.2); BLOOD UREA NITROGEN 18 MG/DL (9-23); CALCIUM LEVEL 9.2 MG/DL (8.3-10.6); CARBON DIOXIDE LEVEL 26 MMOL/L (20-31); CHLORIDE LEVEL 93 MMOL/L (98-107); CK-MB VALUE MASS 1.8 NG/ML (<3.6); CREATININE FOR GFR 1.13 MG/DL (0.70-1.30); GLOMERULAR FILTRATION RATE > 60.0 (>49); GLUCOSE, FASTING 136 MG/DL (74-106); POTASSIUM SERUM 3.7 MMOL/L (3.5-5.1); SODIUM LEVEL 128 MMOL/L (136-145); TOTAL PROTEIN 7.5 G/DL (5.7-8.2)
[2024-02-23 19:01] LABS: THYROID STIMULATING HORMONE 1.834 uIU/ML (0.55-4.78)
[2024-02-23 19:02] LABS: CPK CREATINE PHOSPHOKINASE 179 U/L (46-171)
[2024-02-23] MEDS: LORazepam 2 MG/ML 1ML VIAL IV STA (19:40)
[2024-02-23 20:34] LABS: CK-MB VALUE MASS 2.2 NG/ML (<3.6); MB/CK RELATIVE INDEX 1.03 (< OR =4)
[2024-02-23] MEDS: QUEtiapine FUMARATE 200 MG TAB PO ONE (23:05)
[2024-02-23 23:09] LABS: CK-MB VALUE MASS 2.8 NG/ML (<3.6)
[2024-02-23 23:11] LABS: MB/CK RELATIVE INDEX 1.4 (< OR =4)
[2024-02-24] MEDS: LORazepam 2 MG/ML 1ML VIAL IV STA (00:54)
[2024-02-24] MEDS: HALOPERIDOL LACTATE 5MG/ML VIAL IV ONE (01:05)
[2024-02-24] MEDS: LevoFLOXacin IV 750 MG in IV 1 EA IV ONE (02:22)
[2024-02-24] MEDS: ENOXAPARIN 80MG/0.8ML SYRINGE (J1650 PER 10MG) SC ONE (02:23)
[2024-02-24 07:20] VITALS: TEMP 97.7
[2024-02-24 07:30] VITALS: BP 149/78
[2024-02-24 07:33] VITALS: O2SAT 98
[2024-02-24] MEDS ORDERED: AMLO1TAB24 PO (08:26)
[2024-02-24] MEDS ORDERED: SODI1TAB12 PO (08:32)
[2024-02-24] MEDS ORDERED: GUAI100L6 PO (08:39)
[2024-02-24] MEDS ORDERED: TRIPOIN9 TOP (08:39)
[2024-02-24] MEDS ORDERED: MAGN400T2 PO (08:39)
[2024-02-24] MEDS ORDERED: MOM 30ML SUSPENSION UDC PO PRN (08:40)
[2024-02-24] MEDS ORDERED: ACETAMINOPHEN TAB 650MG DOSE (2X325MG) PO PRN (08:40)
[2024-02-24] MEDS ORDERED: NEOSPORIN TOP OINT 15GM TOP PRN (08:40)
[2024-02-24] MEDS ORDERED: MAALOX 30 ML SUSP *UDC PO PRN (08:40)
[2024-02-24] MEDS ORDERED: guaiFENesin SYRUP 200MG 10ML UDC PO PRN (08:40)
[2024-02-24] MEDS ORDERED: DESI13CR2 TOP (08:41)
[2024-02-24] MEDS ORDERED: HOME MED LIST COMPLETE! XX SCH (08:45)
[2024-02-24] MEDS ORDERED: LORazepam 1 MG TAB PO SCH (09:00)
[2024-02-24] MEDS: CARVedilol 6.25 MG TAB PO SCH (09:00)
[2024-02-24] MEDS: SODIUM CHLORIDE 1 GM TAB PO SCH (09:00)
[2024-02-24] MEDS: ARIPiprazole 10 MG TAB PO SCH (09:00)
[2024-02-24] MEDS: CYANOCOBALAMIN 500 MCG TAB PO SCH (09:00)
[2024-02-24] MEDS: MAGNESIUM OXIDE 400MG TAB (MAG-OX) PO SCH (09:00)
[2024-02-24] MEDS: LORATADINE 10 MG TAB PO SCH (09:00)
[2024-02-24] MEDS: DOCUSATE SODIUM 100MG CAPSULE PO SCH (09:00)
[2024-02-24] MEDS: amLODIPine 5 MG TAB PO SCH (09:00)
[2024-02-24] MEDS: ASPIRIN 325 MG TAB PO ONE (09:15)
[2024-02-24] MEDS: LORazepam 2 MG/ML 1ML VIAL IM PRN (09:21)
[2024-02-24] MEDS: OLANZapine INTRAMUSCULAR 10MG VIAL IM PRN (10:49)
[2024-02-24] MEDS: ATORVASTATIN 20 MG TAB PO ONE (12:00)
[2024-02-24] MEDS ORDERED: ENOXAPARIN 80MG/0.8ML SYRINGE (J1650 PER 10MG) SC ONE (12:00)
[2024-02-24] MEDS ORDERED: OLAN2.5T25 PO (12:32)
[2024-02-24] MEDS ORDERED: ECOT81TA5 PO (14:39)
[2024-02-24] MEDS ORDERED: CLOP75TA2 PO (14:39)
[2024-02-24] MEDS ORDERED: ENOXAPARIN 80MG/0.8ML SYRINGE (J1650 PER 10MG) SC SCH (21:00)
[2024-02-24] MEDS ORDERED: CitaloPRAM (CeleXA) 20 MG TAB PO SCH (21:00)
[2024-02-25] MEDS ORDERED: ASPIRIN 325 MG TAB PO SCH (09:00)
[2024-02-25] MEDS ORDERED: ATORVASTATIN 20 MG TAB PO SCH (09:00)
== END 2024-02-24 15:10 | disposition home or self-care (01) ==
LOC: EDBD 17:33 → M ED 17:33
DX: I21.4 Non-ST elevation (NSTEMI) myocardial infarction (principal); N39.0 Urinary tract infection, site not specified; I10 Essential (primary) hypertension; F32.A Depression, unspecified; F79 Unspecified intellectual disabilities; F03.90 Unspecified dementia, unspecified severity, without behavioral disturbance, psychotic disturbance, mood disturbance, and anxiety; Z79.899 Other long term (current) drug therapy; Z88.0 Allergy status to penicillin

== ENCOUNTER → 2024-03-23 | Outpatient (CLI) | payer MEDICARE, MEDICAID ==
[~2024-03-23] MED LIST changes: +CLOP75TA2 PO; +DESI13CR2 TOP; +ECOT81TA5 PO; +GUAI100L6 PO; +OLAN2.5T25 PO; +TRIPOIN9 TOP
[2024-03-23 08:59] LABS: BLOOD UREA NITROGEN 14 MG/DL (9-23); CARBON DIOXIDE LEVEL 29 MMOL/L (20-31); CHLORIDE LEVEL 102 MMOL/L (98-107); CREATININE FOR GFR 1.03 MG/DL (0.70-1.30); GLOMERULAR FILTRATION RATE > 60.0 (>49); GLUCOSE, FASTING 85 MG/DL (74-106); SODIUM LEVEL 136 MMOL/L (136-145)
== END ==
LOC: M LAB 07:26
PROVIDERS: ATTEND Family Medicine
DX: I21.4 Non-ST elevation (NSTEMI) myocardial infarction (principal); E87.1 Hypo-osmolality and hyponatremia

== ENCOUNTER 2024-06-20 11:00 | Inpatient (IN) | payer MEDICARE, MEDICAID ==
[~2024-06-20] VITALS: Ht 190.5 cm; Wt 87.9 kg
[~2024-06-20 11:00] MED LIST changes: -ARIP10TA32 PO; +ARIP10TA63 PO; -OLAN2.5T25 PO; +OLAN2.5T53 PO
[2024-06-20 13:21] LABS: BASO % 0.5 % (0.0-1.0); EOS # 0.1 10^3/uL (0.0-0.5); EOS % 1.2 % (0.0-3.0); HEMATOCRIT 31.8 % (42.0-52.0); HEMOGLOBIN 10.9 g/dl (13.5-17.5); LYMPH # 0.8 10^3/uL (1.5-5.0); LYMPH % 13.6 % (24.0-44.0); MEAN CORPUSCULAR HEMOGLOBIN 33.1 pg (27.0-33.0); MEAN CORPUSCULAR HGB CONC 34.3 g/dl (32.0-36.5); MEAN CORPUSCULAR VOLUME 96.7 fl (80.0-96.0); MONO # 0.5 10^3/uL (0.0-0.8); MONO % 9.1 % (2.0-8.0); NEUTROPHILS # 4.4 10^3/uL (1.5-8.5); NEUTROPHILS % 75.4 % (36.0-66.0); PLATELET COUNT, AUTOMATED 296 10^3/uL (150-450); RED BLOOD COUNT 3.29 10^6/uL (4.30-6.10); WHITE BLOOD COUNT 5.8 10^3/uL (4.0-10.0)
[2024-06-20 13:53] LABS: ALBUMIN 3.3 G/DL (3.2-5.2); ALKALINE PHOSPHATASE 87 U/L (46-116); ALT/SGPT 10 U/L (7.0-40); AST/SGOT 20 U/L (<34); BILIRUBIN,DIRECT 0.2 MG/DL (<0.4); BILIRUBIN,TOTAL 0.4 MG/DL (0.3-1.2); BLOOD UREA NITROGEN 13 MG/DL (9-23); CALCIUM LEVEL 8.7 MG/DL (8.3-10.6); CARBON DIOXIDE LEVEL 28 MMOL/L (20-31); CHLORIDE LEVEL 102 MMOL/L (98-107); CREATININE FOR GFR 0.99 MG/DL (0.70-1.30); GLOMERULAR FILTRATION RATE > 60.0 (>49); GLUCOSE, FASTING 89 MG/DL (74-106); SODIUM LEVEL 135 MMOL/L (136-145)
[2024-06-20 13:55] LABS: THYROID STIMULATING HORMONE 1.276 uIU/ML (0.55-4.78)
[2024-06-20] MEDS: LevoFLOXacin IV 500 MG in IV 1 EA IV ONE (14:50)
[2024-06-20] MEDS ORDERED: MOM 30ML SUSPENSION UDC PO PRN (16:25)
[2024-06-20] MEDS ORDERED: MAALOX 30 ML SUSP *UDC PO PRN (16:25)
[2024-06-20] MEDS ORDERED: ZYPR2.5T2 PO (16:44)
[2024-06-20] MEDS ORDERED: CLOP75TA2 PO (16:44)
[2024-06-20] MEDS ORDERED: HOME MED LIST COMPLETE! XX SCH (16:45)
[2024-06-20 20:00] VITALS: BP 140/68; TEMP 99.1; O2SAT 97
[2024-06-20] MEDS: DOCUSATE SODIUM 100MG CAPSULE PO SCH (20:08)
[2024-06-20] MEDS: ACETAMINOPHEN TAB 650MG DOSE (2X325MG) PO PRN (20:58)
[2024-06-21] VITALS: BP 120/66; TEMP 98.6; O2SAT 96
[2024-06-21 04:00] VITALS: BP 119/62; TEMP 97.9; O2SAT 97
[2024-06-21 06:31] LABS: HEMATOCRIT 30.8 % (42.0-52.0); HEMOGLOBIN 10.4 g/dl (13.5-17.5); MEAN CORPUSCULAR HEMOGLOBIN 31.9 pg (27.0-33.0); MEAN CORPUSCULAR HGB CONC 33.8 g/dl (32.0-36.5); MEAN CORPUSCULAR VOLUME 94.5 fl (80.0-96.0); PLATELET COUNT, AUTOMATED 318 10^3/uL (150-450); RED BLOOD COUNT 3.26 10^6/uL (4.30-6.10)
[2024-06-21 06:54] LABS: HEMOGLOBIN A1c 4.7 % (4.0-6.0)
[2024-06-21 07:17] LABS: BLOOD UREA NITROGEN 13 MG/DL (9-23); CALCIUM LEVEL 8.8 MG/DL (8.3-10.6); CARBON DIOXIDE LEVEL 29 MMOL/L (20-31); CHLORIDE LEVEL 99 MMOL/L (98-107); CHOLESTEROL LEVEL 120 MG/DL (<200); CHOLESTEROL RISK RATIO 2.59 (<5); CREATININE FOR GFR 1.01 MG/DL (0.70-1.30); GLOMERULAR FILTRATION RATE > 60.0 (>49); GLUCOSE, FASTING 79 MG/DL (74-106); HDL CHOLESTEROL 46.3 MG/DL (>40); LDL CHOLESTEROL 62.5 MG/DL (<100); NON-HDL-C 73.7 MG/DL; POTASSIUM SERUM 3.8 MMOL/L (3.5-5.1); SODIUM LEVEL 134 MMOL/L (136-145); TRIGLYCERIDES LEVEL 56 MG/DL (<150)
[2024-06-21 07:34] VITALS: BP 137/63; TEMP 98.9; O2SAT 96
[2024-06-21] MEDS ORDERED: HOME MED LIST COMPLETE! XX SCH (08:45)
[2024-06-21] MEDS: ASPIRIN 81MG ENTERIC TABLET PO SCH (09:05)
[2024-06-21] MEDS: ATORVASTATIN 20 MG TAB PO SCH (09:05)
[2024-06-21] MEDS: CLOPIDOGREL 75 MG TAB PO SCH (09:05)
[2024-06-21] MEDS: ENOXAPARIN 40MG/0.4ML SYRINGE (J1650 PER 10MG) SC SCH (09:06)
[2024-06-21 11:26] VITALS: BP 147/80; TEMP 97.4; O2SAT 96
[2024-06-21] MEDS: LevoFLOXacin IV 500 MG in IV 1 EA IV SCH (12:24)
[2024-06-21] MEDS ORDERED: OLANZapine 2.5MG TABLET PO PRN (12:25)
[2024-06-21] MEDS: ONDANSETRON 4MG 2ML VIAL IV PRN (12:30)
[2024-06-21] MEDS: LORazepam 1 MG TAB PO SCH (12:36)
[2024-06-21 15:42] VITALS: BP 137/79; TEMP 98.9; O2SAT 96
[2024-06-21 19:00] VITALS: BP 128/78; TEMP 98.8; O2SAT 97
[2024-06-21] MEDS: amLODIPine 5 MG TAB PO SCH (20:15)
[2024-06-22 04:45] VITALS: BP 118/63; TEMP 98.3; O2SAT 97
[2024-06-22 07:07] VITALS: BP 138/72; TEMP 97.6; O2SAT 98
[2024-06-22] MEDS ORDERED: LevoFLOXacin IV 500 MG in IV 1 EA IV SCH (12:00)
[2024-06-22 16:00] VITALS: BP 146/64; TEMP 97.8; O2SAT 98
[2024-06-22] MEDS ORDERED: PERMETHRIN 5% CREAM 60 GM TOP SCH (16:55)
[2024-06-22 20:37] VITALS: TEMP 99.1; O2SAT 96
[2024-06-23] MEDS ORDERED: PERMETHRIN 5% CREAM 60 GM TOP SCH
[2024-06-23 05:17] VITALS: BP 123/61; TEMP 98.2; O2SAT 99
[2024-06-23] MEDS: LevoFLOXacin 750 MG TABLET PO SCH (06:31)
[2024-06-23 07:07] LABS: HEMATOCRIT 30.9 % (42.0-52.0); HEMOGLOBIN 10.8 g/dl (13.5-17.5); MEAN CORPUSCULAR HEMOGLOBIN 32.7 pg (27.0-33.0); MEAN CORPUSCULAR VOLUME 93.6 fl (80.0-96.0); PLATELET COUNT, AUTOMATED 326 10^3/uL (150-450); WHITE BLOOD COUNT 4.8 10^3/uL (4.0-10.0)
[2024-06-23 08:10] VITALS: BP 109/58; TEMP 98.7; O2SAT 91
[2024-06-23 15:57] VITALS: BP 140/73; TEMP 99; O2SAT 97
[2024-06-23] MEDS ORDERED: ISOVUE-370 76% 100ML VIAL As Ordered ONE (17:34)
[2024-06-23 20:15] VITALS: BP 140/80; TEMP 98.2; O2SAT 98
[2024-06-23] MEDS: PERMETHRIN 5% CREAM 60 GM TOP ONE (22:10)
[2024-06-24] VITALS (43 sets, daily range): BP systolic 87–150; BP diastolic 58–82; TEMP 97.8–98.6; O2SAT 95–100
[2024-06-24] MEDS ORDERED: LORazepam 2 MG/ML 1ML VIAL As Ordered ONE (15:23)
[2024-06-24] MEDS: LORazepam 2 MG/ML 1ML VIAL IV STA ×3 (15:24→15:31)
[2024-06-24] MEDS ORDERED: MIDAZOLAM 5MG/ML 1ML VIAL As Ordered ONE (15:32)
[2024-06-24] MEDS: ROCURONIUM BROMIDE 50MG/5ML VIAL IV SCH (15:36)
[2024-06-24] MEDS: MIDAZOLAM 5MG/ML 1ML VIAL IV ONE (15:36)
[2024-06-24] MEDS ORDERED: PROPOFOL 1,000 MG/100 ML VIAL As Ordered ONE (16:07)
[2024-06-24] MEDS: propofoL 1,000 MG in IV 1 EA IV SCH (16:44)
[2024-06-24] MEDS: levETIRAcetam INJection 1,000 MG in D5W 100 ML IV ONE (16:45)
[2024-06-24] MEDS: NS 1,000 ML IV SCH (18:53)
[2024-06-24] MEDS: levETIRAcetam INJection 500 MG in D5W MINI-BAG PLUS 100 ML IV SCH ×2 (20:37→20:55)
[2024-06-24] MEDS ORDERED: levETIRAcetam INJection 1,000 MG in D5W 100 ML IV SCH (21:00)
[2024-06-24 21:37] LABS: BASO % 0.2 % (0.0-1.0); EOS % 0.7 % (0.0-3.0); HEMATOCRIT 30.1 % (42.0-52.0); HEMOGLOBIN 10.4 g/dl (13.5-17.5); LYMPH # 0.5 10^3/uL (1.5-5.0); LYMPH % 8.9 % (24.0-44.0); MEAN CORPUSCULAR HEMOGLOBIN 31.5 pg (27.0-33.0); MEAN CORPUSCULAR HGB CONC 34.6 g/dl (32.0-36.5); MEAN CORPUSCULAR VOLUME 91.2 fl (80.0-96.0); MONO # 0.5 10^3/uL (0.0-0.8); MONO % 7.9 % (2.0-8.0); PLATELET COUNT, AUTOMATED 337 10^3/uL (150-450); WHITE BLOOD COUNT 6.1 10^3/uL (4.0-10.0)
[2024-06-24 22:18] LABS: ALBUMIN 2.8 G/DL (3.2-5.2); ALKALINE PHOSPHATASE 81 U/L (46-116); ALT/SGPT 20 U/L (7.0-40); AST/SGOT 26 U/L (<34); BILIRUBIN,TOTAL 0.6 MG/DL (0.3-1.2); BLOOD UREA NITROGEN 18 MG/DL (9-23); CALCIUM LEVEL 8.2 MG/DL (8.3-10.6); CARBON DIOXIDE LEVEL 28 MMOL/L (20-31); CHLORIDE LEVEL 91 MMOL/L (98-107); CREATININE FOR GFR 1.13 MG/DL (0.70-1.30); GLOMERULAR FILTRATION RATE > 60.0 (>49); GLUCOSE, FASTING 152 MG/DL (74-106); POTASSIUM SERUM 3.7 MMOL/L (3.5-5.1); SODIUM LEVEL 123 MMOL/L (136-145); TOTAL PROTEIN 6.5 G/DL (5.7-8.2)
[2024-06-25] VITALS (51 sets, daily range): BP systolic 91–166; BP diastolic 55–108; TEMP 97.7–98; O2SAT 97–98
[2024-06-25 04:55] LABS: BASO % 0.2 % (0.0-1.0); EOS # 0.1 10^3/uL (0.0-0.5); EOS % 1.3 % (0.0-3.0); HEMATOCRIT 29.4 % (42.0-52.0); HEMOGLOBIN 10.2 g/dl (13.5-17.5); LYMPH # 0.7 10^3/uL (1.5-5.0); LYMPH % 13.2 % (24.0-44.0); MEAN CORPUSCULAR HEMOGLOBIN 32.1 pg (27.0-33.0); MEAN CORPUSCULAR HGB CONC 34.7 g/dl (32.0-36.5); MEAN CORPUSCULAR VOLUME 92.5 fl (80.0-96.0); MONO # 0.6 10^3/uL (0.0-0.8); MONO % 11.4 % (2.0-8.0); NEUTROPHILS % 73.5 % (36.0-66.0); PLATELET COUNT, AUTOMATED 333 10^3/uL (150-450); RED BLOOD COUNT 3.18 10^6/uL (4.30-6.10); WHITE BLOOD COUNT 5.4 10^3/uL (4.0-10.0)
[2024-06-25 05:25] LABS: ALBUMIN 2.7 G/DL (3.2-5.2); ALKALINE PHOSPHATASE 79 U/L (46-116); ALT/SGPT 21 U/L (7.0-40); AST/SGOT 29 U/L (<34); BILIRUBIN,TOTAL 0.5 MG/DL (0.3-1.2); BLOOD UREA NITROGEN 18 MG/DL (9-23); CALCIUM LEVEL 8.2 MG/DL (8.3-10.6); CARBON DIOXIDE LEVEL 28 MMOL/L (20-31); CHLORIDE LEVEL 93 MMOL/L (98-107); CREATININE FOR GFR 1.07 MG/DL (0.70-1.30); GLOMERULAR FILTRATION RATE > 60.0 (>49); GLUCOSE, FASTING 100 MG/DL (74-106); POTASSIUM SERUM 3.6 MMOL/L (3.5-5.1); SODIUM LEVEL 124 MMOL/L (136-145); TOTAL PROTEIN 6.3 G/DL (5.7-8.2)
[2024-06-25] MEDS: ASPIRIN 81MG CHEW TABLET GT SCH (09:29)
[2024-06-25 12:46] LABS: BLOOD UREA NITROGEN 17 MG/DL (9-23); CALCIUM LEVEL 8.8 MG/DL (8.3-10.6); CARBON DIOXIDE LEVEL 27 MMOL/L (20-31); CHLORIDE LEVEL 94 MMOL/L (98-107); CREATININE FOR GFR 1.08 MG/DL (0.70-1.30); GLOMERULAR FILTRATION RATE > 60.0 (>49); GLUCOSE, FASTING 99 MG/DL (74-106); SODIUM LEVEL 125 MMOL/L (136-145)
[2024-06-25] MEDS: SODIUM CHLORIDE 3% 500 ML IV ONE (12:56)
[2024-06-25 18:19] LABS: BLOOD UREA NITROGEN 15 MG/DL (9-23); CALCIUM LEVEL 8.3 MG/DL (8.3-10.6); CARBON DIOXIDE LEVEL 27 MMOL/L (20-31); CHLORIDE LEVEL 97 MMOL/L (98-107); CREATININE FOR GFR 1.04 MG/DL (0.70-1.30); GLOMERULAR FILTRATION RATE > 60.0 (>49); GLUCOSE, FASTING 100 MG/DL (74-106); POTASSIUM SERUM 3.8 MMOL/L (3.5-5.1); SODIUM LEVEL 131 MMOL/L (136-145)
[2024-06-25 20:43] LABS: OSMOLALITY URINE 148 MOSM/KG (50-1400)
[2024-06-25 20:59] LABS: SODIUM,RANDOM URINE 26 MMOL/L
[2024-06-26] VITALS (15 sets, daily range): BP systolic 98–134; BP diastolic 59–74; TEMP 98–99.7; O2SAT 91–97
[2024-06-26 00:39] LABS: BLOOD UREA NITROGEN 15 MG/DL (9-23); CALCIUM LEVEL 8.4 MG/DL (8.3-10.6); CARBON DIOXIDE LEVEL 27 MMOL/L (20-31); CHLORIDE LEVEL 97 MMOL/L (98-107); CREATININE FOR GFR 1.02 MG/DL (0.70-1.30); GLOMERULAR FILTRATION RATE > 60.0 (>49); GLUCOSE, FASTING 91 MG/DL (74-106); POTASSIUM SERUM 3.6 MMOL/L (3.5-5.1); SODIUM LEVEL 132 MMOL/L (136-145)
[2024-06-26 06:27] LABS: HEMATOCRIT 31.3 % (42.0-52.0); HEMOGLOBIN 10.8 g/dl (13.5-17.5); MEAN CORPUSCULAR HEMOGLOBIN 32.1 pg (27.0-33.0); MEAN CORPUSCULAR HGB CONC 34.5 g/dl (32.0-36.5); MEAN CORPUSCULAR VOLUME 93.2 fl (80.0-96.0); PLATELET COUNT, AUTOMATED 361 10^3/uL (150-450); RED BLOOD COUNT 3.36 10^6/uL (4.30-6.10); WHITE BLOOD COUNT 5.5 10^3/uL (4.0-10.0)
[2024-06-26 06:48] LABS: BLOOD UREA NITROGEN 14 MG/DL (9-23); CALCIUM LEVEL 8.5 MG/DL (8.3-10.6); CARBON DIOXIDE LEVEL 28 MMOL/L (20-31); CHLORIDE LEVEL 101 MMOL/L (98-107); CREATININE FOR GFR 0.96 MG/DL (0.70-1.30); GLOMERULAR FILTRATION RATE > 60.0 (>49); GLUCOSE, FASTING 94 MG/DL (74-106); POTASSIUM SERUM 3.5 MMOL/L (3.5-5.1); SODIUM LEVEL 134 MMOL/L (136-145)
[2024-06-27] VITALS (10 sets, daily range): BP systolic 108–123; BP diastolic 59–68; TEMP 98.3–99.9; O2SAT 96–99
[2024-06-27 06:45] LABS: BASO % 0.1 % (0.0-1.0); EOS % 0.4 % (0.0-3.0); HEMATOCRIT 32.5 % (42.0-52.0); LYMPH # 0.6 10^3/uL (1.5-5.0); LYMPH % 7.9 % (24.0-44.0); MEAN CORPUSCULAR HEMOGLOBIN 31.9 pg (27.0-33.0); MEAN CORPUSCULAR HGB CONC 33.8 g/dl (32.0-36.5); MEAN CORPUSCULAR VOLUME 94.2 fl (80.0-96.0); MONO # 0.9 10^3/uL (0.0-0.8); NEUTROPHILS # 5.9 10^3/uL (1.5-8.5); NEUTROPHILS % 79.1 % (36.0-66.0); PLATELET COUNT, AUTOMATED 385 10^3/uL (150-450); RED BLOOD COUNT 3.45 10^6/uL (4.30-6.10); WHITE BLOOD COUNT 7.5 10^3/uL (4.0-10.0)
[2024-06-27 07:11] LABS: BLOOD UREA NITROGEN 18 MG/DL (9-23); CALCIUM LEVEL 8.5 MG/DL (8.3-10.6); CARBON DIOXIDE LEVEL 27 MMOL/L (20-31); CHLORIDE LEVEL 97 MMOL/L (98-107); CREATININE FOR GFR 0.84 MG/DL (0.70-1.30); GLOMERULAR FILTRATION RATE > 60.0 (>49); GLUCOSE, FASTING 88 MG/DL (74-106); MAGNESIUM LEVEL 1.8 MG/DL (1.8-2.4); POTASSIUM SERUM 3.6 MMOL/L (3.5-5.1); SODIUM LEVEL 132 MMOL/L (136-145)
[2024-06-27] MEDS: SODIUM CHLORIDE 1 GM TAB PO SCH (09:00)
[2024-06-27] MEDS: ENOXAPARIN 40MG/0.4ML SYRINGE (J1650 PER 10MG) SC SCH (09:12)
[2024-06-27] MEDS ORDERED: DEXTROSE 50% 50ML SYRINGE IV PRN (11:05)
[2024-06-27] MEDS: NS 1,000 ML IV SCH (11:45)
[2024-06-27] MEDS ORDERED: PROHANCE 279.3MG/ML 15ML VIAL As Ordered ONE (12:51)
[2024-06-27] MEDS ORDERED: PROHANCE 279.3MG/ML 5ML VIAL As Ordered ONE (12:51)
[2024-06-28] MEDS: dexAMETHasone 4 MG TAB PO SCH
[2024-06-28 00:14] VITALS: BP 98/46; TEMP 98.8; O2SAT 98
[2024-06-28 04:33] VITALS: BP 126/59; TEMP 99.4; O2SAT 97
[2024-06-28 05:33] LABS: BLOOD UREA NITROGEN 19 MG/DL (9-23); CALCIUM LEVEL 8.4 MG/DL (8.3-10.6); CARBON DIOXIDE LEVEL 26 MMOL/L (20-31); CHLORIDE LEVEL 102 MMOL/L (98-107); CREATININE FOR GFR 0.84 MG/DL (0.70-1.30); GLOMERULAR FILTRATION RATE > 60.0 (>49); GLUCOSE, FASTING 97 MG/DL (74-106); MAGNESIUM LEVEL 1.8 MG/DL (1.8-2.4); POTASSIUM SERUM 3.8 MMOL/L (3.5-5.1); SODIUM LEVEL 134 MMOL/L (136-145)
[2024-06-28 08:14] VITALS: BP 130/63; TEMP 98.7; O2SAT 95
[2024-06-28 11:31] LABS: PSA SCREENING 0.61 NG/ML (< 4.00)
[2024-06-28 12:23] LABS: HIV 1&2 SCREEN NEGATIVE (NEGATIVE)
[2024-06-28 16:00] VITALS: BP 148/75; TEMP 98.2; O2SAT 96
[2024-06-28 20:25] VITALS: BP 167/86; TEMP 99; O2SAT 95
[2024-06-28 23:21] VITALS: BP 148/75; TEMP 98.5; O2SAT 95
[2024-06-29] MEDS: hydrALAZINE 20MG/ML 1ML VIAL IV ONE (00:23)
[2024-06-29 04:17] VITALS: BP 136/67; TEMP 98.4; O2SAT 94
[2024-06-29 05:53] LABS: HEMATOCRIT 33.4 % (42.0-52.0); HEMOGLOBIN 11.5 g/dl (13.5-17.5); MEAN CORPUSCULAR HEMOGLOBIN 32.3 pg (27.0-33.0); MEAN CORPUSCULAR HGB CONC 34.4 g/dl (32.0-36.5); MEAN CORPUSCULAR VOLUME 93.8 fl (80.0-96.0); PLATELET COUNT, AUTOMATED 474 10^3/uL (150-450); RED BLOOD COUNT 3.56 10^6/uL (4.30-6.10); WHITE BLOOD COUNT 7.9 10^3/uL (4.0-10.0)
[2024-06-29 06:21] LABS: BLOOD UREA NITROGEN 26 MG/DL (9-23); CALCIUM LEVEL 8.7 MG/DL (8.3-10.6); CARBON DIOXIDE LEVEL 25 MMOL/L (20-31); CHLORIDE LEVEL 104 MMOL/L (98-107); CREATININE FOR GFR 0.79 MG/DL (0.70-1.30); GLOMERULAR FILTRATION RATE > 60.0 (>49); GLUCOSE, FASTING 128 MG/DL (74-106); MAGNESIUM LEVEL 1.9 MG/DL (1.8-2.4); POTASSIUM SERUM 3.9 MMOL/L (3.5-5.1); SODIUM LEVEL 136 MMOL/L (136-145)
[2024-06-29 07:25] VITALS: BP 143/76; O2SAT 95
[2024-06-29 07:52] VITALS: BP 143/76; TEMP 98.6; O2SAT 96
[2024-06-29] MEDS: ASPIRIN 300 MG SUPP PR SCH (14:21)
[2024-06-29 15:52] VITALS: BP 132/68; TEMP 97.6; O2SAT 96
[2024-06-29 19:59] VITALS: BP 122/73; TEMP 99; O2SAT 95
[2024-06-29] MEDS ORDERED: hydrALAZINE 20MG/ML 1ML VIAL IV ONE (23:00)
[2024-06-30] VITALS (7 sets, daily range): BP systolic 122–160; BP diastolic 60–90; TEMP 98.2–99.1; O2SAT 95–97
[2024-06-30] MEDS: PERMETHRIN 5% CREAM 60 GM TOP ONE (10:27)
[2024-06-30 11:11] LABS: BLOOD UREA NITROGEN 30 MG/DL (9-23); CALCIUM LEVEL 8.5 MG/DL (8.3-10.6); CARBON DIOXIDE LEVEL 27 MMOL/L (20-31); CHLORIDE LEVEL 106 MMOL/L (98-107); CREATININE FOR GFR 0.85 MG/DL (0.70-1.30); GLOMERULAR FILTRATION RATE > 60.0 (>49); GLUCOSE, FASTING 136 MG/DL (74-106); MAGNESIUM LEVEL 1.8 MG/DL (1.8-2.4); POTASSIUM SERUM 3.7 MMOL/L (3.5-5.1); SODIUM LEVEL 138 MMOL/L (136-145)
[2024-07-01] VITALS (11 sets, daily range): BP systolic 116–141; BP diastolic 58–78; TEMP 98–98.9; O2SAT 96–98
[2024-07-01 07:51] LABS: BLOOD UREA NITROGEN 29 MG/DL (9-23); CALCIUM LEVEL 8.6 MG/DL (8.3-10.6); CARBON DIOXIDE LEVEL 27 MMOL/L (20-31); CHLORIDE LEVEL 109 MMOL/L (98-107); CREATININE FOR GFR 0.91 MG/DL (0.70-1.30); GLOMERULAR FILTRATION RATE > 60.0 (>49); GLUCOSE, FASTING 84 MG/DL (74-106); MAGNESIUM LEVEL 1.7 MG/DL (1.8-2.4); POTASSIUM SERUM 3.9 MMOL/L (3.5-5.1); SODIUM LEVEL 141 MMOL/L (136-145)
[2024-07-01] MEDS: ASPIRIN 81MG CHEW TABLET PO SCH (09:42)
[2024-07-01] MEDS: NYSTATIN 500,000U/5ML SUSP UDC SS SCH (18:00)
[2024-07-01] MEDS: MAGNESIUM OXIDE 400MG TAB (MAG-OX) PO ONE (18:14)
[2024-07-02] VITALS (18 sets, daily range): BP systolic 122–152; BP diastolic 63–81; TEMP 97.6–100; O2SAT 93–98
[2024-07-02 16:12] LABS: HEMATOCRIT 34.1 % (42.0-52.0); HEMOGLOBIN 11.5 g/dl (13.5-17.5); MEAN CORPUSCULAR HEMOGLOBIN 31.8 pg (27.0-33.0); MEAN CORPUSCULAR HGB CONC 33.7 g/dl (32.0-36.5); MEAN CORPUSCULAR VOLUME 94.2 fl (80.0-96.0); PLATELET COUNT, AUTOMATED 429 10^3/uL (150-450); RED BLOOD COUNT 3.62 10^6/uL (4.30-6.10); WHITE BLOOD COUNT 7.5 10^3/uL (4.0-10.0)
[2024-07-02 16:39] LABS: BLOOD UREA NITROGEN 16 MG/DL (9-23); CALCIUM LEVEL 8.5 MG/DL (8.3-10.6); CARBON DIOXIDE LEVEL 29 MMOL/L (20-31); CHLORIDE LEVEL 104 MMOL/L (98-107); CREATININE FOR GFR 0.79 MG/DL (0.70-1.30); GLOMERULAR FILTRATION RATE > 60.0 (>49); GLUCOSE, FASTING 96 MG/DL (74-106); MAGNESIUM LEVEL 1.5 MG/DL (1.8-2.4); SODIUM LEVEL 135 MMOL/L (136-145)
[2024-07-02] MEDS: MAG SULF 1GM/100ML (MAG RUN) 1 GM in IV 1 EA IV SCH (20:05)
[2024-07-03] VITALS (24 sets, daily range): BP systolic 112–154; BP diastolic 60–75; TEMP 98.9–99.4; O2SAT 95–98
[2024-07-04] VITALS (26 sets, daily range): BP systolic 132–162; BP diastolic 58–80; TEMP 97.7–100; O2SAT 92–98
[2024-07-04 08:24] LABS: BLOOD UREA NITROGEN 17 MG/DL (9-23); CALCIUM LEVEL 8.1 MG/DL (8.3-10.6); CARBON DIOXIDE LEVEL 29 MMOL/L (20-31); CHLORIDE LEVEL 98 MMOL/L (98-107); CREATININE FOR GFR 0.82 MG/DL (0.70-1.30); GLOMERULAR FILTRATION RATE > 60.0 (>49); GLUCOSE, FASTING 90 MG/DL (74-106); MAGNESIUM LEVEL 1.8 MG/DL (1.8-2.4); POTASSIUM SERUM 4.1 MMOL/L (3.5-5.1); SODIUM LEVEL 132 MMOL/L (136-145)
[2024-07-04] MEDS ORDERED: GLUCAGON INJ 1MG VIAL SC PRN (17:00)
[2024-07-04] MEDS ORDERED: DEXTROSE 50% 50ML SYRINGE IV PRN (17:00)
[2024-07-04] MEDS: D5W/0.9% SODIUM CHLORIDE 1,000 ML IV SCH (17:42)
[2024-07-05] VITALS (25 sets, daily range): BP systolic 123–159; BP diastolic 68–76; TEMP 98–100.6; O2SAT 96–99
[2024-07-05 06:18] LABS: EOS % 0.3 % (0.0-3.0); HEMATOCRIT 34.6 % (42.0-52.0); HEMOGLOBIN 11.9 g/dl (13.5-17.5); LYMPH # 0.7 10^3/uL (1.5-5.0); LYMPH % 8.5 % (24.0-44.0); MEAN CORPUSCULAR HEMOGLOBIN 32.1 pg (27.0-33.0); MEAN CORPUSCULAR HGB CONC 34.4 g/dl (32.0-36.5); MEAN CORPUSCULAR VOLUME 93.3 fl (80.0-96.0); MONO # 0.7 10^3/uL (0.0-0.8); NEUTROPHILS # 6.4 10^3/uL (1.5-8.5); NEUTROPHILS % 81.7 % (36.0-66.0); PLATELET COUNT, AUTOMATED 506 10^3/uL (150-450); RED BLOOD COUNT 3.71 10^6/uL (4.30-6.10); WHITE BLOOD COUNT 7.8 10^3/uL (4.0-10.0)
[2024-07-05 06:33] LABS: BLOOD UREA NITROGEN 19 MG/DL (9-23); CALCIUM LEVEL 8.5 MG/DL (8.3-10.6); CARBON DIOXIDE LEVEL 28 MMOL/L (20-31); CHLORIDE LEVEL 99 MMOL/L (98-107); CREATININE FOR GFR 0.77 MG/DL (0.70-1.30); GLOMERULAR FILTRATION RATE > 60.0 (>49); GLUCOSE, FASTING 113 MG/DL (74-106); MAGNESIUM LEVEL 1.7 MG/DL (1.8-2.4); POTASSIUM SERUM 4.1 MMOL/L (3.5-5.1); SODIUM LEVEL 133 MMOL/L (136-145)
[2024-07-05] MEDS: MAGNESIUM OXIDE 400MG TAB (MAG-OX) PO SCH (08:07)
[2024-07-05] MEDS: ACETAMINOPHEN *IV* 1,000 MG in IV 1 EA IV ONE (09:44)
[2024-07-05 10:47] LABS: APPEARANCE, URINE CLOUDY (CLEAR); BACTERIA, URINE AUTO 3+ (NEGATIVE); BILIRUBIN, URINE AUTO NEGATIVE (NEGATIVE); BLOOD, URINE BLOOD 2+ (NEGATIVE); COLOR, URINE YELLOW (YELLOW); GLUCOSE, URINE (UA) AUTO NEGATIVE (NEGATIVE); KETONE, URINE AUTO NEGATIVE (NEGATIVE); LEUKOCYTE ESTERASE, URINE AUTO 3+ (NEGATIVE); MUCUS, URINE SMALL (NEGATIVE); NITRITE, URINE AUTO NEGATIVE (NEGATIVE); PROTEIN, URINE AUTO 1+ mg/dL (NEGATIVE); RBC, URINE AUTO 44 /HPF (0-3); SPECIFIC GRAVITY URINE AUTO 1.019 (1.002-1.035); SQUAMOUS EPITHELIAL CELL UR AU 1 /HPF (0-6); WBC, URINE AUTO TNTC /HPF (0-3)
[2024-07-05] MEDS: MINI IV SCH (14:15)
[2024-07-05] MEDS: ADV IV SCH (14:15)
[2024-07-05] MEDS: DEXTROSE 5% IV SCH (14:15)
[2024-07-05] MEDS: CEFEPIME HCL IV SCH (14:15)
[2024-07-06] VITALS (22 sets, daily range): BP systolic 115–156; BP diastolic 62–92; TEMP 98.6–99.7; O2SAT 96–99
[2024-07-06 18:02] LABS: HEMATOCRIT 33.8 % (42.0-52.0); HEMOGLOBIN 11.4 g/dl (13.5-17.5); MEAN CORPUSCULAR HEMOGLOBIN 31.6 pg (27.0-33.0); MEAN CORPUSCULAR HGB CONC 33.7 g/dl (32.0-36.5); MEAN CORPUSCULAR VOLUME 93.6 fl (80.0-96.0); PLATELET COUNT, AUTOMATED 490 10^3/uL (150-450); RED BLOOD COUNT 3.61 10^6/uL (4.30-6.10); WHITE BLOOD COUNT 6.7 10^3/uL (4.0-10.0)
[2024-07-06 18:25] LABS: BLOOD UREA NITROGEN 18 MG/DL (9-23); CALCIUM LEVEL 8.4 MG/DL (8.3-10.6); CARBON DIOXIDE LEVEL 29 MMOL/L (20-31); CHLORIDE LEVEL 101 MMOL/L (98-107); CREATININE FOR GFR 0.73 MG/DL (0.70-1.30); GLOMERULAR FILTRATION RATE > 60.0 (>49); GLUCOSE, FASTING 108 MG/DL (74-106); POTASSIUM SERUM 4.3 MMOL/L (3.5-5.1); SODIUM LEVEL 132 MMOL/L (136-145)
[2024-07-07] VITALS (12 sets, daily range): BP systolic 130–147; BP diastolic 66–84; TEMP 98.2–99.3; O2SAT 95–100
[2024-07-07] MEDS ORDERED: cefTRIAXone SOD 2 GM in DEXTROSE 5% (D5W) MINI-BAG/ADV 50 ML IV SCH (13:35)
[2024-07-07] MEDS ORDERED: MEROPENEM INJ 2 GM in NS 100 ML IV SCH (13:40)
[2024-07-07] MEDS ORDERED: dexAMETHasone 20MG/5ML VIAL IV ONE (14:00)
[2024-07-07] MEDS: dexAMETHasone 20MG/5ML VIAL IV ONE (15:04)
[2024-07-07] MEDS: MEROPENEM INJ 1 GM in IV 1 EA IV SCH ×2 (15:05→15:48)
[2024-07-07] MEDS: VANCOMYCIN HCL 1,000 MG, VIAL MATE ADAPTER 1 EACH in D5W 250 ML IV ONE (17:29)
[2024-07-07] MEDS: dexAMETHasone 20MG/5ML VIAL IV SCH (21:00)
[2024-07-07] MEDS: VANCOMYCIN 1,250 MG/250 ML IV BAG IV SCH (23:12)
[2024-07-08 03:15] VITALS: BP 131/70; TEMP 97.8; O2SAT 96
[2024-07-08 06:17] LABS: HEMATOCRIT 34.5 % (42.0-52.0); HEMOGLOBIN 11.7 g/dl (13.5-17.5); MEAN CORPUSCULAR HGB CONC 33.9 g/dl (32.0-36.5); MEAN CORPUSCULAR VOLUME 91.5 fl (80.0-96.0); PLATELET COUNT, AUTOMATED 478 10^3/uL (150-450); RED BLOOD COUNT 3.77 10^6/uL (4.30-6.10)
[2024-07-08 06:37] LABS: BLOOD UREA NITROGEN 19 MG/DL (9-23); CALCIUM LEVEL 8.8 MG/DL (8.3-10.6); CARBON DIOXIDE LEVEL 26 MMOL/L (20-31); CHLORIDE LEVEL 100 MMOL/L (98-107); CREATININE FOR GFR 0.72 MG/DL (0.70-1.30); GLOMERULAR FILTRATION RATE > 60.0 (>49); GLUCOSE, FASTING 140 MG/DL (74-106); POTASSIUM SERUM 4.2 MMOL/L (3.5-5.1); SODIUM LEVEL 132 MMOL/L (136-145)
[2024-07-08 08:09] VITALS: O2SAT 95
[2024-07-08 11:45] VITALS: BP 159/83; TEMP 98.2; O2SAT 98
[2024-07-08] MEDS ORDERED: LORazepam 2 MG/ML 1ML VIAL IV PRN (12:35)
[2024-07-11] MEDS: MORPHINE 2 MG/ML 1ML VIAL IV PRN (10:37)
[2024-07-12] MEDS: HYOSCYAMINE SULFATE 0.125 MG SUBL TABLET PO PRN (09:10)
[2024-07-14] MEDS: SCOPOLAMINE 1MG TRANSDERMAL PATCH TOP SCH (12:20)
[2024-07-14] MEDS: MORPHINE 10MG/0.5ML ORAL CONCENTRATE SOLUTION U/D SL PRN (17:57)
[2024-07-14] MEDS: levETIRAcetam 250MG TABLET (KEPPRA) PO SCH (21:02)
[2024-07-16] MEDS: LORazepam 1 MG TAB PO PRN (16:23)
[2024-07-16] MEDS: MORPHINE 10MG/0.5ML ORAL CONCENTRATE SOLUTION U/D SL PRN ×2 (16:23→17:11)
[2024-07-16] MEDS ORDERED: MORPHINE 10MG/0.5ML ORAL CONCENTRATE SOLUTION U/D SL PRN (16:40)
[2024-07-16] MEDS: LORazepam 2 MG/ML 1ML VIAL IM STA (16:44)
[2024-07-16] MEDS ORDERED: LORazepam 2 MG TAB PO PRN (16:45)
[2024-07-16] MEDS: MORPHINE 10MG/0.5ML ORAL CONCENTRATE SOLUTION U/D SL ONE (16:52)
[2024-07-16] MEDS: LORazepam 2 MG/ML 1ML VIAL IM PRN (17:19)
[2024-07-16] MEDS ORDERED: LORazepam 2 MG/ML 1ML VIAL IV PRN (18:45)
[2024-07-16] MEDS: LORazepam 2 MG/ML 1ML VIAL IV STA (18:46)
[2024-07-16] MEDS: MORPHINE 10 MG/ML 1ML VIAL IV ONE (18:50)
[2024-07-16] MEDS: LORazepam 2 MG/ML 1ML VIAL IV PRN (20:05)
[2024-07-16] MEDS: MORPHINE SULFATE INJ 100 MG in NS 90 ML IV SCH (20:06)
[2024-07-18 21:16] VITALS: BP 159/83; TEMP 98.2
[2024-07-19 02:03] VITALS: O2SAT 98
[2024-07-19] MEDS ORDERED: levETIRAcetam INJection 1,000 MG in D5W 100 ML IV SCH (09:00)
[2024-07-19] MEDS: levETIRAcetam INJection 1,000 MG in D5W 100 ML IV SCH (13:18)
[2024-07-23] MEDS: fentaNYL 100 MCG/HR PATCH TOP SCH (11:12)
[2024-07-24] MEDS: fentaNYL 100 MCG/HR PATCH TOP ONE (16:16)
[2024-07-24] MEDS: MORPHINE 10 MG/ML 1ML VIAL IV PRN (16:22)
[2024-07-25] MEDS: MORPHINE 10 MG/ML 1ML VIAL IV PRN (11:18)
[2024-07-26] MEDS: MORPHINE 10 MG/ML 1ML VIAL IV PRN (04:02)
[2024-07-26] MEDS: fentaNYL 100 MCG/HR PATCH TOP SCH (11:00)
[2024-07-26] MEDS: FENTANYL REMOVAL DOCUMENTATION MISC XX SCH (11:01)
== END 2024-07-27 02:48 | disposition expired | DRG 698 ==
LOC: M ED 11:00 → M ED INP 16:22 → M PCU 19:46 → M ICU 06-24 16:03 → M PCU 06-27 18:04 → M MSPAV 07-08 22:34
PROVIDERS: ADMIT Internal Medicine; ATTEND Internal Medicine
PROC: 0BH17EZ Insertion of Endotracheal Airway into Trachea, Via Natural or Artificial Opening (ICD-10-PCS; principal; 2024-06-24)
PROC: 5A1935Z Respiratory Ventilation, Less than 24 Consecutive Hours (ICD-10-PCS; 2024-06-24)
PROC: B246ZZZ Ultrasonography of Right and Left Heart (ICD-10-PCS; 2024-06-26)
PROC: 0HB5XZX Excision of Chest Skin, External Approach, Diagnostic (ICD-10-PCS; 2024-07-01)
DX: T83.511A Infection and inflammatory reaction due to indwelling urethral catheter, initial encounter (principal); I63.511 Cerebral infarction due to unspecified occlusion or stenosis of right middle cerebral artery; G93.6 Cerebral edema; G93.41 Metabolic encephalopathy; G00.9 Bacterial meningitis, unspecified; C79.31 Secondary malignant neoplasm of brain; R41.4 Neurologic neglect syndrome; E22.2 Syndrome of inappropriate secretion of antidiuretic hormone; R47.01 Aphasia; G81.92 Hemiplegia, unspecified affecting left dominant side; C77.1 Secondary and unspecified malignant neoplasm of intrathoracic lymph nodes; C77.3 Secondary and unspecified malignant neoplasm of axilla and upper limb lymph nodes; I10 Essential (primary) hypertension; E78.5 Hyperlipidemia, unspecified; R41.82 Altered mental status, unspecified; R62.7 Adult failure to thrive; Z51.5 Encounter for palliative care; Z66 Do not resuscitate; N39.0 Urinary tract infection, site not specified; Y84.6 Urinary catheterization as the cause of abnormal reaction of the patient, or of later complication, without mention of misadventure at the time of the procedure; D64.9 Anemia, unspecified; F71 Moderate intellectual disabilities; C43.59 Malignant melanoma of other part of trunk; R56.9 Unspecified convulsions; R13.10 Dysphagia, unspecified; B96.89 Other specified bacterial agents as the cause of diseases classified elsewhere; R41.89 Other symptoms and signs involving cognitive functions and awareness; B95.2 Enterococcus as the cause of diseases classified elsewhere; B96.20 Unspecified Escherichia coli [E. coli] as the cause of diseases classified elsewhere; Z79.82 Long term (current) use of aspirin; Z79.899 Other long term (current) drug therapy; Z79.02 Long term (current) use of antithrombotics/antiplatelets; Z88.0 Allergy status to penicillin

== ENCOUNTER 2024-07-04 10:06 | Outpatient (RCR) | payer MEDICARE, MEDICAID ==
[~2024-07-04 10:06] MED LIST changes: +ARIP10TA32 PO; -ARIP10TA63 PO; +BARIUM SULFATE 700 MG TABLET (E-Z-DISK) As Ordered ONE; +E-Z-PAQUE 96% w/w SUSP 176GM BTL As Ordered ONE; +OLAN2.5T25 PO; -OLAN2.5T53 PO; +VARIBAR NECTAR 40% w/v 240ML SUSP BTL As Ordered ONE; +VARIBAR PUDDING 40% w/v 230ML TUBE As Ordered ONE; +ZYPR2.5T2 PO
== END 2024-07-11 ==
LOC: M ONCR 10:06
PROVIDERS: ATTEND General Practice
DX: Z51.0 Encounter for antineoplastic radiation therapy (principal); C79.31 Secondary malignant neoplasm of brain